=== PATIENT | female | born 1975 | race Caucasian/White ===

== ENCOUNTER → 2017-06-24 08:55 | Outpatient (CLI) | payer BC, SELFPAY ==
--- NOTE | 2017-06-24 08:59 | US_ITS ---
STUDY: THYROID ULTRASOUND REASON FOR EXAM: Female, 42 years old. Multinodular goiter. TECHNIQUE: Ultrasound evaluation of the thyroid was performed with real-time and static geronimo-scale imaging. COMPARISON: 11/28/2016. FINDINGS: RIGHT LOBE: The right lobe of the thyroid gland measures 4.9 x 1.7 x 1.8 cm. There is a homogeneous echotexture. There are no demonstrated solid, cystic or complex lesions. LEFT LOBE: The left lobe of the thyroid gland measures 5.2 x 2.3 x 2.9 cm. There is a homogeneous echotexture. In the mid and lower pole of the left lobe, there is a complex cystic and solid nodule which measures 2.5 x 2.0 x 2.3 cm, which is not significantly changed in size from previous study. ISTHMUS: The isthmus measures 6 mm. There is a 4 mm cystic and solid nodule in the isthmus, not significantly different in overall size from previous exam. . The regional lymph nodes are normal. US/Thyroid IMPRESSION: 2.5 cm complex solid and cystic nodule in the left lobe of the thyroid gland is not sufficiently changed in size from previous study. Would still consider fine-needle aspiration biopsy for further evaluation, if not previously done. 4 mm nodule in the isthmus is stable. Electronically Signed: Calvin Harrington MD at 0:46 EDT , Service support ,
== END ==
PROVIDERS: Family Provider Family Medicine; PCP Family Medicine; Visit Provider Otolaryngology
DX: E04.1 Nontoxic single thyroid nodule (principal)
CPT/HCPCS: 76536

== ENCOUNTER → 2017-08-05 16:00 | Outpatient (CLI) | payer BC, SELFPAY ==
[2017-08-09 10:38] LABS: HPV Reflexed? NOT INDICATED
== END ==
PROVIDERS: Visit Provider Obstetrics & Gynecology
DX: Z12.4 Encounter for screening for malignant neoplasm of cervix (principal)
CPT/HCPCS: 88175; G0145

== ENCOUNTER → 2017-09-14 10:24 | Outpatient (CLI) | payer BC, SELFPAY ==
--- NOTE | 2017-09-14 10:25 | BI_ITS ---
MAMMOGRAPHY - BILATERAL SCREENING 3-D JESUS SYNTHESIS REASON FOR EXAM: Female, 42 years old. Bilateral Screening 3-D tomosynthesis PERTINENT HISTORY: Grandmother with breast cancer.. TECHNIQUE: 2-D mammograms and 3-D Jesus synthesis of the breast (s) were performed. CAD was performed. COMPARISON: 11/25/2013 FINDINGS: The breast composition is composed of scattered fibroglandular density. Scattered benign calcifications are seen. No dense spiculated masses or suspicious microcalcifications are identified. No architectural distortion is identified. There is no skin thickening or retraction. There has been no significant change since the prior study. BI/SCREENING MAMM (CAD), BILAT IMPRESSION: No mammographic signs of malignancy. Routine yearly mammograms recommended. ASSESSMENT CATEGORY: BIRADS Category 1: Negative. A letter regarding these results will be sent to the patient by the facility within 30 days. FOLLOW UP RECOMMENDATION: Yearly follow up mammogram recommended. (A) Approximately 10% of breast cancers are not detected by mammography. A normal mammogram should not delay biopsy of a clinically suspicious abnormality. Electronically Signed: Jayden Venegas MD at 8:10 EDT , Service support ,
== END ==
PROVIDERS: Family Provider Family Medicine; PCP Family Medicine; Visit Provider Obstetrics & Gynecology
DX: Z12.31 Encounter for screening mammogram for malignant neoplasm of breast (principal)
CPT/HCPCS: 77063; 77067

== ENCOUNTER 2017-09-21 14:59 | Outpatient (RCR) | payer BC, SELFPAY ==
--- NOTE | 2017-09-21 17:32 | HP.OTEVAL_ITS ---
Patient's Visit Information CASSANDRA MACKENZIE is a 42 year old F, referred to Occupational Therapy by Sharad Dawson Jr., MD, with a diagnosis of CTS, inflammatory arthritis, hand weakness, lymphedema. Date of Evaluation: 09/21/17 Occupational Therapist: Reyna Prasad, KADENR/Andry, CHT - Subjective Subjective: Pt states she believes she has been sent to OT for bilateral hand pain/weakness. PT states weakness and pain in bilateral hands in the past two years. pt reports CTS for 10+ years ago. Pt states she does sleep in bilateral wrist braces when hands are more symptomatic. 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 Pt states she has worked there for 4.5 years. - Pain right hand 2 Pain Intensity Range: 1, 3 left hand 2 Pain Intensity Range: 1, 3 - Strength [employer]eter: right 45# left 45# Lateral Pinch: right 14# left 12# Tripod Pinch: right 11# left 11# Strength Comments: pain with resistance- - Edema Volumeter: right 650ML left 600 ml - Sensation Thumb: right 3.22 left 2.83 Index: right 2.83 left 2.83 Middle: right 2.83 left 2.83 Ring: right 2.83 left 2.83 Little: right 2.83 left 2.83 - Carpal Tunnel Syndrome Total Score of Symptom & Functional Sections: 32 - Goals Demonstrate adequate knowledge skin care/prec by 2nd week: Yes Demonstrate adequate knowledge therapeutic exercises by d/c: Yes Voice need to replace compression garment every 4-6mo by dc: Yes - Rehabilitation General Assessment: Pt demo need for ed. on CTS, joint protection and lymphedema - Therapist ed. pt on CTS and need for ortho consultation due to 10+ hx of CTS and the conservative methods have failed ( stretches, wrist braces). Therapist ed. pt on joint protection and given handouts on protection, ad. eq for joints. pt demo understanding and states she will adj. her kitchen, home, and office area. pt ed. on use of compression socks for bilateral LE- to cont. with 20-30mmHg and to replace compression hose every 4-6 months. pt also ed. on ex to assist with mtg of LE swelling- (ROM, aquatic, biking) pt given HEP and will call if she has questions. Rehabilitation Potential: Good - Anticipated Interventions Anticipated Interventions: A/AAROM/PROM, Modalities, Joint Protection/Energy Conservation, Ergonomic Education, Education re assistive Equipment, Education re Diagnosis, Education re Life-long lymphedema Management, Education re Skin Care and Precautions, Education re Correct Donning Tech,Care&Wearing Sched Comp Garments - Visit Plan TEXT: Thank you for the opportunity to evaluate your patient. For Medicare and Medicare HMO plans, please review the plan of care and approve it. It will need to be FAXED BACK to us at [phone] for Medicare purposes. Please let me know if there are questions or concerns regarding this plan of care. Physician Signature: Date:
--- NOTE | 2017-09-24 11:35 | HP.PTEVAL ---
Patient's Visit Information CASSANDRA MACKENZIE is a 42 year old F referred to Physical Therapy by Sharad Dawson Jr., MD with a diagnosis of . Date of Evaluation: 09/24/17 Physical Therapist: Marhsal Alvarado - Visit Plan Frequency: 2x /Week Duration: 4 Weeks Plan: Start with HS, quad, hip flexors, hip ER stretching. BLE strengthening and core strengthening with pain free movements to increase pt. carry over. Progress to fucntional strengthening as tolerated. - Subjective Subjective: Pt is here today for her initial evaluation with diagnosis of cervicalgia, dorsalgia, pain in B feet, and history of fibromyalsia. Pt. was diagnosed with RA ~6 years ago, but never had the RA factor. PT. is now seeing new critical care rn who is doing more testing. Pt. reports having pain in hips, knees, feet. Pt. reports now taking a lasix which has helped with her edema. Pt. reports wanting to be activite, but get depressed about her symptoms and turns to sugar. Pt. is hopeful to get back to recreational walking and exercises to increase healthy lifestyle. Pt. has a desire to be more active and she knows that exercises can be helpful in order to increase tolerance to general mobility. - Pain B knee Pain Intensity (Out of 10): 3 Pain Intensity Range: 1, 8 B hips Pain Intensity (Out of 10): 3 Pain Intensity Range: 1, 8 B feet Pain Intensity (Out of 10): 3 Pain Intensity Range: 1, 8 - Objective POSTURE: Pt. is over wt. Pt. has increased hip ER, increased B knee valgus postioning, anterior tilted pelvis. Pt. has rounded shoulders and FH posture. PALPATION: Pt. has minimal tenderness at B patellar tendons, no greater trochanter pain, pt. has some medial longitudinal arch pain as well, bilaterally. NEUROLOGICAL: all intact without issues. ROM: Pt. has tight HS bilaterally. Pt. has tight hip flexor length. Pt. has normal hip adductor legnth, but tight hip ER motion as well. Pt. reports no pain with stretching, but is tight. Pt. has normal knee ROM bilaterally, no crepitus noted this date with motion. Pt. has normal ankle mobility as well. MMT- Core strength- poor. RLE: hip- fleixon 4/5, abd 4-/5, ext 4/5; knee- ext 4+/5, flexion 4/5; ankle 4+/5 through except 5/5 plantar flexion. LLE: hip- flexion 4/5, abd 4/5, ext 4/5; knee- ext 4+/5, flexion 4/5; ankle 4+/5 troughout except 5/5 PF. GAIT: PT. has increased femoral IR in stance phase, genu valgum noted bilaterally, increased lateral hip translation. Pt. has normal ankle positioning, minimal pes planus. STAIRS: Pt. is able to complete, but has functional weakness with descending, use of BHR to complete. - Goals Goal 1:: Pt. to be I with HEP Goal Time Frame: 4-6 Weeks Goal 2:: Pt. to have increased HS length to 80deg bilaterally to allow for better pelvic positioning Goal Time Frame: 4-6 Weeks Goal 3:: Pt. to have increased hip ER and and hip ext mobility by 25% Goal 4:: Pt. to have increased BLE strength by 1/2 grade of all effected musculature to reduce stress applied to BLE joints with all functonal mobility. Goal Time Frame: 4-6 Weeks Goal 5:: Pt. to have increased stability with descending steps with reciprocal pattern no reduced signs of functional weakness. Goal Time Frame: 4-6 Weeks Goal 6:: Pt. to have decreased pain in BLEs to 1/10 with walking allowing for increased tolerance to healthier life style. Goal Time Frame: 4-6 Weeks - Rehabilitation Potential Rehabilitation Potential: Good - Anticipated Interventions Patient/Client Instruction: Educate patient on: Condition, Plan of Care, Risk Factors, Benefits of Fitness Program For the Purpose of:: To improve health and function, To foster healthy habits, To improve decision making, To facilitate caregiver knowledge, To improve self management, To prevent re-injury Therapeutic Exercise to Include: Strength training, Power training, Endurance training, Body mechanics, Postural training, Flexibilty training, Gait and locomotor training, Passive ROM, Active ROM, Dynamic Lumbar Stabilization For the Purpose of:: To decrease pain, To increase ROM, To improve nutrient delivery to tissue, To increase oxygenation perfusion, To improve muscle performance and motor function, To improve health of tissue, To decrease soft tissue restriction, To increase flexibility/ROM Thank you for the opportunity to evaluate your patient. For Medicare and Medicare HMO plans, please review the plan of care and approve it. It will need to be FAXED BACK to us at [phone] for Medicare purposes. Please let me know if there are questions or concerns regarding this plan of care. Physician Signature: Date:
--- NOTE | 2018-03-16 17:22 | HP.PT.NRP ---
HP - Discharge Summary (1) - Patient Information CASSANDRA MACKENZIE was seen in my office for initial evaluation on 09/21/17. The following Plan of Care was established for this patient: Initial Frequency: 2x /Week Initial Duration: 4 Weeks - Anticipated Interventions Patient/Client Instruction: Educate patient on: Condition, Plan of Care, Risk Factors, Benefits of Fitness Program For the Purpose of:: To improve health and function, To foster healthy habits, To improve decision making, To facilitate caregiver knowledge, To improve self management, To prevent re-injury Therapeutic Exercise to Include: Strength training, Power training, Endurance training, Body mechanics, Postural training, Flexibilty training, Gait and locomotor training, Passive ROM, Active ROM, Dynamic Lumbar Stabilization For the Purpose of:: To decrease pain, To increase ROM, To improve nutrient delivery to tissue, To increase oxygenation perfusion, To improve muscle performance and motor function, To improve health of tissue, To decrease soft tissue restriction, To increase flexibility/ROM This patient was last seen in our office 09/21/17. Pertinent comments regarding their Physical therapy will appear below: Pt. was seen for her initial evaluation, but did not return to any future visits. Pt. will be DC from PT at this point in time. At this point I will be discontinuing this patient from physical therapy. I would be happy to see this patient again in the future if found appropriate by the physician. Thank you! Marshal Alvarado DPT
== END 2017-09-21 19:00 | disposition home or self-care (01) ==
LOC: PT 14:59
PROVIDERS: Family Provider Family Medicine; PCP Family Medicine; Visit Provider Internal Medicine Rheumatology
DX: M54.2 Cervicalgia (principal); M54.9 Dorsalgia, unspecified; R20.2 Paresthesia of skin; G56.03 Carpal tunnel syndrome, bilateral upper limbs; M79.671 Pain in right foot; M79.672 Pain in left foot; M89.9 Disorder of bone, unspecified; M94.9 Disorder of cartilage, unspecified; M19.071 Primary osteoarthritis, right ankle and foot; M19.072 Primary osteoarthritis, left ankle and foot; M25.511 Pain in right shoulder; G89.29 Other chronic pain; M25.512 Pain in left shoulder; M75.21 Bicipital tendinitis, right shoulder; M75.22 Bicipital tendinitis, left shoulder; M75.50 Bursitis of unspecified shoulder; M25.531 Pain in right wrist; M25.532 Pain in left wrist; M79.641 Pain in right hand; M79.642 Pain in left hand; R29.898 Other symptoms and signs involving the musculoskeletal system; R60.0 Localized edema; C54.1 Malignant neoplasm of endometrium; R70.0 Elevated erythrocyte sedimentation rate; Z87.39 Personal history of other diseases of the musculoskeletal system and connective tissue; R53.83 Other fatigue; Z79.1 Long term (current) use of non-steroidal anti-inflammatories (NSAID); F41.9 Anxiety disorder, unspecified; R79.82 Elevated C-reactive protein (CRP); M79.7 Fibromyalgia; G43.909 Migraine, unspecified, not intractable, without status migrainosus; K21.9 Gastro-esophageal reflux disease without esophagitis; M19.90 Unspecified osteoarthritis, unspecified site
CPT/HCPCS: 97162; 97166

== ENCOUNTER → 2017-10-21 08:05 | Outpatient (CLI) | payer BC, SELFPAY ==
[2017-10-21 10:35] LABS: Erythrocyte Sedimentation Rate 20 mm/hr (0-20)
[2017-10-21 10:37] LABS: Hematocrit 40.9 % (37-47); Hemoglobin 12.7 g/dl (12.0-15.0); Mean Corp Hgb Conc 31.1 g/gl (32-36); Mean Corpuscular Volume 77.2 fL (81-99); Mean Platelet Vol. 11.1 fl (6.2-12.0); Platelet Count 201 K/mm3 (150-450); RBC Distribution Width CV 16.5 % (11.6-14.6); White Blood Count 6.1 K/mm3 (4.4-11.0)
[2017-10-21 10:39] LABS: Scan Indicated on CBC? Y/N NO
[2017-10-21 10:50] LABS: AST(SGOT) 23 U/L (15-37); Alanine Aminotransfer ALT/SGPT 51 U/L (13-56); CRP 6.26 mg/L (0.0-3.0); Creatinine, Serum 0.76 mg/dL (0.55-1.02); EST Glomerular Filtration Rate 88 mL/min (>60); Est Glom Filt Rate - Afr Amer 106 mL/min (>60); Uric Acid 3.5 mg/dL (2.6-6.0)
[2017-10-21 11:58] LABS: Vitamin B12 577 pg/mL (211-911); Vitamin D,25 Hydroxy 21.6 ng/mL (29.95-100.01)
== END ==
PROVIDERS: Family Provider Family Medicine; PCP Family Medicine; Visit Provider Family Medicine
DX: E55.9 Vitamin D deficiency, unspecified (principal); E53.8 Deficiency of other specified B group vitamins; M10.9 Gout, unspecified; R70.0 Elevated erythrocyte sedimentation rate; R79.82 Elevated C-reactive protein (CRP); M79.7 Fibromyalgia; R60.0 Localized edema; I89.0 Lymphedema, not elsewhere classified; R73.9 Hyperglycemia, unspecified; G56.03 Carpal tunnel syndrome, bilateral upper limbs; M19.071 Primary osteoarthritis, right ankle and foot; M19.072 Primary osteoarthritis, left ankle and foot; M47.814 Spondylosis without myelopathy or radiculopathy, thoracic region; M41.34 Thoracogenic scoliosis, thoracic region; M51.34 Other intervertebral disc degeneration, thoracic region; M77.32 Calcaneal spur, left foot; Z79.1 Long term (current) use of non-steroidal anti-inflammatories (NSAID); Z79.899 Other long term (current) drug therapy; Z87.39 Personal history of other diseases of the musculoskeletal system and connective tissue
CPT/HCPCS: 36415; 82306; 82565; 82607; 84450; 84460; 84550; 85027; 85652; 86140

== ENCOUNTER → 2017-12-28 15:17 | Outpatient (CLI) | payer BC, SELFPAY ==
--- NOTE | 2017-12-28 15:20 | RAD_ITS ---
STUDY: X-RAY - LEFT FOOT CLINICAL: Female, 42 years old. Lateral foot pain. Proximal fourth and fifth metatarsal pain and swelling. TECHNIQUE: 3 view(s) of the foot. COMPARISON: None. FINDINGS: Normal talus, calcaneus, and tarsal bones. Plantar calcaneal bone spur. 5 mm old avulsion fracture adjacent to the superior aspect of the navicular versus normal variant. Normal visualized subtalar, talonavicular, calcaneocuboid, tarsal and tarsometatarsal articulations. Normal metatarsi. Normal metatarsophalangeal joint of the great toe. Normal tibial and fibular sesamoid bones. Normal interphalangeal joint of the great toe. Normal phalanges of the great toe. Normal second through fifth metatarsophalangeal joints. Normal interphalangeal joints and phalanges of the lesser toes. The soft tissue structures are unremarkable. RAD/Foot min 3 Views IMPRESSION: No acute findings as above. Electronically Signed: Santana Craig MD at 7:59 EST , Service support ,
--- NOTE | 2017-12-28 15:20 | RAD_ITS ---
STUDY: X-RAY - LEFT ANKLE REASON FOR EXAM: Female, 42 years old. Trauma TECHNIQUE: 3 view(s) of the ankle. COMPARISON: None. FINDINGS: Normal visualized distal tibia and fibula. There is a small spur arising from the medial malleolus. Normal tibiotalar articulation and ankle mortise. Calcaneal spurs are present. There is a small chip fracture arising from the dorsal aspect of the navicular. The visualized subtalar, talonavicular, calcaneocuboid and tarsal articulations are normal. There is circumferential soft tissue swelling of the left ankle region. RAD/Ankle min 3 Views IMPRESSION: Nondisplaced chip fracture arising from dorsal aspect of the navicular. Small spur arising from the medial malleolus. Calcaneal spurs. Circumferential soft tissue swelling of the left ankle region. Electronically Signed: Daljit Kidd MD at 16:13 EST , Service support ,
== END ==
PROVIDERS: Family Provider Family Medicine; PCP Family Medicine; Referring Provider Family Medicine; Visit Provider Family Medicine
DX: M79.672 Pain in left foot (principal); M25.572 Pain in left ankle and joints of left foot
CPT/HCPCS: 73610; 73630

== ENCOUNTER → 2018-01-26 15:52 | Outpatient (CLI) | payer BC, SELFPAY ==
[2018-01-26 17:49] LABS: Hematocrit 40.3 % (37-47); Hemoglobin 12.7 g/dl (12.0-15.0); Mean Corp Hgb Conc 31.5 g/gl (32-36); Mean Corpuscular Hgb 25.1 pg (27.0-32.0); Mean Corpuscular Volume 79.8 fL (81-99); Mean Platelet Vol. 11.1 fl (6.2-12.0); Platelet Count 223 K/mm3 (150-450); RBC Distribution Width CV 16.5 % (11.6-14.6); RBC Distribution Width SD 47.2 fl (35.1-43.9); Red Blood Count 5.05 M/mm3 (4.2-5.4); White Blood Count 9.3 K/mm3 (4.4-11.0)
[2018-01-26 17:53] LABS: Scan Indicated on CBC? Y/N NO
[2018-01-26 18:02] LABS: AST(SGOT) 23 U/L (15-37); Alanine Aminotransfer ALT/SGPT 45 U/L (13-56); Creatinine, Serum 0.76 mg/dL (0.55-1.02); EST Glomerular Filtration Rate 87 mL/min (>60); Est Glom Filt Rate - Afr Amer 106 mL/min (>60); Uric Acid 3.3 mg/dL (2.6-6.0)
[2018-01-26 18:12] LABS: Vitamin D,25 Hydroxy 41.3 ng/mL (29.95-100.01)
[2018-01-26 18:15] LABS: Erythrocyte Sedimentation Rate 24 mm/hr (0-20)
[2018-01-29 11:55] LABS: Vitamin D 1,25-Dihydroxy 71.7 pg/mL (19.9-79.3)
== END ==
PROVIDERS: Family Provider Family Medicine; PCP Family Medicine; Referring Provider Internal Medicine Rheumatology; Visit Provider Internal Medicine Rheumatology
DX: M10.9 Gout, unspecified (principal); M77.32 Calcaneal spur, left foot; M15.9 Polyosteoarthritis, unspecified; M47.814 Spondylosis without myelopathy or radiculopathy, thoracic region; R79.82 Elevated C-reactive protein (CRP); M79.7 Fibromyalgia; R60.0 Localized edema; I89.0 Lymphedema, not elsewhere classified; E55.9 Vitamin D deficiency, unspecified; G56.03 Carpal tunnel syndrome, bilateral upper limbs; Z79.1 Long term (current) use of non-steroidal anti-inflammatories (NSAID); Z79.899 Other long term (current) drug therapy; Z87.39 Personal history of other diseases of the musculoskeletal system and connective tissue
CPT/HCPCS: 36415; 82306; 82565; 82652; 84450; 84460; 84550; 85027; 85652; 86140

== ENCOUNTER → 2018-02-03 23:24 | Outpatient (CLI) | payer BC, SELFPAY ==
[2018-02-08 15:35] LABS: HPV Reflexed? NOT INDICATED
--- OUTSIDE RECORDS SUMMARY | 2018-03-22 23:05 | XMS RPT_ITS | Summary of Care ---
:1975 Author Organization [facility] Address [address] [place] [address] Phone Care Team Providers Name Role Phone Tala Allen DO Primary Care Provider Reason for Visit Reason Comments Medication Management Encounter Details Date Type Department Care Team Description [facility] G, DO [address] [facility] [address] [facility] [place] [address] [place] [id number] Allergies Active Allergy Reactions Severity Noted Date Comments Codeine Hives 06/12/2009 Other reaction(s): Vomiting Morphine 06/12/2009 Other reaction(s): Mental Status Change Patient passes out from this medication as of this encounter Medications Prescription Sig. Disp. Refills Start Date End Date Status omeprazole 40 MG Cap 07/01/2017 Active capsule BusPIRone HCl 7.5 MG Tab 09/03/2017 Active sumatriptan 100 MG Tab 06/14/2017 Active tablet Probiotic Product Take by mouth. Active (PROBIOTIC-10 PO) Ibuprofen-Famotidine 1 po tid PRN 90 tablet 11 09/08/2017 Active (DUEXIS) 800-26.6 MG TabIndications: Cervicalgia, Dorsalgia, Paresthesia of both hands, Bilateral carpal tunnel syndrome, Bilateral foot pain, Disorder of bone and cartilage, Osteoarthritis of both feet, unspecified osteoarthritis type, Chronic pain of both shoulders, Bilateral biceps tendonitis, Subacromial bursitis, Bilateral wrist pain, Bilateral hand pain, Weakness of both hands, Bilateral lower extremity edema, Lymphedema of both lower extremities, Bilateral temporomandibular joint pain, Malignant neoplasm of endometrium, ESR raised, History of fibromyalgia, History of rheumatoid arthritis, Fatigue, unspecified type, [facility] current use of non-steroidal anti-inflammatories (NSAID), Anxiety, CRP elevated, Fibromyalgia, Migraine without status migrainosus, not intractable, unspecified migraine type, Gastroesophageal reflux disease, esophagitis presence not specified, Inflammatory arthritis potassium chloride 10 1 po q AM PRN 30 capsule 09/08/2017 Active MEQ Cap CRIndications: Cervicalgia, Dorsalgia, Paresthesia of both hands, Bilateral carpal tunnel syndrome, Bilateral foot pain, Disorder of bone and cartilage, Osteoarthritis of both feet, unspecified osteoarthritis type, Chronic pain of both shoulders, Bilateral biceps tendonitis, Subacromial bursitis, Bilateral wrist pain, Bilateral hand pain, Weakness of both hands, Bilateral lower extremity edema, Lymphedema of both lower extremities, Bilateral temporomandibular joint pain, Malignant neoplasm of endometrium, ESR raised, History of fibromyalgia, History of rheumatoid arthritis, Fatigue, unspecified type, 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), Anxiety, CRP elevated, Fibromyalgia, Migraine without status migrainosus, not intractable, unspecified migraine type, Gastroesophageal reflux disease, esophagitis presence not specified, Inflammatory arthritis furOSEmide 20 MG Tab 1 po q AM PRN 30 tablet 09/08/2017 Active tabletIndications: Cervicalgia, Dorsalgia, Paresthesia of both hands, Bilateral carpal tunnel syndrome, Bilateral foot pain, Disorder of bone and cartilage, Osteoarthritis of both feet, unspecified osteoarthritis type, Chronic pain of both shoulders, Bilateral biceps tendonitis, Subacromial bursitis, Bilateral wrist pain, Bilateral hand pain, Weakness of both hands, Bilateral lower extremity edema, Lymphedema of both lower extremities, Bilateral temporomandibular joint pain, Malignant neoplasm of endometrium, ESR raised, History of fibromyalgia, History of rheumatoid arthritis, Fatigue, unspecified type, 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), Anxiety, CRP elevated, Fibromyalgia, Migraine without status migrainosus, not intractable, unspecified migraine type, Gastroesophageal reflux disease, esophagitis presence not specified, Inflammatory arthritis allopurinol 300 MG Tab 1 po q day 30 tablet 09/22/2017 Active tabletIndications: Gouty arthropathy, ESR raised, Elevated erythrocyte sedimentation rate, History of fibromyalgia, History of rheumatoid arthritis, 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), CRP elevated, Fibromyalgia, Elevated C-reactive protein (CRP), Localized edema, [facility] (current) use of non-steroidal anti-inflammatories (nsaid), Lymphedema, not elsewhere classified, Long-term current use of high risk medication other than anticoagulant, Vitamin D deficiency, Hyperglycemia, Hyperuricemia, Gouty arthritis, Bilateral carpal tunnel syndrome, Carpal tunnel syndrome, bilateral upper limbs, Osteoarthritis of both feet, unspecified osteoarthritis type, Bilateral lower extremity edema, Lymphedema of both lower extremities, Inflammatory arthritis, Primary osteoarthritis, right ankle and foot, Osteoarthritis of multiple joints, unspecified osteoarthritis type, Calcaneal spur of foot, right, Thoracogenic scoliosis of thoracic region, Osteoarthritis of thoracic spine, unspecified spinal osteoarthritis complication status, Thoracic degenerative disc disease, Calcaneal spur of foot, left predniSONE 5 MG Tab 8 po q AM for 1 36 tablet 09/22/2017 Active tabletIndications: Gouty day decrease by arthropathy, ESR raised, 1 pill a day Elevated erythrocyte until off - to sedimentation rate, be used on a History of fibromyalgia, PRN basis History of rheumatoid arthritis, 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), CRP elevated, Fibromyalgia, Elevated C-reactive protein (CRP), Localized edema, [facility] (current) use of non-steroidal anti-inflammatories (nsaid), Lymphedema, not elsewhere classified, Long-term current use of high risk medication other than anticoagulant, Vitamin D deficiency, Hyperglycemia, Hyperuricemia, Gouty arthritis, Bilateral carpal tunnel syndrome, Carpal tunnel syndrome, bilateral upper limbs, Osteoarthritis of both feet, unspecified osteoarthritis type, Bilateral lower extremity edema, Lymphedema of both lower extremities, Inflammatory arthritis, Primary osteoarthritis, right ankle and foot, Osteoarthritis of multiple joints, unspecified osteoarthritis type, Calcaneal spur of foot, right, Thoracogenic scoliosis of thoracic region, Osteoarthritis of thoracic spine, unspecified spinal osteoarthritis complication status, Thoracic degenerative disc disease, Calcaneal spur of foot, left Colchicine (MITIGARE) 1 po bid can 60 capsule 09/22/2017 Active 0.6 MG Cap decrease to 1 capsuleIndications: po q day if Gouty arthropathy, ESR diarrhea raised, Elevated erythrocyte sedimentation rate, History of fibromyalgia, History of rheumatoid arthritis, 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), CRP elevated, Fibromyalgia, Elevated C-reactive protein (CRP), Localized edema, 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) use of non-steroidal anti-inflammatories (nsaid), Lymphedema, not elsewhere classified, Long-term current use of high risk medication other than anticoagulant, Vitamin D deficiency, Hyperglycemia, Hyperuricemia, Gouty arthritis, Bilateral carpal tunnel syndrome, Carpal tunnel syndrome, bilateral upper limbs, Osteoarthritis of both feet, unspecified osteoarthritis type, Bilateral lower extremity edema, Lymphedema of both lower extremities, Inflammatory arthritis, Primary osteoarthritis, right ankle and foot, Osteoarthritis of multiple joints, unspecified osteoarthritis type, Calcaneal spur of foot, right, Thoracogenic scoliosis of thoracic region, Osteoarthritis of thoracic spine, unspecified spinal osteoarthritis complication status, Thoracic degenerative disc disease, Calcaneal spur of foot, left Vitamin D-Vitamin K 2 po q day 60 tablet 11 11/02/2017 Active (DOSOQUIN) 5500-200 UNIT-MCG TabIndications: Gouty arthropathy, Calcaneal spur of foot, left, Osteoarthritis of multiple joints, unspecified osteoarthritis type, Spondylosis of thoracic region without myelopathy or radiculopathy, Calcaneal spur of left foot, History of fibromyalgia, History of rheumatoid arthritis, [facility] current use of non-steroidal anti-inflammatories (NSAID), CRP elevated, Fibromyalgia, Elevated C-reactive protein (CRP), Localized edema, 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) use of non-steroidal anti-inflammatories (nsaid), Lymphedema, not elsewhere classified, Long-term current use of high risk medication other than anticoagulant, Other half-way (current) drug therapy, Vitamin D deficiency, Gouty arthritis, Chronic gout of multiple sites, unspecified cause, Bilateral carpal tunnel syndrome, Carpal tunnel syndrome, bilateral upper limbs, Osteoarthritis of both feet, unspecified osteoarthritis type, Weakness of both hands, Bilateral lower extremity edema, Lymphedema of both lower extremities, Primary osteoarthritis, left ankle and foot, Primary osteoarthritis, right ankle and foot, Calcaneal spur of foot, right, Thoracogenic scoliosis of thoracic region, Osteoarthritis of thoracic spine, unspecified spinal osteoarthritis complication status, Thoracic degenerative disc disease as of this encounter Active Problems Problem Noted Date Gout 10/21/2017 Osteoarthritis 10/21/2017 Spondylosis of thoracic region without myelopathy or radiculopathy 10/21/2017 Calcaneal spur of left foot 10/21/2017 Other terminal superintendent (current) drug therapy 10/21/2017 Hyperglycemia 09/22/2017 Calcaneal spur of foot, right 09/22/2017 Scoliosis of thoracic spine 09/22/2017 Osteoarthritis thoracic spine 09/22/2017 Thoracic degenerative disc disease 09/22/2017 Cervical muscle pain 09/22/2017 Gouty arthritis 09/22/2017 Long-term current use of high risk medication other than anticoagulant 09/22/2017 Gouty arthropathy 09/22/2017 Calcaneal spur of foot, left 09/22/2017 Deficiency of other specified B group vitamins 09/10/2017 Vitamin D deficiency 09/10/2017 History of fibromyalgia 09/08/2017 History of rheumatoid arthritis 09/08/2017 Fatigue 09/08/2017 Disorder of bone and cartilage 09/08/2017 Migraines 09/08/2017 [facility] current use of non-steroidal anti-inflammatories (NSAID) 09/08/2017 GERD (gastroesophageal reflux disease) 09/08/2017 Anxiety 09/08/2017 CRP elevated 09/08/2017 Cervicalgia 09/08/2017 Dorsalgia 09/08/2017 Osteoarthritis of both feet 09/08/2017 Chronic pain of both shoulders 09/08/2017 Bilateral biceps tendonitis 09/08/2017 Subacromial bursitis 09/08/2017 Bilateral wrist pain 09/08/2017 Bilateral hand pain 09/08/2017 Weakness of both hands 09/08/2017 Paresthesia of both hands 09/08/2017 Bilateral carpal tunnel syndrome 09/08/2017 Bilateral foot pain 09/08/2017 Bilateral lower extremity edema 09/08/2017 Lymphedema of both lower extremities 09/08/2017 Bilateral temporomandibular joint pain 09/08/2017 Fibromyalgia 09/08/2017 body mass index of 40.0-49.9 09/08/2017 Inflammatory arthritis 09/08/2017 Anxiety disorder, unspecified 09/08/2017 Arthralgia of bilateral temporomandibular joint 09/08/2017 Bicipital tendinitis, left shoulder 09/08/2017 Bicipital tendinitis, right shoulder 09/08/2017 Bursitis of unspecified shoulder 09/08/2017 Carpal tunnel syndrome, bilateral upper limbs 09/08/2017 Disorder of bone, unspecified 09/08/2017 Disorder of cartilage, unspecified 09/08/2017 Dorsalgia, unspecified 09/08/2017 Elevated C-reactive protein (CRP) 09/08/2017 Gastro-esophageal reflux disease without esophagitis 09/08/2017 Localized edema 09/08/2017 [facility] (current) use of non-steroidal anti-inflammatories (nsaid) 09/08/2017 Lymphedema, not elsewhere classified 09/08/2017 Migraine, unspecified, not intractable, without status migrainosus 09/08/2017 Other chronic pain 09/08/2017 Other fatigue 09/08/2017 Pain in left foot 09/08/2017 Pain in left hand 09/08/2017 Pain in left shoulder 09/08/2017 Pain in left wrist 09/08/2017 Pain in right foot 09/08/2017 Pain in right hand 09/08/2017 Pain in right shoulder 09/08/2017 Pain in right wrist 09/08/2017 Paresthesia of skin 09/08/2017 Primary osteoarthritis, left ankle and foot 09/08/2017 Primary osteoarthritis, right ankle and foot 09/08/2017 Unspecified osteoarthritis, unspecified site 09/08/2017 Encounter for screening for malignant neoplasm of cervix 08/06/2017 Malignant neoplasm of endometrium 03/05/2017 Pain in unspecified joint 12/07/2016 Nontoxic single thyroid nodule 12/05/2016 Menopausal and female climacteric states 11/27/2016 Resolved Problems Problem Noted Date Resolved Date Personal history of other diseases of the musculoskeletal 10/21/2017 11/02/2017 system and connective tissue Hyperuricemia 09/22/2017 11/02/2017 ESR raised 09/08/2017 11/02/2017 Elevated erythrocyte sedimentation rate 09/08/2017 11/02/2017 Other symptoms and signs involving the musculoskeletal 09/08/2017 11/02/2017 system Personal history of other diseases of the musculoskeletal 09/08/2017 09/22/2017 system and connective tissue Rheumatoid arthritis, unspecified 12/07/2016 09/08/2017 Social History Tobacco Use Types Packs/Day Years Used Date Former Smoker Smokeless Tobacco: Never Used Alcohol Use Drinks/Week oz/Week Comments Yes Social Sex Assigned at Date Recorded Not on file as of this encounter Functional Status Functional Status Response Date of Assessment Are you deaf or do you have serious difficulty hearing? No 11/02/2017 Are you blind or do you have serious difficulty seeing, No 11/02/2017 even when wearing glasses? Do you have serious difficulty walking or climbing stairs No 11/02/2017 (5 years or older)? Do you have difficulty dressing or bathing (5 yrs or No 11/02/2017 older)? Because of a physical, mental, or emotional condition, do No 11/02/2017 you have difficulty doing errands alone such as visiting a doctor's office or shopping (5 yrs or older)? Cognitive Status Response Date of Assessment Because of a physical, mental, or emotional condition, do No 11/02/2017 you have serious difficulty concentrating, remembering, or making decisions (5 yrs or older)? as of this encounter Plan of Treatment Upcoming Encounters Date Type Specialty Care Team Description 02/02/2018 Office Visit Rheumatology Eunice Landers, Sharad Cummings, DO [address] [place] [address] [phone] Health Maintenance Due Date Last Done Comments HIV SCREENING DISCUSSION 1986 TETANUS 05/23/1991 TDAP (ADULT) 1992 PAP SMEAR DISCUSSION 1994 LIPID SCREENING 2013 MAMMOGRAM SCREENING DISCUSSION 2013 INFLUENZA VACCINE (#1) 2017 POTASSIUM 09/08/2018 09/08/2017 as of this encounter
--- OUTSIDE RECORDS SUMMARY | 2018-03-22 23:05 | XMS RPT_ITS | Summary of Care ---
:1975 Author Organization [facility] Address [address] [place] [address] Phone Care Team Providers Name Role Phone Tala Allen DO Primary Care Provider Reason for Visit Reason Comments Other Encounter Details Date Type Department Care Team Description 01/12/2018 Telephone [facility] Jayshree Barriga Other [address] [place] [phone] Allergies Active Allergy Reactions Severity Noted Date Comments Codeine Hives 06/12/2009 Other reaction(s): Vomiting Morphine 06/12/2009 Other reaction(s): Mental Status Change Patient passes out from this medication as of this encounter Medications Prescription Sig. Disp. 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-inflammatories (NSAID), Anxiety, [...] History of rheumatoid arthritis, Fatigue, unspecified type, terminal clerk current use of non-steroidal anti-inflammatories (NSAID), Anxiety, CRP elevated, Fibromyalgia, Migraine without status migrainosus, not intractable, unspecified migraine type, Gastroesophageal reflux disease, esophagitis presence not specified, Inflammatory arthritis allopurinol 300 MG Tab 1 po q day 30 tablet 09/22/2017 Active tabletIndications: Gouty arthropathy, ESR raised, Elevated erythrocyte sedimentation rate, History of fibromyalgia, History of rheumatoid arthritis, terminal clerk current use of non-steroidal anti-inflammatories (NSAID), CRP elevated, Fibromyalgia, Elevated C-reactive protein (CRP), Localized edema, terminal clerk (current) use of non-steroidal anti-inflammatories (nsaid), Lymphedema, [...] fibromyalgia, PRN basis History of rheumatoid arthritis, terminal clerk current use of non-steroidal anti-inflammatories (NSAID), CRP elevated, Fibromyalgia, Elevated C-reactive protein (CRP), Localized edema, terminal clerk (current) use of non-steroidal anti-inflammatories (nsaid), Lymphedema, [...] History of fibromyalgia, History of rheumatoid arthritis, terminal clerk current use of non-steroidal anti-inflammatories (NSAID), CRP elevated, Fibromyalgia, Elevated C-reactive protein (CRP), Localized edema, [facility] (current) use of non-steroidal anti-inflammatories (nsaid), Lymphedema, [...] History of fibromyalgia, History of rheumatoid arthritis, terminal clerk current use of non-steroidal anti-inflammatories (NSAID), CRP elevated, Fibromyalgia, Elevated C-reactive protein (CRP), Localized edema, terminal clerk (current) use of non-steroidal anti-inflammatories (nsaid), Lymphedema, not elsewhere classified, Long-term current use of high risk medication other than anticoagulant, Other medical terminologist (current) drug therapy, Vitamin D deficiency, Gouty [...] Calcaneal spur of left foot 10/21/2017 Other [facility] (current) drug therapy 10/21/2017 Hyperglycemia 09/22/2017 Calcaneal [...] of bone and cartilage 09/08/2017 Migraines 09/08/2017 terminal clerk current use of non-steroidal anti-inflammatories (NSAID) 09/08/2017 [...] disease without esophagitis 09/08/2017 Localized edema 09/08/2017 [facility] (current) use of non-steroidal anti-inflammatories (nsaid) 09/08/2017 [...] Rheumatology Eunice Landers, Sharad Cummings, DO [address] [place] [id number] [phone] Health Maintenance Due Date Last Done Comments HIV SCREENING DISCUSSION 1986 TETANUS 05/23/1991 TDAP (ADULT) 1992 PAP SMEAR DISCUSSION 1994 LIPID SCREENING 2013 MAMMOGRAM SCREENING DISCUSSION 2013 INFLUENZA VACCINE (#1) 2017 POTASSIUM 09/08/2018 09/08/2017 as of this encounter
--- OUTSIDE RECORDS SUMMARY | 2018-03-22 23:06 | XMS RPT_ITS ---
:1975 Author Organization OH[facility] Care Team Providers Name Role Phone STAINBROOK JR., TAMIA Attending Unavailable SELF, SELF Referring Unavailable STAINBROOK JR., TAMIA Attending Unavailable SELF, SELF Referring Unavailable STAINBROOK JR., TAMIA Attending Unavailable STAINBROOK JR., TAMIA Referring Unavailable STAINBROOK JR., TAMIA Attending Unavailable STAINBROOK JR., TAMIA Referring Unavailable STAINBROOK JR., TAMIA Attending Unavailable STAINBROOK JR., TAMIA Referring Unavailable STAINBROOK JR., TAMIA Attending Unavailable STAINBROOK JR., TAMIA Referring Unavailable STAINBROOK JR., TAMIA Attending Unavailable STAINBROOK JR., TAMIA Referring Unavailable STAINBROOK JR., TAMIA Attending Unavailable STAINBROOK JR., TAMIA Referring Unavailable STAINBROOK JR., TAMIA Attending Unavailable STAINBROOK JR., TAMIA Referring Unavailable STAINBROOK JR., TAMIA Attending Unavailable STAINBROOK JR., TAMIA Referring Unavailable STAINBROOK JR., TAMIA Attending Unavailable STAINBROOK JR., TAMIA Referring Unavailable STAINBROOK JR., TAMIA Attending Unavailable STAINBROOK JR., TAMIA Referring Unavailable STAINBROOK JR., TAMIA Attending Unavailable SELF, SELF Referring Unavailable STAINBROOK JR., TAMIA Attending Unavailable SELF, SELF Referring Unavailable STAINBROOK JR., TAMIA Attending Unavailable SELF, SELF Referring Unavailable Karina Ricardo Attending Unavailable Malys, Tala Primary Care Unavailable Shriner, Karina Referring Unavailable Rosales, Amilcar Attending Unavailable Rosales, Amilcar Referring Unavailable Malys, Tala Primary Care Unavailable Karina Ricardo Attending Unavailable Malys, Tala Attending Unavailable Malys, Tala Referring Unavailable Malys, Tala Primary Care Unavailable Stainbrook Jr., Tamia Cummings Consulting Unavailable Karina Ricardo Attending Unavailable Malys, Tala Primary Care Unavailable Karina Ricardo Referring Unavailable Stainbrook Jr., Tamia Cummings Attending Unavailable Malys, Tala Primary Care Unavailable Malys, Tala Attending Unavailable Malys, Tala Referring Unavailable Malys, Tala Primary Care Unavailable Stainbrook Jr., Tamia Cummings Attending Unavailable Stainbrook Jr., Tamia Cummings Referring Unavailable Malys, Tala Primary Care Unavailable PROBLEMS PROBLEMS DATE TYPE CONDITION / CODE ATTENDING STATUS SOURCE Unknown 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 / Hospital C54.1(ICD-10) Repository Admitting Joint Pain / [id number]() ANTONIO , Active [facility] 8 Diagnosis [facility] Repository Unknown M79.672 - Pain in left Malys, Tala Active [place] [facility] foot / M79.672(ICD-10) [facility] Repository Unknown M25.572 - Pain in left Malys, Tala Active [place] 8 ankle and joints of Community left foot / Hospital M25.572(ICD-10) Repository Unknown E55.9 - Vitamin D Malys, Tala Active [place] [facility] deficiency, Community unspecified / Hospital E55.9(ICD-10) Repository Unknown E53.8 - Deficiency of Malys, Tala Active [place] 8 other specified B Community group vitamins / Hospital E53.8(ICD-10) Repository Unknown M10.9 - Gout, Malys, Tala Active [place] [facility] unspecified / Community M10.9(ICD-10) Hospital Repository Unknown R70.0 - Elevated Malys, Tala Active [place] 8 erythrocyte Community sedimentation rate / Hospital R70.0(ICD-10) Repository Unknown Z87.39 - Personal Malys, Tala Active [place] 8 history of other Community diseases of the Hospital musculoskeletal system Repository and connective tissue / Z87.39(ICD-10) Unknown 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, Tala Active [place] [facility] (current) use of Community non-steroidal Hospital anti-inflammatories Repository (NSAID) / Z79.1(ICD-10) Unknown R79.82 - Elevated Malys, Tala Active [place] [facility] C-reactive protein Community (CRP) / R79.82(ICD-10) Hospital Repository Unknown R60.0 - Localized Malys, Tala Active [place] [facility] edema / R60.0(ICD-10) [facility] Repository Unknown Z79.899 - Other long Malys, Tala Active [place] 8 term (current) drug Community therapy / Hospital Z79.899(ICD-10) Repository Unknown G56.03 - Carpal tunnel Malys, Tala Active [place] [facility] syndrome, bilateral Community upper limbs / Hospital G56.03(ICD-10) Repository Unknown M19.071 - Primary Malys, Tala Active [place] [facility] osteoarthritis, right Community ankle and foot / Hospital M19.071(ICD-10) Repository Unknown M19.072 - Primary Malys, Tala Active [place] 8 osteoarthritis, left Community ankle and foot / Hospital M19.072(ICD-10) Repository Unknown I89.0 - Lymphedema, Malys, Tala Active [place] 8 not elsewhere Community classified / Hospital I89.0(ICD-10) Repository Unknown M19.90 - Unspecified Malys, Tala Active [place] 8 osteoarthritis, Community unspecified site / Hospital M19.90(ICD-10) Repository Unknown M47.814 - Spondylosis Malys, Tala Active [place] 8 without myelopathy or Community radiculopathy, Hospital thoracic region / Repository M47.814(ICD-10) Unknown M77.32 - Calcaneal Malys, Tala Active [place] 8 spur, left foot / Community M77.32(ICD-10) Hospital Repository Unknown M54.2 - Cervicalgia / Stainbrook Jr., Active [place] 8 M54.2(ICD-10) [facility] Repository Admitting Migraine, unspecified, STAINBROOK JR., Active [facility] 8 Diagnosis not intractable, [facility] without status Repository migrainosus / G43.909(ICD-10) Admitting Gastro-esophageal STAINBROOK JR., Active [facility] 8 Diagnosis reflux disease without [facility] [place] esophagitis / Repository K21.9(ICD-10) Admitting Unspecified STAINBROOK JR., Active [facility] 8 Diagnosis osteoarthritis, [facility] [place] unspecified site / Repository M19.90(ICD-10) Admitting Fibromyalgia / STAINBROOK JR., Active [facility] 8 Diagnosis M79.7(ICD-10) [facility] [place] Admitting Arthralgia of STAINBROOK JR., Active [facility] 8 Diagnosis bilateral [facility] [place] temporomandibular Repository joint / M26.623(ICD-10) Admitting Lymphedema, not STAINBROOK JR., Active [facility] 8 Diagnosis elsewhere classified / [facility] [place] I89.0(ICD-10) Repository Admitting Localized edema / STAINBROOK JR., Active [facility] 8 Diagnosis R60.0(ICD-10) [facility] [place] Admitting Pain in right foot / STAINBROOK JR., Active [facility] 8 Diagnosis M79.671(ICD-10) [facility] [place] Admitting Pain in left foot / STAINBROOK JR., Active [facility] 8 Diagnosis M79.672(ICD-10) [facility] [place] Admitting Carpal tunnel STAINBROOK JR., Active [facility] 8 Diagnosis syndrome, bilateral [facility] [place] upper limbs / Repository G56.03(ICD-10) Admitting Paresthesia of skin / STAINBROOK JR., Active [facility] 8 Diagnosis R20.2(ICD-10) [facility] [place] Admitting Other symptoms and STAINBROOK JR., Active [facility] 8 Diagnosis signs involving the [facility] musculoskeletal system Repository / R29.898(ICD-10) Admitting Pain in right hand / STAINBROOK JR., Active [facility] 8 Diagnosis M79.641(ICD-10) [facility] [place] Admitting Pain in left hand / STAINBROOK JR., Active [facility] 8 Diagnosis M79.642(ICD-10) [facility] [place] Admitting Pain in right wrist / STAINBROOK JR., Active [facility] 8 Diagnosis M25.531(ICD-10) [facility] [place] Admitting Pain in left wrist / STAINBROOK JR., Active [facility] 8 Diagnosis M25.532(ICD-10) [facility] [place] Admitting Bursitis of STAINBROOK JR., Active [facility] 8 Diagnosis unspecified shoulder / [facility] [place] M75.50(ICD-10) Repository Admitting Bicipital tendinitis, STAINBROOK JR., Active [facility] 8 Diagnosis right shoulder / [facility] [place] M75.21(ICD-10) Repository Admitting Bicipital tendinitis, STAINBROOK JR., Active [facility] 8 Diagnosis left shoulder / [facility] [place] M75.22(ICD-10) Repository Admitting Pain in right shoulder STAINBROOK JR., Active [facility] 8 Diagnosis / M25.511(ICD-10) [facility] [place] Rep[place] Admitting Other chronic pain / STAINBROOK JR., Active [facility] 8 Diagnosis G89.29(ICD-10) [facility] [place] Admitting Pain in left shoulder STAINBROOK JR., Active [facility] 8 Diagnosis / M25.512(ICD-10) [facility] [place] Admitting Primary STAINBROOK JR., Active [facility] 8 Diagnosis osteoarthritis, right [facility] [place] ankle and foot / Repository M19.071(ICD-10) Admitting Primary STAINBROOK JR., Active [facility] 8 Diagnosis osteoarthritis, left [facility] [place] ankle and foot / Repository M19.072(ICD-10) Admitting Dorsalgia, unspecified STAINBROOK JR., Active [facility] 8 Diagnosis / M54.9(ICD-10) [facility] [place] Admitting Cervicalgia / STAINBROOK JR., Active [facility] 8 Diagnosis M54.2(ICD-10) [facility] [place] Rep[place] Admitting Elevated C-reactive STAINBROOK JR., Active [facility] 8 Diagnosis protein (CRP) / [facility] [place] R79.82(ICD-10) Repository Admitting Elevated erythrocyte STAINBROOK JR., Active [facility] 8 Diagnosis sedimentation rate / [facility] [place] R70.0(ICD-10) Repository Admitting Anxiety disorder, STAINBROOK JR., Active [facility] 8 Diagnosis unspecified / [facility] [place] F41.9(ICD-10) Repository Admitting [facility] (current) STAINBROOK JR., [facility] 8 Diagnosis use of non-steroidal [facility] [place] anti-inflammatories Repository (nsaid) / Z79.1(ICD-10) Admitting Disorder of bone, STAINBROOK JR., [facility] 8 Diagnosis unspecified / [facility] [place] M89.9(ICD-10) Repository Admitting Disorder of cartilage, STAINBROOK JR., [facility] 8 Diagnosis unspecified / [facility] [place] M94.9(ICD-10) Repository Admitting Other fatigue / STAINBROOK JR., [facility] 8 Diagnosis R53.83(ICD-10) [facility] [place] Rep[place] Admitting Personal history of STAINBROOK JR., [facility] 8 Diagnosis other diseases of the [facility] [place] musculoskeletal system Repository and connective tissue / Z87.39(ICD-10) Admitting Malignant neoplasm of STAINBROOK JR., [facility] 8 Diagnosis endometrium / [facility] [place] C54.1(ICD-10) Repository Admitting New Patient / STAINBROOK JR., [facility] 8 Diagnosis [id number]() [facility] [place] Repository Unknown Z12.4 - Encounter for Karina Ricardo Active [place] [facility] screening for [facility] malignant neoplasm of Hospital cervix / Z12.4(ICD-10) Repository PROCEDURES PROCEDURES No Procedure Records FoundRESULTS RESULTS PAP I-G W/RFX HRHPV Collected: 02/03/2018 Status: F Source: [place] 3:45 PM [facility] [place] Order Comment: CYTOLOGY INFORMATION: - CLINICAL INFORMATION: HYSTERECTOMY - DATE LMP/MENOPAUSE: - COLLECTION VIAL: Thin Prep Vial - DIRECTOR OF REVENUE SOURCE: VAGINAL - COLLECTION TECHNIQUE: BRUSH/SPATULA Specimen Comment: [id number] Specimen Comment: Source.............Vagina Specimen Comment: LMP / Prev Treat...Hyst Specimen Comment: No. of containers..01 ThinPrep Vial TYPE CODE TESTS RESULT OUT OF RANGE REFERENCE UNITS LAB L7400.0800 . Normal DIAGN Comment Result Comment: NEGATIVE FOR INTRAEPITHELIAL LESION AND MALIGNANCY. LAB L7400.0900 . Normal ADEQ Comment Result Comment: Satisfactory for evaluation. No endocervical cells are present. This is consistent with a history of hysterectomy. LAB L7400.1400 . Normal PERFORM Comment Result Comment: Binta Rios, Handwriting Expert (ASCP) LAB L7400.2575 . Normal TEST METHOD Comment Result Comment: This liquid based ThinPrep(R) pap test was screened with the use of an image guided system. LAB L7400.2600 . Normal . COMM LAB L7400.2700 . Normal PAPSMR Comment Result Comment: The Pap smear is a screening test designed to aid in the detection of premalignant and malignant conditions of the uterine cervix. It is not a diagnostic procedure and should not be used as the sole means of detecting cervical cancer. Both false-positive and false-negative reports do occur. LAB L7400.2800 . Normal HPV RFLX Comment Result Comment: The HPV DNA reflex criteria were not met with this specimen result therefore, no HPV testing was performed. Performed at: - [facility] [id number] Private Tutor: Bertha Martin MD, Phone: [phone] Performed By: #### L7400.0350 #### [facility] (refer to report for specific site) refer to report for address and phone number CBC-COMPLETE BLOOD CNT Collected: 01/26/2018 Status: F Source: [place] NO DIFF 4:06 PM [facility] [place] [facility] TYPE CODE TESTS RESULT OUT OF RANGE REFERENCE UNITS LAB L100.1000 4.4-11.0 K/mm3 Normal WBC 9.3 LAB L100.1200 4.2-5.4 M/mm3 Normal RBC 5.05 LAB L100.1300 12.0-15.0 g/dl Normal HGB 12.7 LAB L100.1400 37-47 % Normal HCT 40.3 LAB L100.1500 81-99 fL Low MCV 79.8 LAB L100.1600 27.0-32.0 pg Low MCH 25.1 LAB L100.1700 32-36 g/gl Low MCHC 31.5 LAB L100.1810 11.6-14.6 % High RDW CV 16.5 LAB L100.1820 35.1-43.9 fl High RDW SD 47.2 LAB L100.1900 150-450 K/mm3 Normal PLT 223 LAB L100.2000 6.2-12.0 fl Normal MPV 11.1 Performed By: #### L100.0500, L101.9900 #### [facility] [address] [place], [place], [id number] ERYTHROCYTE SED RATE Collected: 01/26/2018 Status: F Source: [place] 4:06 PM [facility] [place] [facility] TYPE CODE TESTS RESULT OUT OF RANGE REFERENCE UNITS LAB L102.0000 0-20 mm/hr High SED RATE 24 Performed By: #### L100.0500, L101.9900 #### [facility] [address] [place], [place], [id number] SERUM CREATININE AND Collected: 01/26/2018 Status: F Source: [place] GFR 4:06 PM [facility] [place] [facility] TYPE CODE TESTS RESULT OUT OF RANGE REFERENCE UNITS LAB L501.1100 0.55-1.02 mg/dL Normal 0.76 CREAT,SERUM Result Comment: The validity of the calculated GFR AND GFRAA in patients over 70 years has not been determined. Clinical correlation is essential. LAB L501.1110 >60 mL/min Normal EST GFR 87 Result Comment: Non- GFR Calc LAB L501.1115 >60 mL/min Normal EST GFR - AA 106 Result Comment: GFR Calc Performed By: #### L501.1105, L501.1400, L501.4100, L501.4405, L501.6710 #### [facility] [address] [place], [address] URIC ACID Collected: 01/26/2018 Status: F Source: [place] 4:06 PM [facility] [place] [facility] TYPE CODE TESTS RESULT OUT OF RANGE REFERENCE UNITS LAB L501.1400 2.6-6.0 mg/dL Normal URIC 3.3 Result Comment: The drugs N-Acetylcysteine and Metamizole may falsely depress this assay. Performed By: #### L501.1105, L501.1400, L501.4100, L501.4405, L501.6710 #### [facility] [address] [place], [address] AST(SGOT) Collected: 01/26/2018 Status: F Source: [place] 4:06 PM [facility] [place] [facility] TYPE CODE TESTS RESULT OUT OF RANGE REFERENCE UNITS LAB L501.4100 15-37 U/L Normal AST 23 Performed By: #### L501.1105, L501.1400, L501.4100, L501.4405, L501.6710 #### [facility] [address] [place], [address] ALANINE AMINOTRANSFERAS Collected: 01/26/2018 Status: F Source: [place] (SGPT) 4:06 PM [facility] [place] [facility] TYPE CODE TESTS RESULT OUT OF RANGE REFERENCE UNITS LAB L501.4405 13-56 U/L Normal ALT 45 Performed By: #### L501.1105, L501.1400, L501.4100, L501.4405, L501.6710 #### [facility] [address] [place], [address] CRP Collected: 01/26/2018 Status: F Source: [place] 4:06 PM [facility] [place] [facility] TYPE CODE TESTS RESULT OUT OF RANGE REFERENCE UNITS LAB L501.6710 0.0-3.0 mg/L High 17.80 C-REACTIVE PROT Result Comment: C-Reactive Protein (CRP) provides useful information for the diagnosis, therapy and monitoring of inflammatory processes and associated diseases. For the evaluation of Relative Risk for Cardiovascular Disease, a High Sensitivity CRP (HSCRP) should be ordered. Performed By: #### L501.1105, L501.1400, L501.4100, L501.4405, L501.6710 #### [facility] [address] [place], [address] VITAMIN D,25 HYDROXY Collected: 01/26/2018 Status: F Source: [place] 4:06 PM [facility] [place] [facility] TYPE CODE TESTS RESULT OUT OF RANGE REFERENCE UNITS LAB L506.1000 29.95-100.01 ng/mL Normal Vitamin D 41.3 25-OH Result Comment: Vitamin D 25(OH) Status Range Deficiency <20 ng/mL (50nmol/L) Insuffciency 20 - 30 ng/mL (50 - 75 nmol/L) Sufficiency 30 - 100 ng/mL (75 - 250 nmol/L) Toxicity >100 ng/mL (>250 nmol/L) Performed By: #### L506.1000 #### [facility] [address] [place], [address] VITAMIN D 1,25-DIHYDROXY Collected: 01/26/2018 Status: F Source: [place] 4:06 PM [facility] [place] [facility] TYPE CODE TESTS RESULT OUT OF RANGE REFERENCE UNITS LAB L3300.0960 19.9-79.3 pg/mL Normal VITD 1,25 71.7 [address] Result Comment: Performed at: - [facility] [id number] Private Tutor: Jesus Snider MD, Phone: [phone] Performed By: #### L3300.0960 #### [facility] (refer to report for specific site) refer to report for address and phone number FOOT MIN 3 VIEWS Observed: 12/28/2017 Status: F Source: [place] 3:21 PM [facility] [place] [facility] Services [address] [place] [address] Foot min 3 Views MR#: [id number] Acct: [id number] Name: CASSANDRA MACKENZIE Rep #: [id number] : 1975 F 42 From: Santana Craig PCP: Tala Allen DO Status: REG CLI Study: Foot min 3 Views Date of Exam: 12/28/17 Exam# [id number] Ordering Dr: Tala Allen DO STUDY: X-RAY - LEFT FOOT CLINICAL: Female, 42 years old. Lateral foot pain. Proximal fourth and fifth metatarsal pain and swelling. TECHNIQUE: 3 view(s) of the foot. COMPARISON: None. FINDINGS: Normal talus, calcaneus, and tarsal bones. Plantar calcaneal bone spur. 5 mm old avulsion fracture adjacent to the superior aspect of the navicular versus normal variant. Normal visualized subtalar, talonavicular, calcaneocuboid, tarsal and tarsometatarsal articulations. Normal metatarsi. Normal metatarsophalangeal joint of the great toe. Normal tibial and fibular sesamoid bones. Normal interphalangeal joint of the great toe. Normal phalanges of the great toe. Normal second through fifth metatarsophalangeal joints. Normal interphalangeal joints and phalanges of the lesser toes. The soft tissue structures are unremarkable. RAD/Foot min 3 Views IMPRESSION: No acute findings as above. Electronically Signed: Santana Craig MD at 7:59 EST , Service support , CC: Tala Allen DO Technology Development Intern: Signed ANKLE MIN 3 VIEWS Observed: 12/28/2017 Status: F Source: [place] 3:21 PM [facility] [place] [facility] Imaging Services [address] [place] [address] Ankle min 3 Views MR#: [id number] Acct: [id number] Name: CASSANDRA MACKENZIE Rep #: [id number] : 1975 F 42 From: Daljit Kidd MD PCP: Tala Allen DO Status: REG CLI Study: Ankle min 3 Views Date of Exam: 12/28/17 Exam# [id number] Ordering Dr: Tala Allen DO STUDY: X-RAY - LEFT ANKLE REASON FOR EXAM: Female, 42 years old. Trauma TECHNIQUE: 3 view(s) of the ankle. COMPARISON: None. FINDINGS: Normal visualized distal tibia and fibula. There is a small spur arising from the medial malleolus. Normal tibiotalar articulation and ankle mortise. Calcaneal spurs are present. There is a small chip fracture arising from the dorsal aspect of the navicular. The visualized subtalar, talonavicular, calcaneocuboid and tarsal articulations are normal. There is circumferential soft tissue swelling of the left ankle region. RAD/Ankle min 3 Views IMPRESSION: Nondisplaced chip fracture arising from dorsal aspect of the navicular. Small spur arising from the medial malleolus. Calcaneal spurs. Circumferential soft tissue swelling of the left ankle region. Electronically Signed: Daljit Kidd MD at 16:13 EST , Service support , CC: Tala Allen DO Technology Development Intern: Signed CBC-COMPLETE BLOOD CNT Collected: 10/21/2017 Status: F Source: [place] NO DIFF 8:18 AM [facility] [place] [facility] TYPE CODE TESTS RESULT OUT OF RANGE REFERENCE UNITS LAB L100.1000 4.4-11.0 K/mm3 Normal WBC 6.1 LAB L100.1200 4.2-5.4 M/mm3 Normal RBC 5.30 LAB L100.1300 12.0-15.0 g/dl Normal HGB 12.7 LAB L100.1400 37-47 % Normal HCT 40.9 LAB L100.1500 81-99 fL Low MCV 77.2 LAB L100.1600 27.0-32.0 pg Low MCH 24.0 LAB L100.1700 32-36 g/gl Low MCHC 31.1 LAB L100.1810 11.6-14.6 % High RDW CV 16.5 LAB L100.1820 35.1-43.9 fl High RDW SD 46.0 LAB L100.1900 150-450 K/mm3 Normal PLT 201 LAB L100.2000 6.2-12.0 fl Normal MPV 11.1 Performed By: #### L100.0500, L101.9900 #### [facility] [address] [place], [address] ERYTHROCYTE SED RATE Collected: 10/21/2017 Status: F Source: [place] 8:18 AM [facility] [place] [facility] TYPE CODE TESTS RESULT OUT OF RANGE REFERENCE UNITS LAB L102.0000 0-20 mm/hr Normal SED RATE 20 Performed By: #### L100.0500, L101.9900 #### [facility] [address] [place], [place], [id number] SERUM CREATININE AND Collected: 10/21/2017 Status: F Source: [place] GFR 8:18 AM [facility] [place] [facility] TYPE CODE TESTS RESULT OUT OF RANGE REFERENCE UNITS LAB L501.1100 0.55-1.02 mg/dL Normal 0.76 CREAT,SERUM Result Comment: The validity of the calculated GFR AND GFRAA in patients over 70 years has not been determined. Clinical correlation is essential. LAB L501.1110 >60 mL/min Normal EST GFR 88 Result Comment: Non- GFR Calc LAB L501.1115 >60 mL/min Normal EST GFR - AA 106 Result Comment: GFR Calc Performed By: #### L501.1105, L501.1400, L501.4100, L501.4405, L501.6710 #### [facility] [address] [place], [address] URIC ACID Collected: 10/21/2017 Status: F Source: [place] 8:18 AM [facility] [place] [facility] TYPE CODE TESTS RESULT OUT OF RANGE REFERENCE UNITS LAB L501.1400 2.6-6.0 mg/dL Normal URIC 3.5 Result Comment: The drugs N-Acetylcysteine and Metamizole may falsely depress this assay. Performed By: #### L501.1105, L501.1400, L501.4100, L501.4405, L501.6710 #### [facility] [address] [place], [address] AST(SGOT) Collected: 10/21/2017 Status: F Source: [place] 8:18 AM [facility] [place] [facility] TYPE CODE TESTS RESULT OUT OF RANGE REFERENCE UNITS LAB L501.4100 15-37 U/L Normal AST 23 Performed By: #### L501.1105, L501.1400, L501.4100, L501.4405, L501.6710 #### [facility] [address] [place], [address] ALANINE AMINOTRANSFERAS Collected: 10/21/2017 Status: F Source: [place] (SGPT) 8:18 AM [facility] [place] [facility] TYPE CODE TESTS RESULT OUT OF RANGE REFERENCE UNITS LAB L501.4405 13-56 U/L Normal ALT 51 Performed By: #### L501.1105, L501.1400, L501.4100, L501.4405, L501.6710 #### [facility] [address] [place], [address] CRP Collected: 10/21/2017 Status: F Source: [place] 8:18 AM [facility] [place] [facility] TYPE CODE TESTS RESULT OUT OF RANGE REFERENCE UNITS LAB L501.6710 0.0-3.0 mg/L High 6.26 C-REACTIVE PROT Result Comment: C-Reactive Protein (CRP) provides useful information for the diagnosis, therapy and monitoring of inflammatory processes and associated diseases. For the evaluation of Relative Risk for Cardiovascular Disease, a High Sensitivity CRP (HSCRP) should be ordered. Performed By: #### L501.1105, L501.1400, L501.4100, L501.4405, L501.6710 #### [facility] [address] [place], [address] VITAMIN B12 Collected: 10/21/2017 Status: F Source: [place] 8:17 AM [facility] [place] [facility] TYPE CODE TESTS RESULT OUT OF RANGE REFERENCE UNITS LAB L503.0105 211-911 pg/mL Normal Vitamin B12 577 Performed By: #### L503.0105, L506.1000 #### [facility] [address] [place], [address] VITAMIN D,25 HYDROXY Collected: 10/21/2017 Status: F Source: [place] 8:17 AM [facility] [place] [facility] TYPE CODE TESTS RESULT OUT OF REFERENCE UNITS RANGE LAB L506.1000 29.95-100.01 ng/mL Low Vitamin D 21.6 25-OH Result Comment: Vitamin D 25(OH) Status Range Deficiency <20 ng/mL (50nmol/L) Insuffciency 20 - 30 ng/mL (50 - 75 nmol/L) Sufficiency 30 - 100 ng/mL (75 - 250 nmol/L) Toxicity >100 ng/mL (>250 nmol/L) Performed By: #### L503.0105, L506.1000 #### [facility] [address] [place], [address] INITAL EVALUATION (1) Observed: 09/24/2017 Status: F Source: [facility] - PT 11:36 AM [facility] [place] [facility] [address] [place] [address] Fax REHABILITATION SERVICES INITIAL EVALUATION MR#: [id number] Acct: [id number] Name: CASSANDRA MACKENZIE Rep #: [id number] : 1975 42 From: Marshal Alvarado DPT Referring Dr.: Tamia Dawson Jr., MD Status: REG RCR Insurance: [employer] SELF PAY INSURANCE Patient's Visit Information CASSANDRA MACKENZIE is a 42 year old F referred to Physical Therapy by Tamia Dawson Jr., MD with a diagnosis of . Date of Evaluation: 09/24/17 Physical Therapist: Marshal Alvarado - Visit Plan Frequency: 2x /Week Duration: 4 Weeks Plan: Start with HS, quad, hip flexors, hip ER stretching. BLE strengthening and core strengthening with pain free movements to increase pt. carry over. Progress to fucntional strengthening as tolerated. - Subjective Subjective: Pt is here today for her initial evaluation with diagnosis of cervicalgia, dorsalgia, pain in B feet, and history of fibromyalsia. Pt. was diagnosed with RA 6 years ago, but never had the RA factor. PT. 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 Pt. reports having pain in hips, knees, feet. Pt. reports now taking a lasix which has helped with her edema. Pt. reports wanting to be activite, but get depressed about her symptoms and turns to sugar. Pt. is hopeful to get back to recreational walking and exercises to increase healthy lifestyle. Pt. has a desire to be more active and she knows that exercises can be helpful in order to increase tolerance to general mobility. - Pain B knee Pain Intensity (Out of 10): 3 Pain Intensity Range: 1, 8 B hips Pain Intensity (Out of 10): 3 Pain Intensity Range: 1, 8 B feet Pain Intensity (Out of 10): 3 Pain Intensity Range: 1, 8 - Objective POSTURE: Pt. is over wt. Pt. has increased hip ER, increased B knee valgus postioning, anterior tilted pelvis. Pt. has rounded shoulders and FH posture. PALPATION: Pt. has minimal tenderness at B patellar tendons, no greater trochanter pain, pt. has some medial longitudinal arch pain as well, bilaterally. NEUROLOGICAL: all intact without issues. ROM: Pt. has tight HS bilaterally. Pt. has tight hip flexor length. Pt. has normal hip adductor legnth, but tight hip ER motion as well. Pt. reports no pain with stretching, but is tight. Pt. has normal knee ROM bilaterally, no crepitus noted this date with motion. Pt. has normal ankle mobility as well. MMT- Core strength- poor. RLE: hip- fleixon 4/5, abd 4-/5, ext 4/5; knee- ext 4+/5, flexion 4/5; ankle 4+/5 through except 5/5 plantar flexion. LLE: hip- flexion 4/5, abd 4/5, ext 4/5; knee- ext 4+/5, flexion 4/5; ankle 4+/5 troughout except 5/5 PF. GAIT: PT. has increased femoral IR in stance phase, genu valgum noted bilaterally, increased lateral hip translation. Pt. has normal ankle positioning, minimal pes planus. STAIRS: Pt. is able to complete, but has functional weakness with descending, use of BHR to complete. - Goals Goal 1:: Pt. to be I with HEP Goal Time Frame: 4-6 Weeks Goal 2:: Pt. to have increased HS length to 80deg bilaterally to allow for better pelvic positioning Goal Time Frame: 4-6 Weeks Goal 3:: Pt. to have increased hip ER and and hip ext mobility by 25% Goal 4:: Pt. to have increased BLE strength by 1/2 grade of all effected musculature to reduce stress applied to BLE joints with all functonal mobility. Goal Time Frame: 4-6 Weeks Goal 5:: Pt. to have increased stability with descending steps with reciprocal pattern no reduced signs of functional weakness. Goal Time Frame: 4-6 Weeks Goal 6:: Pt. to have decreased pain in BLEs to 1/10 with walking allowing for increased tolerance to healthier life style. Goal Time Frame: 4-6 Weeks - Rehabilitation Potential Rehabilitation Potential: Good - Anticipated Interventions Patient/Client Instruction: Educate patient on: Condition, Plan of Care, Risk Factors, Benefits of Fitness Program For the Purpose of:: To improve health and function, To foster healthy habits, To improve decision making, To facilitate caregiver knowledge, To improve self management, To prevent re-injury Therapeutic Exercise to Include: Strength training, Power training, Endurance training, Body mechanics, Postural training, Flexibilty training, Gait and locomotor training, Passive ROM, Active ROM, Dynamic Lumbar Stabilization For the Purpose of:: To decrease pain, To increase ROM, To improve nutrient delivery to tissue, To increase oxygenation perfusion, To improve muscle performance and motor function, To improve health of tissue, To decrease soft tissue restriction, To increase flexibility/ROM Thank you for the opportunity to evaluate your patient. For Medicare and Medicare HMO plans, please review the plan of care and approve it. It will need to be FAXED BACK to us at [phone] for Medicare purposes. Please let me know if there are questions or concerns regarding this plan of care. Physician Signature: Date: <Electronically signed by Marshal DUFFT> 09/24/17 1136 CC: Tamia Dawson Jr., MD; Tala Allen DO CLS Signed For Medicare only, by signing this I certify the plan of care. Physicians Signature Date OT GENERAL EVALUATION Observed: 09/22/2017 Status: F Source: [place] 4:00 [facility] REPOSITORY [facility] [address] [place] [address] Fax REHABILITATION SERVICES INITIAL EVALUATION MR#: [id number] Acct: [id number] Name: CASSANDRA MACKENZIE Rep #: [id number] : 1975 42 From: Reyna SMART/Andry, CHT Referring Dr.: Tamia Dawson Jr., MD Status: REG RCR Insurance: [employer] Date: SELF PAY INSURANCE Patient's Visit Information CASSANDRA MACKENZIE is a 42 year old F, referred to Occupational Therapy by Tamia Dawson Jr., MD, with a diagnosis of CTS, inflammatory arthritis, hand weakness, lymphedema. Date of Evaluation: 09/21/17 Occupational Therapist: Reyna Prasad, BERRY/Andry, CHT - Subjective Subjective: Pt states she believes she has been sent to OT for bilateral hand pain/weakness. PT states weakness and pain in bilateral hands in the past two years. pt reports CTS for 10+ years ago. Pt states she does sleep in bilateral wrist braces when hands are more symptomatic. 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 Pt states she has worked there for 4.5 years. - Pain right hand 2 Pain Intensity Range: 1, 3 left hand 2 Pain Intensity Range: 1, 3 - Strength Baseball Sewer Hand: right 45# left 45# Lateral Pinch: right 14# left 12# Tripod Pinch: right 11# left 11# Strength Comments: pain with resistance- - Edema Volumeter: right 650ML left 600 ml - Sensation Thumb: right 3.22 left 2.83 Index: right 2.83 left 2.83 Middle: right 2.83 left 2.83 Ring: right 2.83 left 2.83 Little: right 2.83 left 2.83 - Carpal Tunnel Syndrome Total Score of Symptom AND Functional Sections: 32 - Goals Demonstrate adequate knowledge skin care/prec by 2nd week: Yes Demonstrate adequate knowledge therapeutic exercises by d/c: Yes Voice need to replace compression garment every 4-6mo by dc: Yes - Rehabilitation General Assessment: Pt demo need for ed. on CTS, joint protection and lymphedema - Therapist ed. pt on CTS and need for ortho consultation due to 10+ hx of CTS and the conservative methods have failed ( stretches, wrist braces). Therapist ed. pt on joint protection and given handouts on protection, ad. eq for joints. pt demo understanding and states she will adj. her kitchen, home, and office area. pt ed. on use of compression socks for bilateral LE- to cont. with 20-30mmHg and to replace compression hose every 4-6 months. pt also ed. on ex to assist with mtg of LE swelling- (ROM, aquatic, biking) pt given HEP and will call if she has questions. Rehabilitation Potential: Good - Anticipated Interventions Anticipated Interventions: A/AAROM/PROM, Modalities, Joint Protection/Energy Conservation, Ergonomic Education, Education re assistive Equipment, Education re Diagnosis, Education re Life-long lymphedema Management, Education re Skin Care and Precautions, Education re Correct Donning Tech,Care AND Wearing Sched Comp Garments - Visit Plan TEXT: Thank you for the opportunity to evaluate your patient. For Medicare and Medicare HMO plans, please review the plan of care and approve it. It will need to be FAXED BACK to us at [phone] for Medicare purposes. Please let me know if there are questions or concerns regarding this plan of care. Physician Signature: Date: <Electronically signed by Reyna SMART/DEB Wilde> 09/22/17 1600 CC: Tamia Dawson Jr., MD; Tala Allen DO ELSIE Signed For Medicare only, by signing this I certify the plan of care. Physicians Signature Date SCREENING MAMM (CAD), Observed: 09/14/2017 Status: F Source: [facility] [place] 10:25 AM [facility] [place] [facility] Imaging Services [address] [place] [address] SCREENING MAMM (CAD), BILAT MR#: [id number] Acct: [id number] Name: CASSANDRA MACKENZIE Rep #: [id number] : 1975 F 42 From: Eliceo Venegas MD PCP: Tala Allen DO Status: REG CLI Study: SCREENING MAMM (CAD), BILAT Date of Exam: 09/14/17 Exam# [id number] Ordering Dr: Karina Ricardo MD MAMMOGRAPHY - BILATERAL SCREENING 3-D JAMAL SYNTHESIS REASON FOR EXAM: Female, 42 years old. Bilateral Screening 3-D tomosynthesis PERTINENT HISTORY: Grandmother with breast cancer.. TECHNIQUE: 2-D mammograms and 3-D Jamal synthesis of the breast (s) were performed. CAD was performed. COMPARISON: 11/25/2013 FINDINGS: The breast composition is composed of scattered fibroglandular density. Scattered benign calcifications are seen. No dense spiculated masses or suspicious microcalcifications are identified. No architectural distortion is identified. There is no skin thickening or retraction. There has been no significant change since the prior study. BI/SCREENING MAMM (CAD), BILAT IMPRESSION: No mammographic signs of malignancy. Routine yearly mammograms recommended. ASSESSMENT CATEGORY: BIRADS Category 1: Negative. A letter regarding these results will be sent to the patient by the facility within 30 days. FOLLOW UP RECOMMENDATION: Yearly follow up mammogram recommended. (A) Approximately 10% of breast cancers are not detected by mammography. A normal mammogram should not delay biopsy of a clinically suspicious abnormality. Electronically Signed: Jayden Venegas MD at 8:10 EDT , Service support , CC: Karina Ricardo MD; Tala Allen DO Technology Development Intern: Signed XR HANDS-RHEUMATOLOGY EVAL Observed: 09/08/2017 Status: F Source: [facility] [employer] [facility] ONLY 10:58 AM [place]POS[place] PROCEDURE: BILATERAL HAND RADIOGRAPHS, 09/08/2017 10:58 AM EDT CLINICAL HISTORY: Chronic joint pain. Rheumatology assessment. TECHNIQUE: 2 view(s) of each hand, 2 image(s). COMPARISON: Bilateral wrist radiographs performed concurrently. RESULT: There is obscuration of a portion of the proximal shaft of the left fourth digit proximal phalanx by metallic ring. Otherwise, there is no acute fracture or dislocation. Osseous mineralization is normal. No erosive osseous changes. Bilateral joint spaces are preserved. Soft tissues are within normal limits. IMPRESSION: No acute osseous abnormality. No erosive osseous changes. No significant right or left hand degenerative changes. XR WRIST LEFT AP AND Observed: 09/08/2017 Status: F Source: [facility] [employer] [facility] LATERAL 10:58 AM [place] PROCEDURE: LEFT WRIST RADIOGRAPHS, 09/08/2017 AT 10:58 AM EDT CLINICAL HISTORY: Chronic joint pain. Rheumatology assessment. TECHNIQUE: 2 view(s), 2 image(s). COMPARISON: None. RESULT: There is no acute fracture or osseous malalignment. Osseous mineralization is normal. No erosive osseous changes. Joint spaces are preserved. Soft tissues are unremarkable. IMPRESSION: No acute osseous abnormality. No erosive osseous changes. No significant degenerative changes. XR WRIST RIGHT AP Observed: 09/08/2017 Status: F Source: [facility] [employer] [facility] AND LATERAL 10:58 AM [place] PROCEDURE: RIGHT WRIST RADIOGRAPHS, 09/08/2017 10:58 AM EDT CLINICAL HISTORY: Chronic joint pain. Rheumatology assessment. TECHNIQUE: 2 view(s), 2 image(s). COMPARISON: Left wrist radiographs performed concurrently. RESULT: There is no acute fracture or osseous malalignment. No erosive osseous changes. Osseous mineralization is normal. Joint spaces are maintained. Soft tissues are within normal limits. IMPRESSION: No acute osseous abnormality. No erosive osseous changes. No significant degenerative changes. XR FOOT LEFT 3 Observed: 09/08/2017 Status: F Source: [facility] [employer] [facility] VIEWS 10:58 AM [place] PROCEDURE: LEFT FOOT RADIOGRAPHS, 09/08/2017 10:58 AM EDT CLINICAL HISTORY: Chronic joint pain. Rheumatology assessment. TECHNIQUE: 3 view(s), 3 image(s). COMPARISON: Right foot radiographs performed concurrently RESULT: There is no acute fracture or osseous malalignment on these nonweightbearing radiographs. Osseous mineralization is normal. No erosive osseous changes. Joint spaces are preserved. Small plantar and retrocalcaneal spurs. Soft tissues are within normal limits. IMPRESSION: No acute osseous abnormality. No erosive osseous changes. No significant left foot degenerative changes. Small plantar and retrocalcaneal spurs. XR FOOT RIGHT 3 Observed: 09/08/2017 Status: F Source: [facility] 10:58 AM [place] REPOS[place] PROCEDURE: RIGHT FOOT RADIOGRAPHS, 09/08/2017 10:58 AM EDT CLINICAL HISTORY: Chronic joint pain. Rheumatology assessment. TECHNIQUE: 3 views, 3 images. COMPARISON: Left foot radiographs performed concurrently. RESULT: There is no acute fracture or osseous malalignment on these nonweightbearing radiographs. Osseous mineralization is normal. No erosive osseous changes. Joint spaces are maintained. Small plantar retrocalcaneal spurs. Soft tissues are within normal limits. IMPRESSION: 1. No acute osseous abnormality. 2. No erosive osseous changes. 3. No significant right foot degenerative changes. 4. Small plantar and retrocalcaneal spurs. XR SPINE CERVICAL 4 Observed: 09/08/2017 Status: F Source: [facility] 10:57 AM [place] PROCEDURE: CERVICAL SPINE RADIOGRAPHS, 09/08/2017 AT 10:57 AM EDT CLINICAL HISTORY: Chronic neck pain. Cervicalgia. Rheumatology assessment. TECHNIQUE: 5 view(s), 5 image(s). COMPARISON: None. RESULT: Counting reference: Craniocervical junction. There is no acute fracture or osseous malalignment. Osseous mineralization is normal. Vertebral body heights and intervertebral disc spaces are preserved. Facets are within normal limits. Odontoid is partially obscured on the odontoid view and grossly intact. Bilateral neural foramina are grossly patent. No prevertebral soft tissue swelling. Included lung apices are clear. Multiple missing mandibular teeth. The maxillary teeth are absent. IMPRESSION: No acute findings. No significant cervical spine degenerative changes. XR SPINE THORACIC 2 Observed: 09/08/2017 Status: F Source: [facility] 10:57 AM [place] PROCEDURE: THORACIC SPINE RADIOGRAPHS, 09/08/2017 10:57 AM EDT CLINICAL HISTORY: Chronic back pain. Rheumatology assessment. TECHNIQUE: 3 view(s), 3 image(s). COMPARISON: None. RESULT: Counting reference: First rib. There are 12 bilateral rib- bearing thoracic vertebral bodies. There is no acute fracture. Approximately 17 degrees dextroscoliotic curvature of the thoracic spine is centered at T6. Lateral alignment is anatomic. Vertebral body heights are maintained. Mild multilevel intervertebral disc space loss with minimal degenerative anterior osteophytosis. Pedicles and visualized portions of the ribs are intact. Upper abdominal surgical clips are noted. IMPRESSION: No acute findings. Mild dextroscoliotic curvature of the thoracic spine with mild multilevel degenerative changes. XR SACROILIAC JOINTS Observed: 09/08/2017 Status: F Source: [facility] [employer] [facility] MIN 3 VIEWS 10:57 AM [place] PROCEDURE: SACROILIAC JOINT RADIOGRAPHS, 09/08/2017 10:57 AM EDT CLINICAL HISTORY: Chronic joint pain. Rheumatology assessment. TECHNIQUE: 3 view(s), 4 image(s). COMPARISON: None. RESULT: There is no acute fracture or osseous malalignment. Sacroiliac joints are intact and symmetric. No erosive osseous changes. Scattered surgical pelvic clips are seen. Prominent symmetric transverse processes of L5. IMPRESSION: No acute osseous abnormality. No erosive osseous changes. XR SHOULDER LEFT MIN Observed: 09/08/2017 Status: F Source: [facility] 2 VIEWS 10:57 AM [place] PROCEDURE: LEFT SHOULDER RADIOGRAPHS, 09/08/2017 10:57 AM EDT CLINICAL HISTORY: Chronic joint pain. Rheumatology assessment. TECHNIQUE: 3 view(s), 3 image(s). COMPARISON: Right shoulder radiographs performed concurrently. RESULT: There is no acute fracture or osseous malalignment. Osseous mineralization is normal. Joint spaces are maintained. Acromiohumeral interval is normal. Soft tissues are within normal limits. IMPRESSION: Unremarkable left shoulder radiographs. XR SHOULDER RIGHT MIN Observed: 09/08/2017 Status: F Source: [facility] 2 VIEWS 10:57 AM [place] PROCEDURE: RIGHT SHOULDER RADIOGRAPHS, 09/08/2017 10:57 AM EDT CLINICAL HISTORY: Chronic joint pain. Rheumatology assessment. TECHNIQUE: 3 view(s), 3 image(s). COMPARISON: Left shoulder radiographs performed concurrently RESULT: There is no acute fracture or osseous malalignment. Osseous mineralization is normal. Joint spaces are maintained. Acromiohumeral interval is normal. Soft tissues are within normal limits. IMPRESSION: Unremarkable right shoulder radiographs. URINE MACROSCOPIC Collected: 09/08/2017 Status: F Source: [facility] [employer] [facility] 10:02 AM [place] TYPE CODE TESTS RESULT OUT OF REFERENCE UNITS RANGE LAB UCOL YELLOW URINE COLOR YELLOW LAB [facility] CLEAR URINE CLARITY CLEAR LAB USPG 1.010-1.025 URINE SPEC GRAVITY 1.020 LAB UPH 5.0-7.0 URINE PH 7.0 LAB AUTP NEGATIVE mg/dl URINE TOTAL PROTEIN NEGATIVE LAB UGL NEGATIVE mg/dl URINE GLUCOSE NEGATIVE LAB UKET NEGATIVE mg/dl URINE KETONE NEGATIVE LAB UBIL NEGATIVE URINE BILIRUBIN NEGATIVE LAB UHGB NEGATIVE URINE HEMOGLOBIN NEGATIVE LAB UNIT NEGATIVE URINE NITRATES NEGATIVE LAB UROB 0.2-1.0 mg/dl URINE UROBILINOGEN 0.2 LAB ULEUK NEGATIVE URINE LEUKOTEST NEGATIVE Performed By: #### IVAN, YINKA #### Testing performed at [address] [address] URINE MICROSCOPIC Collected: 09/08/2017 Status: F Source: [facility] 10:02 AM [place] TYPE CODE TESTS RESULT OUT OF RANGE REFERENCE UNITS LAB UWBC NEGATIVE /HPF URINE WBC'S NEGATIVE LAB URBC NEGATIVE /HPF URINE RBC'S NEGATIVE LAB EPI /HPF EPITHELIAL 1 TO 5 CELLS LAB MUCUS NEGATIVE MUCUS NEGATIVE LAB BACT NEGATIVE Abnormal BACTERIA TRACE LAB KRISTIAN NONE CRYSTAL NONE LAB CASTS NONE /LPF CASTS NONE LAB UCOM URINE COMMENT CULTURE CRITERIA NOT MET, NO CULTURE PERFORMED. Performed By: #### UMYINKA MILTON #### Testing performed at [address] [address] CBC(NO DIFF) Collected: 09/08/2017 Status: F Source: [facility] 9:45 AM [place] TYPE CODE TESTS RESULT OUT OF REFERENCE UNITS RANGE LAB WBC 3.6-11.0 /cmm WBC COUNT 8.5 LAB RBC 4.0-5.4 /cmm RBC COUNT 5.24 LAB HGB 12.0-16.0 G/DL HEMOGLOBIN 12.4 LAB HCT 36.0-48.0 % HEMATOCRIT 37.9 LAB MCV 80.0-100.0 FL Low MCV 72.4 LAB MCH 26.0-35.0 PG Low MCH 23.7 LAB MCHC 27.0-37.0 G/DL MCHC 32.7 LAB RDW 11.5-14.5 % RDW High 18.1 LAB PLTC 130.0-400.0 /cmm PLATELET COUNT 228 LAB MPV 7.4-11.0 FL MPV 8.6 Performed By: #### HEMOG, ESR, CMPF, CPK, CREACT, MG, URIC, B12, TSH2 #### Testing performed at [address] [address] #### LHEPP, LRBCF, LLWB, MICHAELLE, LTTG, LACEZ, LIMEL #### Testing performed at [address] [address] #### LANCA #### Testing performed at [address] [address] Testing performed at [facility] #### LACCGA, [id number], LVB6, LVB1 #### Testing performed at [facility] ESR Collected: 09/08/2017 Status: F Source: [facility] [employer] [facility] 9:45 AM [place] TYPE CODE TESTS RESULT OUT OF RANGE REFERENCE UNITS LAB ESR 0-15 MM/HR High ESR 46 Performed By: #### HEMOG, ESR, CMPF, CPK, CREACT, MG, URIC, B12, TSH2 #### Testing performed at [address] [address] #### LHEPP, LRBCF, LLWB, MICHAELLE, LTTG, LACEZ, LIMEL #### Testing performed at [address] [address] #### LANCA #### Testing performed at [address] [address] Testing performed at [facility] #### LACCGA, [id number], LVB6, LVB1 #### Testing performed at [facility] CMP FASTING Collected: 09/08/2017 Status: F Source: [facility] [employer] [facility] 9:45 AM [place] TYPE CODE TESTS RESULT OUT OF REFERENCE UNITS RANGE LAB GLF 70-100 MG/DL High GLUCOSE 115 FASTING Result Comment: NORMAL <100 mg/dL PREDIABETES 101-126 mg/dL DIABETES 126 mg/dL or higher LAB BUN 7-20 MG/DL BLOOD UREA 10 NITROGEN LAB CRET 0.52-1.04 MG/DL CREATININE SERUM 0.6 LAB NA 136-145 MMOL/L SODIUM 138 LAB K 3.5-5.1 MMOL/L POTASSIUM 3.5 LAB CL 98-107 MMOL/L CHLORIDE 102 LAB CA 8.4-10.2 MG/DL CALCIUM 9.1 LAB TP 6.3-8.2 GM/DL TOTAL PROTEIN 7.7 LAB ALB 3.5-5.0 G/dl ALBUMIN 4.0 LAB TBIL 0.2-1.2 MG/DL BILIRUBIN Low TOTAL <0.2 LAB AST 15-41 IU/L AST 27 LAB ALKP 38-126 IU/L ALK 72 PHOSPHATASE LAB CO2 22-30 MMOL/L CO2 27 LAB AG 1.3-2.2 RATIO A:G RATIO Low 1.1 LAB ALT 14-54 IU/L ALT 27 LAB GFR ml/min/1.73 sq.m EST. GFR,Non >60 LAB GFRB ml/min/1.73 sq.m EST. GFR, >60 Stateless LAB GFRCOM GFR Information Average GFR for 40-49 years old = 99. Result Comment: Chronic Kidney disease, GFR = <60. Kidney failure, GFR = <15. The GFR estimate is not adjusted for extreme body surface area or acute process, nor has it been validated for women or ethnic groups other than and . Performed By: #### HEMOG, ESR, CMPF, CPK, CREACT, MG, URIC, B12, TSH2 #### [place] [address] #### LHEPP, LRBCF, LLWB, MICHAELLE, LTTG, LACEZ, LIMEL #### Testing performed at [address] [address] #### LANCA #### Testing performed at [address] [address] Testing performed at [facility] #### LACCGA, [id number], LVB6, LVB1 #### Testing performed at [facility] CPK Collected: 09/08/2017 Status: F Source: [facility] 9:45 AM [place] TYPE CODE TESTS RESULT OUT OF RANGE REFERENCE UNITS LAB CPK 30-135 IU/L CPK 69 Performed By: #### HEMOG, ESR, CMPF, CPK, CREACT, MG, URIC, B12, TSH2 #### Testing performed at [place] [id number] #### LHEPP, LRBCF, LLWB, MICHAELLE, LTTG, LACEZ, LIMEL #### Testing performed at [address] [address] #### LANCA #### Testing performed at [address] [address] Testing performed at [facility] #### LACCGA, [id number], LVB6, LVB1 #### Testing performed at [facility] C REACTIVE PROTEIN Collected: 09/08/2017 Status: F Source: [facility] 9:45 AM [place] REPOS[place] TYPE CODE TESTS RESULT OUT OF REFERENCE UNITS RANGE LAB CREACT 0-10.0 MG/L C High REACTIVE 20.7 PROTEIN Performed By: #### HEMOG, ESR, CMPF, CPK, CREACT, MG, URIC, B12, TSH2 #### [place] [address] #### LHEPP, LRBCF, LLWB, MICHAELLE, LTTG, LACEZ, LIMEL #### Testing performed at [address] [address] #### LANCA #### Testing performed at [address] [address] Testing performed at [facility] #### LACCGA, [id number], LVB6, LVB1 #### Testing performed at [facility] MAGNESIUM Collected: 09/08/2017 Status: F Source: [facility] 9:45 AM [place] TYPE CODE TESTS RESULT OUT OF REFERENCE UNITS RANGE LAB MG 1.6-2.3 MG/DL MAGNESIUM 2.0 Performed By: #### HEMOG, ESR, CMPF, CPK, CREACT, MG, URIC, B12, TSH2 #### Testing performed at [address] [address] #### LHEPP, LRBCF, LLWB, MICHAELLE, LTTG, LACEZ, LIMEL #### Testing performed at [address] [address] #### LANCA #### Testing performed at [address] [place] [address] [place] [address] Testing performed at [facility] #### LACCGA, [id number], LVB6, LVB1 #### Testing performed at [facility] URIC ACID Collected: 09/08/2017 Status: F Source: [facility] 9:45 AM [place] REPOSITORY TYPE CODE TESTS RESULT OUT OF RANGE REFERENCE UNITS LAB URIC 2.5-6.2 MG/DL High URIC ACID 6.3 Performed By: #### HEMOG, ESR, CMPF, CPK, CREACT, MG, URIC, B12, TSH2 #### Testing performed at [address] [address] #### LHEPP, LRBCF, LLWB, MICHAELLE, LTTG, LACEZ, LIMEL #### Testing performed at [address] [place] [address] #### LANCA #### Testing performed at [address] [place] [address] Testing performed at [facility] #### LACCGA, [id number], LVB6, LVB1 #### Testing performed at [facility] VITAMIN B12 Collected: 09/08/2017 Status: F Source: [facility] 9:45 AM [place] REPOS[place]ORY TYPE CODE TESTS RESULT OUT OF REFERENCE UNITS RANGE LAB B12 180-914 PG/ML VITAMIN B12 262 Performed By: #### HEMOG, ESR, CMPF, CPK, CREACT, MG, URIC, B12, TSH2 #### Testing performed at [address] [place] [address] #### LHEPP, LRBCF, LLWB, MICHAELLE, LTTG, LACEZ, LIMEL #### Testing performed at [address] [place] [address] #### LANCA #### Testing performed at [address] [place] [address] Testing performed at [facility] #### LACCGA, [id number], LVB6, LVB1 #### Testing performed at [facility] TSH Collected: 09/08/2017 Status: F Source: [facility] 9:45 AM [place]POS[place]ORY TYPE CODE TESTS RESULT OUT OF RANGE REFERENCE UNITS LAB TSH2 0.45-5.33 uIU/ML TSH 0.905 Performed By: #### HEMOG, ESR, CMPF, CPK, CREACT, MG, URIC, B12, TSH2 #### Testing performed at [address] [address] #### LHEPP, LRBCF, LLWB, MICHAELLE, LTTG, LACEZ, LIMEL #### Testing performed at [address] [place] [address] #### LANCA #### Testing performed at [address] [address] Testing performed at [facility] #### LACCGA, [id number], LVB6, LVB1 #### Testing performed at [facility] RHEUMATOID FACTOR Collected: 09/08/2017 Status: F Source: [facility] 9:45 AM [place]POS[place]ORY TYPE CODE TESTS RESULT OUT OF REFERENCE UNITS RANGE LAB RAFT <12 Iu/mL RHEUMATOID <8.6 FACTOR Performed By: #### HEMOG, ESR, CMPF, CPK, CREACT, MG, URIC, B12, TSH2 #### Testing performed at [address] [address] #### LHEPP, LRBCF, LLWB, MICHAELLE, LTTG, LACEZ, LIMEL #### Testing performed at [address] [place] [address] #### LANCA #### Testing performed at [address] [place] [address] Testing performed at [facility] #### LACCGA, [id number], LVB6, LVB1 #### Testing performed at [facility] HEP PANEL A,B,C Collected: 09/08/2017 Status: F [facility] [place] REPOS[place]ORY TYPE CODE TESTS RESULT OUT OF REFERENCE UNITS RANGE LAB XHEP1 Negative HEP A AB Negative TOTAL LAB XHEP2 Negative HBSAG Negative SCREEN LAB XHEP3 Negative HEP B Negative CORE AB LAB XHEP4 HBSAB Non Reactive Result Comment: (NOTE) Non Reactive: Inconsistent with immunity, less than 10 mIU/mL Reactive: Consistent with immunity, greater than 9.9 mIU/mL LAB HCAB 0.0-0.9 s/co ratio HEP C VIRUS <0.1 AB Result Comment: (NOTE) Negative: < 0.8 Indeterminate: 0.8 - 0.9 Positive: > 0.9 The CDC recommends that a positive HCV antibody result be followed up with a HCV Nucleic Acid Amplification test (590899). PERFORMED AT [facility] Performed By: #### HEMOG, ESR, CMPF, CPK, CREACT, MG, URIC, B12, TSH2 #### Testing performed at [address] [address] #### LHEPP, LRBCF, LLWB, MICHAELLE, LTTG, LACEZ, LIMEL #### Testing performed at [address] [address] #### LANCA #### Testing performed at [address] [address] Testing performed at [facility] #### LACCGA, [id number], LVB6, LVB1 #### Testing performed at [facility] RBC FOLATE Collected: 09/08/2017 Status: F Source: [facility] 9:45 AM [place] REPOS[place]ORY TYPE CODE TESTS RESULT OUT OF REFERENCE UNITS RANGE LAB XRBCF1 Not Estab. ng/mL FOLATE,HEMOLYSAT 565.8 E LAB XTCE16 34.0-46.6 % HEMATOCRIT 39.1 Result Comment: PERFORMED AT [facility] LAB XRBCF2 >498 ng/mL FOLATE,RBC 1447 Result Comment: PERFORMED AT [facility] Performed By: #### HEMOG, ESR, CMPF, CPK, CREACT, MG, URIC, B12, TSH2 #### Testing performed at [place] [id number] #### LHEPP, LRBCF, LLWB, MICHAELLE, LTTG, LACEZ, LIMEL #### Testing performed at [address] [address] #### LANCA #### Testing performed at [address] [address] Testing performed at [facility] #### LACCGA, [id number], LVB6, LVB1 #### Testing performed at [facility] LYME AB REFLEX TO Collected: 09/08/2017 Status: F Source: [facility] 9:45 AM [place] REPOSITORY TYPE CODE TESTS RESULT OUT OF REFERENCE UNITS RANGE LAB XLYME 0.00-0.90 ISR LYME <0.91 IGG/IGM AB Result Comment: (NOTE) Negative <0.91 Equivocal 0.91 - 1.09 Positive >1.09 LAB XLYME3 0.00-0.79 index LYME DISEASE AB <0.80 QUANT,IGM Result Comment: (NOTE) Negative <0.80 Equivocal 0.80 - 1.19 Positive >1.19 IgM levels may peak at 3-6 weeks post infection, then gradually decline. PERFORMED AT [facility] Performed By: #### HEMOG, ESR, CMPF, CPK, CREACT, MG, URIC, B12, TSH2 #### [place] [address] #### LHEPP, LRBCF, LLWB, MICHAELLE, LTTG, LACEZ, LIMEL #### Testing performed at [address] [address] #### LANCA #### Testing performed at [address] [address] Testing performed at [facility] #### LACCGA, [id number], LVB6, LVB1 #### Testing performed at [facility] EB W/REFLEX IF POS Collected: 09/08/2017 Status: F Source: [facility] 9:45 AM [place] REPOS[place]ORY TYPE CODE TESTS RESULT OUT OF REFERENCE UNITS RANGE LAB XANA Negative Negative EB-DIRECT Result Comment: PERFORMED AT [facility] Performed By: #### HEMOG, ESR, CMPF, CPK, CREACT, MG, URIC, B12, TSH2 #### Testing performed at [address] [address] #### LHEPP, LRBCF, LLWB, MICHAELLE, LTTG, LACEZ, LIMEL #### Testing performed at [address] [address] #### LANCA #### Testing performed at [address] [address] Testing performed at [facility] #### LACCGA, BRE177, LVB6, LVB1 #### Testing performed at [facility] [id number],IGA Collected: Status: F Source: [facility] 09/08/2017 9:45 AM [place] REPOSITORY TYPE CODE TESTS RESULT OUT OF RANGE REFERENCE UNITS LAB XCEL2 0-3 U/mL TTG- IGA <2 Result Comment: (NOTE) Negative 0 - 3 Weak Positive 4 - 10 Positive >10 Tissue Transglutaminase (tTG) has been identified as the endomysial antigen. Studies have demonstr- ated that endomysial IgA antibodies have over 99% specificity for gluten sensitive enteropathy. PERFORMED AT [facility] Performed By: #### HEMOG, ESR, CMPF, CPK, CREACT, MG, URIC, B12, TSH2 #### Testing performed at [address] [address] #### LHEPP, LRBCF, LLWB, MICHAELLE, LTTG, LACEZ, LIMEL #### Testing performed at [address] [address] #### LANCA #### Testing performed at [address] [address] Testing performed at [facility] #### LACCGA, [id number], LVB6, LVB1 #### Testing performed at [facility] ANCA PANEL Collected: 09/08/2017 Status: F Source: [employer] [facility] 9:45 AM [place] REPOSITORY TYPE CODE TESTS RESULT OUT OF RANGE REFERENCE UNITS LAB XANC1 0.0-9.0 U/mL MPO ABS <9.0 Result Comment: PERFORMED AT [facility] LAB XANC2 0.0-3.5 U/mL 3 (OR-3) ABS <3.5 Result Comment: PERFORMED AT [facility] LAB XANC3 Neg:<1:20 titer CYTOPLASMIC (C-ANCA) <1:20 LAB XANC4 Neg:<1:20 titer PERINUCLEAR (P-ANCA) <1:20 Result Comment: (NOTE) The presence of positive fluorescence exhibiting P-ANCA or C-ANCA patterns alone is not specific for the diagnosis of Kathleen's Granulomatosis (WG) or microscopic polyangiitis. Decisions about treatment should not be based solely on ANCA IFA results. The [employer] ANCA [employer] Consensus recommends follow up testing of positive sera with both OR-3 and MPO-ANCA enzyme immunoassays. As many as 5% serum samples are positive only by EIA. Ref. AM J Clin Pathol 1999;111:507-513. LAB XANC5 Neg:<1:20 titer ATYPICAL PANCA <1:20 Result Comment: (NOTE) The atypical pANCA pattern has been observed in a significant percentage of patients with ulcerative colitis, primary sclerosing cholangitis and autoimmune hepatitis. PERFORMED AT [facility] Performed By: #### HEMOG, ESR, CMPF, CPK, CREACT, MG, URIC, B12, TSH2 #### Testing performed at [address] [address] #### LHEPP, LRBCF, LLWB, MICHAELLE, LTTG, LACEZ, LIMEL #### Testing performed at [facility] [address] [place], [place] [address] [place] [address] [place] [address] #### LANCA #### Testing performed at [facility] [address] [place] [address] Place [facility] [place] [address] Testing performed at [facility] #### LACCGA, [id number], LVB6, LVB1 #### Testing performed at [facility] ANGIO-CONVERTING ENZ Collected: 09/08/2017 Status: F Source: [facility] 9:45 AM [place] REPOSITORY TYPE CODE TESTS RESULT OUT OF RANGE REFERENCE UNITS LAB XACE 14-82 U/L JAZLYN 34 Result Comment: PERFORMED AT [facility] Performed By: #### HEMOG, ESR, CMPF, CPK, CREACT, MG, URIC, B12, TSH2 #### Testing performed at [facility] [address] [place] [address] #### LHEPP, LRBCF, LLWB, MICHAELLE, LTTG, LACEZ, LIMEL #### Testing performed at [facility] [address] [address] [place] [address] #### LANCA #### Testing performed at [facility] [address] [place] [address] [place] [address] Testing performed at [facility] #### LACCGA, [id number], LVB6, LVB1 #### Testing performed at [facility] JEANNA AND PE, SERUM Collected: 09/08/2017 Status: F Source: [facility] 9:45 AM [place] REPOS[place]ORY TYPE CODE TESTS RESULT OUT OF REFERENCE UNITS RANGE LAB XIGG1 700-1600 mg/dL IGG 1206 LAB XIGG2 87-352 mg/dL IGA 348 LAB XIGG3 26-217 mg/dL IGM 123 LAB XPE1 6.0-8.5 g/dL PROTEIN, TOTAL 7.1 LAB XPEI1 2.9-4.4 g/dL ALBUMIN 3.5 LAB XPEI2 0.0-0.4 g/dL [id number] 0.2 IN LAB XPEI3 0.4-1.0 g/dL ISMYK-5-PBUIJX 0.8 IN LAB XPEI4 0.7-1.3 g/dL BETA GLOBULIN 1.3 LAB XPEI5 0.4-1.8 g/dL GAMMA GLOBULIN 1.3 LAB XPEI6 Not Observed g/dL M-SPIKE Not Observed LAB XPEI7 2.2-3.9 g/dL GLOBULIN, 3.6 TOTAL LAB XPEI8 0.7-1.7 A/G RATIO 1.0 LAB XPEI9 IMMUNOFIX: Comment Result Comment: No monoclonality detected. LAB XPUI13 Comment PLEASE NOTE: Result Comment: (NOTE) Protein electrophoresis scan will follow via computer, mail, or form worker delivery. PERFORMED AT [facility] Performed By: #### HEMOG, ESR, CMPF, CPK, CREACT, MG, URIC, B12, TSH2 #### Testing performed at [address] [address] #### LHEPP, LRBCF, LLWB, MICHAELLE, LTTG, LACEZ, LIMEL #### Testing performed at [address] [address] #### LANCA #### Testing performed at [address] [address] Testing performed at [facility] #### LACCGA, [id number], LVB6, LVB1 #### Testing performed at [facility] CCP AB IGG IGA Collected: 09/08/2017 Status: F Source: [facility] [employer] [facility] 9:45 AM [place] REPOSITORY TYPE CODE TESTS RESULT OUT OF RANGE REFERENCE UNITS LAB XACC 0-19 units ACC AB 8 IGG IGA Result Comment: (NOTE) Negative <20 Weak positive 20 - 39 Moderate positive 40 - 59 Strong positive >59 PERFORMED AT [facility] Performed By: #### HEMOG, ESR, CMPF, CPK, CREACT, MG, URIC, B12, TSH2 #### Testing performed at [address] [address] #### LHEPP, LRBCF, LLWB, MICHAELLE, LTTG, LACEZ, LIMEL #### Testing performed at [address] [address] #### LANCA #### Testing performed at [address] [address] Testing performed at [facility] #### LACCGA, [id number], LVB6, LVB1 #### Testing performed at [facility] VIT D, 1,25 DIHYDROX Collected: 09/08/2017 Status: F Source: [facility] 9:45 AM [place] REPOS[place]ORY TYPE CODE TESTS RESULT OUT OF RANGE REFERENCE UNITS LAB LZE990 19.9-79.3 pg/mL VIT. D 68.2 1,25 Result Comment: PERFORMED AT [facility] Performed By: #### HEMOG, ESR, CMPF, CPK, CREACT, MG, URIC, B12, TSH2 #### Testing performed at [address] [address] #### LHEPP, LRBCF, LLWB, MICHAELLE, LTTG, LACEZ, LIMEL #### Testing performed at [address] [place] [address] #### LANCA #### Testing performed at [address] [place] [address] Testing performed at [facility] #### LACCGA, [id number], LVB6, LVB1 #### Testing performed at [facility] VITAMIN B6 Collected: 09/08/2017 Status: F Source: [facility] 9:45 AM [place] REPOS[place]ORY TYPE CODE TESTS RESULT OUT OF REFERENCE UNITS RANGE LAB XVB6 2.0-32.8 ug/L High VITAMIN B6 LVL 46.1 Result Comment: PERFORMED AT [facility] Performed By: #### HEMOG, ESR, CMPF, CPK, CREACT, MG, URIC, B12, TSH2 #### Testing performed at [address] [address] #### LHEPP, LRBCF, LLWB, MICHAELLE, LTTG, LACEZ, LIMEL #### Testing performed at [address] [address] #### LANCA #### Testing performed at [address] [address] Testing performed at [facility] #### LACCGA, [id number], LVB6, LVB1 #### Testing performed at [facility] VIT.B1 THIAMINE-BLD Collected: 09/08/2017 Status: F Source: [facility] [place] REPOS[place]ORY TYPE CODE TESTS RESULT OUT OF RANGE REFERENCE UNITS LAB XVB1 66.5-200.0 nmol/L VIT.B1 160.2 THIAMINE-BLD Result Comment: PERFORMED AT [facility] Performed By: #### HEMOG, ESR, CMPF, CPK, CREACT, MG, URIC, B12, TSH2 #### Testing performed at [address] [address] #### LHEPP, LRBCF, LLWB, MICHAELLE, LTTG, LACEZ, LIMEL #### Testing performed at [address] [place] [address] #### LANCA #### Testing performed at [address] [address] Testing performed at [facility] #### LACCGA, [id number], LVB6, LVB1 #### Testing performed at [facility] HLA B27 Collected: 09/08/2017 Status: F Source: [facility] 9:45 AM [place] REPOS[place] TYPE CODE TESTS RESULT OUT OF REFERENCE UNITS RANGE LAB MHH160 HLA-B27 Negative Result Comment: (NOTE) HLA-B*27 Negative B27 allele interpretation for all loci based on IMGT/HLA database version 3.27 This test was developed and its performance characteristics determined by [facility]. It has not been cleared or approved by the Food and Drug Administration. HLA Lab CLIA ID Number [id number] This test was performed using PCR (Polymerase Chain Reaction)/SSOP (Sequence Specific Oligonucleotide Probes) technique. SBT (Sequence Based Typing) and/or SSP (Sequence Specific Primers) may be used as supplemental methods when necessary. Please contact HLA Customer Service at if you have any questions. Director of HLA Laboratory Dr Taras Billy, PhD PERFORMED AT [facility] DNA Performed By: #### HEMOG, ESR, CMPF, CPK, CREACT, MG, URIC, B12, TSH2 #### Testing performed at [address] [address] #### LHEPP, LRBCF, LLWB, MICHAELLE, LTTG, LACEZ, LIMEL #### Testing performed at [address] [address] #### LANCA #### Testing performed at [address] [address] Testing performed at [facility] #### LACCGA, IQY710, LVB6, LVB1 #### Testing performed at [facility] 25 0H VITAMIN D Collected: 09/08/2017 Status: F Source: [employer] [facility] 9:45 AM [place] REPOSITORY TYPE CODE TESTS RESULT OUT OF REFERENCE UNITS RANGE LAB VITD >30 NG/ML Low 25 0H VITAMIN D 26.5 LEVEL Result Comment: DEFICIENT <20 NG/ML INSUFFICIENT 20-<30 NG/ML SUFFICIENT 30-100 NG/ML POTENTIAL TOXICITY >100 NG/ML Performed By: #### VITD #### Testing performed at [facility] [address] [place] [address] PAP I-G W/RFX HRHPV Collected: 08/05/2017 Status: F Source: [facility] 4:00 PM [facility] [place] Order Comment: CYTOLOGY INFORMATION: - CLINICAL INFORMATION: HYSTERECTOMY - DATE LMP/MENOPAUSE: HYSTERECTOMY - COLLECTION VIAL: Thin Prep Vial - DIRECTOR OF REVENUE SOURCE: VAGINAL - COLLECTION TECHNIQUE: SPATULA ONLY Specimen Comment: [id number] Specimen Comment: No. of containers..01 ThinPrep Vial TYPE CODE TESTS RESULT OUT OF RANGE REFERENCE UNITS LAB L7400.0800 . Normal DIAGN Comment Result Comment: NEGATIVE FOR INTRAEPITHELIAL LESION AND MALIGNANCY. LAB L7400.0900 . Normal ADEQ Comment Result Comment: Satisfactory for evaluation. No endocervical component is identified. LAB L7400.1400 . Normal PERFORM Comment Result Comment: Slick Guzman, Handwriting Expert (ASCP) LAB L7400.2575 . Normal TEST METHOD Comment Result Comment: This liquid based ThinPrep(R) pap test was screened with the use of an image guided system. LAB L7400.2600 . Normal . COMM LAB L7400.2700 . Normal PAPSMR Comment Result Comment: The Pap smear is a screening test designed to aid in the detection of premalignant and malignant conditions of the uterine cervix. It is not a diagnostic procedure and should not be used as the sole means of detecting cervical cancer. Both false-positive and false-negative reports do occur. LAB L7400.2800 . Normal HPV RFLX Comment Result Comment: The HPV DNA reflex criteria were not met with this specimen result therefore, no HPV testing was performed. Performed at: [address] [id number] Private Tutor: Bertha Martin MD, Phone: [phone] Performed By: #### L7400.0350 #### [facility] (refer to report for specific site) refer to report for address and phone number THYROID Observed: 06/24/2017 Status: F Source: [facility] 8:59 AM [facility] [place] [facility] Imaging Services [address] [place] [address] Thyroid MR#: [id number] Acct: [id number] Name: CASSANDRA MACKENZIE Rep #: [id number] : 1975 F 42 From: Calvin Harrington MD PCP: Tala Allen DO Status: REG CLI Study: Thyroid Date of Exam: 06/24/17 Exam# [id number] Ordering Dr: Amilcar Rosales MD STUDY: THYROID ULTRASOUND REASON FOR EXAM: Female, 42 years old. Multinodular goiter. TECHNIQUE: Ultrasound evaluation of the thyroid was performed with real-time and static geronimo-scale imaging. COMPARISON: 11/28/2016. FINDINGS: RIGHT LOBE: The right lobe of the thyroid gland measures 4.9 x 1.7 x 1.8 cm. There is a homogeneous echotexture. There are no demonstrated solid, cystic or complex lesions. LEFT LOBE: The left lobe of the thyroid gland measures 5.2 x 2.3 x 2.9 cm. There is a homogeneous echotexture. In the mid and lower pole of the left lobe, there is a complex cystic and solid nodule which measures 2.5 x 2.0 x 2.3 cm, which is not significantly changed in size from previous study. ISTHMUS: The isthmus measures 6 mm. There is a 4 mm cystic and solid nodule in the isthmus, not significantly different in overall size from previous exam. . The regional lymph nodes are normal. US/Thyroid IMPRESSION: 2.5 cm complex solid and cystic nodule in the left lobe of the thyroid gland is not sufficiently changed in size from previous study. Would still consider fine-needle aspiration biopsy for further evaluation, if not previously done. 4 mm nodule in the isthmus is stable. Electronically Signed: Calvin Harrington MD at 0:46 EDT , Service support , CC: Amilcar Rosales MD; Tala Allen DO Technology Development Intern: Signed ALLERGIES ALLERGIES DATE TYPE / CODE NAME / CODE REACTION SEVERITY SOURCE 07/28/2016 Drug morphine/F00 Other Unknown [facility] Allergy/4160 [id number]([place] 1409602(SNOMED RM) Repository CT) 07/28/2016 Drug codeine/F006 Hives Unknown [facility] Allergy/4160 [id number]([place] 0874202(SNOMED M) Repository CT) ENCOUNTERS ENCOUNTERS ADMIT/DISCHARGE ACCOUNT NUMBER ADMITTING ENCOUNTER LOCATION SOURCE CLASS 02/03/2018 [id number] [facility] ding:LABSPEC Repository 02/02/2018 [id number] [facility] [place] [address] System ([place]) Repository 01/26/2018 [id number] [facility] ding:MTLAB Repository 12/28/2017 [id number] [facility] ding:MTRAD Repository 11/02/2017 [id number] [facility] [place] [address] [place] Rep[place] 10/21/2017 [id number] [facility] ding:LAB.FUT Repository URE 09/22/2017 [id number] [facility] [place] [address] [place] Repository 09/21/2017 [id number] [facility] ding:PT Repository 09/14/2017 [id number] [facility] ding:OPBI Repository 09/08/2017 [id number] [facility] [place] [address] System [place] Repository 09/08/2017 [id number] [facility] [place] [address] ([place] Repository 09/08/2017 [id number] [facility] ([place] Repository 09/08/2017 [id number] [facility] [place] Rep[place] 09/08/2017 [id number] [facility] [place] Rep[place] 09/08/2017 [id number] [facility] [place] Rep[place] 09/08/2017 [id number] [facility] [place] Rep[place] 09/08/2017 [id number] [facility] [place] Rep[place] 09/08/2017 [id number] [facility] ([place] Repository 09/08/2017 [id number] [facility] [place] Rep[place] 09/08/2017 [id number] [facility] ([place] Rep[place] 09/08/2017 [id number] [facility] ([place] Repository 08/05/2017 [id number] Ambulatory [facility] ding:LABSPEC Repository 06/24/2017 [id number] Ambulatory [facility] ding:OPUS Repository PAYERS PAYERS ENCOUNTER GUARANTOR PAYER SUBSCRIBER SOURCE 02/03/2018 CASSANDRA Huynh [id number] Insurance:ANTHEMPolic SIGLERDOB: [facility] y Number: [id number] [id number] Repository [address]Vzq: [phone]) Date:0356-57-30[phone] [facility] [address], [place] [address]: 02/03/2018 Secondary NOT GIVENUNK Amina Insurance:SELF PAY [facility] Number: Effective Repository Date:2018-02-03 01/26/2018 CASSANDRA Ghotraoster [id number] Insurance:ANTHEMPolic SIGLERDOB: [facility] y Number: [id number] [id number] Repository [address]Fik: [phone]) Date:4162-02-49[phone] () [place], [place] [address]WT: 01/26/2018 Secondary NOT GIVENUNK Amina Insurance:SELF PAY [facility] Number: Effective Repository Date:2018-01-26 12/28/2017 CASSANDRA Schafer Amina [id number] Insurance:ANTHEMPolic SIGLERDOB: [facility] y Number: [id number], [place] [id number] Repository [address]Xqn: [phone]) Date:1459-92-92[phone] () [place] [address]BY: 12/28/2017 Secondary NOT GIVENUNK [place] Insurance:SELF PAY [facility] Number: Effective Repository Date:2017-12-28 10/21/2017 CASSANDRA Schafer Primary CASSANDRA Schafer Amina [id number] Insurance:ANTHEMPolic SIGLERDOB: Community URIBE y [place]: [id number], [place] [id number] Repository [address]Unh: ([phone]) Date:4568-11-12NG [phone] () [id number], [place] [address]PF: 10/21/2017 Secondary NOT GIVENUNK [place] Insurance:SELF PAY [facility] Number: Effective Repository Date:2017-09-10 09/21/2017 CASSANDRA Schafer Primary CASSANDRA Schafer [place] [id number] Insurance:ANTHEMPolic SIGLERDOB: Community URIBE y Number: [id number], [place] [id number] Repository [address]Edq: ([phone]) Date:2278-56-50XF [phone] () [id number], [place] [address]FF: 09/21/2017 Secondary NOT GIVENUNK Amina Insurance:SELF PAY [facility] Number: Effective Repository Date:2017-09-11 09/14/2017 CASSANDRA Schafer Primary CASSANDRA Schafer Amina [id number] Insurance:ANTHEMPolic SIGLERDOB: Community URIBE y Number: [id number], [place] [id number] Repository [address]Fns: ([phone]) Date:0824-78-86UK [phone] () [id number], [place] [address]OA: 09/14/2017 Secondary NOT GIVENUNK [place] Insurance:SELF PAY [facility] Number: Effective Repository Date:2017-09-01 08/05/2017 CASSANDRA Schafer Primary CASSANDRA Schafer [place] [id number] Insurance:ANTHEMPolic SIGLERDOB: Community URIBE y Number: [id number], [place] [id number] Repository [address]Msu: ([phone]) Date:6119-73-57XI [phone] () [id number], [place] [address]II: 08/05/2017 Secondary NOT GIVENUNK [place] Insurance:SELF PAY [facility] Number: Effective Repository Date:2017-08-05 06/24/2017 CASSANDRA Schafer Primary CASSANDRA Schafer Amina [id number] Insurance:ANTHEMPolic SIGLERDOB: Community URIBE y Number: [id number], [place] [id number] Repository [address]Ywo: ([phone]) Date:0742-24-62CV [phone] () [id number], [place] [address]FY: 06/24/2017 Secondary NOT GIVENUNK [place] Insurance:SELF PAY [facility] Number: Effective Repository Date:2017-01-01
== END ==
PROVIDERS: Family Provider Family Medicine; PCP Family Medicine; Referring Provider Obstetrics & Gynecology; Visit Provider Obstetrics & Gynecology
DX: C54.1 Malignant neoplasm of endometrium (principal)
CPT/HCPCS: 88175; G0145

== ENCOUNTER → 2018-04-05 14:17 | Outpatient (CLI) | payer BC, SELFPAY ==
[2018-04-05 16:00] LABS: Hematocrit 40.6 % (37-47); Hemoglobin 12.6 g/dl (12.0-15.0); Mean Corpuscular Hgb 25.4 pg (27.0-32.0); Mean Corpuscular Volume 81.7 fL (81-99); Platelet Count 211 K/mm3 (150-450); RBC Distribution Width CV 16.8 % (11.6-14.6); RBC Distribution Width SD 49.7 fl (35.1-43.9); Red Blood Count 4.97 M/mm3 (4.2-5.4); White Blood Count 8.7 K/mm3 (4.4-11.0)
[2018-04-05 16:03] LABS: Scan Indicated on CBC? Y/N NO
[2018-04-05 16:05] LABS: AST(SGOT) 19 U/L (15-37); Alanine Aminotransfer ALT/SGPT 36 U/L (13-56); Creatinine, Serum 0.68 mg/dL (0.55-1.02); EST Glomerular Filtration Rate 100 mL/min (>60); Est Glom Filt Rate - Afr Amer 121 mL/min (>60); Uric Acid 2.6 mg/dL (2.6-6.0)
[2018-04-05 16:19] LABS: Erythrocyte Sedimentation Rate 31 mm/hr (0-20)
== END ==
LOC: MTLAB 14:20
PROVIDERS: Family Provider Family Medicine; PCP Family Medicine; Referring Provider Internal Medicine Rheumatology; Visit Provider Internal Medicine Rheumatology
DX: C54.1 Malignant neoplasm of endometrium (principal); M06.09 Rheumatoid arthritis without rheumatoid factor, multiple sites; R79.82 Elevated C-reactive protein (CRP); R60.0 Localized edema; I89.0 Lymphedema, not elsewhere classified; E55.9 Vitamin D deficiency, unspecified; M10.9 Gout, unspecified; Z79.1 Long term (current) use of non-steroidal anti-inflammatories (NSAID); Z79.52 Long term (current) use of systemic steroids; Z79.899 Other long term (current) drug therapy; Z87.39 Personal history of other diseases of the musculoskeletal system and connective tissue
CPT/HCPCS: 36415; 82565; 84450; 84460; 84550; 85027; 85652; 86140

== ENCOUNTER → 2018-08-02 15:24 | Outpatient (CLI) | payer BC, SELFPAY ==
[2018-08-06 11:46] LABS: Vitamin D 1,25-Dihydroxy 93.1 pg/mL (19.9-79.3)
== END ==
PROVIDERS: Family Provider Family Medicine; PCP Family Medicine; Referring Provider Internal Medicine Rheumatology; Visit Provider Internal Medicine Rheumatology
DX: M06.09 Rheumatoid arthritis without rheumatoid factor, multiple sites (principal); E55.9 Vitamin D deficiency, unspecified; Z79.52 Long term (current) use of systemic steroids
CPT/HCPCS: 36415; 82306; 82652

== ENCOUNTER → 2018-08-11 13:25 | Outpatient (CLI) | payer BC, SELFPAY ==
[2018-08-16 17:35] LABS: HPV Reflexed? NOT INDICATED
== END ==
PROVIDERS: Visit Provider Obstetrics & Gynecology
DX: Z12.4 Encounter for screening for malignant neoplasm of cervix (principal)
CPT/HCPCS: 88175; G0145

== ENCOUNTER → 2018-08-16 07:59 | Outpatient (CLI) | payer BC, SELFPAY ==
--- NOTE | 2018-08-16 08:03 | US_ITS ---
STUDY: THYROID ULTRASOUND REASON FOR EXAM: Female, 43 years old. Nontoxic goiter TECHNIQUE: Ultrasound evaluation of the thyroid was performed with real-time and static geronimo-scale imaging. COMPARISON: None. FINDINGS: RIGHT LOBE: The right thyroid measures 44 x 18 x 20 mm, normal echotexture and vascularity.. LEFT LOBE: The left thyroid measures 40 x 20 x 29 mm, homogeneous background echotexture, normal vascularity. Left thyroid centrally anechoic circumscribed oval cyst measuring 22 x 22 x 24 mm, containing a small lana of calcification at its margin. No solid nodules. ISTHMUS: The isthmus measures 8 mm, tiny cyst to the right of midline, 2.4 mm. US/Thyroid IMPRESSION: Left thyroid cyst, consistent with benign chocolate cyst. Tiny cyst of the right side of the isthmus, likely a small colloid cyst. No suspicious nodules. No evidence of thyromegaly. No significant goitrous changes. Electronically Signed: Saurabh Garcia MD at 16:14 EDT Tel , Service support ,
== END ==
PROVIDERS: Family Provider Family Medicine; PCP Family Medicine; Referring Provider Otolaryngology; Visit Provider Otolaryngology
DX: E04.1 Nontoxic single thyroid nodule (principal)
CPT/HCPCS: 76536

== ENCOUNTER 2018-11-16 21:16 | Emergency (ER) | payer BC, SELFPAY ==
[2018-11-16 21:16] VITALS: BP 167/108; PULSE 90; RESP 15; TEMP 36.8; O2SAT 100; BMI 50.2
--- NOTE | 2018-11-16 21:19 | RAD_ITS ---
STUDY: X-RAY - LEFT HAND REASON FOR EXAM: Female, 43 years old. Fall TECHNIQUE: 3 view(s) of the hand were obtained. COMPARISON: None. FINDINGS: There is cortical irregularity of the dorsal distal radius seen best on the lateral view. There is a subtle lucency at the proximal fifth metacarpal with adjacent cortical thickening. Osseous structures are otherwise unremarkable. Mild degenerative changes are present at the first carpal metacarpal joint. There are no radiodense foreign bodies. RAD/Hand Min 3 Views IMPRESSION: Cortical irregularity of the dorsal distal radius seen best on the lateral view, consistent in appearance with nondisplaced/minimally displaced cortical fracture. Subtle lucency at the proximal fifth metacarpal bone with mild cortical thickening, which may represent age-indeterminate nondisplaced fracture. CT is suggested for further assessment. Mild degenerative changes at the first carpometacarpal joint. Electronically Signed: Tang Guerrero, at 21:44 EDT Tel , Service support ,
--- NOTE | 2018-11-16 21:25 | RAD_ITS ---
STUDY: X-RAY - LEFT WRIST REASON FOR EXAM: Female, 43 years old. Fall TECHNIQUE: 3 view(s) of the wrist were obtained. COMPARISON: None. FINDINGS: There is cortical irregularity of the dorsal distal radius seen best on the lateral view. There is a subtle lucency at the proximal fifth metacarpal with adjacent cortical thickening. Osseous structures are otherwise unremarkable. Mild degenerative changes are present at the first carpal metacarpal joint. There are no radiodense foreign bodies. RAD/Wrist min 3 Views IMPRESSION: Cortical irregularity of the dorsal distal radius seen best on the lateral view, consistent in appearance with nondisplaced/minimally displaced cortical fracture. Subtle lucency at the proximal fifth metacarpal bone with mild cortical thickening, which may represent age-indeterminate nondisplaced fracture. CT is suggested for further assessment. Electronically Signed: Tang Guerrero, at 21:42 EDT Tel , Service support ,
--- NOTE | 2018-11-16 22:53 | CT_ITS ---
Exam: CT of the left hand and wrist. HISTORY: Fall. Abnormal radiographs. COMPARISON: Radiographs of the same day. FINDINGS: These findings confirm a very subtle nondisplaced fracture through the base of the radial styloid along the dorsal aspect. It is best seen on images 30-33 of series 602. The fracture is intra-articular. No impaction or angulation. No dislocation. Mild generalized degenerative changes. No other acute abnormalities. Grossly normal soft tissues. CT/Extremity Upper without Contra IMPRESSION: Confirmation of very subtle nondisplaced fracture through the dorsal base of the radial styloid. Electronically Signed: Lonnie Kebede MD at 23:25 EDT , Service support ,
--- NOTE | 2018-11-16 22:57 | ED.VIS.GEN ---
History of Present Illness Chief Complaint: Upper Extremity Injury Narrative: This patient is a 43-year-old female who presents with left wrist injury. She slipped on a wet floor and fell onto an outstretched left hand. This occurred shortly before presentation. She complains of pain over the distal radial wrist no numbness tingling weakness or loss of function. She says she hit her right knee a little bit but it is not really painful and she is been able to walk without difficulty. No head injury loss of consciousness headache vomiting. No chest pain shortness of breath. She states she may have twisted her lower back a little bit but again only has mild discomfort there and is not concerned about it. Past Medical History - Allergies and Home Meds Allergies/Adverse Reactions: Allergies codeine Allergy (Verified 11/16/18 21:16) Hives morphine Adverse Reaction (Verified 11/16/18 21:16) Other Primary Care Physician: Tala Allen DO [Primary Care Provider] - Past Medical History: - - Fibromyalgia, rheumatoid arthritis Smoking Status: Never smoker Review of Systems All systems negative except as indicated General: Denies: Fever Cardiovascular: Denies: Chest pain Respiratory: Denies: Dyspnea Gastrointestinal: Denies: Abdominal pain Musculoskeletal: Reports: - - Left wrist pain Physical Exam Vital Signs/Narrative: Vital Signs Temp Pulse Resp BP Pulse Ox 11/16/18 21:16 98.2 F 90 15 167/108 H 100 Inital Vital Signs reviewed: Yes General: Well nourished, Well developed, Obese Head: Normocephalic Eyes: EOMI ENT: Moist mucous membranes Neck: Supple Cardiovascular: Regular rate, Regular rhythm Respiratory: No distress, CTA bilaterally Extremities: - - Soft tissue swelling and focal bony tenderness of the distal radius no obvious deformity easily palpable radial pulse brisk capillary refill normal sensation to light touch she has no tenderness of the hand itself Skin: Normal color Neurological: Alert Psychological: Normal affect Diagnostic/Tx/Re-eval - Medical Decision Making Left hand and wrist x-rays were obtained off of nursing protocol. This does show a nondisplaced or minimally displaced distal radius fracture as well as a questionable fifth metacarpal fracture so CT was recommended. Patient only wanted ibuprofen here for pain. CT confirms a subtle nondisplaced radial styloid fracture. No other fracture. Velcro wrist splint was applied. Patient was referred to orthopedics. She will use ibuprofen as needed for pain but does understand return for new or worsening symptoms. ED Disposition - Plan for ED Patient: Disposition: Home or Assisted Living Diagnosis: Radius fracture Instructions: FRACTURE, Wrist [General] Referrals: Tala Allen DO [Primary Care Provider] - Beka Day DO [STAFF PHYSICIAN] -
[2018-11-16] MEDS: Ibuprofen 200 MG Tablet 400 MG PO (23:00)
[2018-11-17 00:39] VITALS: BP 145/88; PULSE 75; RESP 16
== END 2018-11-17 00:46 | disposition home or self-care (01) ==
PROVIDERS: Emergency Provider Emergency Medicine; Family Provider Family Medicine; PCP Family Medicine
DX: S52.515A Nondisplaced fracture of left radial styloid process, initial encounter for closed fracture (principal); W01.0XXA Fall on same level from slipping, tripping and stumbling without subsequent striking against object, initial encounter; Y93.9 Activity, unspecified; Y92.9 Unspecified place or not applicable; Y99.9 Unspecified external cause status; M06.9 Rheumatoid arthritis, unspecified; M79.7 Fibromyalgia; Z79.52 Long term (current) use of systemic steroids; Z79.899 Other long term (current) drug therapy
CPT/HCPCS: 73110; 73130; 73200; 99283

== ENCOUNTER → 2018-11-29 08:11 | Outpatient (CLI) | payer BC, SELFPAY ==
[2018-11-19 08:12] VITALS: BMI 50.2
[2018-11-29 10:05] LABS: Erythrocyte Sedimentation Rate 28 mm/hr (0-20)
[2018-11-29 10:06] LABS: Hematocrit 39.3 % (37-47); Hemoglobin 12.1 g/dL (12.0-15.0); Mean Corp Hgb Conc 30.8 g/dL (32-36); Mean Corpuscular Hgb 25.5 pg (27.0-32.0); Mean Corpuscular Volume 82.7 fL (81-99); Mean Platelet Vol. 10.4 fl (6.2-12.0); Platelet Count 187 K/mm3 (150-450); RBC Distribution Width SD 48.2 fl (35.1-43.9); Red Blood Count 4.75 M/mm3 (4.2-5.4); White Blood Count 7.2 K/mm3 (4.4-11.0)
[2018-11-29 10:17] LABS: AST(SGOT) 17 U/L (15-37); Alanine Aminotransfer ALT/SGPT 26 U/L (13-56); Creatinine, Serum 0.69 mg/dL (0.55-1.02); EST Glomerular Filtration Rate 97 mL/min (>60); Est Glom Filt Rate - Afr Amer 117 mL/min (>60); Uric Acid 3.4 mg/dL (2.6-6.0)
== END ==
PROVIDERS: Family Provider Family Medicine; PCP Family Medicine; Referring Provider Internal Medicine Rheumatology; Visit Provider Internal Medicine Rheumatology
DX: M06.09 Rheumatoid arthritis without rheumatoid factor, multiple sites (principal); I89.0 Lymphedema, not elsewhere classified; E55.9 Vitamin D deficiency, unspecified; M1A.09X0 Idiopathic chronic gout, multiple sites, without tophus (tophi); G56.03 Carpal tunnel syndrome, bilateral upper limbs; G57.50 Tarsal tunnel syndrome, unspecified lower limb; M77.32 Calcaneal spur, left foot; M15.9 Polyosteoarthritis, unspecified; Z85.42 Personal history of malignant neoplasm of other parts of uterus; Z87.39 Personal history of other diseases of the musculoskeletal system and connective tissue; Z79.1 Long term (current) use of non-steroidal anti-inflammatories (NSAID); Z79.52 Long term (current) use of systemic steroids; Z79.899 Other long term (current) drug therapy
CPT/HCPCS: 36415; 82565; 84450; 84460; 84550; 85027; 85652; 86140

== ENCOUNTER → 2018-12-17 11:00 | Outpatient (CLI) | payer BC, SELFPAY ==
[2018-12-17 08:01] VITALS: BMI 50.2
--- NOTE | 2018-12-17 11:01 | RAD_ITS ---
STUDY: X-RAY - LEFT WRIST REASON FOR EXAM: Follow-up wrist fracture. TECHNIQUE: 3 view(s) of the wrist were obtained. COMPARISON: None. FINDINGS: There is a healing nondisplaced fracture of the dorsal aspect of the distal radius. Normal radiocarpal articulation. Normal distal radioulnar articulation. Normal carpal bones. Normal carpal articulations. Normal carpometacarpal articulation of the thumb. Normal second through fifth carpometacarpal articulations. Normal visualized metacarpal bones. The soft tissue structures are unremarkable. RAD/Wrist min 3 Views IMPRESSION: Healing nondisplaced fracture of the dorsal distal radius. Electronically Signed: Bayron Woodward MD at 14:20 EDT Tel , Service support ,
== END ==
PROVIDERS: Family Provider Family Medicine; PCP Family Medicine; Referring Provider Orthopaedic Surgery; Visit Provider Orthopaedic Surgery
DX: S62.102A Fracture of unspecified carpal bone, left wrist, initial encounter for closed fracture (principal); X58.XXXA Exposure to other specified factors, initial encounter; Y93.9 Activity, unspecified; Y92.9 Unspecified place or not applicable; Y99.9 Unspecified external cause status
CPT/HCPCS: 73110

== ENCOUNTER → 2018-12-24 08:15 | Outpatient (CLI) | payer BC, SELFPAY ==
[2018-12-17 08:01] VITALS: BMI 50.2
== END ==
PROVIDERS: Family Provider Family Medicine; PCP Family Medicine; Referring Provider Family Medicine; Visit Provider Family Medicine
DX: Z00.00 Encounter for general adult medical examination without abnormal findings (principal)

== ENCOUNTER → 2019-01-05 08:12 | Outpatient (CLI) | payer BC, SELFPAY ==
[2018-12-17 08:01] VITALS: BMI 50.2
[2019-01-05 11:04] LABS: Free T3 2.8 pg/mL (2.18-3.98); T4 Free Direct 1.13 ng/dL (0.76-1.46); Thyroid Stim Hormone (TSH) 1.22 uIU/mL (0.358-3.74)
[2019-01-06 14:08] LABS: Thyroid Peroxidase AB 9 IU/mL (0-34)
[2019-01-06 18:47] LABS: Thyroglobulin Antibody < 1.0 IU/mL (0.0-0.9)
== END ==
LOC: LAB.FUTURE 08:13 → MTLAB 08:18
PROVIDERS: Family Provider Family Medicine; PCP Family Medicine; Referring Provider Family Medicine; Visit Provider Family Medicine
DX: E03.9 Hypothyroidism, unspecified (principal)
CPT/HCPCS: 36415; 84439; 84443; 84481; 86376; 86800

== ENCOUNTER → 2019-01-07 08:29 | Outpatient (CLI) | payer BC, SELFPAY ==
[2019-01-07 07:59] VITALS: BMI 50.2
--- NOTE | 2019-01-07 08:31 | RAD_ITS ---
STUDY: X-RAY - LEFT WRIST REASON FOR EXAM: Female, 43 years old. Follow-up fracture. TECHNIQUE: 3 view(s) of the wrist were obtained. COMPARISON: 12/17/2018. FINDINGS: Mild narrowing of the visualized distal radius and ulna. Normal radiocarpal articulation. Normal distal radioulnar articulation. Normal carpal bones. There is mild degenerative arthrosis of the scaphoid trapezium trapezoid joint. There is degenerative arthrosis of the carpometacarpal articulation of the thumb. Normal second through fifth carpometacarpal articulations. Normal visualized metacarpal bones. The soft tissue structures are unremarkable. There is no demonstrated acute fracture. RAD/Wrist min 3 Views IMPRESSION: Degenerative disease as described above, stable study in the interval. Electronically Signed: Dasha Beck MD at 1:01 EST , Service support ,
== END ==
PROVIDERS: Family Provider Family Medicine; PCP Family Medicine; Referring Provider Orthopaedic Surgery; Visit Provider Orthopaedic Surgery
DX: S52.502A Unspecified fracture of the lower end of left radius, initial encounter for closed fracture (principal); X58.XXXA Exposure to other specified factors, initial encounter; Y93.9 Activity, unspecified; Y92.9 Unspecified place or not applicable; Y99.9 Unspecified external cause status
CPT/HCPCS: 73110

== ENCOUNTER → 2019-03-03 08:25 | Outpatient (CLI) | payer BC, SELFPAY ==
[2019-01-07 07:59] VITALS: BMI 50.2
[2019-03-03 10:01] LABS: Absolute Lymphocyte Count 1.97 X10^3/uL (0.83-4.51); Absolute Neutrophil Count 4.8 X10^3/uL (2.0-7.7); Basophil# 0.04 X10^3/uL; Basophil% 0.5 % (0-1); Eosinophil# 0.35 X10^3/uL; Eosinophils% 4.5 % (0-5); Hematocrit 42.6 % (37-47); Hemoglobin 13.4 g/dL (12.0-15.0); Lymphocyte # 1.97 X10^3/ul (4.0); Lymphocyte % 25.4 % (19-41); Mean Corp Hgb Conc 31.5 g/dL (32-36); Mean Corpuscular Hgb 26.6 pg (27.0-32.0); Mean Corpuscular Volume 84.5 fL (81-99); Mean Platelet Vol. 11.4 fl (6.2-12.0); Monocyte# 0.58 X10^3/uL; Monocyte% 7.5 % (0-10); NRBC Flagged by Analyzer 0 % (0-5); Neutrophil # 4.77 X10^3/uL (2.7-7.7); Neutrophil % 61.6 % (47-70); Platelet Count 237 K/mm3 (150-450); Red Blood Count 5.04 M/mm3 (4.2-5.4); White Blood Count 7.8 K/mm3 (4.4-11.0)
[2019-03-03 10:14] LABS: Prothrombin Time (Protime)PT. 13.3 SECONDS (11.7-14.9)
[2019-03-03 10:23] LABS: Erythrocyte Sedimentation Rate 38 mm/hr (0-20)
[2019-03-03 10:24] LABS: BUN 13 mg/dL (7-18); Creatinine, Serum 0.78 mg/dL (0.55-1.02); EST Glomerular Filtration Rate 85 mL/min (>60); Glucose 122 mg/dL (74-106)
[2019-03-03 10:25] LABS: ALB/GLOB Ratio 0.9 RATIO (0.9-2.4); AST(SGOT) 24 U/L (15-37); Alanine Aminotransfer ALT/SGPT 35 U/L (13-56); Alanine Aminotransfer ALT/SGPT 36 U/L (13-56); Albumin, Serum 3.6 g/dL (3.2-5.0); Alkaline Phosphatase 75 U/L (45-117); Anion Gap 6 (5-15); BUN/Creat Ratio 16.7 RATIO (10-20); Calcium,Total 9.1 mg/dL (8.5-10.1); Chloride 107 mmol/L (98-107); Cholesterol 184 mg/dL (200); EST Glomerular Filtration Rate 82 mL/min (>60); Est Glom Filt Rate - Afr Amer 102 mL/min (>60); Est Glom Filt Rate - Afr Amer 99 mL/min (>60); Globulin 4.2 g/dL (2.2-4.2); High Density Lipoprotein 57 mg/dL; Iron 48 ug/dL (50-170); Potassium 3.7 mmol/L (3.5-5.1); Protein, Total 7.8 g/dL (6.4-8.2); Sodium Level 139 mmol/L (136-145); Triglycerides 141 mg/dL; Very Low Density Lipoprotein 28 mg/dL (5-40); Vitamin D,25 Hydroxy 65.3 ng/mL (29.95-100.01)
[2019-03-08 10:33] LABS: Vitamin D 1,25-Dihydroxy 78.1 pg/mL (19.9-79.3)
== END ==
PROVIDERS: Internal Medicine Rheumatology; Family Provider Family Medicine; PCP Family Medicine; Referring Provider Family Medicine; Visit Provider Family Medicine
DX: D64.9 Anemia, unspecified (principal); E61.1 Iron deficiency; R58 Hemorrhage, not elsewhere classified; E55.9 Vitamin D deficiency, unspecified; Z51.81 Encounter for therapeutic drug level monitoring; Z79.899 Other long term (current) drug therapy
CPT/HCPCS: 36415; 80053; 80061; 82306; 82565; 82652; 83540; 84450; 84460; 85025; 85610; 85652; 86140

== ENCOUNTER → 2019-03-28 17:45 | Outpatient (CLI) | payer BC, SELFPAY ==
[2019-01-07 07:59] VITALS: BMI 50.2
== END ==
PROVIDERS: PCP Family Medicine; Visit Provider Podiatrist
DX: L03.032 Cellulitis of left toe (principal)
CPT/HCPCS: 87070; 87075; 87077; 87186; 87205

== ENCOUNTER → 2019-08-10 10:05 | Outpatient (CLI) | payer BC, SELFPAY ==
[2019-07-06 09:28] VITALS: BMI 50.2
[2019-08-10 12:53] LABS: Absolute Lymphocyte Count 2.26 X10^3/uL (0.83-4.51); Absolute Neutrophil Count 3.6 X10^3/uL (2.0-7.7); Basophil# 0.04 X10^3/uL; Basophil% 0.6 % (0-1); Eosinophil# 0.25 X10^3/uL; Eosinophils% 3.8 % (0-5); Hematocrit 42.5 % (37-47); Hemoglobin 13.1 g/dL (12.0-15.0); Lymphocyte # 2.26 X10^3/ul (4.0); Mean Corp Hgb Conc 30.8 g/dL (32-36); Mean Corpuscular Hgb 27.2 pg (27.0-32.0); Mean Corpuscular Volume 88.2 fL (81-99); Mean Platelet Vol. 11.9 fl (6.2-12.0); Monocyte# 0.49 X10^3/uL; Monocyte% 7.4 % (0-10); NRBC Flagged by Analyzer 0 % (0-5); Neutrophil # 3.56 X10^3/uL (2.7-7.7); Neutrophil % 53.6 % (47-70); Platelet Count 203 K/mm3 (150-450); RBC Distribution Width CV 14.6 % (11.6-14.6); RBC Distribution Width SD 47.3 fl (35.1-43.9); Red Blood Count 4.82 M/mm3 (4.2-5.4); White Blood Count 6.6 K/mm3 (4.4-11.0)
[2019-08-10 13:04] LABS: Erythrocyte Sedimentation Rate 50 mm/hr (0-20)
[2019-08-10 13:05] LABS: Vitamin D,25 Hydroxy 87.4 ng/mL
[2019-08-10 13:18] LABS: AST(SGOT) 14 U/L (15-37); Alanine Aminotransfer ALT/SGPT 24 U/L (13-56); Creatinine, Serum 0.68 mg/dL (0.55-1.02); EST Glomerular Filtration Rate 99 mL/min (>60); Est Glom Filt Rate - Afr Amer 120 mL/min (>60); Uric Acid 3.2 mg/dL (2.6-6.0)
[2019-08-13 03:07] LABS: QNTFERON TB Mitogen Value > 10.00 IU/mL (.); QNTFERON TB Nil Value 0.03 IU/mL (.); QNTFERON TB1+ Ag Value 1.06 IU/mL (.); QNTFERON TB2+ Ag Value 1.69 IU/mL (.)
[2019-08-15 05:12] LABS: QNTIFERON TB Positive Criteria Positive (Negative)
== END ==
PROVIDERS: PCP Family Medicine; Referring Provider Internal Medicine Rheumatology; Visit Provider Internal Medicine Rheumatology
DX: M06.09 Rheumatoid arthritis without rheumatoid factor, multiple sites (principal); R76.11 Nonspecific reaction to tuberculin skin test without active tuberculosis; E55.9 Vitamin D deficiency, unspecified; M79.7 Fibromyalgia; G56.03 Carpal tunnel syndrome, bilateral upper limbs; G57.50 Tarsal tunnel syndrome, unspecified lower limb; M19.071 Primary osteoarthritis, right ankle and foot; M19.072 Primary osteoarthritis, left ankle and foot; M77.31 Calcaneal spur, right foot; M41.34 Thoracogenic scoliosis, thoracic region; M47.814 Spondylosis without myelopathy or radiculopathy, thoracic region; M51.34 Other intervertebral disc degeneration, thoracic region; M77.32 Calcaneal spur, left foot; M10.9 Gout, unspecified; Z87.39 Personal history of other diseases of the musculoskeletal system and connective tissue; Z79.1 Long term (current) use of non-steroidal anti-inflammatories (NSAID); Z79.899 Other long term (current) drug therapy
CPT/HCPCS: 36415; 82306; 82565; 82652; 84450; 84460; 84550; 85025; 85652; 86140; 86480

== ENCOUNTER → 2019-09-21 10:46 | Outpatient (CLI) | payer BC, SELFPAY ==
[2019-07-06 09:28] VITALS: BMI 50.2
--- NOTE | 2019-09-21 10:49 | RAD_ITS ---
STUDY: X-RAY CHEST REASON FOR EXAM: Female, 44 years old. SOB/DYSPNEA TECHNIQUE: PA and lateral views of the chest. COMPARISON: Comparison is made with prior study 11/25/2013. FINDINGS: The lungs are clear and expanded. There is no demonstrated pleural abnormality. Normal size heart. Normal mediastinum and lewis. Normal visualized pulmonary arteries. Normal visualized aortic arch and descending thoracic aorta. There are diffuse degenerative changes of the visualized thoracic spine. Mild dextroscoliosis. Normal visualized ribs, clavicles, and shoulders. There is no demonstrated abnormality of the visualized soft tissue structures of the upper abdomen. RAD/Chest PA and Lateral IMPRESSION: No acute abnormality is seen. Electronically Signed: Mohsen Ching, at 15:42 EDT , Service support ,
[2019-09-21 12:37] LABS: Absolute Lymphocyte Count 3.16 X10^3/uL (0.83-4.51); Absolute Neutrophil Count 5.9 X10^3/uL (2.0-7.7); Basophil# 0.04 X10^3/uL; Basophil% 0.4 % (0-1); Eosinophil# 0.28 X10^3/uL; Eosinophils% 2.7 % (0-5); Hematocrit 41.4 % (37-47); Hemoglobin 13.1 g/dL (12.0-15.0); Lymphocyte # 3.16 X10^3/ul (4.0); Lymphocyte % 30.5 % (19-41); Mean Corp Hgb Conc 31.6 g/dL (32-36); Mean Corpuscular Hgb 27.3 pg (27.0-32.0); Mean Corpuscular Volume 86.4 fL (81-99); Mean Platelet Vol. 11.4 fl (6.2-12.0); Monocyte# 0.94 X10^3/uL; Monocyte% 9.1 % (0-10); NRBC Flagged by Analyzer 0 % (0-5); Platelet Count 226 K/mm3 (150-450); RBC Distribution Width SD 46.7 fl (35.1-43.9); Red Blood Count 4.79 M/mm3 (4.2-5.4); White Blood Count 10.4 K/mm3 (4.4-11.0)
[2019-09-21 12:57] LABS: ALB/GLOB Ratio 0.8 RATIO (0.9-2.4); AST(SGOT) 18 U/L (15-37); Alanine Aminotransfer ALT/SGPT 25 U/L (13-56); Albumin, Serum 3.6 g/dL (3.2-5.0); Alkaline Phosphatase 82 U/L (45-117); Anion Gap 2 (5-15); BUN 10 mg/dL (7-18); BUN/Creat Ratio 15.2 RATIO (10-20); Calcium,Total 9.2 mg/dL (8.5-10.1); Chloride 104 mmol/L (98-107); Creatinine, Serum 0.66 mg/dL (0.55-1.02); EST Glomerular Filtration Rate 103 mL/min (>60); Est Glom Filt Rate - Afr Amer 124 mL/min (>60); Globulin 4.4 g/dL (2.2-4.2); Glucose 88 mg/dL (74-106); Potassium 3.7 mmol/L (3.5-5.1); Sodium Level 137 mmol/L (136-145)
[2019-09-21 13:08] LABS: BNP,B-Type NATRIURETIC PEPTIDE 16.3 pg/mL (0-100)
== END ==
PROVIDERS: PCP Family Medicine; Referring Provider Family Medicine; Visit Provider Family Medicine
DX: R06.00 Dyspnea, unspecified (principal); I50.9 Heart failure, unspecified; D64.9 Anemia, unspecified; Z51.81 Encounter for therapeutic drug level monitoring
CPT/HCPCS: 36415; 71046; 80053; 83880; 85025

== ENCOUNTER → 2022-01-13 | Outpatient (CLI) | payer BC, SELFPAY | END | disposition home or self-care (01) | LOC: WOBLAB 09:20 | PROVIDERS: PCP Family Medicine; Visit Provider Student in an Organized Health Care Education/Training Program | DX: N76.0 Acute vaginitis (principal) | CPT/HCPCS: 87491; 87591 ==

== ENCOUNTER → 2022-03-31 | Outpatient (CLI) | payer BC, SELFPAY ==
--- NOTE | 2022-03-31 11:58 | BI_ITS ---
MAMMOGRAPHY - BILATERAL SCREENING REASON FOR EXAM: Female, 46 years old. Routine annual screening examination. PERTINENT HISTORY: Grandmother with breast cancer. TECHNIQUE: Digital bilateral breast jesus (3D mammographic acquisition) in the CC and MLO projections. 2-D mediolateral oblique (MLO) and craniocaudad (CC) views of both breasts were obtained. CAD: Full Field Digital Mammography with Computer Added Detection was performed. COMPARISON: Comparison is made with prior study dated 09/14/2017 and 11/25/2013. FINDINGS: Breast Composition: The breasts are almost entirely fatty. There are no dominant masses or suspicious calcifications. No other significant abnormalities are identified. There has been no significant change since the prior study. BI/SCRN MAMM (CAD)W/JESUS BILAT IMPRESSION: Stable bilateral screening mammogram. Yearly follow-up mammogram recommended. (A) ASSESSMENT CATEGORY: BIRADS Category 1: Negative. A letter regarding these results will be sent to the patient by the facility within 30 days. Approximately 10% of breast cancers are not detected by mammography. A normal mammogram should not delay biopsy of a clinically suspicious abnormality. [id number] Electronically Signed: Mohsen Ching MD at 14:36 EST ,
== END | disposition home or self-care (01) ==
LOC: OPBI 11:56
PROVIDERS: PCP Family Medicine; Referring Provider Student in an Organized Health Care Education/Training Program; Visit Provider Student in an Organized Health Care Education/Training Program
DX: Z12.31 Encounter for screening mammogram for malignant neoplasm of breast (principal)
CPT/HCPCS: 77063; 77067

== ENCOUNTER → 2022-06-03 | Outpatient (CLI) | payer BC, SELFPAY | END | disposition home or self-care (01) | PROVIDERS: PCP Family Medicine; Visit Provider Family Medicine | DX: N76.0 Acute vaginitis (principal); Z20.2 Contact with and (suspected) exposure to infections with a predominantly sexual mode of transmission ==

== ENCOUNTER → 2022-06-07 | Outpatient (CLI) | payer BC, SELFPAY ==
[2022-06-09 09:40] LABS: HIV - WCH Non-Reactive (Nonreactive); Hepatitis B Surface Antibody Non-Reactive; Hepatitis B Surface Antigen Non-Reactive (Nonreactive); Hepatitis C Antibody Non-Reactive (Nonreactive); Syphilis Antibodies Non-reactive
== END | disposition home or self-care (01) ==
LOC: LAB 07:43
PROVIDERS: PCP Family Medicine; Referring Provider Family Medicine; Visit Provider Family Medicine
DX: Z20.9 Contact with and (suspected) exposure to unspecified communicable disease (principal)
CPT/HCPCS: 36415; 86703; 86706; 86780; 86803; 87340

== ENCOUNTER → 2023-03-31 | Outpatient (CLI) | payer BC, SELFPAY ==
[2023-03-31 17:40] LABS: Absolute Lymphocyte Count 3.52 X10^3/uL (0.83-4.51); Absolute Neutrophil Count 5.4 X10^3/uL (2.0-7.7); Basophil# 0.05 X10^3/uL; Basophil% 0.5 % (0-1); Eosinophil# 0.51 X10^3/uL; Eosinophils% 4.9 % (0-5); Hematocrit 43.3 % (37-47); Hemoglobin 13.6 g/dL (12.0-15.0); Lymphocyte # 3.52 X10^3/ul (0.83-4.51); Mean Corp Hgb Conc 31.4 g/dL (32-36); Mean Corpuscular Hgb 26.1 pg (27.0-32.0); Mean Corpuscular Volume 83.1 fL (81-99); Mean Platelet Vol. 11.2 fl (6.2-12.0); Monocyte# 0.83 X10^3/uL; NRBC Flagged by Analyzer 0 % (0-5); Neutrophil # 5.41 X10^3/uL (2.7-7.7); Neutrophil % 52.2 % (47-70); Platelet Count 245 K/mm3 (150-450); RBC Distribution Width SD 45.4 fl (35.1-43.9); Red Blood Count 5.21 M/mm3 (4.2-5.4); White Blood Count 10.4 K/mm3 (4.4-11.0)
[2023-03-31 17:54] LABS: Erythrocyte Sedimentation Rate 39 mm/hr (0-30)
[2023-03-31 17:57] LABS: Vitamin B12 347 pg/mL (211-911)
[2023-03-31 17:58] LABS: Hemoglobin A1c 6.3 % (3.8-5.6)
[2023-03-31 18:15] LABS: ALB/GLOB Ratio 0.8 RATIO (0.9-2.4); AST(SGOT) 19 U/L (15-37); Alanine Aminotransfer ALT/SGPT 24 U/L (13-56); Albumin, Serum 3.3 g/dL (3.2-5.0); Alkaline Phosphatase 85 U/L (45-117); Anion Gap 5 (5-15); BUN 12 mg/dL (7-18); BUN/Creat Ratio 20.8 RATIO (10-20); Chloride 103 mmol/L (98-107); Creatinine, Serum 0.58 mg/dL (0.55-1.02); EST Glomerular Filtration Rate 118 mL/min (>60); Est Glom Filt Rate - Afr Amer 142 mL/min (>60); Ferritin 127 ng/mL (8-252); Free T3 2.8 pg/mL (2.18-3.98); Globulin 4.1 g/dL (2.2-4.2); Glucose 109 mg/dL (74-106); Iron 59 ug/dL (50-170); Potassium 3.7 mmol/L (3.5-5.1); Protein, Total 7.4 g/dL (6.4-8.2); Sodium Level 133 mmol/L (136-145); Thyroid Stim Hormone (TSH) 0.83 uIU/mL (0.358-3.74)
--- OUTSIDE RECORDS SUMMARY | 2023-03-31 19:55 | XMS RPT_ITS | CCD ---
Author Name Unknown Address [address] [place] [address] Organization [facility] Care Team Providers Care Underwriting Consultant Name Role Phone MALYS, TALA A Unavailable Unavailable MALYS, TALA A. Unavailable Unavailable ROSALES, ROSENDO Unavailable Unavailable ROSALES, ROSENDO Unavailable Unavailable MALYS, TALA A. Unavailable Unavailable SOTO, JUAN P Unavailable Unavailable SOTO, JUAN P Unavailable Unavailable MALYS, TALA A. Unavailable Unavailable SOTO, JUAN P Unavailable Unavailable MALYS, TALA A. Unavailable Unavailable SOTO, JUAN P Unavailable Unavailable MALYS, TALA A. Unavailable Unavailable Malys, Tala A Unavailable Malys, Tala A Primary Care Provider TAMIA DAWSON JR. Attending Unavailabl e TAMIA DAWSON JR. Referring Unavailabl e MALYS, TALA A Primary Care Unavailable Malys, Tala A Primary Care Provider Malys, Tala Primary Care Provider Malys DO, Tala A Primary Care Provider [phone] MALYS, TALA A Primary Care Unavailable NATA VALENTINO Attending Unavailable ROSALESROSENDO Lieberman Admitting Unavailable ROSALESROSENDO Admitting Unavailable ROSALESROSENDO Attending Unavailable MALYS, TALA A Primary Care Unavailable MALYS, TALA A Primary Care Unavailable ROSALESROSENDO Lieberman Attending Unavailable ROSALESROSENDO Lieberman Attending Unavailable MALYS, TALA A Primary Care Unavailable ROSALESROSENDO WHEATLEY Attending Unavailable MALYS, TALA A Primary Care Unavailable ROSALES, ROSENDO MOLINA Attending Unavailable MALYS, TALA A Primary Care Unavailable Allergies Allergy Classification Reported Allergen(s) Allergy Type Date of Onset Reaction(s) Facility (20 sources) codeine; Translations: [CODEINE] Drug Allergy 0 Hives, GI Intolerance [facility] (20 sources) morphine; Translations: [MORPHINE] Drug Allergy 0 Other (See Comments), Anxiety [facility] (4 sources) Penicillin; Translations: [PENICILLIN] Drug Allergy 0 Unknown [facility] Medications Current Medications Medication Drug Class(es) Dates Sig (Normalized) Sig (Original) allopurinol 300 mg oral tablet (20 sources) Xanthine Oxidase Inhibitor Start: 10-21-2019 End: 11-14-2019 take 1 tablet by mouth once daily allopurinol 300 MG tablet Indications: Gouty arthropathy 1 po q day 90 tablet 3 11/14/2019 Active Completed/Discontinued Medications Medication Drug Class(es) Dates Sig (Normalized) Sig (Original) busPIRone hydrochloride 7.5 mg oral tablet (9 sources) Start: 09-03-2017 End: 08-06-2018 BusPIRone HCl 7.5 MG Tab eletriptan 20 mg oral tablet (8 sources) Serotonin-1b and Serotonin-1d Receptor Agonist Start: 01-29-2018 End: 08-06-2018 eletriptan 20 MG Tab famotidine 26.6 mg / ibuprofen 800 mg oral tablet (13 sources) Nonsteroidal Anti-inflammatory Drug, Histamine-2 Receptor Antagonist Start: 09-08-2017 End: 12-06-2018 take 1 tablet by mouth three times daily as needed Ibuprofen-Famotidine (DUEXIS) 800-26.6 MG Tab Indications: Cervicalgia , Dorsalgia , Paresthesia of both hands , Bilateral carpal tunnel syndrome , Bilateral foot pain , Disorder of bone and cartilage , Osteoarthritis of both feet, unspecified osteoarthritis type , Chronic pain of both shoulders , Bilateral biceps tendonitis , Subacromial bursitis , Bilateral wrist pain , Bilateral hand pain , Weakness of both hands , Bilateral lower extremity edema , Lymphedema of both lower extremities , Bilateral temporomandibular joint pain , Malignant neoplasm of endometrium , ESR raised , History of fibromyalgia , History of rheumatoid arthritis , Fatigue, unspecified type , lobsterman current use of non-steroidal anti-inflammatories (NSAID) , Anxiety , CRP elevated , Fibromyalgia , Migraine without status migrainosus, not intractable, unspecified migraine type , Gastroesophageal reflux disease, esophagitis presence not specified , Inflammatory arthritis 1 po tid PRN 90 tablet 11 09/08/2017 12/06/2018 Discontinued fexofenadine hydrochloride 180 mg oral tablet (15 sources) Histamine-1 Receptor Antagonist End: 11-14-2019 take 1 tablet by mouth once daily fexofenadine (BISI ALLERGY) 180 MG Tab tablet Take 180 mg by mouth daily. 0 11/14/2019 Discontinued folic acid 0.8 mg oral capsule (12 sources) End: 07-11-2019 Folic Acid 0.8 MG Cap Take by mouth. 0 07/11/2019 Discontinued leflunomide 20 mg oral tablet (4 sources) Antirheumatic Agent Start: 02-02-2018 End: 05-05-2018 leflunomide 20 MG Tab tablet Indications: Rheumatoid arthritis of multiple sites with negative rheumatoid factor , Malignant neoplasm of endometrium , History of fibromyalgia , History of rheumatoid arthritis , lobsterman current use of non-steroidal anti-inflammatories (NSAID) , CRP elevated , Elevated C-reactive protein (CRP) , Localized edema , lobsterman (current) use of non-steroidal anti-inflammatories (nsaid) , Lymphedema, not elsewhere classified , Long-term current use of high risk medication other than anticoagulant , Other director long term care (current) drug therapy , lobsterman current use of systemic steroids , Vitamin D deficiency , Gouty arthritis , Chronic gout of multiple sites, unspecified cause , Bilateral carpal tunnel syndrome , Fibromyalgia , Carpal tunnel syndrome, bilateral upper limbs , Osteoarthritis of both feet, unspecified osteoarthritis type , Bilateral lower extremity edema , Lymphedema of both lower extremities , Inflammatory arthritis , Primary osteoarthritis, left ankle and foot , Primary osteoarthritis, right ankle and foot , Calcaneal spur of foot, right , Thoracogenic scoliosis of thoracic region , Osteoarthritis of thoracic spine, unspecified spinal osteoarthritis complication status , Thoracic degenerative disc disease , Gouty arthropathy , Calcaneal spur of foot, left , Osteoarthritis of multiple joints, unspecified osteoarthritis type , (more content not included)... Problems Active Problems Problem Classification Problem Date Documented Date Episodic/Chronic Anxiety disorders (20 sources) Anxiety; Translations: [Anxiety disorder] Onset: 8 09-08-2017 Chronic Cancer of uterus (20 sources) Malignant neoplasm of endometrium of corpus uteri ; Translations: [Malignant neoplasm of endometrium] Onset: 8 09-22-2017 Chronic Disorders of teeth and jaw (20 sources) Arthralgia of bilateral temporomandibular joint; Translations: [Bilateral temporomandibular joint pain] Onset: 8 09-08-2017 Esophageal disorders (20 sources) Gastroesophageal reflux disease; Translations: [Gastro-esophageal reflux disease without esophagitis] Onset: 8 09-08-2017 Chronic Gout and other crystal arthropathies (20 sources) Gout, unspecified; Translations: [Gouty arthropathy] Onset: 8 09-22-2017 Chronic Headache, including migraine (20 sources) Migraine; Translations: [Migraine, unspecified, not intractable, without status migrainosus] Onset: 8 09-22-2017 Chronic Menopausal disorders (20 sources) Menopausal syndrome; Translations: [Menopausal and female climacteric states] Onset: 7 09-08-2017 Chronic Menstrual disorders (20 sources) Menorrhagia; Translations: [Menorrhagia] Onset: 8 02-02-2018 Chronic Nutritional deficiencies (20 sources) Vitamin D deficiency; Translations: [Vitamin D deficiency] Onset: 8 11-02-2017 Chronic Osteoarthritis (20 sources) Degenerative joint disease of ankle AND/OR foot; Translations: [Osteoarthritis] Onset: 8 11-02-2017 Chronic Osteoarthritis (20 sources) Osteoarthritis of joint of right ankle and/or foot; Translations: [Osteoarthritis of joint of left ankle and/or foot] Onset: 8 11-02-2017 Other acquired deformities (20 sources) Scoliosis of thoracic spine; Translations: [Scoliosis of thoracic spine] Onset: 8 09-22-2017 Chronic Other acquired deformities (6 sources) Thoracogenic scoliosis; Translations: [Thoracogenic scoliosis of thoracic region] Chronic Other bone disease and musculoskeletal deformities (11 sources) Osteochondropathy; Translations: [Disorder of bone and cartilage] Onset: 8 09-08-2017 Chronic Other bone disease and musculoskeletal deformities (12 sources) Disorder of skeletal system; Translations: [Disorder of bone and cartilage] Onset: 8 09-08-2017 Chronic Other connective tissue disease (18 sources) Pain in both feet; Translations: [Bilateral foot pain] Onset: 8 09-08-2017 Other connective tissue disease (15 sources) Pain in left foot; Translations: [Pain in left foot] Onset: 8 09-22-2017 Other connective tissue disease (15 sources) Pain of left hand; Translations: [Pain in left hand] Onset: 8 09-22-2017 Other connective tissue disease (17 sources) Pain of bilateral hands; Translations: [Bilateral hand pain] Onset: 8 09-08-2017 Other connective tissue disease (15 sources) Pain in right foot; Translations: [Pain in right foot] Onset: 8 09-22-2017 Other connective tissue disease (15 sources) Pain in right hand; Translations: [Pain in right hand] Onset: 8 09-22-2017 Other connective tissue disease (17 sources) Bilateral hand weakness; Translations: [Weakness of both hands] Onset: 8 09-08-2017 Other connective tissue disease (20 sources) Calcaneal spur of right foot; Translations: [Calcaneal spur of foot, right] Onset: 8 09-22-2017 Other connective tissue disease (20 sources) Calcaneal spur of left foot; Translations: [Calcaneal spur of left foot] Onset: 8 Resolved: 0 11-02-2017 Other diseases of veins and lymphatics (20 sources) Lymphedema; Translations: [Lymphedema, not elsewhere classified] Onset: 8 11-02-2017 Chronic Other diseases of veins and lymphatics (6 sources) Lymphedema, not elsewhere classified; Translations: [Lymphedema of both lower extremities] Onset: 8 09-08-2017 Chronic Other diseases of veins and lymphatics (19 sources) Lymphedema of bilateral lower limbs; Translations: [Lymphedema of both lower extremities] Onset: 8 09-08-2017 Other ear and sense organ disorders (8 sources) Conductive hearing loss, unilateral, left ear, with unrestricted hearing on the contralateral side; Translations: [Conductive hearing loss, unilateral] Onset: 3 05-21-2022 Chronic Other nervous system disorders (20 sources) Carpal tunnel syndrome; Translations: [Carpal tunnel syndrome, bilateral upper limbs] Onset: 8 09-22-2017 Chronic Other nervous system disorders (20 sources) Tarsal tunnel syndrome; Translations: [TTS (tarsal tunnel syndrome), unspecified laterality] Onset: 9 05-05-2018 Chronic Other nervous system disorders (20 sources) Carpal tunnel syndrome, bilateral upper limbs; Translations: [Bilateral carpal tunnel syndrome] Onset: 8 11-02-2017 Other non-traumatic joint disorders (14 sources) Thoracic arthritis; Translations: [Osteoarthritis thoracic spine] Onset: 8 09-22-2017 Chronic Other non-traumatic joint disorders (15 sources) Pain of left wrist; Translations: [Pain in left wrist] Onset: 8 09-22-2017 Other non-traumatic joint disorders (17 sources) Bilateral wrist pain; Translations: [Bilateral wrist pain] Onset: 8 09-08-2017 Other non-traumatic joint disorders (15 sources) Pain of right wrist; Translations: [Pain in right wrist] Onset: 8 09-22-2017 Other nutritional; endocrine; and metabolic disorders (20 sources) Morbid obesity; Translations: [Obesity, morbid, BMI 40.0-49.9] Onset: 8 09-08-2017 Chronic Other nutritional; endocrine; and metabolic disorders (2 sources) Morbid (severe) obesity due to excess calories; Translations: [Morbid (severe) obesity due to excess calories] Onset: 3 Chronic Other nutritional; endocrine; and metabolic disorders (2 sources) Body mass index (BMI) 45.0-49.9, adult; Translations: [Body mass index (BMI) 45.0-49.9, adult] Onset: 3 Chronic Other nutritional; endocrine; and metabolic disorders (1 source) Body mass index 40+ - severely obese; Translations: [Morbid (severe) obesity due to excess calories] Onset: 3 06-04-2022 Chronic Other screening for suspected conditions (not mental disorders or infectious disease) (20 sources) Elevated C-reactive protein; Translations: [CRP elevated] Onset: 8 Resolved: 9 09-08-2017 Other upper respiratory disease (1 source) Allergic rhinitis; Translations: [Allergic rhinitis, unspecified] 05-21-2022 Chronic Other upper respiratory disease (2 sources) Allergic rhinitis, unspecified; Translations: [Allergic rhinitis, unspecified] Onset: 3 Chronic Other upper respiratory disease (1 source) Hypertrophy of nasal turbinates; Translations: [Hypertrophy of nasal turbinates] 05-21-2022 Episodic Other upper respiratory disease (2 sources) Hypertrophy of nasal turbinates; Translations: [Hypertrophy of nasal turbinates] Onset: 3 Episodic Otitis media and related conditions (8 sources) Bilateral chronic serous otitis; Translations: [Chronic serous otitis media, bilateral] Onset: 3 05-21-2022 Chronic Otitis media and related conditions (8 sources) Bilateral disorder of Eustachian tubes; Translations: [Unspecified Eustachian tube disorder, bilateral] Onset: 3 05-21-2022 Episodic Rheumatoid arthritis and related disease (20 sources) Rheumatoid arthritis; Translations: [Rheumatoid arthritis of multiple joints] Onset: 7 Resolved: 8 09-08-2017 Chronic Spondylosis; intervertebral disc disorders; other back problems (20 sources) Thoracic spondylosis without myelopathy; Translations: [Degeneration of thoracic intervertebral disc] Onset: 8 11-02-2017 Chronic Thyroid disorders (20 sources) Nontoxic single thyroid nodule; Translations: [Non-toxic uninodular goiter] Onset: 7 09-08-2017 Chronic Unclassified (20 sources) Chronic pain; Translations: [Other chronic pain] Onset: 8 09-22-2017 Chronic Unclassified (1 source) Unknown / UNK(Unknown) Onset: 7 Unclassified (12 sources) Drug indicated; Translations: [Other director long term care (current) drug therapy] Onset: 8 11-02-2017 Unclassified (6 sources) Screening status; Translations: [Encounter for screening for malignant neoplasm of cervix] Onset: 8 09-08-2017 Unclassified (20 sources) Patient encounter status; Translations: [care home current use of non-steroidal anti-inflammatories (NSAID)] Onset: 8 Resolved: 9 11-02-2017 Unclassified (20 sources) Drug therapy finding; Translations: [Long-term current use of high risk medication other than anticoagulant] Onset: 8 09-22-2017 Unclassified (14 sources) Long-term current use of drug therapy; Translations: [Other director long term care (current) drug therapy] Onset: 8 11-02-2017 Past or Other Problems Problem Classification Problem Date Documented Date Episodic/Chronic Blindness and vision defects (1 source) Diplopia; Translations: [Diplopia] Onset: 02-06-2017 Episodic Cancer of uterus (20 sources) History of malignant neoplasm of endometrium; Translations: [History of endometrial cancer] Onset: 05-05-2018 05-05-2018 Episodic Diabetes mellitus without complication (20 sources) Hyperglycemia; Translations: [Hyperglycemia] Onset: 09-22-2017 09-22-2017 Episodic Immunizations and screening for infectious disease (20 sources) Mantoux: positive; 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, treated] Onset: 05-05-2018 05-05-2018 Episodic Malaise and fatigue (20 sources) Fatigue; Translations: [Other fatigue] Onset: 09-08-2017 09-22-2017 Episodic Nutritional deficiencies (20 sources) Vitamin B deficiency; Translations: [Deficiency of other specified B group vitamins] Onset: 09-10-2017 11-02-2017 Episodic Other bone disease and musculoskeletal deformities (20 sources) Cartilage disorder; Translations: [Disorder of cartilage, unspecified] Onset: 09-08-2017 09-22-2017 Episodic Other bone disease and musculoskeletal deformities (20 sources) Disorder of bone; Translations: [Disorder of bone, unspecified] Onset: 09-08-2017 09-22-2017 Episodic Other connective tissue disease (20 sources) H/O: musculoskeletal disease; Translations: [History of fibromyalgia] Onset: 09-08-2017 Resolved: 11-02-2017 09-08-2017 Episodic Other connective tissue disease (12 sources) Other symptoms and signs involving the musculoskeletal system; Translations: [Other symptoms and signs involving the musculoskeletal system] Onset: 09-08-2017 Resolved: 11-02-2017 11-02-2017 Episodic Other connective tissue disease (20 sources) Biceps tendinitis; Translations: [Bicipital tendinitis, left shoulder] Onset: 09-08-2017 09-22-2017 Episodic Other connective tissue disease (6 sources) Pain in left foot; Translations: [Pain in left foot] Onset: 09-08-2017 09-22-2017 Episodic Other connective tissue disease (6 sources) Pain in left hand; Translations: [Pain in left hand] Onset: 09-08-2017 09-22-2017 Episodic Other connective tissue disease (20 sources) Bursitis of shoulder; Translations: [Bursitis of unspecified shoulder] Onset: 09-08-2017 09-22-2017 Episodic Other connective tissue disease (12 sources) Pain in right foot; Translations: [Pain in right foot] Onset: 09-08-2017 09-22-2017 Episodic Other connective tissue disease (12 sources) Pain in right hand; Translations: [Pain in right hand] Onset: 09-08-2017 09-22-2017 Episodic Other connective tissue disease (20 sources) Subacromial bursitis; Translations: [Subacromial bursitis] Onset: 09-08-2017 09-08-2017 Episodic Other connective tissue disease (20 sources) Fibromyalgia; Translations: [Fibromyalgia] Onset: 09-08-2017 09-08-2017 Episodic Other connective tissue disease (12 sources) Calcaneal spur, left foot; Translations: [Calcaneal spur of foot, left] Onset: 09-22-2017 09-22-2017 Episodic Other connective tissue disease (6 sources) Calcaneal spur, right foot; Translations: [Calcaneal spur of foot, right] Onset: 09-22-2017 09-22-2017 Episodic Other connective tissue disease (20 sources) H/O: rheumatoid arthritis; Translations: [History of rheumatoid arthritis] Onset: 09-08-2017 09-08-2017 Episodic Other hematologic conditions (20 sources) ESR raised; Translations: [Elevated erythrocyte sedimentation rate] Onset: 09-08-2017 Resolved: 11-02-2017 11-02-2017 Episodic Other nervous system disorders (20 sources) Paresthesia; Translations: [Paresthesia of skin] Onset: 09-08-2017 09-22-2017 Episodic Other nervous system disorders (20 sources) Paresthesia of hand ; Translations: [Paresthesia of both hands] Onset: 09-08-2017 09-08-2017 Episodic Other non-traumatic joint disorders (20 sources) Shoulder pain; Translations: [Pain in right shoulder] Onset: 09-08-2017 09-22-2017 Episodic Other non-traumatic joint disorders (12 sources) Pain in right wrist; Translations: [Pain in right wrist] Onset: 09-08-2017 09-22-2017 Episodic Other non-traumatic joint disorders (6 sources) Pain in left wrist; Translations: [Pain in left wrist] Onset: 09-08-2017 09-22-2017 Episodic Other non-traumatic joint disorders (20 sources) Joint pain; Translations: [Pain in unspecified joint] Onset: 12-07-2016 09-08-2017 Episodic Other nutritional; endocrine; and metabolic disorders (20 sources) Hyperuricemia; Translations: [Hyperuricemia] Onset: 09-22-2017 Resolved: 11-02-2017 11-02-2017 Episodic Residual codes; unclassified (20 sources) Edema of lower extremity; Translations: [Bilateral lower extremity edema] Onset: 09-08-2017 09-08-2017 Episodic Spondylosis; intervertebral disc disorders; other back problems (20 sources) Neck pain; Translations: [Thoracic back pain] Onset: 09-08-2017 11-02-2017 Episodic Unclassified (12 sources) Elevated C-reactive protein (CRP); Translations: [Elevated C-reactive protein (CRP)] Onset: 09-08-2017 Resolved: 05-05-2018 11-02-2017 Episodic Unclassified (20 sources) Localized edema; Translations: [Edema of lower extremity] Onset: 09-08-2017 11-02-2017 Episodic Unclassified (1 source) UTERINE CANCER Onset: 08-28-2016 Unclassified (20 sources) Long-term current use of systemic steroid; Translations: [care home current use of systemic steroids] Onset: 02-02-2018 Resolved: 07-11-2019 02-02-2018 Unclassified (15 sources) Musculoskeletal finding; Translations: [Other symptoms and signs involving the musculoskeletal system] Onset: 09-08-2017 Resolved: 11-02-2017 11-02-2017 Results Test Name Value Interpretation Reference Range Facil ity Vital Signs Date Time Vital Sign Value Performing Clinician Facility 06-24-2022 07:57-0400 Body height 177.8 cm Rosendo Rosales MD Work Phone: [place] [id number] 07:57-0400 Body mass index (BMI) [Ratio] 50.08 kg/m2 Rosendo Rosales MD Work Phone: [facility] 06-24-2022 07:57-0400 Body temperature 98.6 [degF] Rosendo Rosales MD Work Phone: [facility] 06-24-2022 07:57-0400 Body weight 158.31 kg Rosendo Rosales MD Work Phone: [facility] 05-21-2022 09:00-0400 Body height 177.8 cm Rosendo Rosales MD Work Phone: [facility] 05-21-2022 09:00-0400 Body mass index (BMI) [Ratio] 49.93 kg/m2 Rosendo Rosales MD Work Phone: [facility] 05-21-2022 09:00-0400 Body temperature 98.6 [degF] Rosendo Rosales MD Work Phone: [facility] 05-21-2022 09:00-0400 Body weight 157.85 kg Rosendo Rosales MD Work Phone: [facility] 11-14-2019 11:39-0400 BMI (Body Mass Index) 50.36 kg/m2 [facility] 11-14-2019 11:39-0400 Body Temperature 98.29 [degF] [facility] 11-14-2019 11:39-0400 Body weight 159.21 kg [facility] 11-14-2019 11:39-0400 BP Diastolic 88 mm[Hg] [facility] 11-14-2019 11:39-0400 BP Systolic 166 mm[Hg] [facility] 11-14-2019 11:39-0400 Height 177.8 cm [facility] 11-14-2019 11:39-0400 Pulse (Heart Rate) 105 /min [facility] 11-14-2019 11:39-0400 Pulse Oximetry 97 % [facility] 07-11-2019 15:51-0400 BMI (Body Mass Index) 51.51 kg/m2 [facility] 07-11-2019 15:51-0400 Body Temperature 97.11 [degF] [facility] 07-11-2019 15:51-0400 Body weight 162.84 kg [facility] 07-11-2019 15:51-0400 BP Diastolic 98 mm[Hg] [facility] 07-11-2019 15:51-0400 BP Systolic 158 mm[Hg] [facility] 07-11-2019 15:51-0400 Height 177.8 cm [facility] 07-11-2019 15:51-0400 Pulse (Heart Rate) 82 /min [facility] 07-11-2019 15:51-0400 Pulse Oximetry 98 % [facility] 12-06-2018 09:51-0400 BMI (Body Mass Index) 50.45 kg/m2 [facility] 12-06-2018 09:51-0400 Body Temperature 98.2 [degF] [facility] 12-06-2018 09:51-0400 Body weight 159.49 kg [facility] 12-06-2018 09:51-0400 BP Diastolic 78 mm[Hg] [facility] 12-06-2018 09:51-0400 BP Systolic 128 mm[Hg] [facility] 12-06-2018 09:51-0400 Pulse (Heart Rate) 79 /min [facility] 12-06-2018 09:51-0400 Pulse Oximetry 98 % [facility] 08-06-2018 10:54-0400 BMI (Body Mass Index) 49.44 kg/m2 [facility] 08-06-2018 10:54-0400 Body Temperature 97.59 [degF] [facility] 08-06-2018 10:54-0400 Body weight 156.31 kg [facility] 08-06-2018 10:54-0400 BP Diastolic 84 mm[Hg] [facility] 08-06-2018 10:54-0400 BP Systolic 164 [facility]Hg[facility] 10:54-0400 Pulse (Heart Rate) 89 /min [facility] 08-06-2018 10:54-0400 Pulse Oximetry 97 % [facility] 05-05-2018 10:36-0400 BMI (Body Mass Index) 46.2 kg/m2 [facility] 05-05-2018 10:36-0400 Body Temperature 97.9 [degF] [facility] 05-05-2018 10:36-0400 Body [facility] 146.06 [facility] 05-05-2018 10:36-0400 BP Diastolic 80 mm[Hg] [facility] 05-05-2018 10:36-0400 BP Systolic 128 mm[Hg] [facility] 05-05-2018 10:36-0400 Pulse (Heart Rate) 94 /min [facility] 05-05-2018 10:36-0400 Pulse Oximetry 97 % [facility] Encounters Encounter Date Encounter Type Care Provider Facility Start: 08-09-2022 ambulatory ROSENDO ROSALES [facility] Ambulatory Start: 06-24-2022 End: 06-24-2022 ambulatory ROSENDO ROSALES [facility] Amb[facility] Start: 06-24-2022 End: 06-24-2022 Postop follow up visit related to original px Rosendo Rosales MD Work Phone: [facility] [place] Procedures Date Procedure Procedure Detail Performing Clinician Start: 11-29-2018 LABS (OUTSIDE) Tamia Dawson Work Phone: Start: 04-05-2018 LABS (OUTSIDE) Tamia Dawson Work Phone: Start: 01-26-2018 End: 01-26-2018 LABS (OUTSIDE) Historical Provider Plan of Treatment Date Care Activity Detail Author Start: 02-15-2023 Tetanus vaccination Tetanus: Every 10yrs [facility] Start: 01-13-2023 History and physical examination, annual for health maintenance Wellness Visit [facility] Start: 12-30-2022 End: 12-30-2022 Patient encounter procedure 12/30/2022 8:00 AM EST Office Visit [facility] [address] [place] [id number] Rosendo Rosales MD [address] [address] [facility] Start: 10-24-2022 Influenza vaccination Sequential Influenza Vaccine (Season Ended) [facility] Start: 06-24-2022 End: 06-24-2022 Follow-up encounter 06/24/2022 8:00 AM EDT Follow-Up [facility] [address] [place] [id number] Rosendo Rosales MD [address] [address] [facility] Start: 06-06-2022 End: 06-06-2022 Admission to same day surgery center 06/06/2022 12:50 PM EDT - 06/06/2022 1:20 PM EDT Surgery [facility] [address] [place] [address] Rosendo Rosales MD [address] [address] BILATERAL tympanostomy with B/L ear tube placement [facility] Immunizations Immunization Date Immunization Notes Care Provider Fa [facility] 12-14-2013 influenza virus vaccine, unspecified formulation Historical Provider [facility] Work Phone: Payers Date Payer Category Payer Unknown [employer]/PREF/HMO/PPO [id number] 2021-Present [phone] [address] [place] [address] [id number] 2021 Unknown [id number] 2016 Unknown [id number] 2016 Unknown ANTHEM ANTHEM HM O PPO POS xxxxxxxxxxxx 2016-Present [id number] 2016 Unknown ANTHEM ANTHEM HM O PPO POS [id number] 2016-Present [id number] 1973 Unknown [id number] 1973 Unknown [id number] 1973 Unknown [id number] 1973 Unknown [id number] 1973 Unknown [id number] 1973 Unknown [id number] 1973 Unknown [id number] Social History Date Type Detail Facility Start: 11-02-2017 End: 06-04-2022 Tobacco smoking status NHIS Former smoker [facility] Start: 1975 Sex Assigned At Not on file [facility] Work Phone: Start: 09-08-2017 Alcohol Comment Social [facility] Start: 08-06-2018 End: 06-09-2022 Alcohol intake Yes [facility] Start: 07-11-2019 End: 06-04-2022 Tobacco use and exposure Never used [facility] Start: 12-06-2018 End: 07-11-2019 Alcohol intake Current drinker of alcohol (finding) [facility] Start: 05-11-2022 End: 06-24-2022 Exposure to SARS-CoV-2 (event) Not sure [facility] Start: 05-21-2022 Tobacco smoking stat [facility] Never smoked tobacco [facility] Start: 05-21-2022 End: 06-24-2022 Alcohol intake Ex-drinker (finding) [facility] End: 02-24-2000 History of tobacco use Current smoker [facility] End: 02-24-2000 History of tobacco use Cigarette Smoker [facility] Start: 06-04-2022 End: 06-09-2022 Cigarettes smoked current (pack per day) - Reported 1 [facility] Start: 06-04-2022 Alcohol Comment once a month [facility] Procedure Code Equipment Code Equipment Origin al Text Equipment Identifier Dates [employer] T-Tube [id number], [id number] Start: 06-06-2022 History of Present illness Narrative 06-24-2022 Rosendo Rosales MD - 06/24/2022 8:13 AM EDTAdrienne Barroso MA - 06/24/2022 7:56 AM EDT Note Date & Type Note Facility 06-24-2022 History of Presen t illness Narrative [facility] [address] [facility] [place] [address] [facility] [address] Dept: [phone] MD David Sandhu 47 y.o. female Patient presents with a chief complaint of Post-op (2 week ear tubes) Temp 98.6 F (37 C) Ht 5' 10 Wt (!) 158.3 kg (349 lb) BMI 50.08 kg/m History of Presenting Illness: The patient/caregiver reports a history of complaint with the following features: She reports that she had a little drainage from the ears after tube placement but that this has resolved. She denies pian or hearing loss. Her hearing has improved and she is no longer feeling that her internal body sounds are too loud. He also reports that the use of the nasal sprays for her allergies has been very successful. Review of systems covering 10 systems is reviewed and pertinent positives and negatives are noted as above. Past Medical History: Diagnosis Date Anemia Anxiety Arthritis Rheumatoid Cancer (HCC) uterine Depression GERD (gastroesophageal reflux disease) Gout History of blood transfusion 1990 Migraines Sinusitis Vitamin D deficiency Current Outpatient Medications: azelastine (ASTELIN) 137 mcg (0.1 %) nasal spray, 1 (one) spray by Each Nare route 2 (two) times a day ., Disp: 30 mL, Rfl: 12 CRANBERRY ORAL, Take by mouth PM ., Disp: , Rfl: esomeprazole (NEXIUM) 40 MG capsule, Take 1 (one) capsule (40 mg total) by mouth daily Every other night ., Disp: , Rfl: famotidine (PEPCID) 40 MG tablet, Take 1 (one) tablet (40 mg total) by mouth nightly Every other night ., Disp: , Rfl: fluticasone propionate (FLONASE) 50 mcg/actuation nasal spray, Instill 2 (two) sprays into each nostril daily . (Patient taking differently: Instill 2 (two) sprays into each nostril daily AM .), Disp: 16 mL, Rfl: 3 Lactobacillus acidophilus (PROBIOTIC ORAL), Take by mouth AM ., Disp: , Rfl: LORazepam (ATIVAN) 0.5 MG tablet, Take 1 (one) tablet (0.5 mg total) by mouth as needed ., Disp: , Rfl: SUMAtriptan (IMITREX) 100 MG tablet, Take 1 (one) tablet (100 mg total) by mouth as needed ., Disp: , Rfl: UNABLE TO FIND, OTC A-Dreanal BID ., Disp: , Rfl: Allergies Allergen Reactions Codeine Hives and GI Intolerance Other reaction(s): Vomiting Morphine Other (See Comments) and Anxiety Other reaction(s): Mental Status Change Patient passes out from this medication Penicillin Unknown Past Surgical History: Procedure Laterality Date APPENDECTOMY SECTION, CLASSIC X2 CHOLECYSTECTOMY HYSTERECTOMY 2018 MYRINGOTOMY W/ TUBE(S) (BMT) Bilateral 06/06/2022 Procedure: BILATERAL tympanostomy with B/L ear tube placement; Surgeon: Rosendo Rosales MD; Location: Main OR; Service: Otolaryngology TONSILLECTOMY Social History Socioeconomic History Marital status: Tobacco Use Smoking status: Former Packs/day: 1.00 Years: 10.00 Pack years: 10.00 Types: Cigarettes Quit date: 2000 Years since quittin.3 Smokeless tobacco: Never Vaping Use Vaping status: Never Used Substance and Sexual Activity Alcohol use: Not Currently Comment: once a month Drug use: Never Family History Problem Relation Age of Onset Crohn's disease Mother Glaucoma Mother Atrial fibrillation Mother Colon cancer Father Dementia Father Stroke Father mini No Known Problems Brother PHYSICAL EXAM: The patient was examined today 06/24/2022 with findings as follows: CONSTITUTIONAL: General Appearance: well-appearing, nontoxic, alert, no acute distress Communication: normal voicing, hearing intact to spoken voice HEAD/FACE: Head: atraumatic, normocephalic, no lesions Facial Inspection: no lesions, healthy skin Facial Strength: motor strength normal, symmetric strength, symmetric movement EYES: Pupils: PERRLA, extra-ocular movements intact, no nystagmus, sclera white, no redness of eyes, no watering of eyes EARS: Bilateral External Ears: no pits, no tags Right External Ear: normally formed, no lesions, no mastoid tenderness Left External Ear: normally formed, no lesions, no mastoid tenderness Right External Auditory Canal: normal, healthy skin, no obstructing cerumen, no discharge Left External Auditory Canal: normal, healthy skin, no obstructing cerumen, no discharge Right Tympanic Membrane: normal landmarks, translucent, T-tube in place and patent Left Tympanic Membrane: normal landmarks, translucent, T-tube in place and patent Hearing: intact to spoken voice, Reilly midline, Rinne AC>BC bilaterally NECK: Neck: no masses, trachea midline, normal range of motion, no cysts or pits, no tenderness to palpation LYMPH NODES: Cervical: no palpable lymph node enlargement SKIN: General Appearance: no lesions, warm and dry, normal turgor, no bruising PSYCHIATRIC: Mood and affect: normal mood, normal affect Assessment and Plan: The patient presents for follow-up after myringotomy tube placement with good relief of his/her ear complaints. The avoidance of water exposure to the ear and mechanical trauma such as the use of cotton tipped swabs or the insertion of objects into the ear is advised, as well as the need for ongoing follow-up while the tubes remain in place to ensure proper function and healing after extrusion. The patient and/or caregiver is to notify the office if no improvement or worsening of symptoms is noted prior to the scheduled follow-up for sooner evaluation. The patient and/or caregiver is able to state an understanding of these recommendations and is agreeable to the treatment plan. 1. Disorder of both eustachian tubes 2. Bilateral chronic serous otitis media 3. Conductive hearing loss of left ear with unrestricted hearing of right ear Return in about 6 months (around 12/25/2022). The patient and/or caregiver is to notify the office if no improvement or worsening of symptoms is noted prior to the scheduled follow-up for sooner evaluation. The patient and/or caregiver is able to state an understanding of these recommendations and is agreeable to the treatment plan. --Rosendo Rosales MD on 06/24/2022 at 8:18 AM An electronic signature was used to authenticate this note. Review of Systems Constitutional: Negative. HENT: Positive for ear pain. Eyes: Positive for visual disturbance. Respiratory: Negative. Cardiovascular: Negative. Gastrointestinal: Negative. Endocrine: Negative. Genitourinary: Negative. Musculoskeletal: Negative. Skin: Negative. Allergic/Immunologic: Positive for environmental allergies. Neurological: Negative. Hematological: Negative. Psychiatric/Behavioral: Negative. documented in this encounter [facility] Instructions 05-21-2022 Patient Instructions Note Date & Type Note Facility 05-21-2022 Instructions Rosendo Rosales MD - 05/21/2022 9:31 AM EDT MYRINGOTOMY TUBES Myringotomy tubes (ear tubes) are small plastic tubes that are placed in the eardrum to allow air to pass onto the middle ear space and to let fluid and infection out. Fluid in the middle ear space can cause decreased hearing, discomfort, balance problems, and sometimes scarring or permanent injury to the eardrum or hearing mechanism. REASONS FOR SURGERY- How is the decision made? Placement of myringotomy tubes is a decision to be made between the surgeon and the patient or family. Generally, they are recommended when one or more of the following symptoms or findings are noted: ? Frequent ear infections occurring greater than 3 times in a six month period, more than 4 times in one year, or more than 3 infections a year for 2 years or more ? Persons with high risk for hearing loss with less frequent ear infections ? Significant hearing loss in the setting of middle ear fluid ? Developmental delay or speech delay with concern for hearing loss ? Cleft palate or other syndromes associated with ear disease ? Other problems as discussed with your doctor SURGICAL TREATMENT- What are the Risks, Alternatives, Potential Complications, and Benefits? ? Risks- The risks of myringotomy tubes are low and include injury to the ear canal, eardrum, or middle ear. One percent (one patient in one hundred) may be left with a hole in the eardrum after the tube falls out, or the tube may not fall out on its own, and a second operation may be needed. Bleeding is uncommon and is usually limited. There is a small risk from anesthesia. ? Alternatives- Most myringotomy tube placement is elective, which means that you may choose to have no treatment or to treat the problem with medication or by other means. Sometimes a decision to not have treatment can have serious consequences that you should discuss with your doctor. ? Complications- Very rarely a tube may fall into the middle ear space requiring removal. Additionally, as healing occurs around the tube skin may grow into the middle ear resulting in a condition called cholesteatoma. This would require additional and more extensive ear surgery to remove and can result in permanent injury to the eardrum or hearing. ? Benefits- Most myringotomy tube surgery is without complications and the success in relieving most conditions is excellent with significant reduction in the frequency of ear infection, reduced pain, and improved hearing. RECOVERY- What should I expect? Most patients have a very rapid recovery and can resume normal activities the same day as surgery after a short observation period. Once you have gone home, common events in the recovery period and expectations of what is normal are listed below. Call your doctor if you have any questions or concerns that are not answered here. ? Pain- Pain is usually mild if present. This can be treated with Tylenol? or ibuprofen dosed to the patient s weight as noted in the package insert. If pain is severe, or not relieved by the pain medication listed above, call your doctor. ? Drainage- This may occur for a few days after surgery and should be clear to pink in color. If bright red blood, pus, or foul smelling drainage is noted, call your doctor. ? Nausea and vomiting- These are usually due to the effects of anesthesia and should subside in the first day or two. If they continue beyond this, call your doctor. ? Fever- A low grade temperature of less than 102 F for a few days after surgery is normal. Notify your doctor for fever above this, or one that persists for greater than 3 days. ? Eating and drinking- A regular diet is usually well tolerated. ? Activity- Regular activities are permitted. Avoid getting water into the ears when bathing or swimming. The use of earplugs is recommended. Swimming in pools is permitted, but should be avoided in quinteros, lakes, or soapy water. CONTINUING CARE- What additional care do I need after surgery? Ear drops- You may be given ear drops after myringotomy tubes. To place ear drops, lie down with the head turned to the side and the ear upward. Gently grab the ear and pull outward and backward to open the ear canal. Apply the drops as directed below. Apply oxymetazoline 3 drops each ear, 3 times a day, for 3 days. Ear plugs- The use of earplugs when around water is recommended. You may purchase sized plugs at your doctor s office, or many commercial plugs are available at your favorite pharmacy. The most important factor is a comfortable fit that keeps water from entering the ear canal. Follow-up- Your doctor will see you for follow-up evaluation in approximately two weeks after surgery unless another time has been arranged. Call the office if an appointment has not been previously scheduled. A hearing test to confirm that hearing has returned to normal levels will also be performed approximately one month after surgery, or when the ears are healthy. Your doctor will see you every three to four months to check that the ear tubes are in place and functional. The tubes should fall out by themselves in 9-12 months. If you encounter problems and need to be seen sooner, please call to schedule an appointment. NOTICE: THIS DOCUMENT IS INTENDED SOLELY FOR PATIENT EDUCATIONAL PURPOSES AND IS PROVIDED A COURTESY TO PATIENTS OF DR. ROSENDO ROSALES MD. IT IS NOT INTENDED A SUBSTITUTE FOR PROFESSIONAL MEDICAL CARE OR ADVICE. THE PATIENT SHOULD SEEK ADVICE FROM THE PHYSICIAN IF THERE ARE ANY QUESTIONS ABOUT THE CONTENTS OR DIRECTIONS PROVIDED IN THIS DOCUMENT documented in this encounter [facility] History of Present illness Narrative 05-21-2022 Rosendo Rosales MD - 05/21/2022 9:04 AM EDTAdrienne BarrosoKEESHA - 05/21/2022 9:00 AM EDT Note Date & Type Note Facility 05-21-2022 History of Presen t illness Narrative Formatting of this note is different fro m the original. [facility] [address] [facility] [place] [address] [facility] [address] Dept: [phone] MD David Sandhu 46 y.o. female Patient presents with a chief complaint of Cerumen Impaction (Ear cleaning) Temp 98.6 F (37 C) Ht 5' 10 Wt (!) 157.9 kg (348 lb) BMI 49.93 kg/m History of Presenting Illness: The patient/caregiver reports a history of complaint with the following features: Onset: started 3 months ago Timing: constant Duration: several months Quality: ear fullness, reduced hearing, pressure Location: both ears, but worse on left Severity: pain mild Risk factors: prior ear infections, tubes in the past Alleviating factors: nothing gives relief Aggravating factors: nothing makes it worse Associated factors: hearing loss She also reports persistent post nasal drip that has failed to have any relief from medication. Review of systems covering 10 systems is reviewed and pertinent positives and negatives are noted as above. Past Medical History: Diagnosis Date Arthritis Rheumatoid Gout Sinusitis Vitamin D deficiency Current Outpatient Medications: esomeprazole (NEXIUM) 40 MG capsule, Take 1 (one) capsule (40 mg total) by mouth ., Disp: , Rfl: famotidine (PEPCID) 40 MG tablet, Take 1 (one) tablet (40 mg total) by mouth nightly ., Disp: , Rfl: LORazepam (ATIVAN) 0.5 MG tablet, Take 1 (one) tablet (0.5 mg total) by mouth ., Disp: , Rfl: SUMAtriptan (IMITREX) 100 MG tablet, 1 (one) tablet (100 mg total) ., Disp: , Rfl: azelastine (ASTELIN) 137 mcg (0.1 %) nasal spray, 1 (one) spray by Each Nare route 2 (two) times a day ., Disp: 30 mL, Rfl: 12 fluticasone propionate (FLONASE) 50 mcg/actuation nasal spray, Instill 2 (two) sprays into each nostril daily ., Disp: 16 mL, Rfl: 3 Allergies Allergen Reactions Codeine Hives and GI Intolerance Other reaction(s): Vomiting Morphine Other (See Comments) and Anxiety Other reaction(s): Mental Status Change Patient passes out from this medication Penicillin Unknown Past Surgical History: Procedure Laterality Date APPENDECTOMY SECTION, CLASSIC X2 CHOLECYSTECTOMY HYSTERECTOMY TONSILLECTOMY Social History Socioeconomic History Marital status: Tobacco Use Smoking status: Never Smokeless tobacco: Never Substance and Sexual Activity Alcohol use: Not Currently History reviewed. No pertinent family history. PHYSICAL EXAM: The patient was examined today 05/21/2022 with findings as follows: CONSTITUTIONAL: General Appearance: well-appearing, nontoxic, alert, no acute distress Communication: understanding at normal conversational tones, normal voicing, speech intelligible HEAD/FACE: Head: atraumatic, normocephalic, no lesions Facial Inspection: no lesions, healthy skin Facial Strength: motor strength normal, symmetric strength, symmetric movement Sinuses: no sinus tenderness Salivary Glands: no enlargements of parotid glands, no tenderness of parotid glands, no masses of parotid glands, clear salivary flow on palpation from Stensen's ducts, no duct stones of Stensen's duct, no enlargement of submandibular glands, no tenderness of submandibular glands, no masses of submandibular glands, clear salivary flow from Archuleta's ducts, no stones of Archuleta's ducts Temporomandibular Joint: no crepitus with motion, no tenderness on palpation, no trismus, motion symmetric EYES: Pupils: PERRLA, extra-ocular movements intact, no nystagmus, sclera white, no redness of eyes, no watering of eyes EARS: Bilateral External Ears: no pits, no tags Right External Ear: normally formed, no lesions, no mastoid tenderness Left External Ear: normally formed, no lesions, no mastoid tenderness Right External Auditory Canal: normal, healthy skin, no obstructing cerumen, no discharge Left External Auditory Canal: normal, healthy skin, no obstructing cerumen, no discharge Right Tympanic Membrane: normal landmarks, serous effusion, immobile to pneumatic otoscopy, no perforation Left Tympanic Membrane: normal landmarks, retracted with serous effusion, immobile to pneumatic otoscopy, no perforation Hearing: intact to spoken voice, Reilly lateralizes left, Right Ear: Rinne AC>BC, Left Left Ear: Rinne AC<BC NOSE: Nasal Skin: no lesions, no lacerations, no scars Nasal Dorsum: symmetric with no visible or palpable deformities Nasal Tip: normal symmetric nasal tip, normal nasal valves Nasal Mucosa: boggy with clear discharge Septum: not markedly deformed, midline, no exposed vessels, no bleeding, no septal granuloma Turbinates: 4+ hypertrophy Nasopharynx: normal ORAL CAVITY/MOUTH: Lips, teeth, gums: normal lips, normal gums, dentition intact, no dental pain on palpation Oral Mucosa: normal, moist, no lesions Palate: normal hard palate, normal soft palate, symmetric palatal elevation Floor of Mouth: normal floor of mouth Tongue: normal tongue, no lesions, no edema, no masses, normal mucosa, mobile Tonsils: normal tonsils, symmetric, no lesions Posterior pharynx: normal HYPOPHARYNX/LARYNX: Hypopharynx: normal hypopharynx, normal tongue base, normal pyriform sinus, normal vallecula Larynx: unable to visualize, see endoscopy note, normal epiglottis, normal false vocal cords, normal true vocal cords, normal glottic mobility, no arytenoid edema, no post-cricoid edema, no subglottic stenosis NECK: Neck: no masses, trachea midline, normal range of motion, no cysts or pits, no tenderness to palpation Thyroid: normal thyroid, no enlargement, no tenderness, no nodules LYMPH NODES: Cervical: no palpable lymph node enlargement RESPIRATORY: Inspection/Auscultation: good air movement, chest expands symmetrically, normal breath sounds, no wheezing, no stridor CARDIOVASCULAR SYSTEM: Auscultation: regular rate and rhythm, carotid pulse normal, no carotid thrills, no carotid bruits Observation/Palpation of Peripheral Vascular System: no varicosities, no cyanosis, no edema SKIN: General Appearance: no lesions, warm and dry, normal turgor, no bruising NEUROLOGICAL SYSTEM: Orientation: oriented to time, oriented to place, oriented to person Cranial Nerves: Cranial Nerves II-XII intact, normal facial movement PSYCHIATRIC: Mood and affect: normal mood, normal affect FIBEROPTIC NASOPHARYNOGLARYNGOSCOPY NOTE ([id number]) PROCEDURE PERFORMED BY: Rosendo Rosales MD PROCEDURE DATE: 05/21/2022 With the patient and/or caregiver's consent, the patient is positioned in the exam chair. The nasal cavity is then prepared with local anesthetic/decongestant of 4% Lidocaine and 0.05% oxymetazoline. Using a flexible endoscope the nasal cavity beginning on the left side is entered. There is normal moist nasal septal mucosa. The nasal septum is midline. The inferior turbinate is enlarged. The middle turbinate is normal. The ethmoid and frontal nasal recesses are intact and patent. The sphenoid sinus ostea is intact and patent. The maxillary sinus ostia is intact and patent The endoscope is then withdrawn and the right side is entered. The inferior turbinate is enlarged. The middle turbinate is normal. The ethmoid and frontal nasal recesses are intact and patent. The sphenoid sinus ostea is intact and patent. The maxillary sinus ostia is intact and patent Examination of nasopharynx shows normal adenoid and intact and patent eustachian tube orifices. Velopharyngeal closure is intact. Examination of the pharynx reveals the lateral and posterior pharyngeal wall mucosa is normal moist. Tonsils are normal. The tongue base is normal. Examination of the hypopharynx, vallecula, and pyriform sinus reveals normal. The epiglottis is normal. Examination of the vocal folds reveals normal mucosal and mobility bilaterally. The arytenoid and post-cricoid mucosa is normal. The visualized portions of the subglottis is normal. This completed the procedure with the patient having tolerated the procedure well. Assessment and Plan: She presents with persistent middle ear fluid that has failed to clear after 90 days. She has a prior similar history that responded well to ear tube placement, and replacement with T-tubes is offered. She does have narrow ear canals, and placement under sedation is suggested. Surgical treatment with T-tube placement is recommended upon review of the patient's history, clinical presentation, exam, and available testing and laboratory data. The risks, alternatives, potential complications, and benefits of surgery are discussed at length. The surgical procedure, pre-operative preparation, and post-operative course are discussed. Any questions are answered to the patient's and/or caregiver's satisfaction and they are agreeable to proceed. An informational sheet covering this information is also provided. Witnessed informed surgical consent is signed in the office. The patient and/or caregiver is able to state an understanding of these recommendations and is agreeable to the treatment plan. She also has allergic nasal congestion , but no mass of the nasopharynx to suggest obstruction of the ET tube orifices as a cause of her persistent ear fluid. I have offered a trial of nasal steroid and antihistamine as these have not bee tried in the past. 1. Bilateral chronic serous otitis media Case Request Operating Room: BILATERAL tympanostomy with B/L ear tube placement Height and weight Vital signs Basic Metabolic Panel 2. Disorder of both eustachian tubes Case Request Operating Room: BILATERAL tympanostomy with B/L ear tube placement 3. Allergic rhinitis, unspecified seasonality, unspecified trigger azelastine (ASTELIN) 137 mcg (0.1 %) nasal spray fluticasone propionate (FLONASE) 50 mcg/actuation nasal spray 4. Nasal turbinate hypertrophy 5. Conductive hearing loss of left ear with unrestricted hearing of right ear Case Request Operating Room: BILATERAL tympanostomy with B/L ear tube placement Return in about 3 months (around 08/21/2022). The patient and/or caregiver is to notify the office if no improvement or worsening of symptoms is noted prior to the scheduled follow-up for sooner evaluation. The patient and/or caregiver is able to state an understanding of these recommendations and is agreeable to the treatment plan. --Rosendo Rosales MD on 05/21/2022 at 9:30 AM An electronic signature was used to authenticate this note. Review of Systems Constitutional: Negative. HENT: Positive for ear pain, hearing loss, postnasal drip, sinus pressure, sore throat, tinnitus and trouble swallowing. Eyes: Negative. Respiratory: Positive for cough. Cardiovascular: Negative. Gastrointestinal: Negative. Endocrine: Negative. Genitourinary: Negative. Musculoskeletal: Positive for neck pain and neck stiffness. Skin: Negative. Allergic/Immunologic: Positive for environmental allergies. Neurological: Positive for dizziness and headaches. Hematological: Negative. Psychiatric/Behavioral: Negative. documented in this encounter [facility] Evaluation note Note Date & Type Note Facility documented in this encounter [facility] Evaluation note Note Date & Type Note Facility documented in this encounter [facility] Summary Purpose Family History No Family History Records FoundNo Family History Records FoundNo Family History Records FoundNo Family History Records FoundNo Family History Records FoundNo Family History Records FoundNo Family History Records Found Advance Directives No Advanced Directives Records FoundLatest Code Status on File Code Status Date Activated Date Inactivated Comments Full Code 06/06/2022 12:03 PM 06/06/2022 3:37 PM Assessments Diagnosis Cervicalgia Dorsalgia Pain in thoracic spine Paresthesia of both hands Bilateral carpal tunnel syndrome Carpal tunnel syndrome Bilateral foot pain Pain in limb Disorder of bone and cartilage Disorder of bone and cartilage, unspecified Osteoarthritis of both feet, unspecified osteoarthritis type Chronic pain of both shoulders Pain in joint, shoulder region Bilateral biceps tendonitis Subacromial bursitis Other specified disorders of rotator cuff syndrome of shoulder and allied disorders Bilateral wrist pain Bilateral hand pain Pain in limb Weakness of both hands Bilateral lower extremity edema Edema Lymphedema of both lower extremities Bilateral temporomandibular joint pain Arthralgia of temporomandibular joint Malignant neoplasm of endometrium Malignant neoplasm of corpus uteri, except isthmus ESR raised Elevated sedimentation rate History of fibromyalgia Personal history of other musculoskeletal disorders History of rheumatoid arthritis Personal history of arthritis Fatigue, unspecified type care home current use of non-steroidal anti-inflammatories (NSAID) Encounter for long-term (current) use of non-steroidal anti-inflammatories Anxiety Anxiety state, unspecified CRP elevated Elevated C-reactive protein (CRP) Fibromyalgia Mylagia and myositis, unspecified Migraine without status migrainosus, not intractable, unspecified migraine type Gastroesophageal reflux disease, esophagitis presence not specified Inflammatory arthritis Unspecified inflammatory polyarthropathy Gouty arthropathy Gouty arthropathy, unspecified Elevated erythrocyte sedimentation rate Elevated sedimentation rate Elevated C-reactive protein (CRP) Localized edema Edema lobsterman (current) use of non-steroidal anti-inflammatories (nsaid) Lymphedema, not elsewhere classified Other lymphedema Long-term current use of high risk medication other than anticoagulant Vitamin D deficiency Unspecified vitamin D deficiency Hyperglycemia Other abnormal glucose Hyperuricemia Other abnormal blood chemistry Gouty arthritis Gouty arthropathy, unspecified Carpal tunnel syndrome, bilateral upper limbs Osteoarthritis of multiple joints, unspecified osteoarthritis type Calcaneal spur of foot, right Thoracogenic scoliosis of thoracic region Thoracogenic scoliosis Osteoarthritis of thoracic spine, unspecified spinal osteoarthritis complication status Thoracic degenerative disc disease Degeneration of thoracic or thoracolumbar intervertebral disc Calcaneal spur of foot, left Diagnosis Rheumatoid arthritis of multiple sites with negative rheumatoid factor Positive PPD, treated Nonspecific reaction to tuberculin skin test without active tuberculosis History of fibromyalgia Personal history of other musculoskeletal disorders History of rheumatoid arthritis Personal history of arthritis care home (current) use of non-steroidal anti-inflammatories (nsaid) Long-term current use of high risk medication other than anticoagulant Other director long term care (current) drug therapy History of endometrial cancer Personal history of malignant neoplasm of other parts of uterus Vitamin D deficiency Unspecified vitamin D deficiency Gouty arthritis Gouty arthropathy, unspecified Chronic gout of multiple sites, unspecified cause Bilateral carpal tunnel syndrome Carpal tunnel syndrome Fibromyalgia Mylagia and myositis, unspecified Carpal tunnel syndrome, bilateral upper limbs TTS (tarsal tunnel syndrome), unspecified laterality Osteoarthritis of both feet, unspecified osteoarthritis type Inflammatory arthritis Unspecified inflammatory polyarthropathy Primary osteoarthritis, left ankle and foot Primary osteoarthritis, right ankle and foot Other osteoarthritis involving multiple joints Calcaneal spur of foot, right Thoracogenic scoliosis of thoracic region Thoracogenic scoliosis Osteoarthritis of thoracic spine, unspecified spinal osteoarthritis complication status Thoracic degenerative disc disease Degeneration of thoracic or thoracolumbar intervertebral disc Osteoarthritis of multiple joints, unspecified osteoarthritis type Calcaneal spur of foot, left Gouty arthropathy Gouty arthropathy, unspecified Calcaneal spur of left foot Calcaneal spur Diagnosis Rheumatoid arthritis of multiple sites with negative rheumatoid factor- Primary Cervicalgia Dorsalgia Pain in thoracic spine Paresthesia of both hands Bilateral carpal tunnel syndrome Carpal tunnel syndrome Bilateral foot pain Pain in limb Disorder of bone and cartilage Disorder of bone and cartilage, unspecified Osteoarthritis of both feet, unspecified osteoarthritis type Chronic pain of both shoulders Pain in joint, shoulder region Bilateral biceps tendonitis Subacromial bursitis Other specified disorders of rotator cuff syndrome of shoulder and allied disorders Bilateral wrist pain Bilateral hand pain Pain in limb Weakness of both hands Bilateral lower extremity edema Edema Lymphedema of both lower extremities Bilateral temporomandibular joint pain Arthralgia of temporomandibular joint Malignant neoplasm of endometrium Malignant neoplasm of corpus uteri, except isthmus ESR raised Elevated sedimentation rate History of fibromyalgia Personal history of other musculoskeletal disorders History of rheumatoid arthritis Personal history of arthritis Fatigue, unspecified type care home current use of non-steroidal anti-inflammatories (NSAID) Encounter for long-term (current) use of non-steroidal anti-inflammatories Anxiety Anxiety state, unspecified CRP elevated Elevated C-reactive protein (CRP) Fibromyalgia Mylagia and myositis, unspecified Migraine without status migrainosus, not intractable, unspecified migraine type Gastroesophageal reflux disease, esophagitis presence not specified Inflammatory arthritis Unspecified inflammatory polyarthropathy Positive PPD, treated Nonspecific reaction to tuberculin skin test without active tuberculosis Other director long term care (current) drug therapy Lymphedema, not elsewhere classified Other lymphedema Long-term current use of high risk medication other than anticoagulant lobsterman (current) use of non-steroidal anti-inflammatories (nsaid) Localized edema Edema Vitamin D deficiency Unspecified vitamin D deficiency Gouty arthritis Gouty arthropathy, unspecified Chronic gout of multiple sites, unspecified cause TTS (tarsal tunnel syndrome), unspecified laterality Other osteoarthritis involving multiple joints Thoracic degenerative disc disease Degeneration of thoracic or thoracolumbar intervertebral disc Thoracogenic scoliosis of thoracic region Thoracogenic scoliosis Primary osteoarthritis, right ankle and foot Primary osteoarthritis, left ankle and foot Osteoarthritis of thoracic spine, unspecified spinal osteoarthritis complication status Osteoarthritis of multiple joints, unspecified osteoarthritis type Gouty arthropathy Gouty arthropathy, unspecified Calcaneal spur of left foot Calcaneal spur Calcaneal spur of foot, right Calcaneal spur of foot, left Diagnosis Rheumatoid arthritis of multiple sites with negative rheumatoid factor- Primary Positive PPD, treated Nonspecific reaction to tuberculin skin test without active tuberculosis Other director long term care (current) drug therapy Long-term current use of high risk medication other than anticoagulant care home current use of systemic steroids Encounter for long-term (current) use of steroids lobsterman (current) use of non-steroidal anti-inflammatories (nsaid) History of rheumatoid arthritis Personal history of arthritis History of fibromyalgia Personal history of other musculoskeletal disorders History of endometrial cancer Personal history of malignant neoplasm of other parts of uterus CRP elevated Elevated C-reactive protein (CRP) Vitamin D deficiency Unspecified vitamin D deficiency Gouty arthritis Gouty arthropathy, unspecified Chronic gout of multiple sites, unspecified cause TTS (tarsal tunnel syndrome), unspecified laterality Fibromyalgia Mylagia and myositis, unspecified Carpal tunnel syndrome, bilateral upper limbs Bilateral carpal tunnel syndrome Carpal tunnel syndrome Other osteoarthritis involving multiple joints Thoracic degenerative disc disease Degeneration of thoracic or thoracolumbar intervertebral disc Thoracogenic scoliosis of thoracic region Thoracogenic scoliosis Primary osteoarthritis, right ankle and foot Primary osteoarthritis, left ankle and foot Osteoarthritis of thoracic spine, unspecified spinal osteoarthritis complication status Osteoarthritis of both feet, unspecified osteoarthritis type Osteoarthritis of multiple joints, unspecified osteoarthritis type Inflammatory arthritis Unspecified inflammatory polyarthropathy Gouty arthropathy Gouty arthropathy, unspecified Calcaneal spur of left foot Calcaneal spur Calcaneal spur of foot, right Calcaneal spur of foot, left Diagnosis Rheumatoid arthritis of multiple sites with negative rheumatoid factor- Primary Thoracogenic scoliosis of thoracic region Thoracogenic scoliosis Thoracic degenerative disc disease Degeneration of thoracic or thoracolumbar intervertebral disc Osteoarthritis of multiple joints, unspecified osteoarthritis type CRP elevated Elevated C-reactive protein (CRP) History of endometrial cancer Personal history of malignant neoplasm of other parts of uterus History of fibromyalgia Personal history of other musculoskeletal disorders History of rheumatoid arthritis Personal history of arthritis care home (current) use of non-steroidal anti-inflammatories (nsaid) care home current use of systemic steroids Encounter for long-term (current) use of steroids Long-term current use of high risk medication other than anticoagulant Lymphedema, not elsewhere classified Other lymphedema Other [facility] (current) drug therapy Vitamin D deficiency Unspecified vitamin D deficiency Chronic gout of multiple sites, unspecified cause Gouty arthritis Gouty arthropathy, unspecified Hyperglycemia Other abnormal glucose Bilateral carpal tunnel syndrome Carpal tunnel syndrome Bilateral foot pain Pain in limb Carpal tunnel syndrome, bilateral upper limbs Fibromyalgia Mylagia and myositis, unspecified TTS (tarsal tunnel syndrome), unspecified laterality Bilateral lower extremity edema Edema Calcaneal spur of foot, left Calcaneal spur of foot, right Calcaneal spur of left foot Calcaneal spur Gouty arthropathy Gouty arthropathy, unspecified Inflammatory arthritis Unspecified inflammatory polyarthropathy Lymphedema of both lower extremities Osteoarthritis of both feet, unspecified osteoarthritis type Osteoarthritis of thoracic spine, unspecified spinal osteoarthritis complication status Localized edema Edema Positive PPD, treated Nonspecific reaction to tuberculin skin test without active tuberculosis Diagnosis Rheumatoid arthritis of multiple sites with negative rheumatoid factor- Primary History of endometrial cancer Personal history of malignant neoplasm of other parts of uterus History of fibromyalgia Personal history of other musculoskeletal disorders History of rheumatoid arthritis Personal history of arthritis care home (current) use of non-steroidal anti-inflammatories (nsaid) lobsterman current use of systemic steroids Encounter for long-term (current) use of steroids Long-term current use of high risk medication other than anticoagulant Lymphedema, not elsewhere classified Other lymphedema Other [facility] (current) drug therapy Vitamin D deficiency Unspecified vitamin D deficiency Chronic gout of multiple sites, unspecified cause Gouty arthritis Gouty arthropathy, unspecified Bilateral carpal tunnel syndrome Carpal tunnel syndrome Carpal tunnel syndrome, bilateral upper limbs Fibromyalgia Mylagia and myositis, unspecified TTS (tarsal tunnel syndrome), unspecified laterality Calcaneal spur of foot, left Calcaneal spur of foot, right Calcaneal spur of left foot Calcaneal spur Gouty arthropathy Gouty arthropathy, unspecified Inflammatory arthritis Unspecified inflammatory polyarthropathy Lymphedema of both lower extremities Osteoarthritis of multiple joints, unspecified osteoarthritis type Osteoarthritis of both feet, unspecified osteoarthritis type Osteoarthritis of thoracic spine, unspecified spinal osteoarthritis complication status Thoracogenic scoliosis of thoracic region Thoracogenic scoliosis Thoracic degenerative disc disease Degeneration of thoracic or thoracolumbar intervertebral disc Other osteoarthritis involving multiple joints History of Present Illness * Eunice Landers, Tamia Cummings, DO - 07/11/2019 3:45 PM EDT History of Present Illness Patient started Rinvoq 12/2019. Stopped Rinvoq 03/30/2019. rinvoq was helping and not bothering. Presence of Pain: complains of pain/discomfort Pain Location: generalized Select Pain Scale: DVPRS (Defense and Veterans Pain Rating Scale) (Adult- Cognitively Intact) DVPRS: Rest: 4- mild pain DVPRS: Activity: 4- mild pain Select Pain Scale: DVPRS (Defense and Veterans Pain Rating Scale) (Adult- Cognitively Intact) Pain Frequency: constant Pain Quality: aching Due to complex issues I spent at least 44 minutes in face to face time with patient, more than 50% of that time was spent on counseling and coordination of care. Migraines were doing well but not good the past 2 weeks as her diet has not been good. Paresthesias in toes like normal. Joint pain is yes since it started raining she has a lot not terrible but all over. Neck pain is yes. Gerd has not been doing well. Patient states that she has pain all over. Patient states that she did not start the Rinvoq due to having two past infections. Patient states she is not taking prednisone nor folic acid. Patient did not get lab as instructed. Patient is going to restart rinvoq. Ihave been told that patient is on a high risk medication as it either treats cancer or requires blood work every 2-3 months. Patient has been off of prednisone since 03/30/2019. Patient's lack of compliance makes treatment very difficult. Patient seen as add on patient today. Review of Systems Constitutional: Positive for unexpected weight change. Wt gain. HENT: Negative. Eyes: Negative. Respiratory: Negative. Cardiovascular: Negative. Gastrointestinal: Gerd Endocrine: Negative. Genitourinary: Negative. Musculoskeletal: Positive for arthralgias, neck pain and neck stiffness. Skin: Negative. Allergic/Immunologic: Negative. Neurological: Positive for numbness and headaches. Migraines Hematological: Negative. Psychiatric/Behavioral: Negative. Physical Exam Vitals signs and nursing note reviewed. Constitutional: Appearance: Normal appearance. She is well-developed. She is obese. HENT: Head: Normocephalic and atraumatic. Right Ear: External ear normal. Left Ear: External ear normal. Nose: Nose normal. Mouth/Throat: Comments: Mask Eyes: Extraocular Movements: Extraocular movements intact and EOM normal. Conjunctiva/sclera: Conjunctivae normal. Pupils: Pupils are equal, round, and reactive to light. Neck: Musculoskeletal: Neck supple. Cardiovascular: Rate and Rhythm: Normal rate and regular rhythm. Pulses: Radial pulses are 2+ on the right side and 2+ on the left side. Heart sounds: Normal heart sounds. Pulmonary: Effort: Pulmonary effort is normal. Breath sounds: Normal breath sounds. Abdominal: General: Bowel sounds are normal. Palpations: Abdomen is soft. Comments: Obese S/P TAHBSO Musculoskeletal: Right shoulder: She exhibits decreased range of motion. Left shoulder: She exhibits decreased range of motion. Right elbow: Normal. Left elbow: Normal. Right wrist: She exhibits decreased range of motion. Left wrist: She exhibits decreased range of motion. Right knee: She exhibits decreased range of motion. Left knee: She exhibits decreased range of motion. Right ankle: She exhibits decreased range of motion. Left ankle: She exhibits decreased range of motion. Right upper arm: Normal. Left upper arm: Normal. Right forearm: Normal. Left forearm: Normal. Arms: Right hand: She exhibits decreased range of motion. Left hand: She exhibits decreased range of motion. Hands: Right upper leg: Normal. Left upper leg: Normal. Right lower leg: Edema present. Left lower leg: Edema present. Legs: Feet: Skin: General: Skin is warm and dry. Comments: Tattoo volar wrist B/L Neurological: Mental Status: She is alert and oriented to person, place, and time. Cranial Nerves: Cranial nerves are intact. Sensory: Sensory deficit present. Motor: Motor function is intact. Coordination: Coordination is intact. Gait: Gait is intact. Deep Tendon Reflexes: Strength normal. Comments: B/L CTS and TTS Psychiatric: Mood and Affect: Mood normal. Behavior: Behavior normal. Thought Content: Thought content normal. Judgment: Judgment normal. There were no vitals taken for this visit. Neurologic Exam Mental Status Oriented to person, place, and time. Cranial Nerves CN III, IV, Pupils are equal, round, and reactive to light. Extraocular motions are normal. Motor Exam Strength Strength 5/5 throughout. Gait, Coordination, and Reflexes Gait Gait: normal Assessment and Plan Encounter Diagnoses Name Primary? Rheumatoid arthritis of multiple sites with negative rheumatoid factor Yes Positive PPD, treated History of fibromyalgia History of rheumatoid arthritis care home (current) use of non-steroidal anti-inflammatories (nsaid) Long-term current use of high risk medication other than anticoagulant Other [facility] (current) drug therapy History of endometrial cancer Vitamin D deficiency Gouty arthritis Chronic gout of multiple sites, unspecified cause Bilateral carpal tunnel syndrome Fibromyalgia Carpal tunnel syndrome, bilateral upper limbs TTS (tarsal tunnel syndrome), unspecified laterality Osteoarthritis of both feet, unspecified osteoarthritis type Inflammatory arthritis Primary osteoarthritis, left ankle and foot Primary osteoarthritis, right ankle and foot Other osteoarthritis involving multiple joints Calcaneal spur of foot, right Thoracogenic scoliosis of thoracic region Osteoarthritis of thoracic spine, unspecified spinal osteoarthritis complication status Thoracic degenerative disc disease Osteoarthritis of multiple joints, unspecified osteoarthritis type Calcaneal spur of foot, left Gouty arthropathy Calcaneal spur of left foot 1. Time was spent with the patient today in education in re: to all their medical conditions. A complete H&P&ROS was obtained and is either in this note or in the EHR. Please do not hesitate to contact me with any questions or concerns re: this patient. Past History Past medical, surgical, family, and social histories have been reviewed and updated with the patient today and are located elsewhere in the medical record. 2. Thank you for allowing me to participate in the care of your patient. With your permission I would like to F/U with your patient. 3. Stop [place] 4. Patient given educational material on fibromyalgia syndrome in the form of a pamphlet from the arthritis foundation. Patient told that generalized stretching and aerobic exercise would be the cornerstone of treatment. Patient would benefit from psych eval and treatment of any underlying depression and/or anxiety disorder. Patient would benefit from eval and F/U treatment by PMR and/or Chronic Pain Management 6. Monitor CBC/LFT/Renal func every 6-12 months as long as patient is on daily NSAID 7. 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 9. ESR was normal 28 10. CRP was elevated at 18.3 11. Stop aleve 12. Monitor Vit D level every 6 -12 months if remains low rec: eval by endo 13. Negative CCP (times 2) and RF (times 2), Celiac, HLA-B27, ANCA, EB, Hep A&B&C serology 14. Stop Arava - no help 15. JAZLYN level was normal at 34 16. Glucose was elevated at 115 17. Uric acid was normal at 3.4 18. Previous EMG showed B/L CTS 19. If CTS problems continue rec: surgical eval. 20. No personal or family history of Psoriasis 21. Patient given educational material on gout in the form of a pamphlet from the arthritis foundation. Patient should remain on Allopurinol life long. Would monitor CBC, LFT, Renal func, uric acid level every 6 - 12 months as long as patient on Allopurinol. Patient can take prednisone 5 mg 8 po q AM times one day decrease by one pill q day until off on a PRN basis any acute attack of gout. 22 Methotrexate made her bones hurt 23. Insurance will not pay for Rituxan unless she tires TNF first. 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 Stop Duexis too expensive 26. Rx given for PT - patient declines as she has been and is doing HEP 27. Rx given for Lymphedema Clinic - patient has been and was told she did not have Lymphedema in [place]. 28. Patient is taking OTC IBP PRN which helps and declines stronger pain medication 29. Patient should have an eye exam prior to starting Plaquenil and every 6-12 months as long as taking Plaquenil 30. Max dose of Gabapentin is 2400 mg a day and can be increased as indicated or tolerated. 31. Patient is going to see Podiatry - Dr. Velasco. 32. Rx given for Gabapentin 100 mg 2 pills a day 33. TB test today 34. Lab on or about 07/12/2019 and every 3 months thereafter 35. Monitor CBC/LFT/Renal func every 3 months on sulfasalazine 36. Rituxan stopped due to flushing. 37. Hold Rinvoq 2 weeks before and 2 weeks after any surgery or live vaccine (shingles). Hold Rinvoq anytime have an infection and can restart once off of ATB and/or antiviral and free of infection. Hold Rinvoq if have open wound and can restart once wound has healed. Would monitor CBC/LFT/Renal every 2 to 3 months on Rinvoq. Patient should get the Shingrix vaccine if not already done. 38. Patient is taking Lorazepan 0.5 mg PRN bedtime for anxiety. 39. CXR once a year 40 Patient is taking Pepcid and Lexapro 41. F/U with me in 4 months 42. Repeat CXR on or about 07/10/2020 43. Patient is going to F/U with PCP about HTN. documented in this encounter* Tamia Dawson Jr., DO - 11/14/2019 11:30 AM EDT History of Present Illness Patient started Rinvoq 12/2019. Stopped Rinvoq 03/30/2019. rinvoq was helping and not bothering. Restarted Rinvoq 08/2019. rinvoq is helping and not bothering the patient. Presence of Pain: denies pain/discomfort Due to complex issues I spent at least 29 minutes in face to face time with patient, morethan 50% of that time was spent on counseling and coordination of care. Wt gain has stopped. GERD is not better and she has switched medications. Joint pain is no more than normal and in a lot betterreally and feet and knees can hurts. AM stiffness is less than an hour. Neck pain is no more than normal as she has been working on computer and she is helping it with stretching. Migraines are less.Paresthesias are no not really. Patient is here for a 4 Month F/U. Patient states that she does nothave any pain. Patient states her medication is still effective. Patient states that she does not have any change nor concerns. Review of Systems Constitutional: Negative. HENT: Negative. Eyes: Negative. Respiratory: Negative. Cardiovascular: Negative. Gastrointestinal: Gerd Endocrine: Negative. Genitourinary: Negative. Musculoskeletal: Positive for arthralgias, neck pain and neck stiffness. Skin: Negative. Allergic/Immunologic: Negative. Neurological: Positive for headaches. Migraines Hematological: Negative. Psychiatric/Behavioral: Negative. Physical Exam Vitals signs and nursing note reviewed. Constitutional: Appearance: Normal appearance. She is well-developed. She is obese. HENT: Head: Normocephalic and atraumatic. Right Ear: External ear normal. Left Ear: External ear normal. Nose: Nose normal. Mouth/Throat: Comments: Mask Eyes: Extraocular Movements: Extraocular movements intact and EOM normal. Conjunctiva/sclera: Conjunctivae normal. Pupils: Pupils are equal, round, and reactive to light. Neck: Musculoskeletal: Neck supple. Cardiovascular: Rate and Rhythm: Normal rate and regular rhythm. Pulses: Radial pulses are 2+ on the right side and 2+ on the left side. Heart sounds: Normal heart sounds. Pulmonary: Effort: Pulmonary effort is normal. Breath sounds: Normal breath sounds. Abdominal: General: Bowel sounds are normal. Palpations: Abdomen is soft. Comments: Obese S/P TAHBSO Musculoskeletal: Right shoulder: She exhibits decreased range of motion. Left shoulder: She exhibits decreased range of motion. Right elbow: Normal. Left elbow: Normal. Right wrist: She exhibits decreased range of motion. Left wrist: She exhibits decreased range of motion. Right knee: She exhibits decreased range of motion. Left knee: She exhibits decreased range of motion. Right ankle: She exhibits decreased range of motion. Left ankle: She exhibits decreased range of motion. Right upper arm: Normal. Left upper arm: Normal. Right forearm: Normal. Left forearm: Normal. Arms: Right hand: She exhibits decreased range of motion. Left hand: She exhibits decreased range of motion. Hands: Right upper leg: Normal. Left upper leg: Normal. Right lower leg: Edema present. Left lower leg: Edema present. Legs: Feet: Skin: General: Skin is warm and dry. Comments: Tattoo volar wrist B/L Neurological: Mental Status: She is alert and oriented to person, place, and time. Cranial Nerves: Cranial nerves are intact. Sensory: Sensory deficit present. Motor: Motor function is intact. Coordination: Coordination is intact. Gait: Gait is intact. Deep Tendon Reflexes: Strength normal. Comments: B/L CTS and TTS Psychiatric: Mood and Affect: Mood normal. Behavior: Behavior normal. Thought Content: Thought content normal. Judgment: Judgment normal. Blood pressure 166/88, pulse 105, temperature 98.3 F (36.8 C), height 1.778 m (5' 10 ), weight (!) 159.2 kg (351 lb), SpO2 97 %. Neurologic Exam Mental Status Oriented to person, place, and time. Cranial Nerves CN III, IV, Pupils are equal, round, and reactive to light. Extraocular motions are normal. Motor Exam Strength Strength 5/5 throughout. Gait, Coordination, and Reflexes Gait Gait: normal Assessment and Plan Encounter Diagnoses Name Primary? Cervicalgia Dorsalgia Paresthesia of both hands Bilateral carpal tunnel syndrome Bilateral foot pain Disorder of bone and cartilage Osteoarthritis of both feet, unspecified osteoarthritis type Chronic pain of both shoulders Bilateral biceps tendonitis Subacromial bursitis Bilateral wrist pain Bilateral hand pain Weakness of both hands Bilateral lower extremity edema Lymphedema of both lower extremities Bilateral temporomandibular joint pain Malignant neoplasm of endometrium ESR raised History of fibromyalgia History of rheumatoid arthritis Fatigue, unspecified type care home current use of non-steroidal anti-inflammatories (NSAID) Anxiety CRP elevated Fibromyalgia Migraine without status migrainosus, not intractable, unspecified migraine type Gastroesophageal reflux disease, esophagitis presence not specified Inflammatory arthritis Rheumatoid arthritis of multiple sites with negative rheumatoid factor Yes Positive PPD, treated Other mcfp (current) drug therapy Lymphedema, not elsewhere classified Long-term current use of high risk medication other than anticoagulant lobsterman (current) use of non-steroidal anti-inflammatories (nsaid) Localized edema Vitamin D deficiency Gouty arthritis Chronic gout of multiple sites, unspecified cause TTS (tarsal tunnel syndrome), unspecified laterality Other osteoarthritis involving multiple joints Thoracic degenerative disc disease Thoracogenic scoliosis of thoracic region Primary osteoarthritis, right ankle and foot Primary osteoarthritis, left ankle and foot Osteoarthritis of thoracic spine, unspecified spinal osteoarthritis complication status Osteoarthritis of multiple joints, unspecified osteoarthritis type Gouty arthropathy Calcaneal spur of left foot Calcaneal spur of foot, right Calcaneal spur of foot, left 1. Time was spent with the patient today in education in re: to all their medical conditions. A complete H&P&ROS was obtained and is either in this note or in the EHR. Please do not hesitate to contact me with any questions or concerns re: this patient. Past History Past medical, surgical, family, and social histories have been reviewed and updated with the patient today and are located elsewhere in the medical record. 2. Thank you for allowing me to participate in the care of your patient. With your permission I would like to F/U with your patient. 3. Stop [place] 4. Patient given educational material on fibromyalgia syndrome in the form of a pamphlet from the arthritis foundation. Patient told that generalized stretching and aerobic exercise would be the cornerstone of treatment. Patient would benefit from psych eval and treatment of any underlying depression and/or anxiety disorder. Patient would benefit from eval and F/U treatment by PMR and/or Chronic Pain Management 6. Monitor CBC/LFT/Renal func every 6-12 months as long as patient is on daily NSAID 7. 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 9. ESR was normal 28 and is now elevated at 50 10. CRP was elevated at 18.3 and still is at 21.70 11. Stop aleve 12. Monitor Vit D level every 6 -12 months if remains low rec: eval by endo 13. Negative CCP (times 2) and RF (times 2), Celiac, HLA-B27, ANCA, EB, Hep A&B&C serology 14. Stop Arava - no help 15. JAZLYN level was normal at 34 16. Glucose was elevated at 115 17. Uric acid was normal at 3.4 and still is at 3.2 18. Previous EMG showed B/L CTS 19. If CTS problems continue rec: surgical eval. 20. No personal or family history of Psoriasis 21. Patient given educational material on gout in the form of a pamphlet from the arthritis foundation. Patient should remain on Allopurinol life long. Would monitor CBC, LFT, Renal func, uric acid level every 6 - 12 months as long as patient on Allopurinol. Patient can take prednisone 5 mg 8 po q AM times one day decrease by one pill q day until off on a PRN basis any acute attack of gout. 22 Methotrexate made her bones hurt 23. Insurance will not pay for Rituxan unless she tires TNF first. 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 Stop Duexis too expensive 26. Rx given for PT - patient declines as she has been and is doing HEP 27. Rx given for Lymphedema Clinic - patient has been and was told she did not have Lymphedema in [place]. 28. Patient is taking OTC IBP PRN which helps and declines stronger pain medication 29. Patient should have an eye exam prior to starting Plaquenil and every 6-12 months as long as taking Plaquenil 30. Max dose of Gabapentin is 2400 mg a day and can be increased as indicated or tolerated. 31. Patient is going to see Podiatry - Dr. Velasco. 32. Repeat vit D level on or about 05/13/2020 with copy to PCP 33. TB test is negative 34. Lab on or about 11/14/2019 and every 3 months thereafter 35. Monitor CBC/LFT/Renal func every 3 months on sulfasalazine 36. Rituxan stopped due to flushing. 37. Hold Rinvoq 2 weeks before and 2 weeks after any surgery or live vaccine (shingles). Hold Rinvoq anytime have an infection and can restart once off of ATB and/or antiviral and free of infection. Hold Rinvoq if have open wound and can restart once wound has healed. Would monitor CBC/LFT/Renal every 2 to 3 months on Rinvoq. Patient should get the Shingrix vaccine if not already done. 38. Patient is taking Lorazepan 0.5 mg PRN bedtime for anxiety. 39. CXR once a year 40 Patient is taking Pepcid and Lexapro 41. Rx given for Dosoquin 1 pill a day 42. Repeat CXR on or about 07/10/2020 43. Patient is going to F/U with PCP about HTN. 44. Rx given for Plaquenil 200 mg 1 pill twice a day 45. Rx given for Lasix 20 mg 1 pill a day PRN 46. Rx given for potassium 1 pill a day if takes Lasix. 47. F/U with me in 4 months documented in this encounter* Tamia Dawson Jr., - 12/06/2018 10:00 AM EDT History of Present Illness Presence of Pain: complains of pain/discomfort Select Pain Scale: DVPRS (Defense and Veterans Pain Rating Scale) (Adult- Cognitively Intact) DVPRS: Rest: 7- severe pain DVPRS: Activity: 7- severe pain Select Pain Scale: DVPRS (Defense and Veterans Pain Rating Scale) (Adult- Cognitively Intact) . Due to complex issues I spent at least 22 minutes in face to face time with patient, more than 50% of that time was spent on counseling and coordination of care. Patient is being evaluated for an unstablechronic illness that increase morbidity and mortality. L ear is OK. GERD helped with medicine. Joint pain is yep today mostly in the knees. Back pain is no not really., Muscle pain is no she does notthink so. Neck pain is always. Migraines is yes took a pill today. Paresthesias feet. Patient is here today for their 4 month F/u. Patient states that she has been okay since her last visit. I have be en told that patient is on a high risk medication as it either treats cancer or requires blood workevery 2-3 months. Patient is taking 5 mg of prednisone a day. I have been told that Prednisone is ahigh risk medication. OTC IBP PRN helps. Gabapentin 100 mg 2 pills is helping and not bothering herand she declines increasing Gabapentin. Cast L wrsit fracture since last seen. Review of Systems Constitutional: Negative. HENT: Negative. Eyes: Negative. Respiratory: Negative. Cardiovascular: Negative. Gastrointestinal: Gerd Endocrine: Negative. Genitourinary: Negative. Musculoskeletal: Positive for arthralgias, neck pain and neck stiffness. Skin: Negative. Allergic/Immunologic: Negative. Neurological: Positive for numbness and headaches. Migraines Hematological: Negative. Psychiatric/Behavioral: Negative. Physical Exam Constitutional: She is oriented to person, place, and time. She appears well- developed and well-nourished. HENT: Head: Normocephalic and atraumatic. Right Ear: External ear normal. Left Ear: External ear normal. Nose: Nose normal. Mouth/Throat: Oropharynx is clear and moist. B/L TMJ tender and crep Eyes: Pupils are equal, round, and reactive to light. Conjunctivae and EOM are normal. Neck: Neck supple. Cardiovascular: Normal rate, regular rhythm and normal heart sounds. Pulses: Radial pulses are 2+ on the right side, and 2+ on the left side. Dorsalis pedis pulses are 0 on the right side, and 0 on the left side. Posterior tibial pulses are 0 on the right side, and 0 on the left side. Pulmonary/Chest: Effort normal and breath sounds normal. Abdominal: Soft. Bowel sounds are normal. Obese S/P TAHBSO Musculoskeletal: Right shoulder: She exhibits decreased range of motion. Left shoulder: She exhibits decreased range of motion. Right elbow: Normal. Left elbow: Normal. Right wrist: She exhibits decreased range of motion. Right knee: She exhibits decreased range of motion. Left knee: She exhibits decreased range of motion. Right upper arm: Normal. Left upper arm: Normal. Right forearm: Normal. Left forearm: Normal. Arms: Right hand: She exhibits decreased range of motion. Hands: Right upper leg: Normal. Left upper leg: Normal. Legs: Feet: Neurological: She is alert and oriented to person, place, and time. She has normal strength. A sensory deficit is present. She displays a negative Romberg sign. B/L CTS and TTS Skin: Skin is warm and dry. Tattoo volar wrist B/L Psychiatric: She has a normal mood and affect. Her behavior is normal. Judgment and thought contentnormal. Nursing note and vitals reviewed. Blood pressure 128/78, pulse 79, temperature 98.2 F (36.8 C), temperature source Temporal, weight (!) 159.5 kg (351 lb 9.6 oz), SpO2 98 %. Neurologic Exam Mental Status Oriented to person, place, and time. Cranial Nerves CN III, IV, Pupils are equal, round, and reactive to light. Extraocular motions are normal. Motor Exam Strength Strength 5/5 throughout. Assessment and Plan Encounter Diagnoses Name Primary? Rheumatoid arthritis of multiple sites with negative rheumatoid factor Yes Positive PPD, treated Other mcfp (current) drug therapy Long-term current use of high risk medication other than anticoagulant lobsterman current use of systemic steroids care home (current) use of non-steroidal anti-inflammatories (nsaid) History of rheumatoid arthritis History of fibromyalgia History of endometrial cancer CRP elevated Vitamin D deficiency Gouty arthritis Chronic gout of multiple sites, unspecified cause TTS (tarsal tunnel syndrome), unspecified laterality Fibromyalgia Carpal tunnel syndrome, bilateral upper limbs Bilateral carpal tunnel syndrome Other osteoarthritis involving multiple joints Thoracic degenerative disc disease Thoracogenic scoliosis of thoracic region Primary osteoarthritis, right ankle and foot Primary osteoarthritis, left ankle and foot Osteoarthritis of thoracic spine, unspecified spinal osteoarthritis complication status Osteoarthritis of both feet, unspecified osteoarthritis type Osteoarthritis of multiple joints, unspecified osteoarthritis type Inflammatory arthritis Gouty arthropathy Calcaneal spur of left foot Calcaneal spur of foot, right Calcaneal spur of foot, left 1. Time was spent with the patient today in education in re: to all their medical conditions. A complete H&P&ROS was obtained and is either in this note or in the EHR. Please do not hesitate to contact me with any questions or concerns re: this patient. Past History Past medical, surgical, family, and social histories have been reviewed and updated with the patient today and are located elsewhere in the medical record. 2. Thank you for allowing me to participate in the care of your patient. With your permission I would like to F/U with your patient. 3. Stop [place] 4. Patient given educational material on fibromyalgia syndrome in the form of a pamphlet from the arthritis foundation. Patient told that generalized stretching and aerobic exercise would be the cornerstone of treatment. Patient would benefit from psych eval and treatment of any underlying depression and/or anxiety disorder. Patient would benefit from eval and F/U treatment by PMR and/or Chronic Pain Management 6. Monitor CBC/LFT/Renal func every 6-12 months as long as patient is on daily NSAID 7. 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 9. ESR was elevated at 31 and is now normal 28 10. CRP was elevated at 19.9 and still is at 18.3 11. Stop aleve 12. Monitor Vit D level every 6 -12 months if remains low rec: eval by endo 13. Negative CCP (times 2) and RF (times 2), Celiac, HLA-B27, ANCA, EB, Hep A&B&C serology 14. Stop Arava - no help 15. JAZLYN level was normal at 34 16. Glucose was elevated at 115 17. Uric acid was normal at 2.6 and still is at 3.4 18. Previous EMG showed B/L CTS 19. If CTS problems continue rec: surgical eval. 20. No personal or family history of Psoriasis 21. Patient given educational material on gout in the form of a pamphlet from the arthritis foundation. Patient should remain on Allopurinol life long. Would monitor CBC, LFT, Renal func, uric acid level every 6 - 12 months as long as patient on Allopurinol. Patient can take prednisone 5 mg 8 po q AM times one day decrease by one pill q day until off on a PRN basis any acute attack of gout. 22 Methotrexate made her bones hurt 23. Insurance will not pay for Rituxan unless she tires TNF first. 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 Stop Duexis too expensive 26. Rx given for PT - patient declines as she has been and is doing HEP 27. Rx given for Lymphedema Clinic - patient has been and was told she did not heave Lymphedema in [place]. 28. Patient is taking OTC IBP PRN which helps and declines stronger pain medication 29. Patient should have an eye exam prior to starting Plaquenil and every 6-12 months as long as taking Plaquenil 30. Max dose of Gabapentin is 2400 mg a day and can be increased as indicated or tolerated. 31. Patient is going to see Podiatry - Dr. Velasco. 32. Samples and Rx given for Rinvoq 1 pill a day 33. TB test today 34. Lab on or about 03/01/2019 and every 3 months thereafter 35. Monitor CBC/LFT/Renal func every 3 months on sulfasalazine 36. Rituxan stopped due to flushing. 37. Hold Rinvoq 2 weeks before and 2 weeks after any surgery or live vaccine (shingles). Hold Rinvoq anytime have an infection and can restart once off of ATB and/or antiviral and free of infection. Hold Rinvoq if have open wound and can restart once wound has healed. Would monitor CBC/LFT/Renal every 2 to 3 months on Rinvoq. Patient should get the Shingrix vaccine if not already done. 38. Patient is taking Lorazepan 0.5 mg PRN bedtime for anxiety. 39. CXR once a year 40 cholesterol check with next blood work. 41. F/U with me in 4 months documented in this encounter* Tamia Dawson Jr., - 05/05/2018 10:45 AM EDT History of Present Illness Presence of Pain: complains of pain/discomfort (05/05/18 1037), Pain Location: finger (comment which one);ankle, left;foot, right;foot, left(Everywhere) (05/05/18 1037), Select Pain Scale: DVPRS (Defense and Veterans Pain Rating Scale) (Adult-Cognitively Intact) (05/05/18 1037), DVPRS: Rest: 7- severe pain (05/05/18 1037), DVPRS: Activity: 7- severe pain (05/05/18 1037), Select Pain Scale: DVPRS (Defense and Veterans Pain Rating Scale) (Adult-Cognitively Intact) (05/05/18 1037), Pain Frequency:constant (05/05/18 1037), Pain Quality: aching (05/05/18 1037) 3 month F/U, Patient states she hasnot been that good, havng a lot more pain, really tired. L ear tube has fallen out and patient is going to see ENT as her ear is popping. GERD is doing good. Joint pain is yes. Back pain if she sleeps on the wrong side so it is better. Muscle pain is better. Neck pain is yes. Migraines is yes. Burning is feet at night when she lays down and pressure helps and this is new. 3 month F/U, Patient states she hasnot been that good, havng a lot more pain, really tired. Insurance denied Rituxan. Patient d oes not know why it was denied and patient has not checked to see what they will pay for. Patient felt normal on Prednisone 5 mg 2 po q AM. Anxiety has increased and patient is going to F/U with PCP.Patient also has no fever but is getting chills. Review of Systems Constitutional: Positive for fatigue. HENT: Tube in L ear has fallen out Ear is popping Eyes: Negative. Respiratory: Negative. Cardiovascular: Negative. Gastrointestinal: Gerd Endocrine: Negative. Genitourinary: Negative. Musculoskeletal: Positive for arthralgias, back pain, myalgias, neck pain and neck stiffness. Skin: Negative. Allergic/Immunologic: Negative. Neurological: Positive for numbness and headaches. Migraines Hematological: Negative. Psychiatric/Behavioral: The patient is nervous/anxious. Physical Exam Constitutional: She is oriented to person, place, and time. She appears well- developed and well-nourished. HENT: Head: Normocephalic and atraumatic. Right Ear: External ear normal. Left Ear: External ear normal. Nose: Nose normal. Mouth/Throat: Oropharynx is clear and moist. B/L TMJ tender and crep Eyes: Pupils are equal, round, and reactive to light. Conjunctivae and EOM are normal. Neck: Neck supple. Cardiovascular: Normal rate, regular rhythm and normal heart sounds. Pulses: Radial pulses are 2+ on the right side, and 2+ on the left side. Dorsalis pedis pulses are 0 on the right side, and 0 on the left side. Posterior tibial pulses are 0 on the right side, and 0 on the left side. Pulmonary/Chest: Effort normal and breath sounds normal. Abdominal: Soft. Bowel sounds are normal. Obese S/P TAHBSO Musculoskeletal: Right shoulder: She exhibits decreased range of motion. Left shoulder: She exhibits decreased range of motion. Right elbow: Normal. Left elbow: Normal. Right wrist: She exhibits decreased range of motion. Left wrist: She exhibits decreased range of motion. Right knee: She exhibits decreased range of motion. Left knee: She exhibits decreased range of motion. Right ankle: She exhibits decreased range of motion. Tenderness. Left ankle: She exhibits decreased range of motion. Tenderness. Right upper arm: Normal. Left upper arm: Normal. Right forearm: Normal. Left forearm: Normal. Right hand: She exhibits decreased range of motion. Left hand: She exhibits decreased range of motion. Hands: Right upper leg: Normal. Left upper leg: Normal. Right lower leg: She exhibits edema. Left lower leg: She exhibits edema. Legs: Right foot: There is decreased range of motion, tenderness and swelling. Left foot: There is decreased range of motion, tenderness and swelling. Feet: Neurological: She is alert and oriented to person, place, and time. She has normal strength. A sensory deficit is present. She displays a negative Romberg sign. B/L CTS and TTS Skin: Skin is warm and dry. Tattoo volar wrist B/L Psychiatric: She has a normal mood and affect. Her behavior is normal. Judgment and thought contentnormal. Nursing note and vitals reviewed. Blood pressure 128/80, pulse 94, temperature 97.9 F (36.6 C), temperature source Temporal, weight (!) 146.1 kg (322 lb), SpO2 97 %. Neurologic Exam Mental Status Oriented to person, place, and time. Cranial Nerves CN III, IV, Pupils are equal, round, and reactive to light. Extraocular motions are normal. Motor Exam Strength Strength 5/5 throughout. Assessment and Plan Encounter Diagnoses Name Primary? Rheumatoid arthritis of multiple sites with negative rheumatoid factor Yes Thoracogenic scoliosis of thoracic region Thoracic degenerative disc disease Osteoarthritis of multiple joints, unspecified osteoarthritis type CRP elevated History of endometrial cancer History of fibromyalgia History of rheumatoid arthritis care home (current) use of non-steroidal anti-inflammatories (nsaid) lobsterman current use of systemic steroids Long-term current use of high risk medication other than anticoagulant Lymphedema, not elsewhere classified Other director long term care (current) drug therapy Vitamin D deficiency Chronic gout of multiple sites, unspecified cause Gouty arthritis Hyperglycemia Bilateral carpal tunnel syndrome Bilateral foot pain Carpal tunnel syndrome, bilateral upper limbs Fibromyalgia TTS (tarsal tunnel syndrome), unspecified laterality Bilateral lower extremity edema Calcaneal spur of foot, left Calcaneal spur of foot, right Calcaneal spur of left foot Gouty arthropathy Inflammatory arthritis Lymphedema of both lower extremities Osteoarthritis of both feet, unspecified osteoarthritis type Osteoarthritis of thoracic spine, unspecified spinal osteoarthritis complication status Primary osteoarthritis, left ankle and foot Primary osteoarthritis, right ankle and foot 1. Time was spent with the patient today in education in re: to all their medical conditions. A complete H&P&ROS was obtained and is either in this note or in the EHR. Please do not hesitate to contact me with any questions or concerns re: this patient. Past History Past medical, surgical, family, and social histories have been reviewed and updated with the patient today and are located elsewhere in the medical record. 2. Thank you for allowing me to participate in the care of your patient. With your permission I would like to F/U with your patient. 3. Stop [place] 4. Patient given educational material on fibromyalgia syndrome in the form of a pamphlet from the arthritis foundation. Patient told that generalized stretching and aerobic exercise would be the cornerstone of treatment. Patient would benefit from psych eval and treatment of any underlying depression and/or anxiety disorder. Patient would benefit from eval and F/U treatment by PMR and/or Chronic Pain Management 6. Monitor CBC/LFT/Renal func every 6-12 months as long as patient is on daily NSAID 7. 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 9. ESR was normal at 24 and is now elevated at 31. 10. CRP was elevated at 17.8 and still is at 19.9 11. Stop aleve 12. Monitor Vit D level every 6 -12 months if remains low rec: eval by endo 13. Negative CCP (times 2) and RF (times 2), Celiac, HLA-B27, ANCA, EB, Hep A&B&C serology 14. Stop Arava - no help 15. JAZLYN level was normal at 34 16. Glucose was elevated at 115 17. Uric acid was normal at 3.3 and still is at 2.6 18. Previous EMG showed B/L CTS 19. If CTS problems continue rec: surgical eval. 20. No personal or family history of Psoriasis 21. Patient given educational material on gout in the form of a pamphlet from the arthritis foundation. Patient should remain on Allopurinol life long. Would monitor CBC, LFT, Renal func, uric acid level every 6 - 12 months as long as patient on Allopurinol. Patient can take prednisone 5 mg 8 po q AM times one day decrease by one pill q day until off on a PRN basis any acute attack of gout. 22 Methotrexate made her bones hurt 23. Insurance will not pay for Rituxan unless she tires TNF first. 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 Time spent today in education on TTS 26. Rx given for PT - patient declines as she has been and is doing HEP 27. Rx given for Lymphedema Clinic - patient has been and was told she did not heave Lymphedema in [place]. 28. If foot problems continue rec: podiatry eval - patient is going to set up he own appointment with Podiatry 29. Rx given for Gabapentin 100 mg 1 pill before 30. Max dose of Gabapentin is 2400 mg a day and can be increased as indicated or tolerated. 31. Rx given for Sulfasalazine 500 mg EC 1 pill twice a day for 1 week then 1 pill 3 times a day for 1 week then 2 pills twice a day thereafter 32. Rx given for Prednisone 5 mg 2 po q AM 33. F/U with me in 3 months 34. Lab on or about 07/19/18 and every 3 months thereafter - patient has standing order 35. Monitor CBC/LFT/Renal func every 3 months on sulfasalazine 36. Try again on Rituxan 37. Rx given for Rituxan documented in this encounter* Tamia Dawson Jr., - 08/06/2018 10:45 AM EDT History of Present Illness Presence of Pain: complains of pain/discomfort (08/06/18 1053), Select Pain Scale: DVPRS (Defense and Veterans Pain Rating Scale) (Adult-Cognitively Intact) (08/06/18 1053), DVPRS: Rest: 5- moderate pain (08/06/18 1053), DVPRS: Activity: 5- moderate pain (08/06/18 1053), Select Pain Scale: DVPRS (Defense and Veterans Pain Rating Scale) (Adult-Cognitively Intact) (08/06/18 1053) Due to complex issues I spent at least 34 minutes in face to face time with patient, more than 50% of that time was spent on counseling and coordination of care. Patient is being evaluated for an unstable chronic illness that increase morbidity and mortality. Energy level is better since she is on the prednisone all the time but her mobility up the stairs is still not good. Joint pain is not much but her and there in her fingers and feet. Neck pain is uncertain - joint or muscle. Back pain is no more than normal and is worse in AM after sleeping. Migraines - no migraines for 3-4 weeks. Paresthesias in feet. Patient is here for their 3 month F/u. Patient states that she has been good since her last visit. Patient states that the pain has been here for three months. Patient has had a serious adverse event to medication which could have increased morbidity or mortality. Patient had flushing with Rituxan and that was stopped. Prednisone 5 mg 2 pills a day. I have been told that Prednisone is a high risk medication. I have been told that patient is on a high risk medication as it either treats cancer or requires blood work every 2-3 months. Gabapentin is helping and not bothering her. Patient is interested in higher does of Gabapentin. Patient did not see Podiatry. Lab on Thursday and I have no results and will try to track those down. Review of Systems Constitutional: Negative. HENT: Tube in L ear has fallen out Ear is popping Eyes: Negative. Respiratory: Negative. Cardiovascular: Negative. Gastrointestinal: Gerd Endocrine: Negative. Genitourinary: Negative. Musculoskeletal: Positive for arthralgias, back pain, myalgias, neck pain and neck stiffness. Skin: Negative. Allergic/Immunologic: Negative. Neurological: Positive for numbness and headaches. Migraines Hematological: Negative. Psychiatric/Behavioral: The patient is nervous/anxious. Physical Exam Constitutional: She is oriented to person, place, and time. She appears well- developed and well-nourished. HENT: Head: Normocephalic and atraumatic. Right Ear: External ear normal. Left Ear: External ear normal. Nose: Nose normal. Mouth/Throat: Oropharynx is clear and moist. B/L TMJ tender and crep Eyes: Pupils are equal, round, and reactive to light. Conjunctivae and EOM are normal. Neck: Neck supple. Cardiovascular: Normal rate, regular rhythm and normal heart sounds. Pulses: Radial pulses are 2+ on the right side, and 2+ on the left side. Dorsalis pedis pulses are 0 on the right side, and 0 on the left side. Posterior tibial pulses are 0 on the right side, and 0 on the left side. Pulmonary/Chest: Effort normal and breath sounds normal. Abdominal: Soft. Bowel sounds are normal. Obese S/P TAHBSO Musculoskeletal: Right shoulder: She exhibits decreased range of motion. Left shoulder: She exhibits decreased range of motion. Right elbow: Normal. Left elbow: Normal. Right wrist: She exhibits decreased range of motion. Left wrist: She exhibits decreased range of motion. Right knee: She exhibits decreased range of motion. Left knee: She exhibits decreased range of motion. Right ankle: She exhibits decreased range of motion. Left ankle: She exhibits decreased range of motion. Right upper arm: Normal. Left upper arm: Normal. Right forearm: Normal. Left forearm: Normal. Right hand: She exhibits decreased range of motion. Left hand: She exhibits decreased range of motion. Hands: Right upper leg: Normal. Left upper leg: Normal. Right lower leg: She exhibits edema. Left lower leg: She exhibits edema. Legs: Feet: Neurological: She is alert and oriented to person, place, and time. She has normal strength. A sensory deficit is present. She displays a negative Romberg sign. B/L CTS and TTS Skin: Skin is warm and dry. Tattoo volar wrist B/L Psychiatric: She has a normal mood and affect. Her behavior is normal. Judgment and thought contentnormal. Nursing note and vitals reviewed. Blood pressure 164/84, pulse 89, temperature 97.6 F (36.4 C), temperature source Temporal, weight (!) 156.3 kg (344 lb 9.6 oz), SpO2 97 %. Neurologic Exam Mental Status Oriented to person, place, and time. Cranial Nerves CN III, IV, Pupils are equal, round, and reactive to light. Extraocular motions are normal. Motor Exam Strength Strength 5/5 throughout. Assessment and Plan Encounter Diagnoses Name Primary? 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 (nsaid) lobsterman current use of systemic steroids Long-term current use of high risk medication other than anticoagulant Lymphedema, not elsewhere classified Other mcfp (current) drug therapy Vitamin D deficiency Chronic gout of multiple sites, unspecified cause Gouty arthritis Bilateral carpal tunnel syndrome Carpal tunnel syndrome, bilateral upper limbs Fibromyalgia TTS (tarsal tunnel syndrome), unspecified laterality Calcaneal spur of foot, left Calcaneal spur of foot, right Calcaneal spur of left foot Gouty arthropathy Inflammatory arthritis Lymphedema of both lower extremities Osteoarthritis of multiple joints, unspecified osteoarthritis type Osteoarthritis of both feet, unspecified osteoarthritis type Osteoarthritis of thoracic spine, unspecified spinal osteoarthritis complication status Primary osteoarthritis, left ankle and foot Primary osteoarthritis, right ankle and foot Thoracogenic scoliosis of thoracic region Thoracic degenerative disc disease Other osteoarthritis involving multiple joints 1. Time was spent with the patient today in education in re: to all their medical conditions. A complete H&P&ROS was obtained and is either in this note or in the EHR. Please do not hesitate to contact me with any questions or concerns re: this patient. Past History Past medical, surgical, family, and social histories have been reviewed and updated with the patient today and are located elsewhere in the medical record. 2. Thank you for allowing me to participate in the care of your patient. With your permission I would like to F/U with your patient. 3. Stop [place] 4. Patient given educational material on fibromyalgia syndrome in the form of a pamphlet from the arthritis foundation. Patient told that generalized stretching and aerobic exercise would be the cornerstone of treatment. Patient would benefit from psych eval and treatment of any underlying depression and/or anxiety disorder. Patient would benefit from eval and F/U treatment by PMR and/or Chronic Pain Management 6. Monitor CBC/LFT/Renal func every 6-12 months as long as patient is on daily NSAID 7. 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 9. ESR was normal elevated at 31. 10. CRP was elevated at 19.9 11. Stop aleve 12. Monitor Vit D level every 6 -12 months if remains low rec: eval by endo 13. Negative CCP (times 2) and RF (times 2), Celiac, HLA-B27, ANCA, EB, Hep A&B&C serology 14. Stop Arava - no help 15. JAZLYN level was normal at 34 16. Glucose was elevated at 115 17. Uric acid was normal at 2.6 18. Previous EMG showed B/L CTS 19. If CTS problems continue rec: surgical eval. 20. No personal or family history of Psoriasis 21. Patient given educational material on gout in the form of a pamphlet from the arthritis foundation. Patient should remain on Allopurinol life long. Would monitor CBC, LFT, Renal func, uric acid level every 6 - 12 months as long as patient on Allopurinol. Patient can take prednisone 5 mg 8 po q AM times one day decrease by one pill q day until off on a PRN basis any acute attack of gout. 22 Methotrexate made her bones hurt 23. Insurance will not pay for Rituxan unless she tires TNF first. 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 Rx given for Prednisone 5 mg 2 pills a day for 2 months then 1 pill a day and sty there until F/U 26. Rx given for PT - patient declines as she has been and is doing HEP 27. Rx given for Lymphedema Clinic - patient has been and was told she did not heave Lymphedema in [place]. 28. Rx given Plaquenil 200 mg 1 pill twice a day 29. Patient should have an eye exam prior to starting Plaquenil and every 6-12 months as long as taking Plaquenil 30. Max dose of Gabapentin is 2400 mg a day and can be increased as indicated or tolerated. 31. Patient is going to set up her own eye appointment 32. Repeat 01/19/19 33. F/u with me in 4 months 34. Lab on or about 10/19/18 and every 3 months thereafter 35. Monitor CBC/LFT/Renal func every 3 months on sulfasalazine 36. Rituxan stopped due to flushing. 37. Rx given to increase Gabapentin to 100 mg 2 pills a day 38. Patient is taking Lorazepan 0.5 mg PRN bedtime for anxiety. documented in this encounter Reason for Referral Status Reason Specialty Diagnoses / Procedures Re ferred By Contact Referred To Contact New Request Chemotherapy Diagnoses Rheumatoid arthritis of multiple sites with negative rheumatoid factor Thoracogenic scoliosis of thoracic region Thoracic degenerative disc disease Osteoarthritis of multiple joints, unspecified osteoarthritis type CRP elevated History of endometrial cancer History of fibromyalgia History of rheumatoid arthritis lobsterman (current) use of non-steroidal anti-inflammatories (nsaid) lobsterman current use of systemic steroids Long-term current use of high risk medication other than anticoagulant Lymphedema, not elsewhere classified Other director long term care (current) drug therapy Vitamin D deficiency Chronic gout of multiple sites, unspecified cause Gouty arthritis Hyperglycemia Bilateral carpal tunnel syndrome Bilateral foot pain Carpal tunnel syndrome, bilateral upper limbs Fibromyalgia TTS (tarsal tunnel syndrome), unspecified laterality Bilateral lower extremity edema Calcaneal spur of foot, left Calcaneal spur of foot, right Calcaneal spur of left foot Gouty arthropathy Inflammatory arthritis Lymphedema of both lower extremities Osteoarthritis of both feet, unspecified osteoarthritis type Osteoarthritis of thoracic spine, unspecified spinal osteoarthritis complication status Primary osteoarthritis, left ankle and foot Primary osteoarthritis, right ankle and foot Localized edema Positive PPD, treated Eunice Landers, Tamia Cummings, DO [address] [place] [address] [facility] [address] [place] [address] Additional Source Comments INFORMATION SOURCE (unrecogn ized section and content) DATE CREATED AUTHOR AUTHOR'S ORGANIZ ATION 08/18/2017 [facility] ([place]) DATE CREATED AUTHOR AUTHOR'S ORGANIZ ATION 08/19/2017 [facility] DATE CREATED AUTHOR AUTHOR'S ORGANIZ ATION 06/02/2018 [facility] DATE CREATED AUTHOR AUTHOR'S ORGANIZ ATION 08/06/2018 [facility] DATE CREATED AUTHOR AUTHOR'S ORGANIZ ATION 06/08/2022 [facility] DATE CREATED AUTHOR AUTHOR'S ORGANIZ ATION 08/09/2022 [facility] Reason for Visit (unrecogniz ed section and content) Reason Comments Medication Management Reason Comments Insurance Rituxan approval Reason Comments Medication Refill Reason Comments Joint Pain Patient states that she has pain all over. Patient states that she did not start the Rinvoq due to having two past infections. Patient states she is not taking prednisone nor folic acid. Reason Comments Joint Pain Patient is here for a 4 Month F/U. Patient states that she does not have any pain. Patient states her medication is still effective. Patient states that she does not have any change nor concerns. Reason Comments Joint Pain Patient is here toda y for their 4 month F/u. Patient states that she has been okay since her last visit. Reason Comments Joint Pain 3 month F/U, Patient states she hasnot been that good, havng a lot more pain, really tired. Reason Comments Joint Pain Patient is here for their 3 month F/u. Patient states that she has been good since her last visit. Patient states that the pain has been here for three months Reason Comments Insurance Rinvoq Reason Comments Cerumen Impaction Ear cleaning Reason Comments Post-op 2 week ear tubes Care Teams (unrecognized sec tion and content) FOR RECORDS PERTAINING TO PATIENTS WHO ARE OR HAVE BEEN ENROLLED IN A CHEMICAL DEPENDENCY/SUBSTANCEABUSE PROGRAM, SOME INFORMATION MAY BE OMITTED. This clinical summary was aggregated from multiple sources. Caution should be exercised in using it in the provision of clinical care. This summary normalizes information from multiple sources, and as a consequence, information in this document may materially change the coding, format and clinical context of patient data. In addition, data may be omitted in some cases. CLINICAL DECISIONS SHOULD BE BASED ON THE PRIMARY CLINICAL RECORDS. [facility] [employer] [facility]. provides no warranty or guarantee of the accuracy or completeness of information in this document.
== END | disposition home or self-care (01) ==
LOC: MTLAB 16:31
PROVIDERS: PCP Family Medicine; Referring Provider Family Medicine; Visit Provider Family Medicine
DX: E04.1 Nontoxic single thyroid nodule (principal); D64.9 Anemia, unspecified; R53.83 Other fatigue; R73.01 Impaired fasting glucose
CPT/HCPCS: 36415; 80053; 82607; 82728; 83036; 83540; 84443; 84481; 85025; 85652; 86140

== ENCOUNTER → 2023-06-16 | Outpatient (CLI) | payer BC, SELFPAY ==
[2023-06-16 07:30] LABS: Erythrocyte Sedimentation Rate 30 mm/hr (0-30)
[2023-06-16 07:41] LABS: Osmolality, Serum 298 mOsm/KG (275-295); Osmolality, Urine 611 mOsm/KG
[2023-06-16 07:47] LABS: ALB/GLOB Ratio 0.8 RATIO (0.9-2.4); AST(SGOT) 17 U/L (15-37); Alanine Aminotransfer ALT/SGPT 26 U/L (13-56); Albumin, Serum 3.4 g/dL (3.2-5.0); Alkaline Phosphatase 89 U/L (45-117); Anion Gap 6 (5-15); BUN 10 mg/dL (7-18); BUN/Creat Ratio 16.2 RATIO (10-20); Calcium,Total 8.7 mg/dL (8.5-10.1); Chloride 103 mmol/L (98-107); Creatinine, Serum 0.62 mg/dL (0.55-1.02); EST Glomerular Filtration Rate 109 mL/min (>60); Est Glom Filt Rate - Afr Amer 132 mL/min (>60); Globulin 4.3 g/dL (2.2-4.2); Glucose 154 mg/dL (74-106); Potassium 3.7 mmol/L (3.5-5.1); Protein, Total 7.7 g/dL (6.4-8.2); Sodium Level 138 mmol/L (136-145)
[2023-06-16 07:50] LABS: Urine Sodium 102 mmol/L (Not Establ.)
[2023-06-16 08:04] LABS: BNP,B-Type NATRIURETIC PEPTIDE 13.2 pg/mL (0-100)
[2023-06-16 08:24] LABS: Absolute Lymphocyte Count 2.79 X10^3/uL (0.83-4.51); Absolute Neutrophil Count 5.3 X10^3/uL (2.0-7.7); Basophil# 0.08 X10^3/uL; Basophil% 0.9 % (0-1); Eosinophil# 0.44 X10^3/uL; Eosinophils% 4.7 % (0-5); Hemoglobin 14.2 g/dL (12.0-15.0); Lymphocyte # 2.79 X10^3/ul (0.83-4.51); Lymphocyte % 29.8 % (19-41); Mean Corp Hgb Conc 31.6 g/dL (32-36); Mean Corpuscular Hgb 26.5 pg (27.0-32.0); Mean Corpuscular Volume 84.1 fL (81-99); Mean Platelet Vol. 10.9 fl (6.2-12.0); Monocyte# 0.72 X10^3/uL; Monocyte% 7.7 % (0-10); NRBC Flagged by Analyzer 0 % (0-5); Neutrophil % 56.6 % (47-70); Platelet Count 269 K/mm3 (150-450); RBC Distribution Width CV 15.1 % (11.6-14.6); RBC Distribution Width SD 45.5 fl (35.1-43.9); Red Blood Count 5.35 M/mm3 (4.2-5.4); White Blood Count 9.4 K/mm3 (4.4-11.0)
== END | disposition home or self-care (01) ==
LOC: LAB 06:22
PROVIDERS: PCP Family Medicine; Referring Provider Family Medicine; Visit Provider Family Medicine
DX: R60.9 Edema, unspecified (principal); I50.23 Acute on chronic systolic (congestive) heart failure; M06.4 Inflammatory polyarthropathy; E87.1 Hypo-osmolality and hyponatremia
CPT/HCPCS: 36415; 80053; 83880; 83930; 83935; 84300; 85025; 85652; 86140

== ENCOUNTER 2023-08-10 20:06 | Emergency (ER) | payer SELFPAY ==
[2023-08-10 20:07] VITALS: BP 242/131; PULSE 99; RESP 16; TEMP 36.8; O2SAT 98; BMI 53.4
[2023-08-10 20:10] VITALS: BP 228/113
--- NOTE | 2023-08-10 20:13 | ED.RN ---
UNABLE TO PLACE C-COLLAR DUE TO BODY HABITUS
--- NOTE | 2023-08-10 20:44 | EDS_ITS ---
HPI HPI - Fall History of Present Illness Chief Complaint: Fall Informant: patient Occured/Mechanism Occurred: Today Mechanism/Context: Yes slip Usually ambulates: Without assistance Pain/Injury Location: Right shoulder, neck, and thoracic spine Pain Location: neck, back and upper extremity Quality of Pain: Aching Worsened by: Movement Relieved by: Nothing Associated Symptoms Associated Symptoms: Positive for Parasthesias; Negative for Weakness, Loss of function, Inability to ambulate, Loss of consciousness or Amnesia Narrative Narrative: Patient presents with pain in her neck, back, and right shoulder that began today after a fall. Patient states she slipped in the shower and fell backwards. Patient hit her back on the floor and her neck on a counter. Patient denies any loss of consciousness. Patient states her pain is aching. Patient states it is worse with any movement. Patient states nothing seems to help with it. Patient admits to some paresthesias down her right arm. Patient denies any weakness. [facility] Medical History (Updated 08/10/23 @ 22:[address] Amilcar Hargrove, DO) Osteoarthritis Hypoglycemia Uterine cancer Palpitations Anxiety, generalized Depressive disorder Anemia Morbid obesity Thyroid nodule Gout Fibromyalgia Rheumatoid arthritis Home Medications ?Medication ?Instructions ?Recorded ?Last Taken ?Type sumatriptan succinate 100 mg tablet 100 mg PO .X1 PRN MIGRAINE 07/28/16 Unknown History allopurinol 300 mg tablet 300 mg PO QHS 11/16/18 Unknown History cholecalciferol (vit D3) 137.5 mcg 2 ea PO DAILY 11/16/18 Unknown History (5,500 unit)-vit K2 200 mcg tablet furosemide 20 mg tablet 20 mg PO DAILY PRN Swelling 11/16/18 Unknown History gabapentin 100 mg capsule 100 mg PO QHS 11/16/18 Unknown History hydroxychloroquine 200 mg tablet 200 mg PO BID 11/16/18 Unknown History ibuprofen 800 mg-famotidine 26.6 1 ea PO TID PRN Anxiety 11/16/18 Unknown History mg tablet lorazepam 0.5 mg tablet 0.5 mg PO DAILY PRN PRN Anxiety 11/16/18 Unknown History sulfasalazine 500 mg tablet 500 mg PO BID 11/16/18 Unknown History Bacillus coagulans 10 billion cell cell PO 07/06/19 Unknown History capsule,delayed release (Probiotic (B. coagulans)) escitalopram oxalate 10 mg tablet 10 mg PO DAILY 07/06/19 Unknown History (Lexapro) esomeprazole magnesium 40 mg 40 mg PO DAILY 07/06/19 Unknown History capsule,delayed release (Nexium) famotidine 40 mg tablet 40 mg PO DAILY 07/06/19 Unknown History fexofenadine 180 mg tablet 180 mg PO DAILY 07/06/19 Unknown History (Mariajose Allergy) potassium chloride 10 mEq 10 meq PO .prn 07/06/19 Unknown History tablet,extended release azithromycin 250 mg tablet See Rx Instructions PO .COMPLEX #6 02/18/22 Unknown Rx tabs cyclobenzaprine 10 mg tablet 10 mg PO QHS PRN PRN Muscle Spasm 08/10/23 Unknown Rx #10 TABLETS naproxen 500 mg tablet 500 mg PO BID PRN #20 tabs 08/10/23 Unknown Rx Allergy/AdvReac Type Severity Reaction Status Date / Time penicillin V Allergy Mild Unknown Verified 08/10/23 20:10 codeine Allergy Hives Verified 08/10/23 20:10 morphine AdvReac Other Verified 08/10/23 20:10 Family History Mother Thyroid disorder Daughter Asthma Grandmother Breast cancer Father CVA (cerebral vascular accident) Colon cancer Surgical History (Updated 08/10/23 @ 21:[address] Amilcar Hargrove DO) Hx of section S/P hysterectomy S/P appendectomy S/P laparoscopic cholecystectomy S/P chest tube placement S/P tonsillectomy Social History Smoking Status: Former smoker alcohol intake: current alcohol intake frequency: holidays/special occasions only ROS ROS ED Constitutional Constitutional ED: Denies chills or fever(s) Eyes Eyes: Denies blurry vision or change in vision ENT ENT ED: Denies rhinorrhea or sore throat Cardiovascular Cardiovascular: Denies chest pain or palpitations Respiratory/Chest Respiratory/Chest: Denies cough or dyspnea Gastrointestinal Gastrointestinal: Denies nausea or vomiting Genitourinary Genitourinary ED: Denies dysuria or hematuria Musculoskeletal Musculoskeletal: Reports back pain and neck pain Integumentary Denies abscess or rash Neurologic Neurologic: Reports headache(s); Denies weakness Allergic/Immunologic Allergic/Immunologic ED: Denies mouth swelling or urticaria EXAM Physical Exam Const Vital Signs: 08/10/23 20:07 08/10/23 20:10 08/10/23 20:26 Temperature 98.2 F Temperature Source Temporal Pulse Rate 99 Respiratory Rate 16 Respiratory Effort Normal Blood Pressure 242/131 H 228/113 H Blood Pressure Mean 168 151 Pulse Ox 98 Oxygen Delivery Method Room Air Room Air 08/10/23 21:10 Temperature Temperature Source Pulse Rate 110 H Respiratory Rate 18 Respiratory Effort Blood Pressure 220/100 H Blood Pressure Mean 140 Pulse Ox 95 Oxygen Delivery Method Room Air Positive well nourished, well developed and obese General Appearance ED: well developed Nutritional Appearance: obese Neck supple Neck Narrative: There is tenderness over the cervical spine and right cervical paraspinal muscles. There is no bony crepitance or step-off noted. Range of motion was limited in all motions of the cervical spine secondary to pain. General: tenderness Resp normal respiratory effort and clear to auscultation bilaterally Cardio regular rate and regular rhythm GI non-tender and non-distended Palpation: soft Back/Spine Back/Spine Narrative: There is tenderness over the upper thoracic spine and lower cervical spine. There is tenderness over the right thoracic and cervical paraspinal muscles. There is no bony crepitance or step-off noted. Cervical Spine: cervical spine tenderness Thoracic Spine / Upper Back: ROM limited and thoracic spinal tenderness Extremity Extremity Narrative: There is tenderness over the right shoulder. There is no obvious deformity noted. There is no edema or ecchymosis. There is no bony crepitance or step- off noted. Strength is 5/5 bilateral in the upper extremities. There are no sensory deficits noted. Neuro oriented x3, CN's II-XII intact bilaterally, moves all extremities, no focal motor deficits and no sensory deficits noted Sensorium / Orientation: alert Motor Exam: strength 5/5 throughout Psych mental status grossly normal MDM MDM MDM Narrative Medical decision making narrative: Differential diagnosis includes occult cervical spine fracture, thoracic spine fracture, right shoulder fracture, right shoulder separation, muscle strain, and contusion. X-rays of the thoracic spine will be obtained to assess for thoracic spine fracture. X-rays of the right shoulder will be obtained to assess for right shoulder fracture, and acromioclavicular separation. CT scan of the cervical spine will be obtained to assess for cervical spine fracture and spondylolisthesis. Radiography Diagnostic Testing: Clinical Impression(s) from Imaging Studies Cervical Spine CT 08/10/23 20:56 IMPRESSION: 1. No evidence of acute cervical spinal fracture or spondylolisthesis. No acutely acquired canal stenosis. 2. Extensive multilevel marginal osteophyte formation and posterior longitudinal ligament ossification contributing to chronic canal stenosis most notable at C6-7 with AP dimension of the canal estimated at 6 mm. Given the narrow canal, if there are clinical findings of cord injury, consider evaluation with MRI to exclude cord contusion accentuated by the canal stenosis. Electronically Signed: Saurabh Marquez MD at 22:21 EDT , Thoracic Spine X-Ray 08/10/23 21:30 IMPRESSION: 1. No evidence of thoracic spinal fracture or spondylolisthesis. 2. Diffuse multilevel cervical spondylosis marginal osteophyte formation and S-shaped scoliotic curvature without underlying acute bony changes. Electronically Signed: Saurabh Marquez MD at 22:24 EDT , Shoulder X-Ray 08/10/23 21:38 IMPRESSION: 1. No fracture malalignment or focal bony or joint space abnormality involving the shoulder.. 2. Marginal osteophyte formation at the AC joint is present. Mild narrowing of the subacromial space which can contribute to rotator cuff impingement. Electronically Signed: Saurabh Marquez MD at 22:23 EDT , Treatment and Re-Evaluation Narrative: Patient was given injections of Toradol and Norflex here. Discharge Plan Triage Chief Complaint: Fall ED Provider: Amilcar Hargrove Dx/Rx/DC Orders Clinical Impression: Acute cervical myofascial strain, Acute thoracic myofascial strain, Muscle strain of right shoulder region, Fall Instructions: ED Neck Sprain or Strain, ED Muscle Strain, Extremity Prescriptions: New cyclobenzaprine 10 mg tablet 10 mg PO QHS PRN PRN (Reason: Muscle Spasm) Qty: 10 0RF naproxen 500 mg tablet 500 mg PO BID PRN Qty: 20 0RF No Action esomeprazole magnesium [Nexium] 40 mg capsule,delayed release(DR/EC) 40 mg PO DAILY famotidine 40 mg tablet 40 mg PO DAILY escitalopram oxalate [Lexapro] 10 mg tablet 10 mg PO DAILY potassium chloride 10 mEq tablet extended release 10 meq PO .prn fexofenadine [Mariajose Allergy] 180 mg tablet 180 mg PO DAILY Probiotic (B. coagulans) 10 billion cell capsule,delayed release(DR/EC) PO azithromycin 250 mg tablet See Rx Instructions PO .COMPLEX Qty: 6 0RF Rx Instructions: take 500 mg today (day 1), then 250 mg for 4 days (days 2-5) PO sumatriptan succinate 100 MG tablet 100 mg PO .X1 PRN sulfasalazine 500 MG tablet 500 mg PO BID lorazepam 0.5 MG tablet 0.5 mg PO DAILY PRN PRN (Reason: Anxiety) allopurinol 300 MG tablet 300 mg PO QHS furosemide 20 MG tablet 20 mg PO DAILY PRN (Reason: Swelling) gabapentin 100 MG capsule 100 mg PO QHS hydroxychloroquine 200 MG tablet 200 mg PO BID ibuprofen-famotidine 1 EACH tablet 1 ea PO TID PRN (Reason: Anxiety) vitamin D3-vitamin K2 1 EACH tablet 2 ea PO DAILY Primary Care Provider: Tala Allen Referrals: Tang Lozano DO [Med Staff - Active Staff] - 5-7 Days Tala Allen DO [Primary Care Provider] - 5-7 Days Print Language: [place] Disposition Disposition: Home, Self Care
--- NOTE | 2023-08-10 20:56 | CT_ITS ---
INDICATION: injury EXAMINATION: CT CERVICAL SPINE - CT Spine Cervical W/O Contrast Injection TECHNIQUE: Helically acquired images were obtained of the cervical spine. 2D reformatted images were reviewed. A radiation dose optimization technique was used for this scan. Noncontrast images obtained. IV Contrast dosage and agent: None. Radiation Dose (provided by facility) CTDIvol (NA ) mGy, DLP ( NA) mGy-cm COMPARISON: : No relevant prior comparison study available FINDINGS: VERTEBRAE: No fracture or traumatic subluxation. No discrete lytic or blastic abnormality. Normal alignment. Normal craniocervical junction and cervicothoracic junction. Normal appearance of the odontoid process. DISCS and SPINAL CANAL: Extensive osteophyte formation and partial ossification posterior longitudinal ligament with chronic narrowing of the spinal canal most notable at C6-7 with AP dimension on canal estimated approximately 6 mm.. No acute changes however noted. No acute disc herniations. Chronic narrowing of neural foramina at multiple levels due to facet hypertrophic changes. NECK SOFT TISSUES: No prevertebral soft tissue swelling. There is no cervical adenopathy. LUNG APICES: Clear. CT/Spine Cervical without Contras IMPRESSION: 1. No evidence of acute cervical spinal fracture or spondylolisthesis. No acutely acquired canal stenosis. 2. Extensive multilevel marginal osteophyte formation and posterior longitudinal ligament ossification contributing to chronic canal stenosis most notable at C6-7 with AP dimension of the canal estimated at 6 mm. Given the narrow canal, if there are clinical findings of cord injury, consider evaluation with MRI to exclude cord contusion accentuated by the canal stenosis. Electronically Signed: Saurabh Marquez MD at 22:21 EDT ,
[2023-08-10 21:10] VITALS: BP 220/100; PULSE 110; RESP 18; O2SAT 95
--- NOTE | 2023-08-10 21:30 | RAD_ITS ---
INDICATION: Injury/Pain EXAMINATION/TECHNIQUE: X-RAY - XR Spine Thoracic 3 Views COMPARISON: : No relevant prior comparison study available FINDINGS: VERTEBRAE: Vertebral body height is maintained. No osteophyte formation throughout the thoracic spine and mild S-shaped scoliotic curvature is noted. No evidence of fractures subluxation or destructive bony process. No spondylolisthesis. Preservation of the normal thoracic kyphosis. No significant facet arthropathy. DISCS: Disc spaces are maintained. INCLUDED CHEST/ABDOMEN: No acute abnormalities. RAD/Thoracic Spine 3 Views IMPRESSION: 1. No evidence of thoracic spinal fracture or spondylolisthesis. 2. Diffuse multilevel cervical spondylosis marginal osteophyte formation and S-shaped scoliotic curvature without underlying acute bony changes. Electronically Signed: Saurabh Marquez MD at 22:24 EDT ,
--- NOTE | 2023-08-10 21:38 | RAD_ITS ---
INDICATION: Injury/Pain EXAMINATION/TECHNIQUE: X-RAY - RIGHT XR Shoulder Min 2 Views COMPARISON: No previous relevant examinations for comparison. FINDINGS: SOFT TISSUES: No soft tissue swelling or gas. No radiopaque foreign body. BONES/JOINTS: 1. No acute fracture or subluxation.. Normal alignment. Preservation of the joint space.. No sclerotic or destructive changes observed. 2. There is normal glenohumeral motion. There is normal alignment of the acromioclavicular joint. Marginal and the subacromial osteophyte formation is present. 3. The clavicle, acromion, scapula and RIGHT rib cage have normal appearance. RAD/Shoulder min 2 Views IMPRESSION: 1. No fracture malalignment or focal bony or joint space abnormality involving the shoulder.. 2. Marginal osteophyte formation at the AC joint is present. Mild narrowing of the subacromial space which can contribute to rotator cuff impingement. Electronically Signed: Saurabh Marquez MD at 22:23 EDT ,
[2023-08-10] MEDS: Ketorolac 60 MG/2 ML Vial IM (21:41)
[2023-08-10] MEDS: Orphenadrine 60 MG/2 ML Ampul IM (21:41)
[2023-08-10 22:50] VITALS: BP 167/65; PULSE 91; RESP 18; TEMP 36.4; O2SAT 96
== END 2023-08-10 22:52 | disposition home or self-care (01) ==
PROVIDERS: Emergency Provider Emergency Medicine; PCP Family Medicine; Visit Provider Emergency Medicine
DX: S16.1XXA Strain of muscle, fascia and tendon at neck level, initial encounter (principal); M06.9 Rheumatoid arthritis, unspecified; S29.012A Strain of muscle and tendon of back wall of thorax, initial encounter; S46.911A Strain of unspecified muscle, fascia and tendon at shoulder and upper arm level, right arm, initial encounter; W01.198A Fall on same level from slipping, tripping and stumbling with subsequent striking against other object, initial encounter; Y93.E1 Activity, personal bathing and showering; Z79.899 Other long term (current) drug therapy; Z87.891 Personal history of nicotine dependence
CPT/HCPCS: 72072; 72125; 73030; 96372; 99282

== ENCOUNTER → 2023-09-26 | Outpatient (CLI) | payer OTHER, SELFPAY ==
[2023-09-26 09:30] LABS: Absolute Neutrophil Count 4.2 X10^3/uL (2.0-7.7); Basophil# 0.06 X10^3/uL; Basophil% 0.8 % (0-1); Eosinophil# 0.38 X10^3/uL; Eosinophils% 5.3 % (0-5); Hematocrit 43.5 % (37-47); Hemoglobin 14.1 g/dL (12.0-15.0); Lymphocyte % 26.5 % (19-41); Mean Corp Hgb Conc 32.4 g/dL (32-36); Mean Corpuscular Volume 83.3 fL (81-99); Mean Platelet Vol. 10.8 fl (6.2-12.0); Monocyte# 0.64 X10^3/uL; Monocyte% 8.9 % (0-10); NRBC Flagged by Analyzer 0 % (0-5); Neutrophil # 4.16 X10^3/uL (2.7-7.7); Neutrophil % 57.9 % (47-70); Platelet Count 230 K/mm3 (150-450); RBC Distribution Width CV 14.7 % (11.6-14.6); RBC Distribution Width SD 44.4 fl (35.1-43.9); Red Blood Count 5.22 M/mm3 (4.2-5.4); White Blood Count 7.2 K/mm3 (4.4-11.0)
[2023-09-26 10:23] LABS: Hemoglobin A1c 8.1 % (3.8-5.6)
[2023-09-26 10:26] LABS: ALB/GLOB Ratio 0.8 RATIO (0.9-2.4); AST(SGOT) 20 U/L (15-37); Alanine Aminotransfer ALT/SGPT 38 U/L (13-56); Albumin, Serum 3.2 g/dL (3.2-5.0); Alkaline Phosphatase 80 U/L (45-117); Anion Gap 6 (5-15); BUN 12 mg/dL (7-18); BUN/Creat Ratio 19.1 RATIO (10-20); Calcium,Total 8.7 mg/dL (8.5-10.1); Chloride 105 mmol/L (98-107); Cholesterol 190 mg/dL (200); Creatinine, Serum 0.63 mg/dL (0.55-1.02); EST Glomerular Filtration Rate 107 mL/min (>60); Est Glom Filt Rate - Afr Amer 129 mL/min (>60); Globulin 3.8 g/dL (2.2-4.2); Glucose 191 mg/dL (74-106); High Density Lipoprotein 51 mg/dL; Potassium 3.7 mmol/L (3.5-5.1); Sodium Level 138 mmol/L (136-145); T4 Free Direct 1.05 ng/dL (0.76-1.46); Triglycerides 161 mg/dL; Uric Acid 4.2 mg/dL (2.6-6.0); Very Low Density Lipoprotein 32 mg/dL (5-40)
[2023-09-28 08:10] LABS: Vitamin B12 1048 pg/mL (211-911); Vitamin D,25 Hydroxy 44.2 ng/mL
== END | disposition home or self-care (01) ==
LOC: LAB 08:30
PROVIDERS: PCP Family Medicine; Referring Provider Family Medicine; Visit Provider Family Medicine
DX: M06.9 Rheumatoid arthritis, unspecified (principal); M10.9 Gout, unspecified; E04.1 Nontoxic single thyroid nodule; E03.9 Hypothyroidism, unspecified
CPT/HCPCS: 36415; 80053; 80061; 82306; 82607; 83036; 84439; 84443; 84481; 84550; 85025

== ENCOUNTER → 2024-09-16 | Outpatient (CLI) | payer OTHER, SELFPAY ==
--- OUTSIDE RECORDS SUMMARY | 2024-09-16 06:47 | XMS RPT_ITS | CCD ---
Author Organization [facility] Care Team Providers Care Sausage Cutter Name Role Phone MALYS, TALA A Unavailable [...] A. Unavailable Unavailable Malys, Tala A Unavailable Christine Allena Eloy Primary Care Provider TAMIA DAWSON JR. Attending UnavailTAMIA Ribeiro JR. Referring UnavailCHRISTINE GómezA Eloy Primary Care Unavailable Malrubi Tala A Primary Care Provider Tala Allen Primary Care Provider [phone] Dr. Tala Aleln Primary Care Provider Dr. Tala Allen Referring Provider [phone] GLENROY Bernal Attending Provider [phone] Tala Allen DO Primary Care Provider [phone] TALA ALLEN Primary Care Unavailable NATA VALENTINO Attending Unavailable ROSENDO ROSALES Admitting Unavailable ROSALESROSENDO WHEATLEY Admitting Unavailable ROSENDO ROSALES Attending Unavailable TALA ALLEN Primary Care Unavailable Dr. Tala Allen Primary Care Provider [phone] Dr. Tala Allen Referring Provider GLENROY Bernal Attending Provider KODAK, TALA A Primary Care Unavailable ROSENDO ROSALES Attending Unavailable ROSALES, ROSENDO MOLINA Attending Unavailable MALYS, TALA A Primary Care Unavailable ROSALESROSENDO Attending Unavailable MALYS, TALA A Primary Care Unavailable ROSENDO ROSALES Attending Unavailable MALYS, TALA A Primary Care Unavailable Malys, Tala Referring Unavailable Malys, Tala Attending Unavailable Malys, Tala Primary Care Unavailable Malys, Tala Attending Unavailable Malys, Tala Primary Care Unavailable Allergies Allergy Classification Reported Allergen(s) Allergy Type Date of Onset Reaction(s) Facility (20 sources) codeine; Translations: [CODEINE] Drug Allergy 0 Hives, GI Intolerance [facility] Repository (20 sources) morphine; Translations: [MORPHINE] Drug Allergy 0 Other (See Comments), Anxiety [facility] Repository (6 sources) DULoxetine Drug Allergy 0 Unknown [facility] (6 sources) Penicillin V Drug Allergy 0 Unknown [facility] (4 sources) Penicillin; Translations: [PENICILLIN] Drug Allergy 0 Unknown [facility] (1 source) Penicillin Drug Allergy 4 [facility] Repository Medications Current Medications Medication Drug Class(es) Dates Sig (Normalized) Sig (Original) allopurinol 300 mg oral tablet (20 sources) Xanthine Oxidase Inhibitor Start: 09-30-2018 End: 11-14-2019 take 300 mg by mouth at bedtime Allopurinol Active 300 MG PO AT BEDTIME November 16, 2018 12:00am Start: 09-22-2017 End: 09-28-2018 take 1 tablet by mouth once daily allopurinol 300 MG Tab tablet Indications: Gouty arthropathy , ESR raised , Elevated erythrocyte sedimentation rate , History of fibromyalgia , History of rheumatoid arthritis , intermediate project manager current use of non-steroidal anti-inflammatories (NSAID) , CRP elevated , Fibromyalgia , Elevated C-reactive protein (CRP) , Localized edema , 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-inflammatories (nsaid) , Lymphedema, not elsewhere classified , Long-term current use of high risk medication other than anticoagulant , Vitamin D deficiency , Hyperglycemia , Hyperuricemia , Gouty arthritis , Bilateral carpal tunnel syndrome , Carpal tunnel syndrome, bilateral upper limbs , Osteoarthritis of both feet, unspecified osteoarthritis type , Bilateral lower extremity edema , Lymphedema of both lower extremities , Inflammatory arthritis , Primary osteoarthritis, right ankle and foot , Osteoarthritis of multiple joints, unspecified osteoarthritis type , Calcaneal spur of foot, right , Thoracogenic scoliosis of thoracic region , Osteoarthritis of thoracic spine, unspecified spinal osteoarthritis complication status , Thoracic degenerative disc disease , Calcaneal spur of foot, left 1 po q day 30 tablet 11 09/22/2017 09/28/2018 Discontinued (Reorder) azelastine hydrochloride 0.137 mg/actuat metered dose nasal spray (2 sources) Histamine-1 Receptor Antagonist Start: 05-21-2022 End: 05-21-2023 azelastine (ASTELIN) 137 mcg (0.1 %) nasal spray Indications: Allergic rhinitis, unspecified seasonality, unspecified trigger 1 (one) spray by Each Nare route 2 (two) times a day . 30 mL 12 05/21/2022 05/21/2023 Active azithromycin 250 mg oral tablet (5 sources) Macrolide Antimicrobial Start: 02-18-2022 Azithromycin Active 0 PO .COMPLEX 6 February 18, 2022 1:00am take 500 mg today (day 1), then 250 mg for 4 days (days 2-5) PO Bacillus Coagulans (Probiotic (B. Coagulans)) 10 billion cell capsule,delayed release(DR/EC) (6 sources) Start: 07-06-2019 Bacillus Coagu lans (Probiotic (B. Coagulans)) 10 billion cell capsule,delayed release(DR/EC) Active CELL PO July 06, 2019 12:00am Start: 07-06-2019 Bacillus Coagu lans (Probiotic (B. Coagulans)) 10 billion cell capsule,delayed release(DR/EC) Active CELL PO July 05, 2019 11:00pm cholecalciferol 5500 unt / vitamin k2 0.2 mg oral tablet (6 sources) Vitamin D Start: 11-16-2018 Vitamin D3-Vitamin K2 Active 2 EACH PO DAILY November 16, 2018 12:00am colchicine 0.6 mg oral capsule (1 source) Start: 09-22-2017 take 60 capsules by mouth once Colchicine (MITIGARE) 0.6 MG Cap capsule Indications: Gouty arthropathy , ESR raised , Elevated erythrocyte sedimentation rate , History of fibromyalgia , History of rheumatoid arthritis , intermediate project manager current use of non-steroidal anti-inflammatories (NSAID) , CRP elevated , Fibromyalgia , Elevated C-reactive protein (CRP) , Localized edema , [facility] (current) use of non-steroidal anti-inflammatories (nsaid) , Lymphedema, not elsewhere classified , Long-term current use of high risk medication other than anticoagulant , Vitamin D deficiency , Hyperglycemia , Hyperuricemia , Gouty arthritis , Bilateral carpal tunnel syndrome , Carpal tunnel syndrome, bilateral upper limbs , Osteoarthritis of both feet, unspecified osteoarthritis type , Bilateral lower extremity edema , Lymphedema of both lower extremities , Inflammatory arthritis , Primary osteoarthritis, right ankle and foot , Osteoarthritis of multiple joints, unspecified osteoarthritis type , Calcaneal spur of foot, right , Thoracogenic scoliosis of thoracic region , Osteoarthritis of thoracic spine, unspecified spinal osteoarthritis complication status , Thoracic degenerative disc disease , Calcaneal spur of foot, left 1 po bid can decrease to 1 po q day if diarrhea 60 capsule 5 09/22/2017 Active Cranberry preparation (1 source) Non-Standardized Food Allergenic Extract, Non-Standardized Plant Allergenic Extract CRANBERRY ORAL Take by mouth PM . 0 Active Dosoquin 5500-200 Unit-[employer] Po Tabs (3 sources) Start: 11-02-2017 escitalopram 10 mg oral tablet (6 sources) Serotonin Reuptake Inhibitor Start: 07-06-2019 take 1 tablet by mouth once daily Escitalopram Oxalate (Lexapro) 10 mg tablet Active 10 MG PO DAILY July 06, 2019 12:00am esomeprazole 40 mg delayed release oral capsule (10 sources) Proton Pump Inhibitor Start: 07-06-2019 take 1 capsule by mouth once daily Esomeprazole Magnesium (Nexium) 40 mg capsule,delayed release(DR/EC) Active 40 MG PO DAILY July 06, 2019 12:00am esomeprazole 40 MG Pack 40 mg daily. 0 Active famotidine 40 mg oral tablet (8 sources) Histamine-2 Receptor Antagonist Start: 07-06-2019 take 40 mg by mouth once daily Famotidine Active 40 MG PO DAILY July 06, 2019 12:00am famotidine 26.6 mg / ibuprofen 800 mg oral tablet (19 sources) Nonsteroidal Anti-inflammatory Drug, Histamine-2 Receptor Antagonist Start: 11-16-2018 Ibuprofen-Famotid ine Active 1 EACH PO THREE TIMES A DAY November 16, 2018 12:00am Start: 09-08-2017 End: 12-06-2018 take 1 tablet [...] rheumatoid arthritis , Fatigue, unspecified type , intermediate project manager current use of non-steroidal anti-inflammatories (NSAID) , Anxiety , CRP elevated , Fibromyalgia , Migraine without status migrainosus, not intractable, unspecified migraine type , Gastroesophageal reflux disease, esophagitis presence not specified , Inflammatory arthritis 1 po tid PRN 90 tablet 11 09/08/2017 12/06/2018 Discontinued fexofenadine hydrochloride 180 mg oral tablet (20 sources) Histamine-1 Receptor Antagonist Start: 07-06-2019 End: 11-14-2019 take 1 tablet by mouth once daily Fexofenadine (Mariajose Allergy) 180 mg tablet Active 180 MG PO DAILY July 06, 2019 12:00am fluticasone propionate 0.05 mg/actuat metered dose nasal spray (2 sources) Corticosteroid Start: 05-21-2022 End: 05-21-2023 take 2 spray(s) nasal route once daily fluticasone propionate (FLONASE) 50 mcg/actuation nasal spray Indications: Allergic rhinitis, unspecified seasonality, unspecified trigger Instill 2 (two) sprays into each nostril daily . 16 mL 3 05/21/2022 05/21/2023 Active furosemide 20 mg oral tablet (20 sources) Loop Diuretic Start: 09-30-2018 End: 11-14-2019 take 20 mg by mouth once daily Furosemide Active 20 MG PO DAILY November 16, 2018 12:00am Start: 09-08-2017 End: 09-28-2018 take 1 tablet by mouth once in the morning as needed furOSEmide 20 MG Tab tablet Indications: Cervicalgia , Dorsalgia , Paresthesia of [...] rheumatoid arthritis , Fatigue, unspecified type , [facility] current use of non-steroidal anti-inflammatories (NSAID) , Anxiety , CRP elevated , Fibromyalgia , Migraine without status migrainosus, not intractable, unspecified migraine type , Gastroesophageal reflux disease, esophagitis presence not specified , Inflammatory arthritis 1 po q AM PRN 30 tablet 11 09/08/2017 09/28/2018 Discontinued (Reorder) gabapentin 100 mg oral capsule (20 sources) Anti-epileptic Agent Start: 11-16-2018 take 100 mg by mouth at bedtime Gabapentin Active 100 MG PO AT BEDTIME November 16, 2018 12:00am Start: 08-06-2018 End: 01-11-2020 take 2 capsules by mouth once gabapentin 100 MG capsule Indications: Rheumatoid arthritis of multiple sites with negative rheumatoid factor , Positive PPD, treated , History of fibromyalgia , History of rheumatoid arthritis , 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-inflammatories (nsaid) , Long-term current use of high risk medication other than anticoagulant , Other long term care administrator (current) drug therapy , History of endometrial cancer , Vitamin D deficiency , Gouty arthritis , Chronic gout of multiple sites, unspecified cause , Bilateral carpal tunnel syndrome , Fibromyalgia , Carpal tunnel syndrome, bilateral upper limbs , TTS (tarsal tunnel syndrome), unspecified laterality , Osteoarthritis of both feet, unspecified osteoarthritis type , Inflammatory arthritis , Primary osteoarthritis, left ankle and foot , Primary osteoarthritis, right ankle and foot , Other osteoarthritis involving multiple joints , Calcaneal spur of foot, right , Thoracogenic scoliosis of thoracic region , Osteoarthritis of thoracic spine, unspecified spinal osteoarthritis complication status , Thoracic degenerative disc disease , Osteoarthritis of multiple joints, unspecified osteoarthritis type , Calcaneal spur of foot, left , Gouty arthropathy , Calcaneal spur of left foot 2 po q hs 180 capsule 1 07/11/2019 01/11/2020 Active Start: 05-05-2018 End: 11-05-2018 gabapentin 100 MG Cap capsul e Indications: Rheumatoid arthritis of multiple sites with negative rheumatoid factor , Thoracogenic scoliosis of thoracic region , Thoracic degenerative disc disease , Osteoarthritis of multiple joints, unspecified osteoarthritis type , CRP elevated , History of endometrial cancer , History of fibromyalgia , History of rheumatoid arthritis , 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-inflammatories (nsaid) , intermediate project manager current use of systemic steroids , Long-term current use of high risk medication other than anticoagulant , Lymphedema, not elsewhere classified , Other long term care administrator (current) drug therapy , Vitamin D deficiency , Chronic gout of multiple sites, unspecified cause , Gouty arthritis , Hyperglycemia , Bilateral carpal tunnel syndrome , Bilateral foot pain , Carpal tunnel syndrome, bilateral upper limbs , Fibromyalgia , TTS (tarsal tunnel syndrome), unspecified laterality , Bilateral lower extremity edema , Calcaneal spur of foot, left , Calcaneal spur of foot, right , Calcaneal spur of left foot , Gouty arthropathy , Inflammatory arthritis , Lymphedema of both lower extremities , Osteoarthritis of both feet, unspecified osteoarthritis type , Osteoarthritis of thoracic spine, unspecified spinal osteoarthritis complication status , Primary osteoarthritis, left ankle and foot , Primary osteoarthritis, right ankle and (more content not included)... hydroxychloroquine sulfate 200 mg oral tablet (20 sources) Antimalarial, Antirheumatic Agent Start: 11-16-2018 End: 11-14-2019 take 200 mg by mouth twice daily Hydroxychloroquine Active 200 MG PO TWICE A DAY November 16, 2018 12:00am Start: 08-06-2018 take 1 tablet by anish th once daily hydroxychloroquine 200 MG Tab tablet Indications: Rheumatoid arthritis of multiple sites with negative rheumatoid factor , History of endometrial cancer , History of fibromyalgia , History of rheumatoid arthritis , 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-inflammatories (nsaid) , [facility] current use of systemic steroids , Long-term current use of high risk medication other than anticoagulant , Lymphedema, not elsewhere classified , Other long term care administrator (current) drug therapy , Vitamin D deficiency , Chronic gout of multiple sites, unspecified cause , Gouty arthritis , Bilateral carpal tunnel syndrome , Carpal tunnel syndrome, bilateral upper limbs , Fibromyalgia , TTS (tarsal tunnel syndrome), unspecified laterality , Calcaneal spur of foot, left , Calcaneal spur of foot, right , Calcaneal spur of left foot , Gouty arthropathy , Inflammatory arthritis , Lymphedema of both lower extremities , Osteoarthritis of multiple joints, unspecified osteoarthritis type , Osteoarthritis of both feet, unspecified osteoarthritis type , Osteoarthritis of thoracic spine, unspecified spinal osteoarthritis complication status , Primary osteoarthritis, left ankle and foot , Primary osteoarthritis, right ankle and foot , Thoracogenic scoliosis of thoracic region , Thoracic degenerative disc disease , Other osteoarthritis involving multiple joints 1 po bid 60 tablet Lactobacillus acidophilus (1 source) Lactobacillus acidophilus (PROBIOTIC ORAL) Take by mouth AM . 0 Active LORazepam 0.5 mg oral tablet (8 sources) Benzodiazepine Start: 11-16-2018 take 0.5 mg by mouth once daily as needed Lorazepam Active 0.5 MG PO DAILY NEEDED November 16, 2018 12:00am potassium chloride 10 meq extended release oral tablet (20 sources) Start: 07-06-2019 Potassium Chloride Active 10 MEQ PO .prn July 06, 2019 12:00am Start: 09-30-2018 End: 11-14-2019 take 1 capsule by mouth once in the morning as needed potassium chloride 10 MEQ Cap CR Indications: Bilateral lower extremity edema 1 po q AM PRN 30 capsule 11 11/14/2019 Active Start: 09-08-2017 End: 09-28-2018 take 1 capsule by mouth once in the morning as needed potassium chloride 10 MEQ Cap CR Indications: Cervicalgia , Dorsalgia , Paresthesia of [...] rheumatoid arthritis , Fatigue, unspecified type , intermediate project manager current use of non-steroidal anti-inflammatories (NSAID) , Anxiety , CRP elevated , Fibromyalgia , Migraine without status migrainosus, not intractable, unspecified migraine type , Gastroesophageal reflux disease, esophagitis presence not specified , Inflammatory arthritis 1 po q AM PRN 30 capsule 11 09/08/2017 09/28/2018 Discontinued (Reorder) Probiotic Product (PROBIOTIC -10 PO) (20 sources) Probiotic Produc t (PROBIOTIC-10 PO) Take by mouth. 0 Active Probiotic Produc t (PROBIOTIC-10 PO) Take by mouth. Active sulfaSALAzine 500 mg oral tablet (20 sources) Aminosalicylate Start: 05-16-2019 sulfaSALAzine 500 MG tablet Indications: Rheumatoid arthritis of multiple sites with negative rheumatoid factor , Thoracogenic scoliosis of thoracic region , Thoracic degenerative disc disease , Osteoarthritis of multiple joints, unspecified osteoarthritis type , CRP elevated , History of endometrial cancer , History of fibromyalgia , History of rheumatoid arthritis , [facility] (current) use of non-steroidal anti-inflammatories (nsaid) , intermediate project manager current use of systemic steroids , Long-term current use of high risk medication other than anticoagulant , Lymphedema, not elsewhere classified , Other long term care administrator (current) drug therapy , Vitamin D deficiency , Chronic gout of multiple sites, unspecified cause , Gouty arthritis , Hyperglycemia , Bilateral carpal tunnel syndrome , Bilateral foot pain , Carpal tunnel syndrome, bilateral upper limbs , Fibromyalgia , TTS (tarsal tunnel syndrome), unspecified laterality , Bilateral lower extremity edema , Calcaneal spur of foot, left , Calcaneal spur of foot, right , Calcaneal spur of left foot , Gouty arthropathy , Inflammatory arthritis , Lymphedema of both lower extremities , Osteoarthritis of both feet, unspecified osteoarthritis type , Osteoarthritis of thoracic spine, unspecified spinal osteoarthritis complication status , Primary osteoarthritis, left ankle and foot , Primary osteoarthritis, right ankle and fo (more content not included)... Start: 11-16-2018 take 500 mg by mouth twice daily Sulfasalazine Active 500 MG PO TWICE A DAY November 16, 2018 12:00am Start: 05-05-[address] Indications: Rheumatoid arthritis of multiple sites with negative rheumatoid factor , Thoracogenic scoliosis of thoracic region , Thoracic degenerative disc disease , Osteoarthritis of multiple joints, unspecified osteoarthritis type , CRP elevated , History of endometrial cancer , History of fibromyalgia , History of rheumatoid arthritis , 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-inflammatories (nsaid) , [facility] current use of systemic steroids , Long-term current use of high risk medication other than anticoagulant , Lymphedema, not elsewhere classified , Other long term care administrator (current) drug therapy , Vitamin D deficiency , Chronic gout of multiple sites, unspecified cause , Gouty arthritis , Hyperglycemia , Bilateral carpal tunnel syndrome , Bilateral foot pain , Carpal tunnel syndrome, bilateral upper limbs , Fibromyalgia , TTS (tarsal tunnel syndrome), unspecified laterality , Bilateral lower extremity edema , Calcaneal spur of foot, left , Calcaneal spur of foot, right , Calcaneal spur of left foot , Gouty arthropathy , Inflammatory arthritis , Lymphedema of both lower extremities , Osteoarthritis of both feet, unspecified osteoarthritis type , Osteoarthritis of thoracic spine, unspecified spinal osteoarthritis complication status , Primary osteoarthritis, left ankle and foot , Primary osteoarthritis, right ankle and fo (more content not included)... SUMAtriptan 100 mg oral tablet (20 sources) Serotonin-1b and Serotonin-1d Receptor Agonist Start: 07-28-2016 Sumatriptan Succinate Active 100 MG PO .X1 PRN July 28, 2016 12:00am UNABLE TO FIND (1 source) UNABLE TO FIND O TC A-Dreanal BID . 0 Active Upadacitinib ER (RINVOQ) 15 MG Tab SR 24 HR (11 sources) Start: 12-06-2018 take 1 tablet by mouth once daily Upadacitinib ER (RINVOQ) 15 MG Tab SR 24 HR Indications: Rheumatoid arthritis of multiple sites with negative rheumatoid factor , Positive PPD, treated , Other residential (current) drug therapy , Long-term current use of high risk medication other than anticoagulant , [facility] current use of systemic steroids , 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-inflammatories (nsaid) , History of rheumatoid arthritis , History of fibromyalgia , History of endometrial cancer , CRP elevated , Vitamin D deficiency , Gouty arthritis , Chronic gout of multiple sites, unspecified cause , TTS (tarsal tunnel syndrome), unspecified laterality , Fibromyalgia , Carpal tunnel syndrome, bilateral upper limbs , Bilateral carpal tunnel syndrome , Other osteoarthritis involving multiple joints , Thoracic degenerative disc disease , Thoracogenic scoliosis of thoracic region , Primary osteoarthritis, right ankle and foot , Primary osteoarthritis, left ankle and foot , Osteoarthritis of thoracic spine, unspecified spinal osteoarthritis complication status , Osteoarthritis of both feet, unspecified osteoarthritis type , Osteoarthritis of multiple joints, unspecified osteoarthritis type , Inflammatory arthritis , Gouty arthropathy , Calcaneal spur of left foot , Calcaneal spur of foot, right , Calcaneal spur of foot, left Take 1 tablet by mouth daily. 30 tablet 11 Start: 12-06-2018 End: 12-06-2018 take 1 tablet by mouth once daily Upadacitinib ER (RINVOQ) 15 MG Tab SR 24 HR Indications: Rheumatoid arthritis of multiple sites with negative rheumatoid factor , Positive PPD, treated , Other long term care administrator (current) drug therapy , Long-term current use of high risk medication other than anticoagulant , [facility] current use of systemic steroids , 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-inflammatories (nsaid) , History of rheumatoid arthritis , History of fibromyalgia , History of endometrial cancer , CRP elevated , Vitamin D deficiency , Gouty arthritis , Chronic gout of multiple sites, unspecified cause , TTS (tarsal tunnel syndrome), unspecified laterality , Fibromyalgia , Carpal tunnel syndrome, bilateral upper limbs , Bilateral carpal tunnel syndrome , Other osteoarthritis involving multiple joints , Thoracic degenerative disc disease , Thoracogenic scoliosis of thoracic region , Primary osteoarthritis, right ankle and foot , Primary osteoarthritis, left ankle and foot , Osteoarthritis of thoracic spine, unspecified spinal osteoarthritis complication status , Osteoarthritis of both feet, unspecified osteoarthritis type , Osteoarthritis of multiple joints, unspecified osteoarthritis type , Inflammatory arthritis , Gouty arthropathy , Calcaneal spur of left foot , Calcaneal spur of foot, right , Calcaneal spur of foot, left Take 1 tablet by mouth daily. 30 tablet 11 Vitamin D-Vitamin K (Dosoquin) 5500-200 UNIT-MCG tablet (1 source) Start: 11-14-2019 take 1 tablet by mouth once daily Vitamin D-Vitamin K (Dosoquin) 5500-200 UNIT-MCG tablet Indications: Vitamin D deficiency 1 po q day 90 tablet 3 11/14/2019 Active Completed/Discontinued Medications Medication Drug Class(es) Dates Sig (Normalized) Sig (Original) busPIRone hydrochloride 7.5 mg oral tablet (9 sources) Start: 09-03-2017 End: 08-06-2018 BusPIRone HCl 7.5 MG Tab eletriptan 20 mg oral tablet (8 sources) Serotonin-1b and Serotonin-1d Receptor Agonist Start: 01-29-2018 End: 08-06-2018 eletriptan 20 MG Tab folic acid 0.8 mg oral capsule (18 sources) Start: 11-16-2018 End: 07-11-2019 take 0.8 mg by mouth once daily Folic Acid Discontinued 0.8 MG PO DAILY November 16, 2018 12:00am July 06, 2019 8:57am leflunomide 20 mg oral tablet (4 sources) Antirheumatic Agent Start: 02-02-2018 End: 05-05-2018 leflunomide 20 MG Tab tablet Indications: Rheumatoid arthritis of multiple sites with negative rheumatoid factor , Malignant neoplasm of endometrium , History of fibromyalgia , History of rheumatoid arthritis , intermediate project manager current use of non-steroidal anti-inflammatories (NSAID) , CRP elevated , Elevated C-reactive protein (CRP) , Localized edema , 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-inflammatories (nsaid) , Lymphedema, not elsewhere classified , Long-term current use of high risk medication other than anticoagulant , Other residential (current) drug therapy , intermediate project manager current use of systemic steroids , Vitamin [...] osteoarthritis type , (more content not included)... Start: 02-02-2018 omeprazole 20 mg delayed release oral capsule (20 sources) Proton Pump Inhibitor Start: 11-16-2018 End: 07-06-2019 take 40 mg by mouth once daily Omeprazole Discontinued 40 MG PO DAILY November 16, 2018 12:00am July 06, 2019 8:58am Start: 07-01-2017 End: 07-11-2019 omeprazole [address] bebe wick predniSONE 5 mg oral tablet (20 sources) Start: 11-16-2018 End: 07-06-2019 take 5 mg by mouth once daily Prednisone Discontinued 5 MG PO DAILY November 16, 2018 12:00am July 06, 2019 8:58am Start: 08-06-2018 End: 07-11-2019 take 2 tablets by mouth once, then take 1 tablet by mouth once in the morning predniSONE 5 MG Tab tablet Indications: Rheumatoid arthritis of multiple sites with negative rheumatoid factor , History of endometrial cancer , History of fibromyalgia , History of rheumatoid arthritis , 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-inflammatories (nsaid) , [facility] current use of systemic steroids , Long-term current use of high risk medication other than anticoagulant , Lymphedema, not elsewhere classified , Other long term care administrator (current) drug therapy , Vitamin D deficiency , Chronic gout of multiple sites, unspecified cause , Gouty arthritis , Bilateral carpal tunnel syndrome , Carpal tunnel syndrome, bilateral upper limbs , Fibromyalgia , TTS (tarsal tunnel syndrome), unspecified laterality , Calcaneal spur of foot, left , Calcaneal spur of foot, right , Calcaneal spur of left foot , Gouty arthropathy , Inflammatory arthritis , Lymphedema of both lower extremities , Osteoarthritis of multiple joints, unspecified osteoarthritis type , Osteoarthritis of both feet, unspecified osteoarthritis type , Osteoarthritis of thoracic spine, unspecified spinal osteoarthritis complication status , Primary osteoarthritis, left ankle and foot , Primary osteoarthritis, right ankle and foot , Thoracogenic scoliosis of thoracic region , Thoracic degenerative disc disease , Other osteoarthritis involving multiple joints 2 po q AM for 2 months then 1 po q AM 60 ta (more content not included)... 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-inflammatories (nsaid) , [facility] current use of systemic steroids , Long-term current use of high risk medication other than anticoagulant , Lymphedema, not elsewhere classified , Other long term care administrator (current) drug therapy , Vitamin D deficiency , Chronic gout of multiple sites, unspecified cause , Gouty arthritis , Hyperglycemia , Bilateral carpal tunnel syndrome , Bilateral foot pain , Carpal tunnel syndrome, bilateral upper limbs , Fibromyalgia , TTS (tarsal tunnel syndrome), unspecified laterality , Bilateral lower extremity edema , Calcaneal spur of foot, left , Calcaneal spur of foot, right , Calcaneal spur of left foot , Gouty arthropathy , Inflammatory arthritis , Lymphedema of both lower extremities , Osteoarthritis of both feet, unspecified osteoarthritis type , Osteoarthritis of thoracic spine, unspecified spinal osteoarthritis complication status , Primary osteoarthritis, left ankle and foot , Primary osteoarthritis, right ankle and hilda (more content not included)... 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-inflammatories (nsaid) , Lymphedema, not elsewhere classified , Long-term current use of high risk medication other than anticoagulant , Vitamin D deficiency , Hyperglycemia , Hyperuricemia , Gouty arthritis , Bilateral carpal tunnel syndrome , Carpal tunnel syndrome, bilateral upper limbs , Osteoarthritis of both feet, unspecified osteoarthritis type , Bilateral lower extremity edema , Lymphedema of both lower extremities , Inflammatory arthritis , Primary osteoarthritis, right ankle and foot , Osteoarthritis of multiple joints, unspecified osteoarthritis type , Calcaneal spur of foot, right , Thoracogenic scoliosis of thoracic region , Osteoarthritis of thoracic spine, unspecified spinal osteoarthritis complication status , Thoracic degenerative disc disease , Calcaneal spur of foot, left 8 po q AM for 1 day decrease by 1 pill a day until off - to be used on a PRN basis 36 tablet 5 09/22/2017 Active RITUXimab (RITUXAN) in sodium chloride 0.9%, with overfill 650 mL infusion (18 sources) Start: 05-05-2018 End: 08-06-2018 RITUXimab (RITUXAN) in sodiu m chloride 0.9%, with overfill 650 mL infusion Indications: Rheumatoid arthritis of multiple sites with negative rheumatoid factor , Thoracogenic scoliosis of thoracic region , Thoracic degenerative disc disease , Osteoarthritis of multiple joints, unspecified osteoarthritis type , CRP elevated , History of endometrial cancer , History of fibromyalgia , History of rheumatoid arthritis , [facility] (current) use of non-steroidal anti-inflammatories (nsaid) , intermediate project manager current use of systemic steroids , Long-term current use of high risk medication other than anticoagulant , Lymphedema, not elsewhere classified , Other long term care administrator (current) drug therapy , Vitamin D deficiency , Chronic gout of multiple sites, unspecified cause , Gouty arthritis , Hyperglycemia , Bilateral carpal tunnel syndrome , Bilateral foot pain , Carpal tunnel syndrome, bilateral upper limbs , Fibromyalgia , TTS (tarsal tunnel syndrome), unspecified laterality , Bilateral lower extremity edema , Calcaneal spur of foot, left , Calcaneal spur of foot, right , Calcaneal spur of left foot , Gouty arthropathy , Inflammatory arthritis , Lymphedema of both lower extremities , Osteoarthritis of both feet, unspecified osteoarthritis type , Osteoarthritis of thoracic spine, unspecified spinal osteoarthritis complication status , Primary osteoarthritis, left ankle and foot , Start: 05-05-2018 RITUXimab (RIT UXAN) in sodium chloride 0.9%, with overfill 650 mL infusion Indications: Rheumatoid arthritis of multiple sites with negative rheumatoid factor , Thoracogenic scoliosis of thoracic region , Thoracic degenerative disc disease , Osteoarthritis of multiple joints, unspecified osteoarthritis type , CRP elevated , History of endometrial cancer , History of fibromyalgia , History of rheumatoid arthritis , 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-inflammatories (nsaid) , [facility] current use of systemic steroids , Long-term current use of high risk medication other than anticoagulant , Lymphedema, not elsewhere classified , Other residential (current) drug therapy , Vitamin D deficiency , Chronic gout of multiple sites, unspecified cause , Gouty arthritis , Hyperglycemia , Bilateral carpal tunnel syndrome , Bilateral foot pain , Carpal tunnel syndrome, bilateral upper limbs , Fibromyalgia , TTS (tarsal tunnel syndrome), unspecified laterality , Bilateral lower extremity edema , Calcaneal spur of foot, left , Calcaneal spur of foot, right , Calcaneal spur of left foot , Gouty arthropathy , Inflammatory arthritis , Lymphedema of both lower extremities , Osteoarthritis of both feet, unspecified osteoarthritis type , Osteoarthritis of thoracic spine, unspecified spinal osteoarthritis complication status , Primary osteoarthritis, left ankle and foot , Start: 02-02-2018 End: 05-05-2018 RITUXimab (RITUXAN) in sodiu m chloride 0.9%, with overfill 650 mL infusion Indications: Rheumatoid arthritis of multiple sites with negative rheumatoid factor , Malignant neoplasm of endometrium , History of fibromyalgia , History of rheumatoid arthritis , intermediate project manager current use of non-steroidal anti-inflammatories (NSAID) , CRP elevated , Elevated C-reactive protein (CRP) , Localized edema , 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 Start: 02-02-2018 RITUXimab (RIT UXAN) in sodium chloride 0.9%, with overfill 650 mL infusion Indications: Rheumatoid arthritis of multiple sites with negative rheumatoid factor , Malignant neoplasm of endometrium , History of fibromyalgia , History of rheumatoid arthritis , [facility] current use of non-steroidal anti-inflammatories (NSAID) , CRP elevated , Elevated C-reactive protein (CRP) , Localized edema , [facility] (current) use of non-steroidal anti-inflammatories (nsaid) , Lymphedema, not elsewhere classified , Long-term current use of high risk medication other than anticoagulant , Other long term care administrator (current) drug therapy , intermediate project manager current use of systemic steroids , Vitamin [...] of foot, left , Osteoarthritis of multiple join (more content not included)... Start: 02-02-2018 Vitamin D-Vitamin K (DOSOQUIN) 5500-200 UNIT-MCG Tab (18 sources) Start: 11-24-2018 End: 11-14-2019 take 2 tablets by mouth once daily Vitamin D-Vitamin K (DOSOQUIN) 5500-200 UNIT-MCG Tab Indications: Gouty arthropathy , Calcaneal spur of foot, left , Osteoarthritis of multiple joints, unspecified osteoarthritis type , Spondylosis of thoracic region without myelopathy or radiculopathy , Calcaneal spur of left foot , History of fibromyalgia , History of rheumatoid arthritis , intermediate project manager current use of non-steroidal anti-inflammatories (NSAID) , CRP elevated , Fibromyalgia , Elevated C-reactive protein (CRP) , Localized edema , [facility] (current) use of non-steroidal anti-inflammatories (nsaid) , Lymphedema, not elsewhere classified , Long-term current use of high risk medication other than anticoagulant , Other long term care administrator (current) drug therapy , Vitamin D deficiency , Gouty arthritis , Chronic gout of multiple sites, unspecified cause , Bilateral carpal tunnel syndrome , Carpal tunnel syndrome, bilateral upper limbs , Osteoarthritis of both feet, unspecified osteoarthritis type , Weakness of both hands , Bilateral lower extremity edema , Lymphedema of both lower extremities , Primary osteoarthritis, left ankle and foot , Primary osteoarthritis, right ankle and foot , Calcaneal spur of foot, right , Thoracogenic scoliosis of thoracic region , Osteoarthritis of thoracic spine, unspecified spinal osteoarthritis complication status , Thoracic degenerative disc disease 2 po q day 6 (more content not included)... Start: 11-24-2018 take [address] [facility] once daily Vitamin D-Vitamin K (DOSOQUIN) 5500-200 UNIT-MCG Tab Indications: Gouty arthropathy , Calcaneal spur of foot, left , Osteoarthritis of multiple joints, unspecified osteoarthritis type , Spondylosis of thoracic region without myelopathy or radiculopathy , Calcaneal spur of left foot , History of fibromyalgia , History of rheumatoid arthritis , [facility] current use of non-steroidal anti-inflammatories (NSAID) , CRP elevated , Fibromyalgia , Elevated C-reactive protein (CRP) , Localized edema , [facility] (current) use of non-steroidal anti-inflammatories (nsaid) , Lymphedema, not elsewhere classified , Long-term current use of high risk medication other than anticoagulant , Other long term care administrator (current) drug therapy , Vitamin D deficiency , Gouty arthritis , Chronic gout of multiple sites, unspecified cause , Bilateral carpal tunnel syndrome , Carpal tunnel syndrome, bilateral upper limbs , Osteoarthritis of both feet, unspecified osteoarthritis type , Weakness of both hands , Bilateral lower extremity edema , Lymphedema of both lower extremities , Primary osteoarthritis, left ankle and foot , Primary osteoarthritis, right ankle and foot , Calcaneal spur of foot, right , Thoracogenic scoliosis of thoracic region , Osteoarthritis of thoracic spine, unspecified spinal osteoarthritis complication status , Thoracic degenerative disc disease 2 po q day 6 (more content not included)... Start: 11-02-2017 take 2 tablets by mo ut once daily Vitamin D-Vitamin K (DOSOQUIN) 5500-200 UNIT-MCG Tab Indications: Gouty arthropathy , Calcaneal spur of foot, left , Osteoarthritis of multiple joints, unspecified osteoarthritis type , Spondylosis of thoracic region without myelopathy or radiculopathy , Calcaneal spur of left foot , History of fibromyalgia , History of rheumatoid arthritis , intermediate project manager current use of non-steroidal anti-inflammatories (NSAID) , CRP elevated , Fibromyalgia , Elevated C-reactive protein (CRP) , Localized edema , [facility] (current) use of non-steroidal anti-inflammatories (nsaid) , Lymphedema, not elsewhere classified , Long-term current use of high risk medication other than anticoagulant , Other long term care administrator (current) drug therapy , Vitamin D deficiency , Gouty arthritis , Chronic gout of multiple sites, unspecified cause , Bilateral carpal tunnel syndrome , Carpal tunnel syndrome, bilateral upper limbs , Osteoarthritis of both feet, unspecified osteoarthritis type , Weakness of both hands , Bilateral lower extremity edema , Lymphedema of both lower extremities , Primary osteoarthritis, left ankle and foot , Primary osteoarthritis, right ankle and foot , Calcaneal spur of foot, right , Thoracogenic scoliosis of thoracic region , Osteoarthritis of thoracic spine, unspecified spinal osteoarthritis complication status , Thoracic degenerative disc disease 2 po q day 6 (more content not included)... Problems Active Problems Problem Classification Problem Date Documented Date Episodic/Chronic Anxiety disorders (20 sources) Anxiety; Translations: [Anxiety disorder] Onset: 8 09-08-2017 Chronic Cancer of uterus (20 sources) Malignant neoplasm of endometrium of corpus uteri ; Translations: [Malignant neoplasm of endometrium] Onset: 8 09-22-2017 Chronic Diabetes mellitus without complication (1 source) Type 2 diabetes mellitus without complications; Translations: [Type 2 diabetes mellitus without complications] Onset: 5 Chronic Disorders of lipid metabolism (1 source) Hyperlipidemia, unspecified; Translations: [Hyperlipidemia, unspecified] Onset: 5 Chronic Disorders of teeth and jaw (20 sources) Arthralgia of bilateral temporomandibular joint; Translations: [Bilateral temporomandibular joint pain] Onset: 8 09-08-2017 Esophageal disorders (20 sources) Gastroesophageal reflux disease; Translations: [Gastro-esophageal reflux disease without esophagitis] Onset: 8 09-08-2017 Chronic Fracture of upper limb (6 sources) Fracture of radius; Translations: [Unspecified fracture of unspecified forearm, initial encounter for closed fracture] 11-18-2018 Episodic Gout and other crystal arthropathies (20 sources) Gout, unspecified; Translations: [Gouty arthropathy] Onset: 8 09-22-2017 Chronic Headache, including migraine (20 sources) Migraine; Translations: [Migraine, unspecified, not intractable, without status migrainosus] Onset: 8 09-22-2017 Chronic Menopausal disorders (20 sources) Menopausal syndrome; Translations: [Menopausal and female climacteric states] Onset: 7 09-08-2017 Chronic Menstrual disorders (20 sources) Menorrhagia; Translations: [Excessive and frequent menstruation with regular cycle] Onset: 8 02-02-2018 Chronic Nutritional deficiencies (20 sources) Vitamin D deficiency; Translations: [Vitamin D deficiency, unspecified] Onset: 8 11-02-2017 Chronic Nutritional deficiencies (20 sources) Vitamin B deficiency; Translations: [Deficiency of other specified B group vitamins] Onset: 8 11-02-2017 Episodic Osteoarthritis (20 sources) Degenerative joint disease of [...] [Thoracogenic scoliosis of thoracic region] Chronic Other aftercare (1 source) Encounter for therapeutic drug level monitoring; Translations: [Encounter for therapeutic drug level monitoring] Onset: 5 Episodic Other bone disease and musculoskeletal deformities (11 [...] [Hypertrophy of nasal turbinates] Onset: 3 Episodic Other upper respiratory infections (8 sources) Acute sinusitis; Translations: [Acute sinusitis, unspecified] 02-18-2022 Episodic Otitis media and related conditions (8 sources) Bilateral chronic serous otitis; Translations: [Chronic serous otitis media, bilateral] Onset: 3 05-21-2022 Chronic Otitis media and related conditions (8 sources) Bilateral disorder of Eustachian tubes; Translations: [Unspecified Eustachian tube disorder, bilateral] Onset: 3 05-21-2022 Episodic Residual codes; unclassified (6 sources) Family history of cancer of colon; Translations: [Family history of malignant neoplasm of digestive organs] 07-06-2019 Episodic Residual codes; unclassified (6 sources) FH: Crohn's disease; Translations: [Family history of other diseases of the digestive system] 07-06-2019 Episodic Rheumatoid arthritis and related disease (20 [...] Unclassified (12 sources) Drug indicated; Translations: [Other long term care administrator (current) drug therapy] Onset: 8 11-02-2017 Unclassified (6 sources) Screening status; Translations: [Encounter for screening for malignant neoplasm of cervix] Onset: 8 09-08-2017 Unclassified (20 sources) Patient encounter status; Translations: [[facility] current use of non-steroidal anti-inflammatories (NSAID)] Onset: 8 Resolved: 9 11-02-2017 Unclassified (20 sources) Drug therapy finding; Translations: [Long-term current use of high risk medication other than anticoagulant] Onset: 8 09-22-2017 Unclassified (14 sources) Long-term current use of drug therapy; Translations: [Other long term care administrator (current) drug therapy] Onset: 8 11-02-2017 Past [...] Translations: [Other fatigue] Onset: 09-08-2017 09-22-2017 Episodic Other bone disease [...] Long-term current use of systemic steroid; Translations: [intermediate project manager current use of systemic steroids] Onset: 02-02-2018 Resolved: 07-11-2019 02-02-2018 Unclassified (15 sources) Musculoskeletal finding; Translations: [Other symptoms and signs involving the musculoskeletal system] Onset: 09-08-2017 Resolved: 11-02-2017 11-02-2017 Results Test Name Value Interpretation Reference Range Facility Office Visit Reporton 2023 Office Visit Report [facility] [address] [address] OFFICE VISIT Date of Service: 07/03/23 MR#: [id number] Acct: [id number] Patient: CASSANDRA AUGUSTE Rep #: [id number] : 1975 Provider: GLENROY Fonseca Age/Sex: 48/F Location: [facility] Status: Signed Intake Vital Signs 02/18/22 09:07 Height 1.78 m Intake Visit Reasons: PE NON DOT DRUG SCREEN/ PRENTKE ROMICH Allergies penicillin V Allergy (Mild, Verified 08/10/23 20:10) Unknown codeine Allergy (Verified 08/10/23 20:10) Hives morphine Adverse Reaction (Verified 08/10/23 20:10) Other Office Procedures [facility] Billing Sheet Testing Breath Alcohol Test in ED (contact center associate fee charged): No Breath Alcohol in [facility]: No Breath Alcohol Test Pre-Employment: No Chest X-Ray (interpreted by radiologist): No DOT Drug Screen: No DOT Physical Exam: No DOT Pre-Employment Breath Alcohol: No DOT Pre-Employment Drug Screen: No DOT Reasonable Suspicion: No Drug Screen Collection Only: No Drug Test Performed by another entity: No 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 Employer Ordered Physical: No Flu Test: No Functional Capacity Evaluation: No Glucose (Finger): No Hair Collection Drug Screen: No Hair Collection Only: No Hair Testing Extended (Opiates): No HCG: No Hearing (Audiogram) Test: No Non-DOT Breath Alcohol Test in ED: No Non-DOT Random Drug Screen: No Non-DOT Reasonable Suspicion: No On Site Service Call (min of 1 hr plus cost of drug screen): No Other DOT Drug Screen: No Other Non-DOT Drug Screen: No Post-Accident DOT Drug Screen (in ED contact center associate fee charged): No Post-Accident DOT Drug Screen in [facility]: No Post-Accident Non-DOT Breath Alcohol Test: No Post-Accident NON-DOT Drug Screen (contact center associate fee charged in ED): No Post-Accident NON-DOT Drug Screen in ED (contact center associate fee charged): No Post-Accident NON-DOT Drug Screen in [facility]: No Pre-Employment Drug Screen [facility]: No Pre-Employment Drug Screen: Yes Pre-Employment PE: No Random Consortium DOT (yearly plus drug testing fee): No Random Consortium Non-DOT (yearly plus drug testing fee): No Respirator Clearance (form only): No Respirator Fit Testing: No RSV/Flu Domenica: No Saliva Drug Screen: No Second Drug Screen: No Strep Domenica: No TB Test: No Tdap (over age 7): No Titmus Screening: No Vision Test: No Stress Test (conducted interpreted by a pl sql programmer): No Occquant-Quantiferon: No 10/12/23 0617 Date Joaquin TIM Cosigner Signature: Date (if applicable) CC: Normal [facility] Vitamin B12on 09-28-2023 Cobalamin (Vitamin B12) [Mass/Vol] 1048 pg/mL High 211-911 [facility] Comment on above: Performed By: #### L [id number], L503.0105, L100.0100, L506.1000, L501.1400, L500.4100, L501.9985, L501.34191, L506.0400, L500.4050 #### [facility] [address] [place], [address] Vitamin D,25 Hydroxyon 09-27 Vitamin D 25-OH 44.2 ng/mL Normal [facility] Comment on above: Result Comment: [place] min D 25(OH) Status Range Deficiency <20 ng/mL (50nmol/L) Insufficiency 20 - 30 ng/mL (50 - 75 nmol/L) Sufficiency 30 - 100 ng/mL (75 - 250 nmol/L) Toxicity >100 ng/mL (>250 nmol/L) Performed By: #### L [id number], L503.0105, L100.0100, L506.1000, L501.1400, L500.4100, L501.9985, L501.43021, L506.0400, L500.4050 #### [facility] [address] [place], [address] CBC W/Diff, Automatedon 08-0 3-2023 Absolute Lymph 1.90 X10 3/uL Normal 0.83-4.51 [facility] Comment on above: Performed By: #### L [id number], L503.0105, L100.0100, L506.1000, L501.1400, L500.4100, L501.9985, L501.78100, L506.0400, L500.4050 #### [facility] [address] [place], [address] Absolute Neut 4.2 X10 3/uL Normal 2.0-7.7 [facility] Comment on above: Performed By: #### L [id number], L503.0105, L100.0100, L506.1000, L501.1400, L500.4100, L501.9985, L501.50157, L506.0400, L500.4050 #### [facility] [address] [place], [address] Basophils/100 WBC (Bld) 0.8 % Normal 0-1 [facility] Comment on above: Performed By: #### L [id number], L503.0105, L100.0100, L506.1000, L501.1400, L500.4100, L501.9985, L501.95752, L506.0400, L500.4050 #### [facility] [address] [place], [address] Eosinophils/100 WBC (Bld) 5.3 % High 0-5 [facility] Comment on above: Performed By: #### L [id number], L503.0105, L100.0100, L506.1000, L501.1400, L500.4100, L501.9985, L501.02854, L506.0400, L500.4050 #### [facility] [address] [place], [place], [id number] (182) Erythrocyte distribution width (RBC) [Ratio] 14.7 % High 11.6-14.6 [facility] Comment on above: Performed By: #### L [id number], L503.0105, L100.0100, L506.1000, L501.1400, L500.4100, L501.9985, L501.69513, L506.0400, L500.4050 #### [facility] Laboratory [address] [place], [address] (271) Hematocrit (Bld) [Volume fraction] 43.5 % Normal 37-47 [facility] Comment on above: Performed By: #### L 501.9520, L503.0105, L100.0100, L506.1000, L501.1400, L500.4100, L501.9985, L501.20970, L506.0400, L500.4050 #### [facility] Laboratory [address] [place], [place], [id number] (329) Hemoglobin (Bld) [Mass/Vol] 14.1 g/dL Normal 12.0-15.0 [facility] Comment on above: Performed By: #### L 501.9520, L503.0105, L100.0100, L506.1000, L501.1400, L500.4100, L501.9985, L501.02755, L506.0400, L500.4050 #### [facility] Laboratory [address] [place], [place], [phone] (446) IG% 0.600 Normal 0.0-0.9 [facility] Comment on above: Result Comment: IG% - Immature Granulocytes (promyelocytes, myelocytes and metamyelocytes) > 1% indicates that a LEFT SHIFT is Present. Performed By: #### L 501.9520, L503.0105, L100.0100, L506.1000, L501.1400, L500.4100, L501.9985, L501.10749, L506.0400, L500.4050 #### [facility] Laboratory [address] [place], [address] Lymphocytes/100 WBC (Bld) 26.5 % Normal 19-41 [facility] Comment on above: Performed By: #### L 501.9520, L503.0105, L100.0100, L506.1000, L501.1400, L500.4100, L501.9985, L501.91161, L506.0400, L500.4050 #### [facility] Laboratory [address] [place], [place], [id number] (654) MCH (RBC) [Entitic mass] 27.0 pg Normal 27.0-32.0 [facility] Comment on above: Performed By: #### L 501.9520, L503.0105, L100.0100, L506.1000, L501.1400, L500.4100, L501.9985, L501.34419, L506.0400, L500.4050 #### [facility] Laboratory [address] [place], [place], [id number] (446) MCHC (RBC) [Mass/Vol] 32.4 g/dL Normal 32-36 [facility] Comment on above: Performed By: #### L 501.9520, L503.0105, L100.0100, L506.1000, L501.1400, L500.4100, L501.9985, L501.78469, L506.0400, L500.4050 #### [facility] Laboratory [address] [place], [place], [phone] (599) MCV (RBC) [Entitic vol] 83.3 fL Normal 81-99 [facility] Comment on above: Performed By: #### L 501.9520, L503.0105, L100.0100, L506.1000, L501.1400, L500.4100, L501.9985, L501.00893, L506.0400, L500.4050 #### [facility] Laboratory [address] [place], [address] Monocytes/100 WBC (Bld) 8.9 % Normal 0-10 [facility] Comment on above: Performed By: #### L 501.9520, L503.0105, L100.0100, L506.1000, L501.1400, L500.4100, L501.9985, L501.80072, L506.0400, L500.4050 #### [facility] Laboratory [address] [place], [address] Neutrophils/100 WBC (Bld) 57.9 % Normal 47-70 [facility] Comment on above: Performed By: #### L 501.9520, L503.0105, L100.0100, L506.1000, L501.1400, L500.4100, L501.9985, L501.65856, L506.0400, L500.4050 #### [facility] Laboratory [address] [place], [place], [phone] ([phone] Nucleated RBC (Bld) [#/Vol] 0 10*3/uL Normal 0-5 [facility] Comment on above: Performed By: #### L 501.9520, L503.0105, L100.0100, L506.1000, L501.1400, L500.4100, L501.9985, L501.18115, L506.0400, L500.4050 #### [facility] Laboratory [address] [place], [address] Platelet mean volume (Bld) [Entitic vol] 10.8 fL Normal 6.2-12.0 [facility] Comment on above: Performed By: #### L 501.9520, L503.0105, L100.0100, L506.1000, L501.1400, L500.4100, L501.9985, L501.73300, L506.0400, L500.4050 #### [facility] Laboratory [address] [place], [address] Platelets (Bld) [#/Vol] 230 10*3/uL Normal 150-450 [facility] Comment on above: Performed By: #### L 501.9520, L503.0105, L100.0100, L506.1000, L501.1400, L500.4100, L501.9985, L501.88524, L506.0400, L500.4050 #### [facility] Laboratory [address] [place], [address] RBC (Bld) [#/Vol] 5.22 10*6/uL Normal 4.2-5.4 [facility] Comment on above: Performed By: #### L 501.9520, L503.0105, L100.0100, L506.1000, L501.1400, L500.4100, L501.9985, L501.93643, L506.0400, L500.4050 #### [facility] Laboratory [address] [place], [address] RDW SD 44.4 fl High 35.1-43.9 [facility] Comment on above: Performed By: #### L 501.9520, L503.0105, L100.0100, L506.1000, L501.1400, L500.4100, L501.9985, L501.76783, L506.0400, L500.4050 #### [facility] Laboratory [address] [place], [address] WBC (Bld) [#/Vol] 7.2 10*3/uL Normal 4.4-11.0 [facility] Comment on above: Performed By: #### L 501.9520, L503.0105, L100.0100, L506.1000, L501.1400, L500.4100, L501.9985, L501.57725, L506.0400, L500.4050 #### [facility] Laboratory [address] [place], [place], [id number] Comprehensive Metabolic [facility] 09-26-2023 Albumin [Mass/Vol] 3.2 g/dL Normal 3.2-5.0 [facility] Comment on above: Performed By: #### L 501.9520, L503.0105, L100.0100, L506.1000, L501.1400, L500.4100, L501.9985, L501.80927, L506.0400, L500.4050 #### [facility] Laboratory [address] [place], [address] Albumin/Globulin [Mass ratio] 0.8 {ratio} Low 0.9-2.4 [facility] Comment on above: Performed By: #### L 501.9520, L503.0105, L100.0100, L506.1000, L501.1400, L500.4100, L501.9985, L501.26323, L506.0400, L500.4050 #### [facility] Laboratory [address] [place], [place], [id number] ALK P 80 U/L Normal 45-117 [facility] Comment on above: Performed By: #### L 501.9520, L503.0105, L100.0100, L506.1000, L501.1400, L500.4100, L501.9985, L501.45251, L506.0400, L500.4050 #### [facility] Laboratory [address] [place], [address] ALT [Catalytic activity/Vol] 38 U/L Normal 13-56 [facility] Comment on above: Performed By: #### L 501.9520, L503.0105, L100.0100, L506.1000, L501.1400, L500.4100, L501.9985, L501.84211, L506.0400, L500.4050 #### [facility] Laboratory [address] [place], [address] (262) AST [Catalytic activity/Vol] 20 U/L Normal 15-37 [facility] Comment on above: Performed By: #### L 501.9520, L503.0105, L100.0100, L506.1000, L501.1400, L500.4100, L501.9985, L501.90926, L506.0400, L500.4050 #### [facility] Laboratory [address] [place], [address] Bilirubin [Mass/Vol] 0.50 mg/dL Normal 0.20-1.00 [facility] Comment on above: Result Comment: For patients on eltrombopag therapy, use of Dimension [place] TBIL is not recommended. Performed By: #### L 501.9520, L503.0105, L100.0100, L506.1000, L501.1400, L500.4100, L501.9985, L501.69766, L506.0400, L500.4050 #### [facility] Laboratory [address] [place], [place], [id number] BUN/CRE 19.1 RATIO Normal 10-20 [facility] Comment on above: Performed By: #### L 501.9520, L503.0105, L100.0100, L506.1000, L501.1400, L500.4100, L501.9985, L501.48828, L506.0400, L500.4050 #### [facility] Laboratory [address] [place], [address] CA,Total 8.7 mg/dL Normal 8.5-10.1 [facility] Comment on above: Performed By: #### L 501.9520, L503.0105, L100.0100, L506.1000, L501.1400, L500.4100, L501.9985, L501.99828, L506.0400, L500.4050 #### [facility] Laboratory [address] [place], [address] Chloride [Moles/Vol] 105 mmol/L Normal 98-107 [facility] Comment on above: Performed By: #### L 501.9520, L503.0105, L100.0100, L506.1000, L501.1400, L500.4100, L501.9985, L501.18092, L506.0400, L500.4050 #### [facility] Laboratory [address] [place], [place], [phone] (052) CO2 [Moles/Vol] 27.0 mmol/L Normal 21.0-32.0 [facility] Comment on above: Performed By: #### L 501.9520, L503.0105, L100.0100, L506.1000, L501.1400, L500.4100, L501.9985, L501.22538, L506.0400, L500.4050 #### [facility] Laboratory [address] [place], [address] Creatinine [Mass/Vol] 0.63 mg/dL Normal 0.55-1.02 [facility] Comment on above: Result Comment: The validity of the calculated GFR GFRAA in patients over 70 years has not been determined. Clinical correlation is essential. Performed By: #### L 501.9520, L503.0105, L100.0100, L506.1000, L501.1400, L500.4100, L501.9985, L501.98549, L506.0400, L500.4050 #### [facility] Laboratory [address] [place], [place], [id number] EST GFR - AA 129 mL/min Normal >60 [facility] Comment on above: Result Comment: Afri can [place] GFR Calc Performed By: #### L 501.9520, L503.0105, L100.0100, L506.1000, L501.1400, L500.4100, L501.9985, L501.74312, L506.0400, L500.4050 #### [facility] Laboratory [address] [place], [place], [id number] GAP 6 Normal 5-15 [facility] Comment on above: Performed By: #### L 501.9520, L503.0105, L100.0100, L506.1000, L501.1400, L500.4100, L501.9985, L501.86386, L506.0400, L500.4050 #### [facility] Laboratory [address] [place], [address] GFR/1.73 sq M.predicted among non-blacks MDRD (S/P/Bld) [Vol rate/Area] 107 mL/min/{1.73_m2} Normal >60 [facility] Comment on above: Result Comment: Non- GFR Calc Performed By: #### L 501.9520, L503.0105, L100.0100, L506.1000, L501.1400, L500.4100, L501.9985, L501.74116, L506.0400, L500.4050 #### [facility] Laboratory [address] [place], [place], [id number] Globulin (S) [Mass/Vol] 3.8 g/dL Normal 2.2-4.2 [facility] Comment on above: Performed By: #### L 501.9520, L503.0105, L100.0100, L506.1000, L501.1400, L500.4100, L501.9985, L501.63332, L506.0400, L500.4050 #### [facility] Laboratory [address] [place], [address] Glucose [Mass/Vol] 191 mg/dL High 74-106 [facility] Comment on above: Result Comment: Fast ing Glucose result greater than or equal to 126 mg/dL suggests DIABETES MELLITUS per A.D.A. criteria. Performed By: #### L 501.9520, L503.0105, L100.0100, L506.1000, L501.1400, L500.4100, L501.9985, L501.96003, L506.0400, L500.4050 #### [facility] Laboratory [address] [place], [place], [phone] (543) Potassium [Moles/Vol] 3.7 mmol/L Normal 3.5-5.1 [facility] Comment on above: Performed By: #### L 501.9520, L503.0105, L100.0100, L506.1000, L501.1400, L500.4100, L501.9985, L501.75385, L506.0400, L500.4050 #### [facility] Laboratory [address] [place], [address] Sodium [Moles/Vol] 138 mmol/L Normal 136-145 [facility] Comment on above: Performed By: #### L 501.9520, L503.0105, L100.0100, L506.1000, L501.1400, L500.4100, L501.9985, L501.47693, L506.0400, L500.4050 #### [facility] Laboratory [address] [place], [address] T PROT 7.0 g/dL Normal 6.4-8.2 [facility] Comment on above: Performed By: #### L 501.9520, L503.0105, L100.0100, L506.1000, L501.1400, L500.4100, L501.9985, L501.11775, L506.0400, L500.4050 #### [facility] Laboratory [address] [place], [address] Urea nitrogen [Mass/Vol] 12 mg/dL Normal 7-18 [facility] Comment on above: Performed By: #### L 501.9520, L503.0105, L100.0100, L506.1000, L501.1400, L500.4100, L501.9985, L501.25259, L506.0400, L500.4050 #### [facility] Laboratory [address] [place], [address] Free T3on 09-26-2023 Free T3 [Mass/Vol] 3.0 pg/mL Normal 2.18-3.98 [facility] Comment on above: Performed By: #### L 501.9520, L503.0105, L100.0100, L506.1000, L501.1400, L500.4100, L501.9985, L501.73801, L506.0400, L500.4050 #### [facility] Laboratory [address] [place], [place], [id number] Hemoglobin A1con 09-26-2023 HbA1c (Bld) [Mass fraction] 8.1 % High 3.8-5.6 [facility] Comment on above: Result Comment: Norm al < 5.7 % Prediabetic 5.7 - 6.4 % Diabetic >or= 6.5 % Please note range changes. Performed By: #### L 501.9520, L503.0105, L100.0100, L506.1000, L501.1400, L500.4100, L501.9985, L501.96139, L506.0400, L500.4050 #### [facility] Laboratory [address] [place], [place], [id number] Lipid Profileon 09-26-2023 Cholesterol [Mass/Vol] 190 mg/dL Normal 200 [facility] Comment on above: Result Comment: <200 mg/dL Desirable 200-240 mg/dL Borderline >240 mg/dL High Risk Performed By: #### L 501.9520, L503.0105, L100.0100, L506.1000, L501.1400, L500.4100, L501.9985, L501.83012, L506.0400, L500.4050 #### [facility] Laboratory [address] [place], [address] Cholesterol in HDL [Mass/Vol] 51 mg/dL Normal [facility] Comment on above: Result Comment: The drugs N-Acetylcysteine and Metamizole may falsely depress this assay. Reference Range HDL <40 mg/dL Low HDL Cholesterol HDL >or= 60 mg/dL High HDL Cholesterol Performed By: #### L 501.9520, L503.0105, L100.0100, L506.1000, L501.1400, L500.4100, L501.9985, L501.61620, L506.0400, L500.4050 #### [facility] Laboratory [address] [place], [address] Cholesterol in LDL [Mass/Vol] 107 mg/dL Normal 0-130 [facility] Comment on above: Performed By: #### L 501.9520, L503.0105, L100.0100, L506.1000, L501.1400, L500.4100, L501.9985, L501.60709, L506.0400, L500.4050 #### [facility] Laboratory [address] [place], [address] Cholesterol in VLDL [Mass/Vol] 32 mg/dL Normal 5-40 [facility] Comment on above: Performed By: #### L 501.9520, L503.0105, L100.0100, L506.1000, L501.1400, L500.4100, L501.9985, L501.57525, L506.0400, L500.4050 #### [facility] Laboratory [address] [place], [address] Triglyceride [Mass/Vol] 161 mg/dL Normal [facility] Comment on above: Result Comment: The drugs N-Acetylcysteine and Metamizole may falsely depress this assay. Serum Triglycerides Reference Interval Normal <150 mg/dL Borderline high 150 - 199 mg/dL High 200 - 499 mg/dL Very High > or = 500 mg/dL Performed By: #### L 501.9520, L503.0105, L100.0100, L506.1000, L501.1400, L500.4100, L501.9985, L501.40598, L506.0400, L500.4050 #### [facility] Laboratory [address] [place], [address] T4 Free Directon 09-26-2023 T4 FREE DIRECT 1.05 ng/dL Normal 0.76-1.46 [facility] Comment on above: Performed By: #### L 501.9520, L503.0105, L100.0100, L506.1000, L501.1400, L500.4100, L501.9985, L501.19301, L506.0400, L500.4050 #### [facility] Laboratory [address] [place], [address] Thyroid Stim Hormone (TSH)on 09-26-2023 TSH 0.70 uIU/mL Normal 0.358-3.74 [facility] Comment on above: Performed By: #### L 501.9520, L503.0105, L100.0100, L506.1000, L501.1400, L500.4100, L501.9985, L501.11110, L506.0400, L500.4050 #### [facility] Laboratory [address] [place], [address] Uric Acidon 09-26-2023 URIC 4.2 mg/dL Normal 2.6-6.0 [facility] Comment on above: Result Comment: The drugs N-Acetylcysteine and Metamizole may falsely depress this assay. Performed By: #### L 501.9520, L503.0105, L100.0100, L506.1000, L501.1400, L500.4100, L501.9985, L501.73476, L506.0400, L500.4050 #### [facility] Laboratory [address] [place], [address] Absolute lymphocyte countOrd ered By: Tala Allen on 06-16-2023 Lymphocytes Auto (Unsp spec) [#/Vol] 2.79 10*3/uL 0.83-4.51 [facility] Automated lymphocyte count a s percentage of total leukocytesOrdered By: Tala Allen on 06-16-2023 Lymphocytes/100 WBC Auto (Unsp spec) 29.8 % 19-41 [facility] Basophil percentageOrdered B y: Tala Allen on 06-16-2023 Basophils/100 WBC (Bld) 0.9 % 0-1 [facility] Bilirubin [Mass/Vol] 0.60 mg/dL 0.20-1.00 [facility] Comment on above: For patients on eltr ombopag therapy, use of Dimension [place] TBIL is not recommended. Chloride [Moles/Vol] 103 mmol/L 98-107 [facility] Eosinophils/100 WBC (Bld) 4.7 % 0-5 [facility] Glucose [Mass/Vol] 154 mg/dL 74-106 [facility] Comment on above: Fasting Glucose resu lt greater than or equal to 126 mg/dL suggests DIABETES MELLITUS per A.D.A. criteria. Hemoglobin (Bld) [Mass/Vol] 14.2 g/dL 12.0-15.0 [facility] Monocytes/100 WBC (Bld) 7.7 % 0-10 [facility] Neutrophils (Bld) [#/Vol] 5.3 10*3/uL 2.0-7.7 [facility] Neutrophils/100 WBC (Bld) 56.6 % 47-70 [facility] Potassium [Moles/Vol] 3.7 mmol/L 3.5-5.1 [facility] Protein [Mass/Vol] 7.7 g/dL 6.4-8.2 [facility] Sodium [Moles/Vol] 138 mmol/L 136-145 [facility] WBC (Bld) [#/Vol] 9.4 10*3/uL 4.4-11.0 [facility] Determination of erythrocyte mean corpuscular volume (MCV)Ordered By: Tala Allen on 06-16-2023 MCV (RBC) [Entitic vol] 84.1 fL 81-99 [facility] Erythrocyte distribution wid th ratioOrdered By: Tala Allen on 06-16-2023 Erythrocyte distribution width (RBC) [Ratio] 15.1 % 11.6-14.6 [facility] Erythrocyte distribution wid th standard deviationOrdered By: Tala Allen on 06-16-2023 Erythrocyte distribution width (RBC) [Entitic vol] 45.5 fL 35.1-43.9 [facility] Erythrocyte sedimentation ra teOrdered By: Tala Allen on 06-16-2023 ESR (Bld) [Velocity] 30 mm/h 0-30 [facility] Hematocrit Auto (Bld) [Volum e fraction]Ordered By: Tala Allen on 06-16-2023 Hematocrit (Bld) [Volume fraction] 45.0 % 37-47 [facility] Immature granulocytes/100 WB C Auto (Bld)Ordered By: Tala Allen on 06-16-2023 Immature granulocytes/100 WBC (Bld) 0.300 % 0.0-0.9 [facility] Comment on above: IG% - Immature Granu locytes (promyelocytes, myelocytes and metamyelocytes) > 1% indicates that a LEFT SHIFT is Present. Laboratory - Chemistry and C hemistry - challengeOrdered By: Tala Allen on 06-16-2023 Albumin/Globulin [Mass ratio] 0.8 {ratio} 0.9-2.4 [facility] ALP [Catalytic activity/Vol] 89 U/L 45-117 [facility] ALT [Catalytic activity/Vol] 26 U/L 13-56 [facility] CO2 [Moles/Vol] 29.0 mmol/L 21.0-32.0 [facility] Globulin (S) [Mass/Vol] 4.3 g/dL 2.2-4.2 [facility] Natriuretic peptide B (Bld) [Mass/Vol] 13.2 pg/mL 0-100 [facility] Sodium (U) [Moles/Vol] 102 mmol/L Not Establ. [facility] Urea nitrogen/Creatinine [Mass ratio] 16.2 mg/mg 10-20 [facility] Laboratory - Hematology and Cell countsOrdered By: Tala Allen on 06-16-2023 MCH (RBC) [Entitic mass] 26.5 pg 27.0-32.0 [facility] MCHC (RBC) [Mass/Vol] 31.6 g/dL 32-36 [facility] Nucleated RBC/100 WBC (Bld) [Ratio] 0 % 0-5 [facility] Platelet mean volume (Bld) [Entitic vol] 10.9 fL 6.2-12.0 [facility] Platelets (Bld) [#/Vol] 269 10*3/uL 150-450 [facility] No Panel InformationOrdered By: Tala Allen on 06-16-2023 C-Reactive Protein Extended Range 19.50 mg/L 0.0-3.0 [facility] Comment on above: C-Reactive Protein ( CRP) provides useful information for thediagnosis, therapy and monitoring of inflammatory processesand associated diseases. For the evaluation of Relative Riskfor Cardiovascular Disease, a High Sensitivity CRP (HSCRP)should be ordered. Estimated GFR (MDRD) Amer 132 mL/min >60 [facility] Comment on above: GFR Calc Estimated GFR (MDRD) Non-Af Amer 109 mL/min >60 [facility] Comment on above: Non- GFR Calc RBC Auto (Bld) [#/Vol]Ordere d By: Tala Allen on 06-16-2023 RBC (Bld) [#/Vol] 5.35 10*6/uL 4.2-5.4 [facility] Serum or plasma calcium jackie urement (mass/volume)Ordered By: Tala Allen on 06-16-2023 Calcium [Mass/Vol] 8.7 mg/dL 8.5-10.1 [facility] Serum or plasma creatinine m easurement (mass/volume)Ordered By: Tala Allen on 06-16-2023 Creatinine [Mass/Vol] 0.62 mg/dL 0.55-1.02 [facility] Comment on above: The validity of the calculated GFR & GFRAA in patients over 70 years has not been determined. Clinical correlation is essential. Serum or plasma urea nitroge n measurement (mass/volume)Ordered By: Tala Allen on 06-16-2023 Urea nitrogen [Mass/Vol] 10 mg/dL 7-18 [facility] Thin prep Papanicolaou smear with manual screeningOrdered By: Tala Allen on 06-16-2023 Thin prep Papanicolaou smear with manual screening 3.4 g/dL 3.2-5.0 [facility] Thin prep Papanicolaou smear with manual screening 17 U/L 15-37 [facility] Thin prep Papanicolaou smear with manual screening 6 5-15 [facility] Thin prep Papanicolaou smear with manual screening 298 mOsm/KG 275-295 [facility] Urine osmolality measurement Ordered By: Tala Allen on 06-16-2023 Osmolality (U) [Osmolality] 611 mOsm/KG >50 [facility] Comment on above: Normal Urine Referen ce Ranges Random: 50 - 1200 mOsm/kg H20 depending on fluid intake Random: >850 mOsm/kg after 12 hour fluid restriction 24 hour: ~300 - 900 mOsm/kg H2O Absolute lymphocyte countOrd ered By: Tala Allen on 03-31-2023 Lymphocytes Auto (Unsp spec) [#/Vol] 3.52 10*3/uL 0.83-4.51 [facility] Automated lymphocyte count a s percentage of total leukocytesOrdered By: Tala Allen on 03-31-2023 Lymphocytes/100 WBC Auto (Unsp spec) 34.0 % 19-41 [facility] Basophil percentageOrdered B y: Tala Allen on 03-31-2023 Basophils/100 WBC (Bld) 0.5 % 0-1 [facility] Bilirubin [Mass/Vol] 0.60 mg/dL 0.20-1.00 [facility] Comment on above: For patients on eltr ombopag therapy, use of Dimension [place] TBIL is not recommended. Chloride [Moles/Vol] 103 mmol/L 98-107 [facility] Eosinophils/100 WBC (Bld) 4.9 % 0-5 [facility] Glucose [Mass/Vol] 109 mg/dL 74-106 [facility] Comment on above: Fasting Glucose resu lt from 100 to 125 mg/dL suggests IMPAIRED HOMEOSTASIS per A.D.A. criteria. Hemoglobin (Bld) [Mass/Vol] 13.6 g/dL 12.0-15.0 [facility] Monocytes/100 WBC (Bld) 8.0 % 0-10 [facility] Neutrophils (Bld) [#/Vol] 5.4 10*3/uL 2.0-7.7 [facility] Neutrophils/100 WBC (Bld) 52.2 % 47-70 [facility] Potassium [Moles/Vol] 3.7 mmol/L 3.5-5.1 [facility] Protein [Mass/Vol] 7.4 g/dL 6.4-8.2 [facility] Sodium [Moles/Vol] 133 mmol/L 136-145 [facility] WBC (Bld) [#/Vol] 10.4 10*3/uL 4.4-11.0 [facility] Determination of erythrocyte mean corpuscular volume (MCV)Ordered By: Tala Allen on 03-31-2023 MCV (RBC) [Entitic vol] 83.1 fL 81-99 [facility] Erythrocyte distribution wid th ratioOrdered By: Tala Allen on 03-31-2023 Erythrocyte distribution width (RBC) [Ratio] 15.0 % 11.6-14.6 [facility] Erythrocyte distribution wid th standard deviationOrdered By: Tala Allen on 03-31-2023 Erythrocyte distribution width (RBC) [Entitic vol] 45.4 fL 35.1-43.9 [facility] Erythrocyte sedimentation ra teOrdered By: Tala Allen on 03-31-2023 ESR (Bld) [Velocity] 39 mm/h 0-30 [facility] Hematocrit Auto (Bld) [Volum e fraction]Ordered By: Tala Allen on 03-31-2023 Hematocrit (Bld) [Volume fraction] 43.3 % 37-47 [facility] Immature granulocytes/100 WB C Auto (Bld)Ordered By: Tala Allen on 03-31-2023 Immature granulocytes/100 WBC (Bld) 0.400 % 0.0-0.9 [facility] Comment on above: IG% - Immature Granu locytes (promyelocytes, myelocytes and metamyelocytes) > 1% indicates that a LEFT SHIFT is Present. Iron measurement (mass/mass) Ordered By: Tala Allen on 03-31-2023 Iron (Unsp spec) [Mass/Mass] 59 ug/dL 50-170 [facility] Laboratory - Chemistry and C hemistry - challengeOrdered By: Tala Allen on 03-31-2023 Albumin/Globulin [Mass ratio] 0.8 {ratio} 0.9-2.4 [facility] ALP [Catalytic activity/Vol] 85 U/L 45-117 [facility] ALT [Catalytic activity/Vol] 24 U/L 13-56 [facility] CO2 [Moles/Vol] 25.0 mmol/L 21.0-32.0 [facility] Cobalamin (Vitamin B12) [Mass/Vol] 347 pg/mL 211-911 [facility] Ferritin [Mass/Vol] 127 ng/mL 8-252 [facility] Globulin (S) [Mass/Vol] 4.1 g/dL 2.2-4.2 [facility] Urea nitrogen/Creatinine [Mass ratio] 20.8 mg/mg 10-20 [facility] Laboratory - Hematology and Cell countsOrdered By: Tala Allen on 03-31-2023 MCH (RBC) [Entitic mass] 26.1 pg 27.0-32.0 [facility] MCHC (RBC) [Mass/Vol] 31.4 g/dL 32-36 [facility] Nucleated RBC/100 WBC (Bld) [Ratio] 0 % 0-5 [facility] Platelet mean volume (Bld) [Entitic vol] 11.2 fL 6.2-12.0 [facility] Platelets (Bld) [#/Vol] 245 10*3/uL 150-450 [facility] No Panel InformationOrdered By: Tala Allen on 03-31-2023 C-Reactive Protein Extended Range 16.50 mg/L 0.0-3.0 [facility] Comment on above: C-Reactive Protein ( CRP) provides useful information for thediagnosis, therapy and monitoring of inflammatory processesand associated diseases. For the evaluation of Relative Riskfor Cardiovascular Disease, a High Sensitivity CRP (HSCRP)should be ordered. Estimated GFR (MDRD) Amer 142 mL/min >60 [facility] Comment on above: GFR Calc Estimated GFR (MDRD) Non-Af Amer 118 mL/min >60 [facility] Comment on above: Non- GFR Calc Free Triiodothyronine (T3) pg/dL 2.8 pg/mL 2.18-3.98 [facility] RBC Auto (Bld) [#/Vol]Ordere d By: Tala Allen on 03-31-2023 RBC (Bld) [#/Vol] 5.21 10*6/uL 4.2-5.4 [facility] Serum or plasma calcium jackie urement (mass/volume)Ordered By: Tala Allen on 03-31-2023 Calcium [Mass/Vol] 9.0 mg/dL 8.5-10.1 [facility] Serum or plasma creatinine m easurement (mass/volume)Ordered By: Tala Allen on 03-31-2023 Creatinine [Mass/Vol] 0.58 mg/dL 0.55-1.02 [facility] Comment on above: The validity of the calculated GFR & GFRAA in patients over 70 years has not been determined. Clinical correlation is essential. Serum or plasma thyroid stim ulating hormone (TSH) measurement (units/volume)Ordered By: Tala Allen on 03-31-2023 TSH Qn 0.83 uIU/mL 0.358-3.74 [facility] Serum or plasma urea nitroge n measurement (mass/volume)Ordered By: Tala Allen on 03-31-2023 Urea nitrogen [Mass/Vol] 12 mg/dL 7-18 [facility] Thin prep Papanicolaou smear with manual screeningOrdered By: Tala Allen on 03-31-2023 Thin prep Papanicolaou smear with manual screening 3.3 g/dL 3.2-5.0 [facility] Thin prep Papanicolaou smear with manual screening 19 U/L 15-37 [facility] Thin prep Papanicolaou smear with manual screening 5 5-15 [facility] Whole blood hemoglobin A1c/t otal hemoglobin ratio (mass fraction)Ordered By: Tala Allen on 03-31-2023 HbA1c (Bld) [Mass fraction] 6.3 % 3.8-5.6 [facility] Comment on above: Normal < 5.7 % Predi abetic 5.7 - 6.4 % Diabetic >or= 6.5 % Please note range changes. HIV 1 and HIV-2 antibody ass ay with HIV-1 p24 antigen detectionOrdered By: Dr. Allen on 06-07-2022 HIV 1+2 Ab+HIV1 p24 Ag IA Ql Non-Reactive Nonreactive [facility] No Panel InformationOrdered By: Dr. Allen on 06-07-2022 Hepatitis B Surface Antigen Non-Reactive Nonreactive [facility] Hepatitis C Antibody Non-Reactive Nonreactive [facility] Comment on above: Non Reactive: < 0.8 Equivocal: >/= 0.8 to < 1.0 Reactive: >/= 1.0The CDC recommends that a reactive/equivocal HCV antibody result be followed up by the HCV Nucleic Acid Amplificationtest (540957) Serum Treponema species anti body detectionOrdered By: Dr. Allen on 06-07-2022 Treponema sp Ab Ql (S) Non-Reactive [facility] Serum hepatitis B virus surf johnathan antibody IgG detectionOrdered By: Dr. Allen on 06-07-2022 HBV surface IgG Ql (S) Non-Reactive [facility] Comment on above: Non Reactive: Incons istent with immunity less than <10 mIU/mL Reactive: Consistent with immunity greater than or equal to 10 mIU/mL Basophil percentageOrdered B y: HEALTH ASSESSMENT on 03-13-2022 Bilirubin [Mass/Vol] 0.50 mg/dL 0.20-1.00 [facility] Comment on above: For patients on eltr ombopag therapy, use of Dimension [place] TBIL is not recommended. Chloride [Moles/Vol] 105 mmol/L 98-107 [facility] Cholesterol [Mass/Vol] 185 mg/dL <200 [facility] Comment on above: <200 mg/dL Desirable 200-240 mg/dL Borderline >240 mg/dL High Risk Glucose [Mass/Vol] 102 mg/dL 74-106 [facility] Comment on above: Fasting Glucose resu lt from 100 to 125 mg/dL suggests IMPAIRED HOMEOSTASIS per A.D.A. criteria. Potassium [Moles/Vol] 3.8 mmol/L 3.5-5.1 [facility] Protein [Mass/Vol] 8.3 g/dL 6.4-8.2 [facility] Sodium [Moles/Vol] 140 mmol/L 136-145 [facility] Triglyceride [Mass/Vol] 112 mg/dL <199 [facility] Comment on above: The drugs N-Acetylcy steine and Metamizole may falsely depress this assay.Serum Triglycerides Reference Interval Normal <150 mg/dL Borderline high 150 - 199 mg/dL High 200 - 499 mg/dL Very High > or = 500 mg/dL Laboratory - Chemistry and C hemistry - challengeOrdered By: HEALTH ASSESSMENT on 03-13-2022 ALP [Catalytic activity/Vol] 67 U/L 45-117 [facility] ALT [Catalytic activity/Vol] 35 U/L 13-56 [facility] CO2 [Moles/Vol] 26.0 mmol/L 21.0-32.0 [facility] Globulin (S) [Mass/Vol] 4.6 g/dL 2.2-4.2 [facility] Urea nitrogen/Creatinine [Mass ratio] 22.3 mg/mg 10-20 [facility] No Panel InformationOrdered By: HEALTH ASSESSMENT on 03-13-2022 Estimated GFR (MDRD) Amer 120 mL/min >60 [facility] Comment on above: GFR Calc Estimated GFR (MDRD) Non-Af Amer 99 mL/min >60 [facility] Comment on above: Non- GFR Calc Serum or plasma albumin jackie urement (mass/volume)Ordered By: HEALTH ASSESSMENT on 03-13-2022 Albumin [Mass/Vol] 3.7 g/dL 3.2-5.0 [facility] Serum or plasma albumin/glob ulin mass ratioOrdered By: HEALTH ASSESSMENT on 03-13-2022 Albumin/Globulin [Mass ratio] 0.8 {ratio} 0.9-2.4 [facility] Serum or plasma calcium jackie urement (mass/volume)Ordered By: HEALTH ASSESSMENT on 03-13-2022 Calcium [Mass/Vol] 9.1 mg/dL 8.5-10.1 [facility] Serum or plasma cholesterol in HDL measurement (mass/volume)Ordered By: HEALTH ASSESSMENT on 01-19-2023 Cholesterol in HDL [Mass/Vol] 58 mg/dL >40 [facility] Comment on above: The drugs N-Acetylcy steine and Metamizole may falsely depress this assay. Reference Range HDL <40 mg/dL Low HDL Cholesterol HDL >or= 60 mg/dL High HDL Cholesterol Serum or plasma cholesterol in VLDL measurement (mass/volume)Ordered By: HEALTH ASSESSMENT on 03-13-2022 Cholesterol in VLDL [Mass/Vol] 22 mg/dL 5-40 [facility] Serum or plasma creatinine m easurement (mass/volume)Ordered By: HEALTH ASSESSMENT on 03-13-2022 Creatinine [Mass/Vol] 0.67 mg/dL 0.55-1.02 [facility] Comment on above: The validity of the calculated GFR & GFRAA in patients over 70 years has not been determined. Clinical correlation is essential. Serum or plasma low density lipoprotein (LDL) cholesterol measurement (mass/volume)Ordered By: HEALTH ASSESSMENT on 03-13-2022 Cholesterol in LDL [Mass/Vol] 105 mg/dL 0-130 [facility] Serum or plasma urea nitroge n measurement (mass/volume)Ordered By: HEALTH ASSESSMENT on 03-13-2022 Urea nitrogen [Mass/Vol] 15 mg/dL 7-18 [facility] Thin prep Papanicolaou smear with manual screeningOrdered By: HEALTH ASSESSMENT on 03-13-2022 Thin prep Papanicolaou smear with manual screening 21 U/L 15-37 [facility] Thin prep Papanicolaou smear with manual screening 9 5-15 [facility] No Panel InformationOrdered By: Dr. Roldan on 01-13-2022 Miscellaneous Test See comment [facility] Comment on above: TEST RESULT LIMITS N uSwab Vaginitis Plus (VG+) Bacterial Vaginosis, AVNI Atopobium vaginae Low - 0 Score BVAB 2 Moderate - 1 Score Megasphaera 1 Low - 0 Score Total Score, add three scores Calculate total score by adding the 3 individual bacterial vaginosis (BV) marker scores together. Total score is interpreted as follows: Total score 0-1: Indicates the absence of BV. Total score 2: Indeterminate for BV. Additional clinical data should be evaluated to establish a diagnosis. Total score 3-6: Indicates the presence of BV.This test was developed and its performance characteristicsdetermined by [facility]. It has not been cleared or approvedby the Food and Drug Administration.Teresa albicans, VANI, Negative NegativeCandida glabrata, VANI, Negative NegativeTrich vag by VANI Positive Abnormal NegativeChlamydia trachomatis, VANI Negative NegativeNeisseria gonorrhoeae, VANI Negative Negative TESTING PERFORMED AT [facility]. ORIGINAL REPORT ON FILE IN LAB CONTAINS ADDITIONAL TEST SITE INFORMATION. ____ HLA B27on 09-15-2017 HLA-B27 Negative Normal [facility] Comment on above: Result Comment: (NOT E) HLA-B*27 Negative B27 allele interpretation for all loci based on IMGT/HLA database version 3.27 This test was developed and its performance characteristics determined by [facility]. It has not been cleared or approved by the Food and Drug Administration. HLA Lab CLIA ID Number [id number] This test was performed using PCR (Polymerase Chain Reaction)/SSOP (Sequence Specific Oligonucleotide Probes) technique. SBT (Sequence Based Typing) and/or SSP (Sequence Specific Primers) may be used as supplemental methods when necessary. Please contact HLA Customer Service at if you have any questions. Director of HLA Laboratory Dr Taras Billy, PhD PERFORMED AT [facility] DNA Performed By: #### H EMOG, ESR, CMPF, CPK, CREACT, MG, URIC, B12, TSH2 #### Testing performed at [facility] [address] [place] [address] #### LHEPP, LRBCF, LLWB, MICHAELLE, LTTG, LACEZ, LIMEL #### Testing performed at [facility] [address] [place] [address] #### LANCA #### Testing performed at [facility] [address] [place], [place] [address] [place] [address] Testing performed at [facility] #### LACCGA, [id number], LVB6, LVB1 #### Testing performed at [facility] VIT.B1 THIAMINE-BLDon 2017 VIT.B1 THIAMINE-BLD 160.2 nmol/L Normal 66.5-200.0 [facility] Comment on above: Result Comment: PERF ORMED AT [facility] Performed By: #### H EMOG, ESR, CMPF, CPK, CREACT, MG, URIC, B12, TSH2 #### [place] [address] #### LHEPP, LRBCF, LLWB, MICHAELLE, LTTG, LACEZ, LIMEL #### Testing performed at [address] [address] #### LANCA #### Testing performed at [address] [address] Testing performed at [facility] #### LACCGA, [id number], LVB6, LVB1 #### Testing performed at [facility] VITAMIN B6on 09-12-2017 VITAMIN B6 LVL 46.1 ug/L High 2.0-32.8 [facility] Comment on above: Result Comment: PERF ORMED AT [facility] Performed By: #### H EMOG, ESR, CMPF, CPK, CREACT, MG, URIC, B12, TSH2 #### Testing performed at [address] [address] #### LHEPP, LRBCF, LLWB, MICHAELLE, LTTG, LACEZ, LIMEL #### Testing performed at [address] [address] #### LANCA #### Testing performed at [address] [address] Testing performed at [facility] #### LACCGA, [id number], LVB6, LVB1 #### Testing performed at [facility] ANCA PANELon 09-11-2017 3 (KS-3) ABS <3.5 Normal 0.0-3.5 [facility] Comment on above: Result Comment: PERF ORMED AT [facility] Performed By: #### H EMOG, ESR, CMPF, CPK, CREACT, MG, URIC, B12, TSH2 #### [place] [address] #### LHEPP, LRBCF, LLWB, MICHAELLE, LTTG, LACEZ, LIMEL #### Testing performed at [address] [address] #### LANCA #### Testing performed at [address] [address] Testing performed at [facility] #### LACCGA, [id number], LVB6, LVB1 #### Testing performed at [facility] MPO ABS <9.0 Normal 0.0-9.0 [facility] Comment on above: Result Comment: PERF ORMED AT [facility] Performed By: #### H EMOG, ESR, CMPF, CPK, CREACT, MG, URIC, B12, TSH2 #### [place] [address] #### LHEPP, LRBCF, LLWB, MICHAELLE, LTTG, LACEZ, LIMEL #### Testing performed at [address] [address] #### LANCA #### Testing performed at [address] [address] Testing performed at [facility] #### LACCGA, [id number], LVB6, LVB1 #### Testing performed at [facility] CCP AB IGG IGAon 09-10-2017 ACC AB IGG IGA 8 units Normal 0-19 [facility] Comment on above: Result Comment: (NOT E) Negative <20 Weak positive 20 - 39 Moderate positive 40 - 59 Strong positive >59 PERFORMED AT [facility] Performed By: #### H EMOG, ESR, CMPF, CPK, CREACT, MG, URIC, B12, TSH2 #### [place] [address] #### LHEPP, LRBCF, LLWB, MICHAELLE, LTTG, LACEZ, LIMEL #### Testing performed at [address] [address] #### LANCA #### Testing performed at [address] [address] Testing performed at [facility] #### LACCGA, [id number], LVB6, LVB1 #### Testing performed at [facility] VIT D, 1,25 DIHYDROXon 09-10 VIT. D 1,25 68.2 pg/mL Normal 19.9-79.3 [facility] Comment on above: Result Comment: PERF ORMED AT [facility] Performed By: #### H EMOG, ESR, CMPF, CPK, CREACT, MG, URIC, B12, TSH2 #### [place] [address] #### LHEPP, LRBCF, LLWB, MICHAELLE, LTTG, LACEZ, LIMEL #### Testing performed at [address] [address] #### LANCA #### Testing performed at [address] [address] Testing performed at [facility] #### LACCGA, [id number], LVB6, LVB1 #### Testing performed at [facility] EB W/REFLEX IF POSon 2017 EB-DIRECT Negative Normal Negative [facility] Comment on above: Result Comment: PERF ORMED AT [facility] Performed By: #### H EMOG, ESR, CMPF, CPK, CREACT, MG, URIC, B12, TSH2 #### Testing performed at [address] [address] #### LHEPP, LRBCF, LLWB, MICHAELLE, LTTG, LACEZ, LIMEL #### Testing performed [address] [place] [address] [place] [address] #### LANCA #### Testing performed [address] [place] [address] [place] [address] Testing performed at [facility] #### LACCGA, [id number], LVB6, LVB1 #### Testing performed at [facility] ANCA PANELon 09-09-2017 ATYPICAL PANCA <1:20 Normal Neg:<1:20 [facility] Comment on above: Result Comment: (NOT E) The atypical pANCA pattern has been observed in a significant percentage of patients with ulcerative colitis, primary sclerosing cholangitis and autoimmune hepatitis. PERFORMED AT [facility] Performed By: #### H EMOG, ESR, CMPF, CPK, CREACT, MG, URIC, B12, TSH2 #### Testing performed at [address] [address] #### LHEPP, LRBCF, LLWB, MICHAELLE, LTTG, LACEZ, LIMEL #### Testing performed at [place] [address] [place] [address] #### LANCA #### Testing performed [address] [place] [address] Testing performed at [facility] #### LACCGA, [id number], LVB6, LVB1 #### Testing performed at [facility] CYTOPLASMIC (C-ANCA) <1:20 Normal Neg:<1:20 [facility] Comment on above: Performed By: #### H EMOG, ESR, CMPF, CPK, CREACT, MG, URIC, B12, TSH2 #### Testing performed at [address] [address] #### LHEPP, LRBCF, LLWB, MICHAELLE, LTTG, LACEZ, LIMEL #### Testing performed at [facility] [address] [facility] [place] [address] #### LANCA #### Testing performed [address] [place] [address] Testing performed at [facility] #### LACCGA, [id number], LVB6, LVB1 #### Testing performed at [facility] PERINUCLEAR (P-ANCA) <1:20 Normal Neg:<1:20 [facility] Comment on above: Result Comment: (NOT E) The presence of positive fluorescence exhibiting P-ANCA or C-ANCA patterns alone is not specific for the diagnosis of Kathleen's Granulomatosis (WG) or microscopic polyangiitis. Decisions about treatment should not be based solely on ANCA IFA results. The [employer] ANCA [employer] Consensus recommends follow up testing of positive sera with both KS-3 and MPO-ANCA enzyme immunoassays. As many as 5% serum samples are positive only by EIA. Ref. AM J Clin Pathol 1999;111:507-513. Performed By: #### H EMOG, ESR, CMPF, CPK, CREACT, MG, URIC, B12, TSH2 #### [place] [address] #### LHEPP, LRBCF, LLWB, MICHAELLE, LTTG, LACEZ, LIMEL #### Testing performed at [address] [address] #### LANCA #### Testing performed at [address] [address] Testing performed at [facility] #### LACCGA, [id number], LVB6, LVB1 #### Testing performed at [facility] ANGIO-CONVERTING ENZon 09-09 JOHNATHAN 34 U/L Normal 14-82 [facility] Comment on above: Result Comment: PERF ORMED AT [facility] Performed By: #### H EMOG, ESR, CMPF, CPK, CREACT, MG, URIC, B12, TSH2 #### Testing performed at [place] [id number] #### LHEPP, LRBCF, LLWB, MICHAELLE, LTTG, LACEZ, LIMEL #### Testing performed at [address] [address] #### LANCA #### Testing performed at [address] [place] [address] Testing performed at [facility] #### LACCGA, [id number], LVB6, LVB1 #### Testing performed at [facility] HEP PANEL A,B,Con 09-09-2017 HBSAB Non Reactive Normal [facility] Comment on above: Result Comment: (NOT E) Non Reactive: Inconsistent with immunity, less than 10 mIU/mL Reactive: Consistent with immunity, greater than 9.9 mIU/mL Performed By: #### H EMOG, ESR, CMPF, CPK, CREACT, MG, URIC, B12, TSH2 #### [place] [address] #### LHEPP, LRBCF, LLWB, MICHAELLE, LTTG, LACEZ, LIMEL #### Testing performed at [address] [place] [address] #### LANCA #### Testing performed at [address] [place] [address] Testing performed at [facility] #### LACCGA, [id number], LVB6, LVB1 #### Testing performed at [facility] HBSAG SCREEN Negative Normal Negative [facility] Comment on above: Performed By: #### H EMOG, ESR, CMPF, CPK, CREACT, MG, URIC, B12, TSH2 #### Testing performed at [address] [address] #### LHEPP, LRBCF, LLWB, MICHAELLE, LTTG, LACEZ, LIMEL #### Testing performed at [address] [place] [address] #### LANCA #### Testing performed at [address] [address] Testing performed at [facility] #### LACCGA, [id number], LVB6, LVB1 #### Testing performed at [facility] HEP A AB TOTAL Negative Normal Negative [facility] Comment on above: Performed By: #### H EMOG, ESR, CMPF, CPK, CREACT, MG, URIC, B12, TSH2 #### [place] [address] #### LHEPP, LRBCF, LLWB, MICHAELLE, LTTG, LACEZ, LIMEL #### Testing performed at [address] [address] #### LANCA #### Testing performed at [address] [address] Testing performed at [facility] #### LACCGA, [id number], LVB6, LVB1 #### Testing performed at [facility] HEP B CORE AB Negative Normal Negative [facility] Comment on above: Performed By: #### H EMOG, ESR, CMPF, CPK, CREACT, MG, URIC, B12, TSH2 #### [place] [address] #### LHEPP, LRBCF, LLWB, MICHAELLE, LTTG, LACEZ, LIMEL #### Testing performed at [address] [address] #### LANCA #### Testing performed at [address] [address] Testing performed at [facility] #### LACCGA, [id number], LVB6, LVB1 #### Testing performed at [facility] HEP C VIRUS AB <0.1 Normal 0.0-0.9 [facility] Comment on above: Result Comment: (NOT E) Negative: < 0.8 Indeterminate: 0.8 - 0.9 Positive: > 0.9 The CDC recommends that a positive HCV antibody result be followed up with a HCV Nucleic Acid Amplification test ([id number]). PERFORMED AT [facility] Performed By: #### H EMOG, ESR, CMPF, CPK, CREACT, MG, URIC, B12, TSH2 #### Testing performed at [facility] [address] [place] [address] #### LHEPP, LRBCF, LLWB, MICHAELLE, LTTG, LACEZ, LIMEL #### Testing performed at [address] [place] [address] #### LANCA #### Testing performed at [address] [address] Testing performed at [facility] #### LACCGA, [id number], LVB6, LVB1 #### Testing performed at [facility] JEANNA AND PE, SERUMon 09-10-19 Albumin mass conc 3.5 g/dL Normal 2.9-4.4 [facility] Comment on above: Performed By: #### H EMOG, ESR, CMPF, CPK, CREACT, MG, URIC, B12, TSH2 #### Testing performed at [address] [address] #### LHEPP, LRBCF, LLWB, MICHAELLE, LTTG, LACEZ, LIMEL #### Testing performed at [address] [place] [address] #### LANCA #### Testing performed at [address] [address] Testing performed at [facility] #### LACCGA, [id number], LVB6, LVB1 #### Testing performed at [facility] Albumin/Globulin mass ratio 1.0 {ratio} Normal 0.7-1.7 [facility] Comment on above: Performed By: #### H EMOG, ESR, CMPF, CPK, CREACT, MG, URIC, B12, TSH2 #### Testing performed at [address] [place] [address] #### LHEPP, LRBCF, LLWB, MICHAELLE, LTTG, LACEZ, LIMEL #### Testing performed at [facility] [address] [place], [place] [address] [address] #### LANCA #### Testing performed at [address] [place] [address] Testing performed at [facility] #### LACCGA, [id number], LVB6, LVB1 #### Testing performed at [facility] [id number] 0.2 g/dL Normal 0.0-0.4 [facility] Comment on above: Performed By: #### H EMOG, ESR, CMPF, CPK, CREACT, MG, URIC, B12, TSH2 #### [place] [address] #### LHEPP, LRBCF, LLWB, MICHAELLE, LTTG, LACEZ, LIMEL #### Testing performed at [address] [address] #### LANCA #### Testing performed at [address] [address] Testing performed at [facility] #### LACCGA, [id number], LVB6, LVB1 #### Testing performed at [facility] [id number] 0.8 g/dL Normal 0.4-1.0 [facility] Comment on above: Performed By: #### H EMOG, ESR, CMPF, CPK, CREACT, MG, URIC, B12, TSH2 #### [place] [address] #### LHEPP, LRBCF, LLWB, MICHAELLE, LTTG, LACEZ, LIMEL #### Testing performed at [address] [address] #### LANCA #### Testing performed at [address] [address] Testing performed at [facility] #### LACCGA, [id number], LVB6, LVB1 #### Testing performed at [facility] BETA GLOBULIN 1.3 g/dL Normal 0.7-1.3 [facility] Comment on above: Performed By: #### H EMOG, ESR, CMPF, CPK, CREACT, MG, URIC, B12, TSH2 #### Testing performed at [address] [place] [address] #### LHEPP, LRBCF, LLWB, MICHAELLE, LTTG, LACEZ, LIMEL #### Testing performed [address] [facility] [place] [address] #### [place]CA #### Testing performed [address] [place] [facility] [address] Testing performed at [facility] #### LACCGA, [id number], LVB6, LVB1 #### Testing performed at [facility] GAMMA GLOBULIN 1.3 g/dL Normal 0.4-1.8 [facility] Comment on above: Performed By: #### H EMOG, ESR, CMPF, CPK, CREACT, MG, URIC, B12, TSH2 #### Testing performed at [address] [place] [address] #### LHEPP, LRBCF, LLWB, MICHAELLE, LTTG, LACEZ, LIMEL #### Testing performed [address] [place] [address] #### LANCA #### Testing performed [address] [place] [facility] [address] Testing performed at [facility] #### LACCGA, [id number], LVB6, LVB1 #### Testing performed at [facility] Globulin mass conc (S) 3.6 g/dL Normal 2.2-3.9 [facility] Comment on above: Performed By: #### H EMOG, ESR, CMPF, CPK, CREACT, MG, URIC, B12, TSH2 #### Testing performed at [address] [place] [address] #### LHEPP, LRBCF, LLWB, MICHAELLE, LTTG, LACEZ, LIMEL #### Testing performed at [facility] [address] [place], [place] [address] [facility] [place] [address] #### LANCA #### Testing performed [address] [place] [address] Testing performed at [facility] #### LACCGA, [id number], LVB6, LVB1 #### Testing performed at [facility] IgA mass conc 348 mg/dL Normal 87-352 [facility] Comment on above: Performed By: #### H EMOG, ESR, CMPF, CPK, CREACT, MG, URIC, B12, TSH2 #### Testing performed at [place] [id number] #### LHEPP, LRBCF, LLWB, MICHAELLE, LTTG, LACEZ, LIMEL #### Testing performed at [address] [place] [address] #### LANCA #### Testing performed at [address] [place] [address] Testing performed at [facility] #### LACCGA, [id number], LVB6, LVB1 #### Testing performed at [facility] IgG mass conc 1206 mg/dL Normal 700-1600 [facility] Comment on above: Performed By: #### H EMOG, ESR, CMPF, CPK, CREACT, MG, URIC, B12, TSH2 #### Testing performed at [address] [address] #### LHEPP, LRBCF, LLWB, MICHAELLE, LTTG, LACEZ, LIMEL #### Testing performed at [address] [place] [address] #### LANCA #### Testing performed at [address] [place] [address] Testing performed at [facility] #### LACCGA, [id number], LVB6, LVB1 #### Testing performed at [facility] IgM mass conc 123 mg/dL Normal 26-217 [facility] Comment on above: Performed By: #### H EMOG, ESR, CMPF, CPK, CREACT, MG, URIC, B12, TSH2 #### Testing performed at [address] [address] #### LHEPP, LRBCF, LLWB, MICHAELLE, LTTG, LACEZ, LIMEL #### Testing performed [address] [facility] [place] [address] #### [place] #### Testing performed [address] [place] [address] Testing performed at [facility] #### LACCGA, [id number], LVB6, LVB1 #### Testing performed at [facility] IMMUNOFIX: Comment Normal [facility] Comment on above: Result Comment: No m onoclonality detected. Performed By: #### H EMOG, ESR, CMPF, CPK, CREACT, MG, URIC, B12, TSH2 #### Testing performed at [address] [address] #### LHEPP, LRBCF, LLWB, MICHAELLE, LTTG, LACEZ, LIMEL #### Testing performed at [address] [place] [address] #### LANCA #### Testing performed at [address] [place] [address] Testing performed at [facility] #### LACCGA, [id number], LVB6, LVB1 #### Testing performed at [facility] M-SPIKE Not Observed Normal Not Observed [facility] Comment on above: Performed By: #### H EMOG, ESR, CMPF, CPK, CREACT, MG, URIC, B12, TSH2 #### Testing performed at [address] [address] #### LHEPP, LRBCF, LLWB, MICHAELLE, LTTG, LACEZ, LIMEL #### Testing performed [address] [facility] [place] [address] #### [place] #### Testing performed at [address] [place] [address] Testing performed at [facility] #### LACCGA, [id number], LVB6, LVB1 #### Testing performed at [facility] PLEASE NOTE: Comment Normal [facility] Comment on above: Result Comment: (NOT E) Protein electrophoresis scan will follow via computer, mail, or diesel mechanic helper delivery. PERFORMED AT [facility] Performed By: #### H EMOG, ESR, CMPF, CPK, CREACT, MG, URIC, B12, TSH2 #### Testing performed at [address] [address] #### LHEPP, LRBCF, LLWB, MICHAELLE, LTTG, LACEZ, LIMEL #### Testing performed at [address] [address] #### LANCA #### Testing performed at [address] [address] Testing performed at [facility] #### LACCGA, [id number], LVB6, LVB1 #### Testing performed at [facility] Protein mass conc 7.1 g/dL Normal 6.0-8.5 [facility] Comment on above: Performed By: #### H EMOG, ESR, CMPF, CPK, CREACT, MG, URIC, B12, TSH2 #### Testing performed at [address] [address] #### LHEPP, LRBCF, LLWB, MICHAELLE, LTTG, LACEZ, LIMEL #### Testing performed at [address] [address] #### LANCA #### Testing performed at [address] [address] Testing performed at [facility] #### LACCGA, [id number], LVB6, LVB1 #### Testing performed at [facility] LYME AB REFLEX TO WESTERN BL OTon 09-09-2017 LYME DISEASE AB QUANT,IGM <0.80 Normal 0.00-0.79 [facility] Comment on above: Result Comment: (NOT E) Negative <0.80 Equivocal 0.80 - 1.19 Positive >1.19 IgM levels may peak at 3-6 weeks post infection, then gradually decline. PERFORMED AT [facility] Performed By: #### H EMOG, ESR, CMPF, CPK, CREACT, MG, URIC, B12, TSH2 #### Testing performed at [address] [address] #### LHEPP, LRBCF, LLWB, MICHAELLE, LTTG, LACEZ, LIMEL #### Testing performed at [address] [address] #### LANCA #### Testing performed at [address] [address] Testing performed at [facility] #### LACCGA, [id number], LVB6, LVB1 #### Testing performed at [facility] LYME IGG/IGM AB <0.91 Normal 0.00-0.90 [facility] Comment on above: Result Comment: (NOT E) Negative <0.91 Equivocal 0.91 - 1.09 Positive >1.09 Performed By: #### H EMOG, ESR, CMPF, CPK, CREACT, MG, URIC, B12, TSH2 #### [place] [address] #### LHEPP, LRBCF, LLWB, MICHAELLE, LTTG, LACEZ, LIMEL #### Testing performed at [address] [address] #### LANCA #### Testing performed at [address] [address] Testing performed at [facility] #### LACCGA, [id number], LVB6, LVB1 #### Testing performed at [facility] RBC FOLATEon 09-09-2017 FOLATE,HEMOLYSATE 565.8 ng/mL Normal Not Estab. [facility] Comment on above: Performed By: #### H EMOG, ESR, CMPF, CPK, CREACT, MG, URIC, B12, TSH2 #### Testing performed at [address] [address] #### LHEPP, LRBCF, LLWB, MICHAELLE, LTTG, LACEZ, LIMEL #### Testing performed at [address] [place] [address] #### [place]CA #### Testing performed [address] [facility] [place] [address] Testing performed at [facility] #### LACCGA, [id number], LVB6, LVB1 #### Testing performed at [facility] FOLATE,RBC 1447 ng/mL Normal >498 [facility] Comment on above: Result Comment: PERF ORMED AT [facility] Performed By: #### H EMOG, ESR, CMPF, CPK, CREACT, MG, URIC, B12, TSH2 #### Testing performed at [address] [address] #### LHEPP, LRBCF, LLWB, MICHAELLE, LTTG, LACEZ, LIMEL #### Testing performed at [address] [address] #### LANCA #### Testing performed at [address] [address] Testing performed at [facility] #### LACCGA, [id number], LVB6, LVB1 #### Testing performed at [facility] Hematocrit Volume Fraction (Bld) 39.1 % Normal 34.0-46.6 [facility] Comment on above: Result Comment: PERF ORMED AT [facility] Performed By: #### H EMOG, ESR, CMPF, CPK, CREACT, MG, URIC, B12, TSH2 #### Testing performed at [address] [address] #### LHEPP, LRBCF, LLWB, MICHAELLE, LTTG, LACEZ, LIMEL #### Testing performed at [address] [place] [address] #### LANCA #### Testing performed at [address] [address] Testing performed at [facility] #### LACCGA, [id number], LVB6, LVB1 #### Testing performed at [facility] [id number],IGAon 2017 TTG- IGA <2 Normal 0-3 [facility] Comment on above: Result Comment: (NOT E) Negative 0 - 3 Weak Positive 4 - 10 Positive >10 Tissue Transglutaminase (tTG) has been identified as the endomysial antigen. Studies have demonstr- ated that endomysial IgA antibodies have over 99% specificity for gluten sensitive enteropathy. PERFORMED AT [facility] Performed By: #### H EMOG, ESR, CMPF, CPK, CREACT, MG, URIC, B12, TSH2 #### Testing performed at [address] [address] #### LHEPP, LRBCF, LLWB, MICHAELLE, LTTG, LACEZ, LIMEL #### Testing performed at [address] [address] #### LANCA #### Testing performed at [address] [address] Testing performed at [facility] #### LACCGA, [id number], LVB6, LVB1 #### Testing performed at [facility] 25 0H VITAMIN D LEVELon 08-23 25 0H VITAMIN D LEVEL 26.5 NG/ML Low >30 [facility] Comment on above: Result Comment: DEFICIENT <20 NG/ML INSUFFICIENT 20-<30 NG/ML SUFFICIENT 30-100 NG/ML POTENTIAL TOXICITY >100 NG/ML Performed By: #### H EMOG, ESR, CMPF, CPK, CREACT, MG, URIC, B12, TSH2 #### Testing performed at [address] [address] #### LHEPP, LRBCF, LLWB, MICHAELLE, LTTG, LACEZ, LIMEL #### Testing performed at [address] [address] #### LANCA #### Testing performed at [address] [address] Testing performed at [facility] #### LACCGA, [id number], LVB6, LVB1 #### Testing performed at [facility] C REACTIVE PROTEINon 018 CRP mass conc 20.7 mg/L High 0-10.0 [facility] Comment on above: Performed By: #### H EMOG, ESR, CMPF, CPK, CREACT, MG, URIC, B12, TSH2 #### [place] [address] #### LHEPP, LRBCF, LLWB, MICHAELLE, LTTG, LACEZ, LIMEL #### Testing performed at [address] [address] #### LANCA #### Testing performed at [address] [address] Testing performed at [facility] #### LACCGA, [id number], LVB6, LVB1 #### Testing performed at [facility] CBC(NO DIFF)on 09-08-2017 Erythrocyte distribution width Ratio (RBC) 18.1 % High 11.5-14.5 [facility] Comment on above: Performed By: #### H EMOG, ESR, CMPF, CPK, CREACT, MG, URIC, B12, TSH2 #### Testing performed at [address] [address] #### LHEPP, LRBCF, LLWB, MICHAELLE, LTTG, LACEZ, LIMEL #### Testing performed at [address] [place] [address] #### [place] #### Testing performed at [address] [address] Testing performed at [facility] #### LACCGA, [id number], LVB6, LVB1 #### Testing performed at [facility] Hematocrit Volume Fraction (Bld) 37.9 % Normal 36.0-48.0 [facility] Comment on above: Performed By: #### H EMOG, ESR, CMPF, CPK, CREACT, MG, URIC, B12, TSH2 #### Testing performed at [address] [address] #### LHEPP, LRBCF, LLWB, MICHAELLE, LTTG, LACEZ, LIMEL #### Testing performed at [address] [place] [address] #### [place]CA #### Testing performed at [address] [place] [address] Testing performed at [facility] #### LACCGA, [id number], LVB6, LVB1 #### Testing performed at [facility] Hemoglobin mass conc (Bld) 12.4 g/dL Normal 12.0-16.0 [facility] Comment on above: Performed By: #### H EMOG, ESR, CMPF, CPK, CREACT, MG, URIC, B12, TSH2 #### Testing performed at [address] [address] #### LHEPP, LRBCF, LLWB, MICHAELLE, LTTG, LACEZ, LIMEL #### Testing performed at [address] [address] #### LANCA #### Testing performed at [address] [address] Testing performed at [facility] #### LACCGA, [id number], LVB6, LVB1 #### Testing performed at [facility] MCH Entitic mass (RBC) 23.7 pg Low 26.0-35.0 [facility] Comment on above: Performed By: #### H EMOG, ESR, CMPF, CPK, CREACT, MG, URIC, B12, TSH2 #### Testing performed at [address] [address] #### LHEPP, LRBCF, LLWB, MICHAELLE, LTTG, LACEZ, LIMEL #### Testing performed at [address] [place] [address] #### [place] #### Testing performed at [address] [place] [address] Testing performed at [facility] #### LACCGA, [id number], LVB6, LVB1 #### Testing performed at [facility] MCH mass conc (RBC) 32.7 g/dL Normal 27.0-37.0 [facility] Comment on above: Performed By: #### H EMOG, ESR, CMPF, CPK, CREACT, MG, URIC, B12, TSH2 #### Testing performed at [address] [address] #### LHEPP, LRBCF, LLWB, MICHAELLE, LTTG, LACEZ, LIMEL #### Testing performed at [address] [address] #### LANCA #### Testing performed at [address] [address] Testing performed at [facility] #### LACCGA, [id number], LVB6, LVB1 #### Testing performed at [facility] MCV Entitic volume (RBC) 72.4 fL Low 80.0-100.0 [facility] Comment on above: Performed By: #### H EMOG, ESR, CMPF, CPK, CREACT, MG, URIC, B12, TSH2 #### Testing performed at [address] [place] [address] #### LHEPP, LRBCF, LLWB, MICHAELLE, LTTG, LACEZ, LIMEL #### Testing performed at [address] [place] [address] #### [place] #### Testing performed at [address] [address] Testing performed at [facility] #### LACCGA, [id number], LVB6, LVB1 #### Testing performed at [facility] Platelet mean volume Entitic volume (Bld) 8.6 fL Normal 7.4-11.0 [facility] Comment on above: Performed By: #### H EMOG, ESR, CMPF, CPK, CREACT, MG, URIC, B12, TSH2 #### Testing performed at [place] [id number] #### LHEPP, LRBCF, LLWB, MICHAELLE, LTTG, LACEZ, LIMEL #### Testing performed at [address] [address] #### LANCA #### Testing performed at [address] [address] Testing performed at [facility] #### LACCGA, [id number], LVB6, LVB1 #### Testing performed at [facility] Platelets #/vol (Bld) 228 /cmm Normal 130.0-400.0 [facility] Comment on above: Performed By: #### H EMOG, ESR, CMPF, CPK, CREACT, MG, URIC, B12, TSH2 #### [place] [address] #### LHEPP, LRBCF, LLWB, MICHAELLE, LTTG, LACEZ, LIMEL #### Testing performed at [address] [address] #### LANCA #### Testing performed at [address] [address] Testing performed at [facility] #### LACCGA, [id number], LVB6, LVB1 #### Testing performed at [facility] RBC #/vol (Bld) 5.24 /cmm Normal 4.0-5.4 [facility] Comment on above: Performed By: #### H EMOG, ESR, CMPF, CPK, CREACT, MG, URIC, B12, TSH2 #### Testing performed at [address] [address] #### LHEPP, LRBCF, LLWB, MICHAELLE, LTTG, LACEZ, LIMEL #### Testing performed at [facility] [place] [address] #### LANCA #### Testing performed at [address] [address] Testing performed at [facility] #### LACCGA, [id number], LVB6, LVB1 #### Testing performed at [facility] WBC #/vol (Bld) 8.5 /cmm Normal 3.6-11.0 [facility] Comment on above: Performed By: #### H EMOG, ESR, CMPF, CPK, CREACT, MG, URIC, B12, TSH2 #### [place] [address] #### LHEPP, LRBCF, LLWB, MICHAELLE, LTTG, LACEZ, LIMEL #### Testing performed at [address] [address] #### LANCA #### Testing performed at [address] [address] Testing performed at [facility] #### LACCGA, [id number], LVB6, LVB1 #### Testing performed at [facility] CMP FASTINGon 09-08-2017 A:G RATIO 1.1 RATIO Low 1.3-2.2 [facility] Comment on above: Performed By: #### H EMOG, ESR, CMPF, CPK, CREACT, MG, URIC, B12, TSH2 #### Testing performed at [address] [address] #### LHEPP, LRBCF, LLWB, MICHAELLE, LTTG, LACEZ, LIMEL #### Testing performed at [address] [address] #### LANCA #### Testing performed at [address] [address] Testing performed at [facility] #### LACCGA, [id number], LVB6, LVB1 #### Testing performed at [facility] Albumin mass conc 4.0 G/dl Normal 3.5-5.0 [facility] Comment on above: Performed By: #### H EMOG, ESR, CMPF, CPK, CREACT, MG, URIC, B12, TSH2 #### Testing performed at [address] [address] #### LHEPP, LRBCF, LLWB, MICHAELLE, LTTG, LACEZ, LIMEL #### Testing performed at [address] [address] #### LANCA #### Testing performed at [address] [address] Testing performed at [facility] #### LACCGA, [id number], LVB6, LVB1 #### Testing performed at [facility] ALP enzyme act/vol 72 U/L Normal 38-126 [facility] Comment on above: Performed By: #### H EMOG, ESR, CMPF, CPK, CREACT, MG, URIC, B12, TSH2 #### Testing performed at [address] [address] #### LHEPP, LRBCF, LLWB, MICHAELLE, LTTG, LACEZ, LIMEL #### Testing performed at [address] [address] #### LANCA #### Testing performed at [address] [address] Testing performed at [facility] #### LACCGA, [id number], LVB6, LVB1 #### Testing performed at [facility] ALT enzyme act/vol 27 U/L Normal 14-54 [facility] Comment on above: Performed By: #### H EMOG, ESR, CMPF, CPK, CREACT, MG, URIC, B12, TSH2 #### Testing performed at [address] [address] #### LHEPP, LRBCF, LLWB, MICHAELLE, LTTG, LACEZ, LIMEL #### Testing performed at [facility] [place] [address] [place] [address] #### [place] #### Testing performed at [address] [address] Testing performed at [facility] #### LACCGA, [id number], LVB6, LVB1 #### Testing performed at [facility] AST enzyme act/vol 27 U/L Normal 15-41 [facility] Comment on above: Performed By: #### H EMOG, ESR, CMPF, CPK, CREACT, MG, URIC, B12, TSH2 #### Testing performed at [address] [address] #### LHEPP, LRBCF, LLWB, MICHAELLE, LTTG, LACEZ, LIMEL #### Testing performed at [address] [address] #### [place] #### Testing performed at [address] [address] Testing performed at [facility] #### LACCGA, [id number], LVB6, LVB1 #### Testing performed at [facility] Bilirubin mass conc mg/dL Low 0.2-1.2 [facility] Comment on above: Performed By: #### H EMOG, ESR, CMPF, CPK, CREACT, MG, URIC, B12, TSH2 #### Testing performed at [address] [address] #### LHEPP, LRBCF, LLWB, MICHAELLE, LTTG, LACEZ, LIMEL #### Testing performed at [address] [place] [address] #### [place] #### Testing performed at [address] [address] Testing performed at [facility] #### LACCGA, [id number], LVB6, LVB1 #### Testing performed at [facility] Creatinine mass conc 0.6 mg/dL Normal 0.52-1.04 [facility] Comment on above: Performed By: #### H EMOG, ESR, CMPF, CPK, CREACT, MG, URIC, B12, TSH2 #### Testing performed at [address] [address] #### LHEPP, LRBCF, LLWB, MICHAELLE, LTTG, LACEZ, LIMEL #### Testing performed at [place] [address] [place] [address] #### [place] #### Testing performed at [address] [place] [address] Testing performed at [facility] #### LACCGA, [id number], LVB6, LVB1 #### Testing performed at [facility]. GFR, >60 Normal [facility] Comment on above: Performed By: #### H EMOG, ESR, CMPF, CPK, CREACT, MG, URIC, B12, TSH2 #### Testing performed at [address] [address] #### LHEPP, LRBCF, LLWB, MICHAELLE, LTTG, LACEZ, LIMEL #### Testing performed at [address] [place] [address] #### [place] #### Testing performed at [address] [place] [address] Testing performed at [facility] #### LACCGA, [id number], LVB6, LVB1 #### Testing performed at [facility] EST. GFR,Non >60 Normal [facility] Comment on above: Performed By: #### H EMOG, ESR, CMPF, CPK, CREACT, MG, URIC, B12, TSH2 #### Testing performed at [address] [address] #### LHEPP, LRBCF, LLWB, MICHAELLE, LTTG, LACEZ, LIMEL #### Testing performed at [place] [address] [place] [address] #### [place] #### Testing performed at [address] [place] [address] Testing performed at [facility] #### LACCGA, [id number], LVB6, LVB1 #### Testing performed at [facility] GFR/1.73 sq M predicted among non-blacks MDRD vol rate/area (S/P/Bld) Average GFR for 40-49 years old = 99. Normal [facility] Comment on above: Result Comment: [employer] janette Kidney disease, GFR = <60. Kidney failure, GFR = <15. The GFR estimate is not adjusted for extreme body surface area or acute process, nor has it been validated for women or ethnic groups other than and . Performed By: #### H EMOG, ESR, CMPF, CPK, CREACT, MG, URIC, B12, TSH2 #### Testing performed at [address] [address] #### LHEPP, LRBCF, LLWB, MICHAELLE, LTTG, LACEZ, LIMEL #### Testing performed at [address] [place] [address] #### LANCA #### Testing performed at [address] [address] Testing performed at [facility] #### LACCGA, [id number], LVB6, LVB1 #### Testing performed at [facility] Protein mass conc 7.7 g/dL Normal 6.3-8.2 [facility] Comment on above: Performed By: #### H EMOG, ESR, CMPF, CPK, CREACT, MG, URIC, B12, TSH2 #### Testing performed at [address] [address] #### LHEPP, LRBCF, LLWB, MICHAELLE, LTTG, LACEZ, LIMEL #### Testing performed at [address] [address] #### LANCA #### Testing performed at [address] [address] Testing performed at [facility] #### LACCGA, [id number], LVB6, LVB1 #### Testing performed at [facility] Urea nitrogen mass conc 10 mg/dL Normal 7-20 [facility] Comment on above: Performed By: #### H EMOG, ESR, CMPF, CPK, CREACT, MG, URIC, B12, TSH2 #### Testing performed at [address] [address] #### LHEPP, LRBCF, LLWB, MICHAELLE, LTTG, LACEZ, LIMEL #### Testing performed at [address] [place] [address] #### LANCA #### Testing performed at [address] [place] [address] Testing performed at [facility] #### LACCGA, [id number], LVB6, LVB1 #### Testing performed at [facility] Calcium mass conc 9.1 mg/dL Normal 8.4-10.2 [facility] Comment on above: Performed By: #### H EMOG, ESR, CMPF, CPK, CREACT, MG, URIC, B12, TSH2 #### Testing performed at [address] [address] #### LHEPP, LRBCF, LLWB, MICHAELLE, LTTG, LACEZ, LIMEL #### Testing performed at [address] [address] #### LANCA #### Testing performed at [address] [place] [address] Testing performed at [facility] #### LACCGA, [id number], LVB6, LVB1 #### Testing performed at [facility] Chloride molar conc 102 mmol/L Normal 98-107 [facility] Comment on above: Performed By: #### H EMOG, ESR, CMPF, CPK, CREACT, MG, URIC, B12, TSH2 #### Testing performed at [address] [address] #### LHEPP, LRBCF, LLWB, MICHAELLE, LTTG, LACEZ, LIMEL #### Testing performed at [address] [place] [address] #### LANCA #### Testing performed at [address] [place] [address] Testing performed at [facility] #### LACCGA, [id number], LVB6, LVB1 #### Testing performed at [facility] CO2 molar conc 27 mmol/L Normal 22-30 [facility] Comment on above: Performed By: #### H EMOG, ESR, CMPF, CPK, CREACT, MG, URIC, B12, TSH2 #### Testing performed at [address] [place] [address] #### LHEPP, LRBCF, LLWB, MICHAELLE, LTTG, LACEZ, LIMEL #### Testing performed at [address] [address] #### LANCA #### Testing performed at [address] [address] Testing performed at [facility] #### LACCGA, [id number], LVB6, LVB1 #### Testing performed at [facility] Glucose mass conc 115 mg/dL High 70-100 [facility] Comment on above: Result Comment: NORMAL <100 mg/dL PREDIABETES 101-126 mg/dL DIABETES 126 mg/dL or higher Performed By: #### H EMOG, ESR, CMPF, CPK, CREACT, MG, URIC, B12, TSH2 #### Testing performed at [address] [place] [address] #### LHEPP, LRBCF, LLWB, MICHAELLE, LTTG, LACEZ, LIMEL #### Testing performed at [address] [place] [address] #### LANCA #### Testing performed at [address] [address] Testing performed at [facility] #### LACCGA, [id number], LVB6, LVB1 #### Testing performed at [facility] Potassium molar conc 3.5 mmol/L Normal 3.5-5.1 [facility] Comment on above: Performed By: #### H EMOG, ESR, CMPF, CPK, CREACT, MG, URIC, B12, TSH2 #### Testing performed at [place] [id number] #### LHEPP, LRBCF, LLWB, MICHAELLE, LTTG, LACEZ, LIMEL #### Testing performed at [address] [place] [address] #### LANCA #### Testing performed at [address] [place] [address] Testing performed at [facility] #### LACCGA, [id number], LVB6, LVB1 #### Testing performed at [facility] Sodium molar conc 138 mmol/L Normal 136-145 [facility] Comment on above: Performed By: #### H EMOG, ESR, CMPF, CPK, CREACT, MG, URIC, B12, TSH2 #### [place] [address] #### LHEPP, LRBCF, LLWB, MICHAELLE, LTTG, LACEZ, LIMEL #### Testing performed at [address] [address] #### LANCA #### Testing performed at [address] [place] [address] Testing performed at [facility] #### LACCGA, [id number], LVB6, LVB1 #### Testing performed at [facility] CPKon 09-08-2017 CPK 69 IU/L Normal 30-135 [facility] Comment on above: Performed By: #### H EMOG, ESR, CMPF, CPK, CREACT, MG, URIC, B12, TSH2 #### [place] [address] #### LHEPP, LRBCF, LLWB, MICHAELLE, LTTG, LACEZ, LIMEL #### Testing performed at [place] [address] [place] [address] #### [facility] #### Testing performed [address] [place] [place] [address] Testing performed at [facility] #### LACCGA, [id number], LVB6, LVB1 #### Testing performed at [facility] ESRon 09-08-2017 ESR Velocity (Bld) 46 mm/h High 0-15 [facility] Comment on above: Performed By: #### H EMOG, ESR, CMPF, CPK, CREACT, MG, URIC, B12, TSH2 #### Testing performed at [address] [address] #### LHEPP, LRBCF, LLWB, MICHAELLE, LTTG, LACEZ, LIMEL #### Testing performed at [address] [place] [address] #### [facility]CA #### Testing performed at [address] [place] [address] Testing performed at [facility] #### LACCGA, [id number], LVB6, LVB1 #### Testing performed at [facility] MAGNESIUMon 09-08-2017 Magnesium mass conc 2.0 mg/dL Normal 1.6-2.3 [facility] Comment on above: Performed By: #### H EMOG, ESR, CMPF, CPK, CREACT, MG, URIC, B12, TSH2 #### Testing performed at [address] [address] #### LHEPP, LRBCF, LLWB, MICHAELLE, LTTG, LACEZ, LIMEL #### Testing performed at [place] [address] [place] [address] #### [facility]CA #### Testing performed at [place] [address] [place] [address] Testing performed at [facility] #### LACCGA, [id number], LVB6, LVB1 #### Testing performed at [facility] RHEUMATOID FACTORon 09-09-19 18 RHEUMATOID FACTOR <8.6 Normal <12 [facility] Comment on above: Performed By: #### H EMOG, ESR, CMPF, CPK, CREACT, MG, URIC, B12, TSH2 #### [place] [address] #### LHEPP, LRBCF, LLWB, MICHAELLE, LTTG, LACEZ, LIMEL #### Testing performed at [address] [place] [address] #### [facility]CA #### Testing performed [address] [place] [address] Testing performed at [facility] #### LACCGA, [id number], LVB6, LVB1 #### Testing performed at [facility] TSHon 09-08-2017 Thyrotropin Qn 0.905 uIU/ML Normal 0.45-5.33 [facility] Comment on above: Performed By: #### H EMOG, ESR, CMPF, CPK, CREACT, MG, URIC, B12, TSH2 #### [place] [address] #### LHEPP, LRBCF, LLWB, MICHAELLE, LTTG, LACEZ, LIMEL #### Testing performed at [address] [place] [address] #### [facility]CA #### Testing performed [address] [place] [address] Testing performed at [facility] #### LACCGA, [id number], LVB6, LVB1 #### Testing performed at [facility] URIC ACIDon 09-08-2017 Urate mass conc 6.3 mg/dL High 2.5-6.2 [facility] Comment on above: Performed By: #### H EMOG, ESR, CMPF, CPK, CREACT, MG, URIC, B12, TSH2 #### Testing performed at [address] [place] [address] #### LHEPP, LRBCF, LLWB, MICHAELLE, LTTG, LACEZ, LIMEL #### Testing performed at [facility] [address] [place] [address] #### LANCA #### Testing performed at [facility] [address] [place] [address] Testing performed at [facility] #### LACCGA, [id number], LVB6, LVB1 #### Testing performed at [facility] URINE MACROSCOPICon 09-09-19 18 Bilirubin Ql (U) Negative Normal NEGATIVE [facility] Comment on above: Performed By: #### H EMOG, ESR, CMPF, CPK, CREACT, MG, URIC, B12, TSH2 #### Testing performed at [address] [place] [address] #### LHEPP, LRBCF, LLWB, MICHAELLE, LTTG, LACEZ, LIMEL #### Testing performed at [facility] [address] [facility] [place] [address] #### [facility] #### Testing performed [address] [place] [facility] [address] Testing performed at [facility] #### LACCGA, [id number], LVB6, LVB1 #### Testing performed at [facility] Clarity Nom (U) CLEAR Normal CLEAR [facility] Comment on above: Performed By: #### H EMOG, ESR, CMPF, CPK, CREACT, MG, URIC, B12, TSH2 #### Testing performed at [address] [place] [address] #### LHEPP, LRBCF, LLWB, MICHAELLE, LTTG, LACEZ, LIMEL #### Testing performed at [facility] [address] [place] [address] #### [facility]CA #### Testing performed at [place] [address] [facility] [place] [address] Testing performed at [facility] #### LACCGA, [id number], LVB6, LVB1 #### Testing performed at [facility] Color Nom (U) YELLOW Normal YELLOW [facility] Comment on above: Performed By: #### H EMOG, ESR, CMPF, CPK, CREACT, MG, URIC, B12, TSH2 #### Testing performed at [address] [address] #### LHEPP, LRBCF, LLWB, MICHAELLE, LTTG, LACEZ, LIMEL #### Testing performed at [address] [place] [address] #### [facility] #### Testing performed at [address] [place] [address] Testing performed at [facility] #### LACCGA, [id number], LVB6, LVB1 #### Testing performed at [facility] Glucose Ql (U) Negative Normal NEGATIVE [facility] Comment on above: Performed By: #### H EMOG, ESR, CMPF, CPK, CREACT, MG, URIC, B12, TSH2 #### Testing performed at [address] [address] #### LHEPP, LRBCF, LLWB, MICHAELLE, LTTG, LACEZ, LIMEL #### Testing performed at [address] [place] [address] #### [facility] #### Testing performed at [address] [place] [address] Testing performed at [facility] #### LACCGA, [id number], LVB6, LVB1 #### Testing performed at [facility] pH (U) 7.0 [pH] Normal 5.0-7.0 [facility] Comment on above: Performed By: #### H EMOG, ESR, CMPF, CPK, CREACT, MG, URIC, B12, TSH2 #### Testing performed at [address] [address] #### LHEPP, LRBCF, LLWB, MICHAELLE, LTTG, LACEZ, LIMEL #### Testing performed at [place] [address] [place] [address] #### [facility] #### Testing performed at [facility], [address] [place] [address] Testing performed at [facility] #### LACCGA, [id number], LVB6, LVB1 #### Testing performed at [facility] Protein mass conc (U) Negative Normal NEGATIVE [facility] Comment on above: Performed By: #### H EMOG, ESR, CMPF, CPK, CREACT, MG, URIC, B12, TSH2 #### Testing performed at [address] [place] [address] #### LHEPP, LRBCF, LLWB, MICHAELLE, LTTG, LACEZ, LIMEL #### Testing performed at [address] [place] [address] #### [facility]CA #### Testing performed at [address] [place] [address] Testing performed at [facility] #### LACCGA, [id number], LVB6, LVB1 #### Testing performed at [facility] URINE HEMOGLOBIN Negative Normal NEGATIVE [facility] Comment on above: Performed By: #### H EMOG, ESR, CMPF, CPK, CREACT, MG, URIC, B12, TSH2 #### Testing performed at [address] [place] [address] #### LHEPP, LRBCF, LLWB, MICHAELLE, LTTG, LACEZ, LIMEL #### Testing performed at [facility] [address] [place], [place] [address] [place] [address] #### [facility]CA #### Testing performed at [facility] [address] [place], [place] [address] [facility] [place] [address] Testing performed at [facility] #### LACCGA, [id number], LVB6, LVB1 #### Testing performed at [facility] URINE KETONE Negative Normal NEGATIVE [facility] Comment on above: Performed By: #### H EMOG, ESR, CMPF, CPK, CREACT, MG, URIC, B12, TSH2 #### Testing performed at [address] [address] #### LHEPP, LRBCF, LLWB, MICHAELLE, LTTG, LACEZ, LIMEL #### Testing performed at [address] [place] [address] #### [facility] #### Testing performed at [address] [address] Testing performed at [facility] #### LACCGA, [id number], LVB6, LVB1 #### Testing performed at [facility] URINE LEUKOTEST Negative Normal NEGATIVE [facility] Comment on above: Performed By: #### H EMOG, ESR, CMPF, CPK, CREACT, MG, URIC, B12, TSH2 #### Testing performed at [address] [address] #### LHEPP, LRBCF, LLWB, MICHAELLE, LTTG, LACEZ, LIMEL #### Testing performed at [address] [address] #### LANCA #### Testing performed at [address] [address] Testing performed at [facility] #### LACCGA, [id number], LVB6, LVB1 #### Testing performed at [facility] URINE NITRATES Negative Normal NEGATIVE [facility] Comment on above: Performed By: #### H EMOG, ESR, CMPF, CPK, CREACT, MG, URIC, B12, TSH2 #### Testing performed at [address] [address] #### LHEPP, LRBCF, LLWB, MICHAELLE, LTTG, LACEZ, LIMEL #### Testing performed at [address] [place] [address] #### [facility] #### Testing performed at [address] [address] Testing performed at [facility] #### LACCGA, [id number], LVB6, LVB1 #### Testing performed at [facility] URINE SPEC GRAVITY 1.020 Normal 1.010-1.025 [facility] Comment on above: Performed By: #### H EMOG, ESR, CMPF, CPK, CREACT, MG, URIC, B12, TSH2 #### [place] [address] #### LHEPP, LRBCF, LLWB, MICHAELLE, LTTG, LACEZ, LIMEL #### Testing performed at [address] [address] #### [facility]CA #### Testing performed at [address] [address] Testing performed at [facility] #### LACCGA, [id number], LVB6, LVB1 #### Testing performed at [facility] Urobilinogen Qn (U) 0.2 mg/dl Normal 0.2-1.0 [facility] Comment on above: Performed By: #### H EMOG, ESR, CMPF, CPK, CREACT, MG, URIC, B12, TSH2 #### Testing performed at [address] [address] #### LHEPP, LRBCF, LLWB, MICHAELLE, LTTG, LACEZ, LIMEL #### Testing performed at [address] [address] #### [facility]CA #### Testing performed at [address] [address] Testing performed at [facility] #### LACCGA, [id number], LVB6, LVB1 #### Testing performed at [facility] URINE MICROSCOPICon 09-09-19 18 Bacteria LM.HPF #/area (Urine sed) TRACE Abnormal NEGATIVE [facility] Comment on above: Performed By: #### H EMOG, ESR, CMPF, CPK, CREACT, MG, URIC, B12, TSH2 #### Testing performed at [address] [address] #### LHEPP, LRBCF, LLWB, MICHAELLE, LTTG, LACEZ, LIMEL #### Testing performed at [facility] [address] [place] [address] #### [facility]CA #### Testing performed at [place] [address] [facility] [place] [address] Testing performed at [facility] #### LACCGA, [id number], LVB6, LVB1 #### Testing performed at [facility] Casts LM.LPF #/area (Urine sed) NONE Normal NONE [facility] Comment on above: Performed By: #### H EMOG, ESR, CMPF, CPK, CREACT, MG, URIC, B12, TSH2 #### Testing performed at [address] [address] #### LHEPP, LRBCF, LLWB, MICHAELLE, LTTG, LACEZ, LIMEL #### Testing performed at [facility] [address] [facility] [place] [address] #### [facility] #### Testing performed at [facility] [address] [facility] [place] [address] Testing performed at [facility] #### LACCGA, [id number], LVB6, LVB1 #### Testing performed at [facility] CRYSTAL NONE Normal NONE [facility] Comment on above: Performed By: #### H EMOG, ESR, CMPF, CPK, CREACT, MG, URIC, B12, TSH2 #### Testing performed at [address] [address] #### LHEPP, LRBCF, LLWB, MICHAELLE, LTTG, LACEZ, LIMEL #### Testing performed at [facility] [place] [address] [place] [address] [place] [address] #### LANCA #### Testing performed at [facility] [address] [place] [address] Testing performed at [facility] #### LACCGA, [id number], LVB6, LVB1 #### Testing performed at [facility] Epithelial cells LM.HPF #/area (Urine sed) 1 TO 5 Normal [facility] Comment on above: Performed By: #### H EMOG, ESR, CMPF, CPK, CREACT, MG, URIC, B12, TSH2 #### Testing performed at [address] [address] #### LHEPP, LRBCF, LLWB, MICHAELLE, LTTG, LACEZ, LIMEL #### Testing performed at [address] [address] #### LANCA #### Testing performed at [address] [address] Testing performed at [facility] #### LACCGA, [id number], LVB6, LVB1 #### Testing performed at [facility] Mucus Ql (Urine sed) Negative Normal NEGATIVE [facility] Comment on above: Performed By: #### H EMOG, ESR, CMPF, CPK, CREACT, MG, URIC, B12, TSH2 #### Testing performed at [address] [address] #### LHEPP, LRBCF, LLWB, MICHAELLE, LTTG, LACEZ, LIMEL #### Testing performed at [address] [address] #### LANCA #### Testing performed at [address] [address] Testing performed at [facility] #### LACCGA, [id number], LVB6, LVB1 #### Testing performed at [facility] RBC #/vol (U) Negative Normal NEGATIVE [facility] Comment on above: Performed By: #### H EMOG, ESR, CMPF, CPK, CREACT, MG, URIC, B12, TSH2 #### Testing performed at [address] [address] #### LHEPP, LRBCF, LLWB, MICHAELLE, LTTG, LACEZ, LIMEL #### Testing performed at [address] [place] [address] #### LANCA #### Testing performed [address] [place] [address] Testing performed at [facility] #### LACCGA, [id number], LVB6, LVB1 #### Testing performed at [facility] URINE COMMENT CULTURE CRITERIA NOT MET, NO CULTURE PERFORMED. Normal [facility] Comment on above: Performed By: #### H EMOG, ESR, CMPF, CPK, CREACT, MG, URIC, B12, TSH2 #### Testing performed at [address] [address] #### LHEPP, LRBCF, LLWB, MICHAELLE, LTTG, LACEZ, LIMEL #### Testing performed at [address] [place] [address] #### LANCA #### Testing performed at [address] [address] Testing performed at [facility] #### LACCGA, [id number], LVB6, LVB1 #### Testing performed at [facility] WBC #/vol (U) Negative Normal NEGATIVE [facility] Comment on above: Performed By: #### H EMOG, ESR, CMPF, CPK, CREACT, MG, URIC, B12, TSH2 #### Testing performed at [address] [address] #### LHEPP, LRBCF, LLWB, MICHAELLE, LTTG, LACEZ, LIMEL #### Testing performed at [facility] [address] [place], [place] [address] [place] [place] [address] #### LANCA #### Testing performed [address] [facility] [place] [address] Testing performed at [facility] #### LACCGA, [id number], LVB6, LVB1 #### Testing performed at [facility] VITAMIN B12on 09-08-2017 Cobalamin (Vitamin B12) mass conc 262 pg/mL Normal 180-914 [facility] Comment on above: Performed By: #### H EMOG, ESR, CMPF, CPK, CREACT, MG, URIC, B12, TSH2 #### Testing performed at [facility] [address] [place] [address] #### LHEPP, LRBCF, LLWB, MICHAELLE, LTTG, LACEZ, LIMEL #### Testing performed at [facility] [address] [place] [address] #### LANCA #### Testing performed at [facility] [address] [place], [place] [address] [place] [address] Testing performed at [facility] #### LACCGA, [id number], LVB6, LVB1 #### Testing performed at [facility] XR FOOT LEFT 3 VIEWSon 09-08 XR FOOT LEFT 3 VIEWS PROCEDURE: LEFT HILDA T RADIOGRAPHS, 09/08/2017 10:58 AM EDT CLINICAL HISTORY: [...] degenerative changes. Small plantar and retrocalcaneal spurs. Normal [facility] XR FOOT RIGHT 3 VIEWSon 08-23 XR FOOT RIGHT 3 VIEWS PROCEDURE: RIGHT FOOT RADIOGRAPHS, 09/08/2017 10:58 AM [...] changes. 4. Small plantar and retrocalcaneal spurs. Normal [facility] XR HANDS-RHEUMATOLOGY EVAL O NLYon 09-08-2017 XR HANDS-RHEUMATOLOGY EVAL ONLY PROCEDURE: BILATERAL HAND RADIOGRAPHS, 09/08/2017 10:58 AM [...] significant right or left hand degenerative changes. Normal [facility] XR SACROILIAC JOINTS MIN 3 V IEWSon 09-08-2017 Protein mass conc PROCEDURE: SACROILIA C JOINT RADIOGRAPHS, 09/08/2017 10:57 AM EDT CLINICAL HISTORY: Chronic joint pain. Rheumatology assessment. TECHNIQUE: 3 view(s), 4 image(s). COMPARISON: None. RESULT: There is no acute fracture or osseous malalignment. Sacroiliac joints are intact and symmetric. No erosive osseous changes. Scattered surgical pelvic clips are seen. Prominent symmetric transverse processes of L5. IMPRESSION: No acute osseous abnormality. No erosive osseous changes. Normal [facility] XR SHOULDER LEFT MIN 2 VIEWS on 09-08-2017 Thyrotropin Qn PROCEDURE: LEFT SHOU LDER RADIOGRAPHS, 09/08/2017 10:57 AM EDT CLINICAL HISTORY: Chronic joint pain. Rheumatology assessment. TECHNIQUE: 3 view(s), 3 image(s). COMPARISON: Right shoulder radiographs performed concurrently. RESULT: There is no acute fracture or osseous malalignment. Osseous mineralization is normal. Joint spaces are maintained. Acromiohumeral interval is normal. Soft tissues are within normal limits. IMPRESSION: Unremarkable left shoulder radiographs. Normal [facility] XR SHOULDER RIGHT MIN 2 VIEW Son 09-08-2017 Thyrotropin Qn PROCEDURE: RIGHT BAYRON ULDER RADIOGRAPHS, 09/08/2017 10:57 AM EDT CLINICAL HISTORY: Chronic joint pain. Rheumatology assessment. TECHNIQUE: 3 view(s), 3 image(s). COMPARISON: Left shoulder radiographs performed concurrently RESULT: There is no acute fracture or osseous malalignment. Osseous mineralization is normal. Joint spaces are maintained. Acromiohumeral interval is normal. Soft tissues are within normal limits. IMPRESSION: Unremarkable right shoulder radiographs. Normal [facility] XR SPINE CERVICAL 4 VIEWSon 09-08-2017 XR SPINE CERVICAL 4 VIEWS PROCEDURE: CERVICAL SPINE RADIOGRAPHS, 09/08/2017 AT 10:57 [...] findings. No significant cervical spine degenerative changes. Normal [facility] XR SPINE THORACIC 2 VIEWSon 09-08-2017 XR SPINE THORACIC 2 VIEWS PROCEDURE: THORACIC SPINE RADIOGRAPHS, 09/08/2017 10:57 AM EDT CLINICAL HISTORY: Chronic back pain. Rheumatology assessment. TECHNIQUE: 3 view(s), 3 image(s). COMPARISON: None. RESULT: Counting reference: First rib. There are 12 bilateral rib-bearing thoracic vertebral bodies. There is no acute [...] thoracic spine with mild multilevel degenerative changes. Normal [facility] XR WRIST LEFT AP AND LATERAL on 09-08-2017 Protein mass conc PROCEDURE: LEFT WRIS T RADIOGRAPHS, 09/08/2017 AT 10:58 AM EDT CLINICAL HISTORY: Chronic joint pain. Rheumatology assessment. TECHNIQUE: 2 view(s), 2 image(s). COMPARISON: None. RESULT: There is no acute fracture or osseous malalignment. Osseous mineralization is normal. No erosive osseous changes. Joint spaces are preserved. Soft tissues are unremarkable. IMPRESSION: No acute osseous abnormality. No erosive osseous changes. No significant degenerative changes. Normal [facility] XR WRIST RIGHT AP AND LATERA Jalen 09-08-2017 Protein mass conc PROCEDURE: RIGHT WRI ST RADIOGRAPHS, 09/08/2017 10:58 AM EDT CLINICAL HISTORY: Chronic joint pain. Rheumatology assessment. TECHNIQUE: 2 view(s), 2 image(s). COMPARISON: Left wrist radiographs performed concurrently. RESULT: There is no acute fracture or osseous malalignment. No erosive osseous changes. Osseous mineralization is normal. Joint spaces are maintained. Soft tissues are within normal limits. IMPRESSION: No acute osseous abnormality. No erosive osseous changes. No significant degenerative changes. Normal [facility] MRI BRAIN WO IVCONon 017 MRI BRAIN WO IVCON * * *Final Report* * *DATE OF EXAM: Feb 06 2017 11:40AM ANDRAE 0294 - MRI BRAIN WO IVCON / REASON: blurred and double vision, tingling in hands and feet * * * * Physician Interpretation * * * * History: Diplopia, peripheral sense of numbnessComparison: None.Parameters: MR of the brain without contrastMR Contrast: NoneRESULTS:There is patchy high signal intensity identified in the mastoids, more prominent on the left. This has the appearance of inflammatory change. The paranasal sinuses are unremarkable.The brain is normal. Specifically, there is no evidence of abnormal parenchymal signal intensity, blood byproducts or abnormal extracerebral fluid. There is no evidence of restricted diffusion.Normal flow voids are identified in the region of the juxtasellar carotids and vertebral basilar arteries. There is a 5 mm ovoid area of signal loss in the left parasellar location sequence 8 image 20 which is likely a concatenation of overlapping structures as I cannot identify it on any of the other sequences or establish consistent anatomic continuity on the slice above or below.IMPRESSION:1. Chronic mastoiditis left worse than right2. No acute intracranial changes3.Sludge Filtration Attendant: ALONSO Transcribe Date/Time: Feb 06 2017 12:13PDictated by : JUAN CISNEROS MDThis examination was interpreted and the report reviewed and electronically signed by: JUAN CISNEROS MD on Feb 06 2017 12:22PM [id number] Normal [facility] PROGRESSon 12-15-2017 PROGRESS HNO ID: [id number] thor: Mary Jane Hawley RtService: (none)Author Type: (none)Type: Progress NotesFiled: 02/06/2017 11:42 AMNote Text: Radiology Service Progress NotePATIENT NAME: Cassandra AugusteMRN: [id number] OF SERVICE: February 06, 2017TIME: 11:42 AMPATIENT IDENTITY VERIFICATION COMPLETED USING TWO (2) METHODS: Patientconfirmed name verbally and Date of .PATIENT GENDER DATA: Female. status: : NoBreastfeeding status: NO.PATIENT RELEVANT IMPLANT DATA REVIEWED: YesRADIOLOGY DEPARTMENT: MR; Exam(s) Completed: Head: Multiple SclerosisPERIPHERAL IV DATA: No iv accessSIGNED BY: Mary Jane Hawley RtDecemelinda 2016 11:42 AM Normal [facility] Non-Scanner Operator Cytology Reporton Non-Scanner Operator Cytology Report . Pathology ReportsAccession: Collected Date/Time: Received Date/Time: Pathologist:[id number] 12/19/2016 10:55 EDT 12/22/2016 12:06 EDT MD TAYO ACKERMAN Non-Scanner Operator Cytology ReportCLINICAL INFORMATION:NONTOXIC SINGLE THYROID [id number]:NEGAT MARI FOR MALIGNANCYNEUTROPHILS, MACROPHAGES, VERY RARE FOLLICULAR CELLSSPECIMEN:FINE NEEDLE ASPIRATION, LEFT THYROID NODULEGROSS DESCRIPTION:# of Blocks: 1# of Monolayers: 1Volume (ml) 30 Color: FIXED PINK FLUIDElectronically Signed byPathology report verified by [facility] Centercreened by: ARI DWElectronically signed by TAYO ACKERMAN MDSign-Out Date: 12/23/2016 14:49Performing Lab: [facility], [address] [place] [address] ([place]) Comment on above: Performed By: #### N GCR ####[place] [address] Non-Scanner Operator Cytology Reporton Non-Scanner Operator Cytology Report . Pathology ReportsAccession: Collected Date/Time: Received Date/Time: Pathologist:[id number] 12/05/2016 10:19 EDT 12/08/2016 12:49 EDT MD WADE DUQUE Non-Scanner Operator Cytology ReportCLINICAL INFORMATION:LEFT THYROID [id number]:UNSAT ISFACTORY SPECIMEN DUE TO LACK OF CELLULARITYSPECIMEN:FINE NEEDLE ASPIRATION, LEFT THYROID NODULEGROSS DESCRIPTION:# of Blocks: 1# of Monolayers: 1Volume (ml) 40 Color: fixed cloudy pale yellow fluidElectronically Signed byPathology report verified by [facility] Centercreened by: LS MGSElectronically signed by WADE DUQUE MDSign-Out Date: 12/09/2016 12:01Performing Lab: [facility], [address] [place] [address] Normal [facility] ([place]) Comment on above: Performed By: #### N GCR ####[place] [address] Discharge Summaryon 09-10-19 17 Discharge Summary Normal [facility] ([place]) Operative Noteon 09-09-2016 Operative Note Normal [facility] ([place]) Depart Summaryon 09-06-2016 Depart Summary Normal [facility] ACCOUNTS PAYABLE MANAGER Rounding Noteon 09-07-19 17 ACCOUNTS PAYABLE MANAGER Rounding Note Normal [facility] Inpatient Patient Summaryon 09-06-2016 Inpatient Patient Summary Normal [facility] Basic Metabolic Panelon 08-23 BUN/Creatinine Ratio 14.8 mg/mg Normal 10.0-22.0 [facility] Comment on above: Order Comment: AM Dr charles Performed By: #### P RO ####[address] [address] Creatinine 0.54 mg/dL Normal 0.50-1.20 [facility] Comment on above: Order Comment: AM Dr charles Performed By: #### P RO ####[address] [address] CO2 27 mmol/L Normal 22-32 [facility] Comment on above: Order Comment: AM Dr charles Performed By: #### P RO ####[address] [address] Electrolyte Balance 9.0 mEq/L Normal 4.0-15.0 [facility] Comment on above: Order Comment: AM aw Performed By: #### P RO ####[facility], [address] [place] [address] Glucose mass conc 109 mg/dL Normal 70-110 [facility] Comment on above: Order Comment: SMITH charles Performed By: #### P RO ####[facility] [address] [place] [address] Urea nitrogen 8.0 mg/dL Normal 8.0-22.0 [facility] Comment on above: Order Comment: AM Dr charles Performed By: #### P RO ####[facility], [address] [place] [address] Calcium 8.1 mg/dL Low 8.4-10.1 [facility] Comment on above: Order Comment: SMITH charles Performed By: #### P RO ####[address] [address] Chloride 105 mmol/L Normal 98-110 [facility] Comment on above: Order Comment: SMITH charles Performed By: #### P RO ####[address] [address] Potassium molar conc 3.8 mmol/L Normal 3.5-5.0 [facility] Comment on above: Order Comment: SMITH charles Performed By: #### P RO ####[address] [address] Sodium 141 mmol/L Normal 136-145 [facility] Comment on above: Order Comment: SMITH charles Performed By: #### P RO ####[address] [address] CBCon 09-05-2016 Basophils/100 WBC Auto (Bld) 0.1 % Normal 0.0-2.5 [facility] Comment on above: Order Comment: SMITH charles Performed By: #### P RO ####[place] [id number] [place] [address] Eosinophils/100 leukocytes 0.0 % Normal 0.0-6.0 [facility] Comment on above: Order Comment: SMITH charles Performed By: #### P RO ####[facility] [address] [place] [address] Erythrocyte distribution width Auto Ratio (RBC) 16.7 % High 11.5-15.5 [facility] Comment on above: Order Comment: SMITH charles Performed By: #### P RO ####[address] [address] Erythrocytes (RBC) 3.86 10 6/mcL Low 4.10-5.30 [facility] Comment on above: Order Comment: SMITH charles Performed By: #### P RO ####[address] [address] Hematocrit (HCT) 29.2 % Low 34.0-46.0 [facility] Comment on above: Order Comment: SMITH charles Performed By: #### P RO ####[place] [id number] Hemoglobin mass conc (Bld) 9.2 G/dL Low 12.0-16.0 [facility] Comment on above: Order Comment: SMITH charles Performed By: #### P RO ####[address] [address] Lymphocytes/100 leukocytes 13.5 % Low 20.0-40.0 [facility] Comment on above: Order Comment: SMITH charles Performed By: #### P RO ####[address] [address] MCH 23.8 pg Low 27.0-33.0 [facility] Comment on above: Order Comment: SMITH charles Performed By: #### P RO ####[address] [address] MCHC mass conc (RBC) 31.4 G/dL Low 32.0-36.0 [facility] Comment on above: Order Comment: SMITH charles Performed By: #### P RO ####[address] [address] MCV 75.8 fL Low 80.0-99.0 [facility] Comment on above: Order Comment: SMITH charles Performed By: #### P RO ####[facility] [address] [place] [address] Monocytes/100 leukocytes 9.8 % Normal 2.0-13.0 [facility] Comment on above: Order Comment: SMITH charles Performed By: #### P RO ####[address] [address] Neutrophils 12.40 10 3/mcL High 1.90-7.90 [facility] Comment on above: Order Comment: AM Dr charles Performed By: #### P RO ####[facility], [address] [place] [address] Neutrophils/100 WBC Auto (Bld) 76.6 % High 50.0-75.0 [facility] Comment on above: Order Comment: SMITH charles Performed By: #### P RO ####[address] [address] Platelet mean volume (PMV) 8.7 fL Normal 6.6-10.5 [facility] Comment on above: Order Comment: SMITH charles Performed By: #### P RO ####[address] [address] Platelets 256 10 3/mcL Normal 150-450 [facility] Comment on above: Order Comment: SMITH charles Performed By: #### P RO ####[address] [address] WBC (Leukocytes) 16.10 10 3/mcL High 4.50-10.80 [facility] Comment on above: Order Comment: SMITH charles Performed By: #### P RO ####[address] [address] Glomerular Filtration Rate E stimateon 09-05-2016 eGFR (non-black) mL/min/{1.73_m2} Normal [facility] Comment on above: Order Comment: SMITH charles Result Comment: [place] mean GFR = 99 mL/min/1.73 sq.m. for ages 40-49 years. Chronic Kidney Disease: Less than 60 mL/min/1.73 square metersEnd Stage Renal Disease: Less than 15 mL/min/1.73 square meters Performed By: #### P RO ####[facility], [address] [place] [address] Patient Navigator Noteon Patient Navigator Note Normal [facility] Main OR Anesthesia Recordon 09-04-2016 Main OR Anesthesia Record Normal [facility] Main OR Intraop Recordon Main OR Intraop Record Normal [facility] Pathology Surgicalon 017 Pathology Surgical SEE BELOW [facility] Department of Pathology [address] [place] [address] NAME: CASSANDRA AUGUSTE 1975 ACCESSION NO: [id number]:A) ABDOMINAL PANNICULUS AND SKIN.B) UTERUS (305 GRAMS): - WELL DIFFERENTIATED ENDOMETRIOID ADENOCARCINOMA WITH SQUAMOUS MORULES INVOLVING ENDOMETRIUM AND FOCALLY AN ENDOMETRIAL POLYP. BILATERAL OVARIES ONE WITH A DERMOID CYST AND BILATERAL FALLOPIANTUBES WITH A PARATUBAL CYST.C) CUL-DE-SAC BIOPSY: - NEGATIVE FOR MALIGNANCY.D) UPPER VAGINAL BIOPSY: - NEGATIVE FOR MALIGNANCY.E) ONE LEFT PELVIC LYMPH NODE: - NEGATIVE FOR METASTASIS.F) ONE BRIGID-AORTIC LYMPH NODE: - NEGATIVE FOR METASTASIS.G) RIGHT PELVIC FIBROFATTY TISSUE: - LYMPH NODE NOT IDENTIFIED.CASE SUMMARY:SPECIMEN: UTERUSPROCEDURE: HYSTERECTOMY AND BILATERAL SALPINGO-OOPHORECTOMYLYMPH NODE SAMPLING: PELVIC AND BRIGID-AORTICSPECIMEN INTEGRITY: INTACTTUMOR SIZE: 7.5 CM.HISTOLOGIC GRADE: 1MYOMETRIAL INVASION: LESS THAN ONE-HALF OF MYOMETRIUM (1 MM ) INVASION.INVOLVEMENT OF CERVIX: ABSENTLYMPHOVASCULAR INVASION: ABSENTPELVIC LYMPH NODES: ONE LEFT PELVIC NODE NEGATIVE FOR METASTASIS.BRIGID-AORTIC NODES: ONE BRIGID-AORTIC LYMPH NODE NEGATIVE FOR METASTASIS.TN CLASSIFICATIONpT=1apN= 0CLINICAL INFORMATION:PROCEDURE: TOTAL ABDOMINAL HYSTERECTOMY / BILATERALSALPINGO-OOPHORECT LUIZ / PELVIC LYMPH NODE DISSECTION / PANNICULECTOMYPRE-OP DX: UTERINE CANCERPOST-OP DX: SAMESPECIMEN: A) PANNICULUS B) UTERUS BILATERAL TUBES AND OVARIES C) CUL-DE-SAC BIOPSY D) TISSUE , UPPER VAGINA E) LYMPH NODE , LEFT PELVIC F) LYMPH NODE , BRIGID-AORTIC G) LYMPH NODE , RIGHT PELVICGROSS DESCRIPTION:Received labeled: Cassandra Auguste MA) Received in formalin labeled "pannis" is a 2940 gram, 69.5 x 21 x5.5 cm elliptical portion of yellow fatty subcutaneous tissue partiallysurfaced by huang skin. The skin surface shows several striations.Sectioning shows grossly unremarkable fatty cut surfaces.Makeup Editor section(s) submitted in one cassette.B) Received in formalin labeled "uterus with bilateral tubes andovaries" is a 305 gram, 13.2 x 7.3 x 6 cm previously opened uterusalong the anterior-posterior plane with attached cervix, and previouslyamputated bilateral adnexa. The serosa is red-pink and ranges fromsmooth to rough. The cervix is 3.6 cm in greatest diameter with a 1.5cm slit-like os. The ectocervix is huang, smooth and glistening. Theendocervix is huang, glistening and trabeculated. The transformation zoneappears grossly unremarkable. The uterine cavity displays a 7.5 x 6 xup to 2.1 cm huang irregular flat to excrescence tumor that comes towithin 7.5 cm of the distal cervical margin, and more than 2.5 cm fromthe closest lateral margin. Sectioning shows the tumor appears to becontained to the inner half of the myometrium. The underlyingmyometrium is huang-pink, soft and measures up to 2.2 cm in thickness.Block summary:1-4 - anterior wall 1 - cervix and endocervix 2&3 - one full thickness section with most excrescent portion oftumor 4 - one full thickness section5-9 - posterior wall 5 - cervix and endocervix 6 - one full thickness section 7&8 - one full thickness section 9 - rough serosal [id number] - smaller ovary with fallopian tube and paratubal [id number] - larger ovary with two cystic structures, fallopian tube andparatubal cystOne ovary is 2.9 x 2.4 x 2.0 cm with a huang-pink smooth to cerebriformouter surface. Sectioning shows a 1.5 cm clear, fluid-filled,thin-walled cyst. The attached fallopian tube is 4.5 cm in length witha fimbriated end and a pinpoint lumen. The mesovarium shows a fewparatubal cysts measuring up to 1.2 cm in greatest dimension. The otherovary is 4.2 x 3.7 x 3.2 cm with a pink smooth and cerebriform outersurface. Sectioning shows a 3.2 cm clear, fluid-filled, thin-walledcyst and a 2 cm in greatest dimension thin-walled cyst filled withpale-yellow greasy material. The remaining ovary appears grosslyunremarkable. The attached fallopian tube is 5.5 cm in length with afimbriated end and a pinpoint lumen. The mesosalpinx shows a few clear,fluid-filled, thin-walled cysts measuring up to 0.7 cm in greatestdimension. Makeup Editor section(s) submitted in fourteen cassettes.C) Received in formalin labeled "cul-de-sac" is a 1.6 x 1.5 x 0.8 cmpink-huang soft to rubbery tissue. Sectioned and entirely submitted inone cassette.D) Received in formalin labeled "upper vagina" is a 1.1 cm in greatestdimension huang soft tissue. All submitted in one cassette.E) Received in formalin labeled "left pelvic lymph node" is a 2 x 1.8 x1 cm portion of yellow lobular adipose tissue. Sectioning shows asingle possible lymph node. The possible lymphoid tissue is entirelysubmitted in one cassette.F) Received in formalin labeled "brigid-aortic lymph node" is a 2.5 x 1.4x 0.8 cm aggregate of yellow adipose tissue. Sectioning shows a singlepossible lymph node which is bisected. The possible lymphoid tissue isentirely submitted in one cassette.G) Received in formalin labeled "right pelvic lymph node" is a 1.4 x 1x 0.3 cm portion of yellow adipose tissue. No lymphoid tissue isidentified. All submitted in one cassette. dictated by AlexusMICROSCOPIC DESCRIPTION:Slides Reviewed.CPT: 92448 / 11250 / 54137 X5 PETER JEAN-BAPTISTE DO, PATHOLOGIST Page 1 of 1 Normal [facility] Comment on above: Performed By: #### P RO ####[facility], [address] [place] [address] Procedure Noteon 09-04-2016 Procedure Note Normal [facility] ([place]) History and Physical (Blank) on 09-02-2016 History and Physical (Blank) Normal [facility] ([place] XR CHEST 2 VIEWSon 7 XR CHEST 2 VIEWS ORIGINALXR CHEST 2 V IEWS CLINICAL STATEMENT: Short of breath COMPARISON: None FINDINGS: Cardiomediastinal silhouette is within normal limits.No pleural effusion, pneumothorax, or consolidation. IMPRESSION: 1. No acute radiographic finding. Interpreted By: Fiona Olsen MDPreliminary Report By: Fiona Olsen MDElectronically Signed By: Fiona Olsen MD Dictated Date: 08/29/2016 9:32:07 AM Prelim Date: 08/29/2016 9:32:07 AM Sign Date: 08/29/2016 9:32:50 AM Normal [facility] CBCon 08-28-2016 Basophils/100 WBC Auto (Bld) 0.5 % Normal 0.0-2.5 [facility] Comment on above: Performed By: #### C BC ####[address] [address] Eosinophils/100 leukocytes 3.3 % Normal 0.0-6.0 [facility] Comment on above: Performed By: #### C BC ####[address] [address] Erythrocyte distribution width Auto Ratio (RBC) 16.4 % High 11.5-15.5 [facility] Comment on above: Performed By: #### C BC ####[address] [address] Erythrocytes (RBC) 4.48 10 6/mcL Normal 4.10-5.30 [facility] Comment on above: Performed By: #### C BC ####[address] [address] Hematocrit (HCT) 33.9 % Low 34.0-46.0 [facility] Comment on above: Performed By: #### C BC ####[address] [address] Hemoglobin mass conc (Bld) 10.9 G/dL Low 12.0-16.0 [facility] Comment on above: Performed By: #### C BC ####[address] [address] Lymphocytes/100 leukocytes 27.6 % Normal 20.0-40.0 [facility] Comment on above: Performed By: #### C BC ####[facility], [address] [place] [address] MCH 24.4 pg Low 27.0-33.0 [facility] Comment on above: Performed By: #### C BC ####[facility], [address] [place] [address] MCHC mass conc (RBC) 32.3 G/dL Normal 32.0-36.0 [facility] Comment on above: Performed By: #### C BC ####[facility], [address] [place] [address] MCV 75.5 fL Low 80.0-99.0 [facility] Comment on above: Performed By: #### C BC ####[facility], [address] [place] [address] Monocytes/100 leukocytes 6.5 % Normal 2.0-13.0 [facility] Comment on above: Performed By: #### C BC ####[facility], [address] [place] [address] Neutrophils 7.10 10 3/mcL Normal 1.90-7.90 [facility] Comment on above: Performed By: #### C BC ####[facility], [address] [place] [address] Neutrophils/100 WBC Auto (Bld) 62.1 % Normal 50.0-75.0 [facility] Comment on above: Performed By: #### C BC ####[facility], [address] [place] [address] Platelet mean volume (PMV) 9.2 fL Normal 6.6-10.5 [facility] Comment on above: Performed By: #### C BC ####[address] [address] Platelets 252 10 3/mcL Normal 150-450 [facility] Comment on above: Performed By: #### C BC ####[facility], [address] [place] [address] WBC (Leukocytes) 11.50 10 3/mcL High 4.50-10.80 [facility] Comment on above: Performed By: #### C BC ####[facility], [address] [place], [place] [address] Comp. Metabolic Panelon 07-0 Alk. Phosphatase 72 U/L Normal 38-126 [facility] Comment on above: Performed By: #### C MP ####[facility], [address] [place] [address] Albumin/Globulin Ratio 0.8 {ratio} Low 0.9-1.6 [facility] Comment on above: Performed By: #### C MP ####[facility], [address] [place], [place] [address] Bilirubin (direct) 0.3 mg/dL Normal 0.2-1.2 Replaced by [facility] Comment on above: Performed By: #### C MP ####[place] [address] Globulin 3.9 G/dL High 1.5-3.8 [facility] Comment on above: Performed By: #### C MP ####[place] [address] T. Protein 7.2 G/dL Normal 6.0-8.5 [facility] Comment on above: Performed By: #### C MP ####[place] [address] BUN/Creatinine Ratio 13.0 mg/mg Normal 10.0-22.0 [facility] Comment on above: Performed By: #### C MP ####[facility], [address] [place] [address] Creatinine 0.69 mg/dL Normal 0.50-1.20 [facility] Comment on above: Performed By: #### C MP ####[place] [id number] Alanine aminotransferase (ALT) 23 U/L Normal 10-49 [facility] Comment on above: Performed By: #### C MP ####[place] [address] Aspartate aminotransferase (AST) 13 U/L Normal 8-34 [facility] Comment on above: Performed By: #### C MP ####[facility], [address] [place] [address] Albumin 3.3 G/dL Normal 3.2-4.8 [facility] Comment on above: Performed By: #### C MP ####[facility], [address] [place] [address] CO2 28 mmol/L Normal 22-32 [facility] Comment on above: Performed By: #### C MP ####[facility], [address] [place] [address] Electrolyte Balance 7.0 mEq/L Normal 4.0-15.0 [facility] Comment on above: Performed By: #### C MP ####[address] [address] Glucose mass conc 107 mg/dL Normal 70-110 [facility] Comment on above: Performed By: #### C MP ####[facility], [address] [place] [address] Urea nitrogen 9.0 mg/dL Normal 8.0-22.0 [facility] Comment on above: Performed By: #### C MP ####[address] [address] Calcium 9.0 mg/dL Normal 8.4-10.1 [facility] Comment on above: Performed By: #### C MP ####[facility], [address] [place] [address] Chloride 104 mmol/L Normal 98-110 [facility] Comment on above: Performed By: #### C MP ####[facility], [address] [place] [address] Potassium molar conc 3.8 mmol/L Normal 3.5-5.0 [facility] Comment on above: Performed By: #### C MP ####[address] [address] Sodium 139 mmol/L Normal 136-145 [facility] [facility] Comment on above: Performed By: #### C MP ####[facility], [address] [place] [id number] Glomerular Filtration Rate E stimateon 08-28-2016 eGFR (non-black) mL/min/{1.73_m2} Normal [facility] Comment on above: Performed By: #### G FR ####[facility], [address] [place] [id number] Result Comment: [place] mean GFR = 99 mL/min/1.73 sq.m. for ages 40-49 years. Chronic Kidney Disease: Less than 60 mL/min/1.73 square metersEnd Stage Renal Disease: Less than 15 mL/min/1.73 square meters Protimeon 08-28-2016 INR Coag RelTime (PPP) 1.0 {INR} Normal [facility] Comment on above: Result Comment: [employer] (CHEST,1992,[id number])recommended therapeutic range for oral anticoagulant therapy is:LOW RISK: Prophylaxis of venous thrombosis INR: 2.0-3.0 Treatment of pulmonary embolism 2.0-3.0 Prevention of systemic embolism 2.0-3.0HIGH RISK: Mechanical prosthetic valves 2.5-3.5 Performed By: #### P RO ####[facility], [address] [place] [id number] Prothrombin time (PT) Coag time (PPP) 11.1 s Normal 9.0-14.4 [facility] Comment on above: Result Comment: Effe ctive 09/07/07, Protime results may be affected by someantibiotics (i.e. Ciprofloxacin, Azithromycin, Bactrim) whichmay potentiate the action of oral anticoagulants, withfurther increases in Protime/INR. Performed By: #### P RO ####[facility], [address] [place] [id number] Type and Screenon 08-28-2016 AB Screen/Indirect AHG Negative Normal [facility] Comment on above: Performed By: #### T S ####[address] [address] Patient ABO/RH Positive Normal [facility] Comment on above: Performed By: #### T S ####[facility], [address] [place] [address] Vital Signs Date Time Vital Sign Value Performing Clinician Facility 06-24-2022 07:57-0400 Body height 177.8 cm Rosendo Rosales MD Work Phone: [facility] 06-24-2022 07:57-0400 Body mass index (BMI) [Ratio] 50.08 kg/m2 Rosendo Rosaels MD Work Phone: [facility] 06-24-2022 07:57-0400 Body temperature 98.6 [degF] Rosendo Rosales MD Work Phone: [facility] 06-24-2022 07:57-0400 Body weight 158.31 kg Rosendo Rosales MD Work Phone: [facility] 05-21-2022 09:00-0400 Body height 177.8 cm Rosendo Rosales MD Work Phone: [facility] 05-21-2022 09:00-0400 Body mass index (BMI) [Ratio] 49.93 kg/m2 Rosendo Rosales MD Work Phone: [facility] 05-21-2022 09:00-0400 Body temperature 98.6 [degF] Rosendo Rosales MD Work Phone: [facility] 05-21-2022 09:00-0400 Body weight 157.85 kg Rosendo Rosales MD Work Phone: [facility] 02-18-2022 09:07-0500 Body height 177.[address] Tala Allen Work Phone: [facility] 02-18-2022 09:07-0500 Body mass index (BMI) [Ratio] 53.1 kg/m2 Dr. Tala Allen Work Phone: [facility] 02-18-2022 09:07-0500 Body temperature 98.8 [degF] Dr. Tala Allen Work Phone: [facility] 02-18-2022 09:07-0500 Body weight 167.[address] Tala Allen Work Phone: [facility] 02-18-2022 09:07-0500 Diastolic blood pressure 100 mm[Hg] Dr. Tala Allen Work Phone: [facility] 02-18-2022 09:07-0500 Heart rate 125 /min Dr. Tala Allen Work Phone: [facility] 02-18-2022 09:07-0500 Respiratory rate 18 /min Dr. Tala Allen Work Phone: [facility] 02-18-2022 09:07-0500 SaO2% (BldA) [Mass fraction] 93 % Dr. Tala Allen Work Phone: [facility] 02-18-2022 09:07-0500 Systolic blood pressure 140 mm[Hg] Dr. Tala Allen Work Phone: [facility] 11-14-2019 11:39-0400 BMI (Body Mass Index) 50.36 kg/m2 [facility] 11-14-2019 11:39-0400 Body Temperature 98.29 [degF] [facility] 11-14-2019 11:39-0400 Body weight 159.21 kg [facility] 11-14-2019 11:39-0400 BP Diastolic 88 mm[Hg] [facility] 11-14-2019 11:39-0400 BP Systolic 166 mm[Hg] [facility] 11-14-2019 11:39-0400 Height 177.8 cm [facility] 11-14-2019 11:39-0400 Pulse (Heart Rate) 105 /min [facility] 11-14-2019 11:39-0400 Pulse Oximetry 97 % [facility] 07-11-2019 15:51-0400 BMI (Body Mass Index) 51.51 kg/m2 [facility] 07-11-2019 15:51-0400 Body Temperature 97.11 [degF] [facility] 07-11-2019 15:51-0400 Body weight 162.84 kg [facility] 07-11-2019 15:51-0400 BP Diastolic 98 mm[Hg] [facility] 07-11-2019 15:51-0400 BP Systolic 158 mm[Hg] [facility] 07-11-2019 15:51-0400 Height 177.8 cm [facility] 07-11-2019 15:51-0400 Pulse (Heart Rate) 82 /min [facility] 07-11-2019 15:51-0400 Pulse Oximetry 98 % [facility] 12-06-2018 09:51-0400 BMI (Body Mass Index) 50.45 kg/m2 [facility] 12-06-2018 09:51-0400 Body Temperature 98.2 [degF] [facility] 12-06-2018 09:51-0400 Body weight 159.49 kg [facility] 12-06-2018 09:51-0400 BP Diastolic 78 mm[Hg] [facility] 12-06-2018 09:51-0400 BP Systolic 128 mm[Hg] [facility] 12-06-2018 09:51-0400 Pulse (Heart Rate) 79 /min [facility] 12-06-2018 09:51-0400 Pulse Oximetry 98 % [facility] 08-06-2018 10:54-0400 BMI (Body Mass Index) 49.44 kg/m2 [facility] 08-06-2018 10:54-0400 Body Temperature 97.59 [degF] [facility] 08-06-2018 10:54-0400 Body weight 156.31 kg [facility] 08-06-2018 10:54-0400 BP Diastolic 84 mm[Hg] [facility] 08-06-2018 10:54-0400 BP Systolic 164 mm[Hg] [facility] 08-06-2018 10:54-0400 Pulse (Heart Rate) 89 /min [facility] 08-06-2018 10:54-0400 Pulse Oximetry 97 % [facility] 05-05-2018 10:36-0400 BMI (Body Mass Index) 46.2 kg/m2 [facility] 05-05-2018 10:36-0400 Body Temperature 97.9 [degF] [facility] 05-05-2018 10:36-0400 Body weight 146.06 kg [facility] 05-05-2018 10:36-0400 BP Diastolic 80 mm[Hg] [facility] 05-05-2018 10:36-0400 BP Systolic 128 mm[Hg] [facility] 05-05-2018 10:36-0400 Pulse (Heart Rate) 94 /min [facility] 05-05-2018 10:36-0400 Pulse Oximetry 97 % [facility] Encounters Encounter Date Encounter Type Care Provider Facility Start: 09-08-2024 ambulatory [facility] Facility:[facility] Start: 09-26-2023 End: 09-26-2023 ambulatory [facility] Facility:[facility] Start: 06-16-2023 End: 06-16-2023 ambulatory [facility] Work Phone: Start: 06-16-2023 End: 06-16-2023 [facility] Start: 03-31-2023 End: 03-31-2023 ambulatory [facility] Work Phone: Start: 03-31-2023 End: 03-31-2023 [facility]: Start: 08-09-2022 ambulatory ROSENDO ROSALES [facility] Amb[facility] Start: 06-24-2022 End: 06-24-2022 ambulatory ROSENDO ROSALES [facility] Amb[facility] Start: 06-24-2022 End: 06-24-2022 Postop follow up visit related to original px Rosendo Rosales MD Work Phone: [facility] [place] Comment on above: Disorder of both eus tachian tubes (Primary Dx); Bilateral chronic serous otitis media; Conductive hearing loss of left ear with unrestricted hearing of right ear Start: 06-07-2022 End: 06-07-[address] Tala Allen Work Phone: [facility] Work Phone: Start: 06-07-2022 End: 06-07-[address] Tala Allen Work Phone: [facility] Start: 06-06-2022 End: 06-06-2022 ambulatory ROSENDO MOLINA [facility] Start: 06-04-2022 Preprocedural examin ation done Rosendo Rosales MD Work Phone: [facility] Start: 06-04-2022 End: 06-08-2022 [facility] Start: 06-04-2022 End: 06-08-2022 Encounter for other preprocedural examination NATA VALENTINO [facility] Start: 06-03-2022 End: 06-03-[address] Tala Allen Work Phone: [facility] Work Phone: Start: 06-03-2022 End: 06-03-[address] [facility] Start: 05-21-2022 End: 05-21-2022 ambulatory ROSENDO MOLINA ROSALES [facility] Start: 05-21-2022 End: 05-21-2022 Office outpatient new 45 minutes Rosendo Rosales MD Work Phone: [facility] [place] Comment on above: Bilateral chronic se paul otitis media (Primary Dx); Disorder of both eustachian tubes; Allergic rhinitis, unspecified seasonality, unspecified trigger; Nasal turbinate hypertrophy; Conductive hearing loss of left ear with unrestricted hearing of right ear Start: 03-31-2022 End: 03-31-[address] Tala Allen Work Phone: [facility] Work Phone: Start: 03-31-2022 End: 03-31-[address] Tala Allen Work Phone: [facility]Out[facility] Start: 03-13-[address] Tala oliveros Work Phone: [facility] Start: 02-18-2022 End: 02-18-[address] Tala Allen Work Phone: [facility] Start: 01-13-2022 End: 01-13-2022 ambulatory [facility] Work Phone: Start: 01-13-2022 End: 01-13-2022 Patient encounter procedure [facility] [place] [facility] [employer] Start: 11-14-2019 End: 11-14-2019 Office outpatient visit 25 minutes Tamia Dawson Work Phone: [facility] Comment on above: Rheumatoid arthritis of multiple sites with negative rheumatoid factor (Primary Dx); Cervicalgia; Dorsalgia; Paresthesia of both hands; Bilateral carpal tunnel syndrome; Bilateral foot pain; Disorder of bone and cartilage; Osteoarthritis of both feet, unspecified osteoarthritis type; Chronic pain of both shoulders; Bilateral biceps tendonitis; Subacromial bursitis; Bilateral wrist pain; Bilateral hand pain; Weakness of both hands; Bilateral lower extremity edema; Lymphedema of both lower extremities; Bilateral temporomandibular joint pain; Malignant neoplasm of endometrium; ESR raised; History of fibromyalgia; History of rheumatoid arthritis; Fatigue, unspecified type; [facility] current use of non-steroidal anti-inflammatories (NSAID); Anxiety; CRP elevated; Fibromyalgia; Migraine without status migrainosus, not intractable, unspecified migraine type; Gastroesophageal reflux disease, esophagitis presence not specified; Inflammatory arthritis; Positive PPD, treated; Other long term care administrator (current) drug therapy; Lymphedema, not elsewhere classified; Long-term current use of high risk medication other than anticoagulant; 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-inflammatories (nsaid); Localized edema; Vitamin D deficiency; Gouty arthritis; Chronic gout of multiple sites, unspecified cause; TTS (tarsal tunnel syndrome), unspecified laterality; Other osteoarthritis involving multiple joints; Thoracic degenerative disc disease; Thoracogenic scoliosis of thoracic region; Primary osteoarthritis, right ankle and foot; Primary osteoarthritis, left ankle and foot; Osteoarthritis of thoracic spine, unspecified spinal osteoarthritis complication status; Osteoarthritis of multiple joints, unspecified osteoarthritis type; Gouty arthropathy; Calcaneal spur of left foot; Calcaneal spur of foot, right; Calcaneal spur of foot, left Start: 07-11-2019 End: 07-11-2019 Office outpatient visit 40 minutes Tamia Dawson Work Phone: [facility] Comment on above: Rheumatoid arthritis of multiple sites with negative rheumatoid factor (Primary Dx); Positive PPD, treated; History of fibromyalgia; History of rheumatoid arthritis; [facility] (current) use of non-steroidal anti-inflammatories (nsaid); Long-term current use of high risk medication other than anticoagulant; Other residential (current) drug therapy; History of endometrial cancer; Vitamin D deficiency; Gouty arthritis; Chronic gout of multiple sites, unspecified cause; Bilateral carpal tunnel syndrome; Fibromyalgia; Carpal tunnel syndrome, bilateral upper limbs; TTS (tarsal tunnel syndrome), unspecified laterality; Osteoarthritis of both feet, unspecified osteoarthritis type; Inflammatory arthritis; Primary osteoarthritis, left ankle and foot; Primary osteoarthritis, right ankle and foot; Other osteoarthritis involving multiple joints; Calcaneal spur of foot, right; Thoracogenic scoliosis of thoracic region; Osteoarthritis of thoracic spine, unspecified spinal osteoarthritis complication status; Thoracic degenerative disc disease; Osteoarthritis of multiple joints, unspecified osteoarthritis type; Calcaneal spur of foot, left; Gouty arthropathy; Calcaneal spur of left foot Start: 12-23-2018 End: 12-23-2018 Patient encounter procedure Other Other [facility] Start: 12-20-2018 End: 12-20-2018 Telephone encounter Tamia Dawson Work Phone: [facility] Comment on above: Medication Managemen t Insurance ([employer] ) Start: 12-06-2018 End: 12-06-2018 Patient encounter procedure Other Other [facility] Start: 12-06-2018 End: 12-06-2018 Office outpatient visit 25 minutes Tamia Dawson Work Phone: [facility] Comment on above: Rheumatoid arthritis of multiple sites with negative rheumatoid factor (Primary Dx); Positive PPD, treated; Other long term care administrator (current) drug therapy; Long-term current use of high risk medication other than anticoagulant; [facility] current use of systemic steroids; 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-inflammatories (nsaid); History of rheumatoid arthritis; History of fibromyalgia; History of endometrial cancer; CRP elevated; Vitamin D deficiency; Gouty arthritis; Chronic gout of multiple sites, unspecified cause; TTS (tarsal tunnel syndrome), unspecified laterality; Fibromyalgia; Carpal tunnel syndrome, bilateral upper limbs; Bilateral carpal tunnel syndrome; Other osteoarthritis involving multiple joints; Thoracic degenerative disc disease; Thoracogenic scoliosis of thoracic region; Primary osteoarthritis, right ankle and foot; Primary osteoarthritis, left ankle and foot; Osteoarthritis of thoracic spine, unspecified spinal osteoarthritis complication status; Osteoarthritis of both feet, unspecified osteoarthritis type; Osteoarthritis of multiple joints, unspecified osteoarthritis type; Inflammatory arthritis; Gouty arthropathy; Calcaneal spur of left foot; Calcaneal spur of foot, right; Calcaneal spur of foot, left Start: 11-30-2018 End: 11-30-2018 Outside Orders Tamia Dawson Work Phone: [facility] Start: 10-20-2018 End: 10-20-2018 Patient encounter procedure Tamia Dawson Work Phone: [facility] Comment on above: RE: Prednisone Start: 09-28-2018 End: 09-28-2018 [facility] Work Phone: [facility] Comment on above: Cervicalgia; Dorsalgia; Paresthesia of both hands; Bilateral carpal tunnel syndrome; Bilateral foot pain; Disorder of bone and cartilage; Osteoarthritis of both feet, unspecified osteoarthritis type; Chronic pain of both shoulders; Bilateral biceps tendonitis; Subacromial bursitis; Bilateral wrist pain; Bilateral hand pain; Weakness of both hands; Bilateral lower extremity edema; Lymphedema of both lower extremities; Bilateral temporomandibular joint pain; Malignant neoplasm of endometrium; ESR raised; History of fibromyalgia; History of rheumatoid arthritis; Fatigue, unspecified type; intermediate project manager current use of non-steroidal anti-inflammatories (NSAID); Anxiety; CRP elevated; Fibromyalgia; Migraine without status migrainosus, not intractable, unspecified migraine type; Gastroesophageal reflux disease, esophagitis presence not specified; Inflammatory arthritis; Gouty arthropathy; Elevated erythrocyte sedimentation rate; Elevated C-reactive protein (CRP); Localized edema; 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-inflammatories (nsaid); Lymphedema, not elsewhere classified; Long-term current use of high risk medication other than anticoagulant; Vitamin D deficiency; Hyperglycemia; Hyperuricemia; Gouty arthritis; Carpal tunnel syndrome, bilateral upper limbs; Primary osteoarthritis, right ankle and foot; Osteoarthritis of multiple joints, unspecified osteoarthritis type; Calcaneal spur of foot, right; Thoracogenic scoliosis of thoracic region; Osteoarthritis of thoracic spine, unspecified spinal osteoarthritis complication status; Thoracic degenerative disc disease; Calcaneal spur of foot, left Start: 08-06-2018 End: 08-06-2018 Office outpatient visit 25 minutes Tamia Lee Phone: [facility] Comment on above: Rheumatoid arthritis of multiple sites with negative rheumatoid factor (Primary Dx); History of endometrial cancer; History of fibromyalgia; History of rheumatoid arthritis; [facility] (current) use of non-steroidal anti-inflammatories (nsaid); [facility] current use of systemic steroids; Long-term current use of high risk medication other than anticoagulant; Lymphedema, not elsewhere classified; Other residential (current) drug therapy; Vitamin D deficiency; Chronic gout of multiple sites, unspecified cause; Gouty arthritis; Bilateral carpal tunnel syndrome; Carpal tunnel syndrome, bilateral upper limbs; Fibromyalgia; TTS (tarsal tunnel syndrome), unspecified laterality; Calcaneal spur of foot, left; Calcaneal spur of foot, right; Calcaneal spur of left foot; Gouty arthropathy; Inflammatory arthritis; Lymphedema of both lower extremities; Osteoarthritis of multiple joints, unspecified osteoarthritis type; Osteoarthritis of both feet, unspecified osteoarthritis type; Osteoarthritis of thoracic spine, unspecified spinal osteoarthritis complication status; Primary osteoarthritis, left ankle and foot; Primary osteoarthritis, right ankle and foot; Thoracogenic scoliosis of thoracic region; Thoracic degenerative disc disease; Other osteoarthritis involving multiple joints Start: 07-02-2018 End: 07-02-2018 Letter encounter Tamia Dawson Work Phone: [facility] Start: 06-02-2018 End: 06-02-2018 Patient encounter procedure Tamia Dawson Work Phone: [facility] Comment on above: RE: The morning afte r [employer] and Med question Start: 06-01-2018 Patient encounter procedure [facility] Start: 05-10-2018 End: 05-10-2018 Telephone encounter Tamia Zoila Eunice Work Phone: [facility] Comment on above: Insurance (Rituxan a pproval) Start: 05-05-2018 End: 05-05-2018 Office outpatient visit 40 minutes Tamia Dawson Work Phone: [facility] Comment on above: Rheumatoid arthritis of multiple sites with negative rheumatoid factor (Primary Dx); Thoracogenic scoliosis of thoracic region; Thoracic degenerative disc disease; Osteoarthritis of multiple joints, unspecified osteoarthritis type; CRP elevated; History of endometrial cancer; History of fibromyalgia; History of rheumatoid arthritis; 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-inflammatories (nsaid); intermediate project manager current use of systemic steroids; Long-term current use of high risk medication other than anticoagulant; Lymphedema, not elsewhere classified; Other long term care administrator (current) drug therapy; Vitamin D deficiency; Chronic gout of multiple sites, unspecified cause; Gouty arthritis; Hyperglycemia; Bilateral carpal tunnel syndrome; Bilateral foot pain; Carpal tunnel syndrome, bilateral upper limbs; Fibromyalgia; TTS (tarsal tunnel syndrome), unspecified laterality; Bilateral lower extremity edema; Calcaneal spur of foot, left; Calcaneal spur of foot, right; Calcaneal spur of left foot; Gouty arthropathy; Inflammatory arthritis; Lymphedema of both lower extremities; Osteoarthritis of both feet, unspecified osteoarthritis type; Osteoarthritis of thoracic spine, unspecified spinal osteoarthritis complication status; Primary osteoarthritis, left ankle and foot; Primary osteoarthritis, right ankle and foot; Localized edema; Positive PPD, treated Start: 04-06-2018 End: 04-06-2018 Patient encounter procedure Tamia Dawson Work Phone: [facility] Start: 02-18-2018 End: 02-18-2018 Patient encounter procedure Tamia Dawson Work Phone: [facility] Comment on above: Medication Managemen t Start: 02-02-2018 End: 02-02-2018 Patient encounter procedure Historical Provider [facility] Start: 01-12-2018 End: 01-12-2018 Patient encounter Jayshree Linus [facility] Comment on above: Other Start: 02-06-2017 End: 02-06-2017 Ambulatory TALA ALLEN [facility] Start: 12-19-2016 End: 12-24-2016 Ambulatory ROSENDO ROSALES Facility:[facility] Start: 12-05-2016 End: 12-10-2016 Ambulatory TALA ALLEN Facility:[facility] Start: 09-04-2016 Evaluation and manag ement of inpatient [facility] Facility:[facility] Start: 08-28-2016 End: 08-29-2016 Ambulatory [facility] Facility:[facility] Procedures Date Procedure Procedure Detail Performing Clinician Start: 03-31-2022 Screening mammography Dewayne Allen Work Phone: Start: 11-29-2018 LABS (OUTSIDE) Tamia Dawson Work Phone: Start: 04-05-2018 LABS (OUTSIDE) Tamia Dawson Work Phone: Start: 01-26-2018 End: 01-26-2018 LABS (OUTSIDE) Historical Provider Plan of Treatment Date Care Activity Detail Author Start: 02-15-2023 Tetanus vaccination Tetanus: Every 10yrs [facility] Start: 01-13-2023 History and physical examination, annual for health maintenance Wellness Visit [facility] Start: 12-30-2022 End: 12-30-2022 Patient encounter procedure 12/30/2022 8:00 AM EST Office Visit [facility] [address] [place] [address] Rosendo Rosales MD [address] [place] [id number] [facility] Start: 10-24-2022 Influenza vaccination Sequential Influenza Vaccine (Season Ended) [facility] Start: 06-24-2022 End: 06-24-2022 Follow-up encounter 06/24/2022 8:00 AM EDT [facility]ollo w-Up [facility] [address] [place] [address] Rosendo Rosales MD [address] [address] [facility] [place] Start: 06-06-2022 End: 06-06-2022 Admission to same day surgery center 06/06/2022 12:50 PM EDT - 06/06/2022 1:20 PM EDT Surgery [facility] [address] [place] [address] Rosendo Rosales MD [address] [address] BILATERAL tympanostomy with B/L ear tube placement [facility] Comment on above: BILATERAL tympanostomy with B/L ear tube placement Start: 06-06-2022 End: 06-06-2022 MYRINGOTOMY WITH TUBE(S) MYRINGOTOMY WITH TUBE(S) Bilateral chronic serous otitis media Disorder of both eustachian tubes Conductive hearing loss of left ear with unrestricted hearing of right ear 06/06/2022 12:50 PM EDT [facility] Start: 06-06-2022 Subsequent hospital visit by physician 06/06/2022 12:50 PM EDT Hospital Encounter [facility] [address] [place] [phone] Rosendo Rosales MD [address] [address] [facility] Start: 06-04-2022 End: 06-04-2022 Patient encounter procedure 06/04/2022 1:30 PM EDT Office Visit [facility] [address] [place] [phone] [facility] Start: 06-03-2022 Procedure [facility] Start: 01-13-2022 Chlamydia deoxyribonucleic acid detection [facility] Start: 10-24-2021 Influenza vaccination Sequential Influenza Vaccine (#1) [facility] Start: 03-14-2021 COVID-19 Vaccine (2 - Moderna series) COVID-19 Vaccine (2 - Moderna series) [facility] Start: 05-14-2020 End: 11-13-2020 VITAMIN D (25-HYDROXY,TOTAL) VITAMIN D (25-HYDROXY,TOTAL) Lab Routine Vitamin D deficiency Expected: 05/14/2020 (Approximate), Expires: 11/13/2020 [facility] Comment on above: Expected: 05/14/2020 (Approximate), Expi res: 11/13/2020 Start: 05-14-2020 End: 11-13-2020 VITAMIN D, (1,25 DIHYDROXY) VITAMIN D, (1,25 DIHYDROXY) Lab Routine Vitamin D deficiency Expected: 05/14/2020 (Approximate), Expires: 11/13/2020 [facility] Comment on above: Expected: 05/14/2020 (Approximate), Expi res: 11/13/2020 Start: 03-21-2020 End: 03-21-2020 Office Visit 03/21/2020 Office Visit Rheumatology Tamia Dawson Jr., DO [address] [place] [phone] [facility] Start: 11-14-2019 End: 11-14-2019 Office Visit 11/14/2019 Office Visit Rheumatology Tamia Dawson Jr., DO [address] [place] [phone] [facility] Start: 10-25-2019 Influenza vaccination [facility] Start: 07-12-2019 End: 07-10-2020 M TUBERCULOSIS BY QUANTIFERON, BLD M TUBERCULOSIS BY QUANTIFERON, BLDLabRoutineRheumatoid arthritis of multiple sites with negative rheumatoid factorPositive PPD, treatedHistory of fibromyalgiaHistory of rheumatoid arthritisLong term (current) use of non-steroidal anti-inflammatories (nsaid)Long-term current use of high risk medication other than anticoagulantOther long term care administrator (current) drug therapyHistory of endometrial cancerVitamin D deficiencyGouty arthritisChronic gout of multiple sites, unspecified causeBilateral carpal tunnel syndromeFibromyalgiaCarpal tunnel syndrome, bilateral upper limbsTTS (tarsal tunnel syndrome), unspecified lateralityOsteoarthritis of both feet, unspecified osteoarthritis typeInflammatory arthritisPrimary osteoarthritis, left ankle and footPrimary osteoarthritis, right ankle and footOther osteoarthritis involving multiple jointsCalcaneal spur of foot, rightThoracogenic scoliosis of thoracic regionOsteoarthritis of thoracic spine, unspecified spinal osteoarthritis complication statusThoracic (more content not included)... [facility] Comment on above: Expected: 07/12/2019 (Approximate), Expi res: 07/10/2020 Start: 07-12-2019 End: 07-10-2020 VITAMIN D (25-HYDROXY,TOTAL) VITAMIN D (25-HYDROXY,TOTAL)LabRoutineRheuma toid arthritis of multiple sites with negative rheumatoid factorPositive PPD, treatedHistory of fibromyalgiaHistory of rheumatoid arthritisLong term (current) use of non-steroidal anti-inflammatories (nsaid)Long-term current use of high risk medication other than anticoagulantOther residential (current) drug therapyHistory of endometrial cancerVitamin D deficiencyGouty arthritisChronic gout of multiple sites, unspecified causeBilateral carpal tunnel syndromeFibromyalgiaCarpal tunnel syndrome, bilateral upper limbsTTS (tarsal tunnel syndrome), unspecified lateralityOsteoarthritis of both feet, unspecified osteoarthritis typeInflammatory arthritisPrimary osteoarthritis, left ankle and footPrimary osteoarthritis, right ankle and footOther osteoarthritis involving multiple jointsCalcaneal spur of foot, rightThoracogenic scoliosis of thoracic regionOsteoarthritis of thoracic spine, unspecified spinal osteoarthritis complication statusThoracic degene (more content not included)... [facility] Comment on above: Expected: 07/12/2019 (Approximate), Expi res: 07/10/2020 Start: 07-12-2019 End: 07-10-2020 VITAMIN D, (1,25 DIHYDROXY) VITAMIN D, (1,25 DIHYDROXY)LabRoutineRheumatoid arthritis of multiple sites with negative rheumatoid factorPositive PPD, treatedHistory of fibromyalgiaHistory of rheumatoid arthritisLong term (current) use of non-steroidal anti-inflammatories (nsaid)Long-term current use of high risk medication other than anticoagulantOther residential (current) drug therapyHistory of endometrial cancerVitamin D deficiencyGouty arthritisChronic gout of multiple sites, unspecified causeBilateral carpal tunnel syndromeFibromyalgiaCarpal tunnel syndrome, bilateral upper limbsTTS (tarsal tunnel syndrome), unspecified lateralityOsteoarthritis of both feet, unspecified osteoarthritis typeInflammatory arthritisPrimary osteoarthritis, left ankle and footPrimary osteoarthritis, right ankle and footOther osteoarthritis involving multiple jointsCalcaneal spur of foot, rightThoracogenic scoliosis of thoracic regionOsteoarthritis of thoracic spine, unspecified spinal osteoarthritis complication statusThoracic degener (more content not included)... [facility] Comment on above: Expected: 07/12/2019 (Approximate), Expi res: 07/10/2020 Start: 04-08-2019 End: 04-08-2019 Office Visit 04/08/2019 Office Visit Rheumatology Eunice Landers, Tamia Cummings, DO [address] [place] [address] [facility] Start: 03-01-2019 End: 12-07-2019 LIPID PANEL W CALCULATED LDL LIPID PANEL W CALCULATED LDL Lab Routine Long-term current use of high risk medication other than anticoagulant Expected: 03/01/2019 (Approximate), Expires: 12/07/2019 [facility] Comment on above: Expected: 03/01/2019 (Approximate), Expi res: 12/07/2019 Start: 03-01-2019 End: 12-07-2019 VITAMIN D (25-HYDROXY,TOTAL) VITAMIN D (25-HYDROXY,TOTAL) Lab Routine Vitamin D deficiency Expected: 03/01/2019 (Approximate), Expires: 12/07/2019 [facility] Comment on above: Expected: 03/01/2019 (Approximate), Expi res: 12/07/2019 Start: 03-01-2019 End: 12-07-2019 VITAMIN D, (1,25 DIHYDROXY) VITAMIN D, (1,25 DIHYDROXY) Lab Routine Vitamin D deficiency Expected: 03/01/2019 (Approximate), Expires: 12/07/2019 [facility] Comment on above: Expected: 03/01/2019 (Approximate), Expi res: 12/07/2019 Start: 01-19-2019 End: 08-07-2019 VITAMIN D (25-HYDROXY,TOTAL) VITAMIN D (25-HYDROXY,TOTAL)LabRoutineRheuma toid arthritis of multiple sites with negative rheumatoid factorHistory of endometrial cancerHistory of fibromyalgiaHistory of rheumatoid arthritisLong term (current) use of non-steroidal anti-inflammatories (nsaid)intermediate project manager current use of systemic steroidsLong-term current use of high risk medication other than anticoagulantLymphedema, not elsewhere classifiedOther residential (current) drug therapyVitamin D deficiencyChronic gout of multiple sites, unspecified causeGouty arthritisBilateral carpal tunnel syndromeCarpal tunnel syndrome, bilateral upper limbsFibromyalgiaTTS (tarsal tunnel syndrome), unspecified lateralityCalcaneal spur of foot, leftCalcaneal spur of foot, rightCalcaneal spur of left footGouty arthropathyInflammatory arthritisLymphedema of both lower extremitiesOsteoarthritis of multiple joints, unspecified osteoarthritis typeOsteoarthritis of both feet, unspecified osteoarthritis typeOsteoarthritis of thoracic spine, unspecified (more content not included)... [facility] Comment on above: Expected: 01/19/2019 (Approximate), Expi res: 08/07/2019 Start: 01-19-2019 End: 08-07-2019 VITAMIN D, (1,25 DIHYDROXY) VITAMIN D, (1,25 DIHYDROXY)LabRoutineRheumatoid arthritis of multiple sites with negative rheumatoid factorHistory of endometrial cancerHistory of fibromyalgiaHistory of rheumatoid arthritisLong term (current) use of non-steroidal anti-inflammatories (nsaid)intermediate project manager current use of systemic steroidsLong-term current use of high risk medication other than anticoagulantLymphedema, not elsewhere classifiedOther residential (current) drug therapyVitamin D deficiencyChronic gout of multiple sites, unspecified causeGouty arthritisBilateral carpal tunnel syndromeCarpal tunnel syndrome, bilateral upper limbsFibromyalgiaTTS (tarsal tunnel syndrome), unspecified lateralityCalcaneal spur of foot, leftCalcaneal spur of foot, rightCalcaneal spur of left footGouty arthropathyInflammatory arthritisLymphedema of both lower extremitiesOsteoarthritis of multiple joints, unspecified osteoarthritis typeOsteoarthritis of both feet, unspecified osteoarthritis typeOsteoarthritis of thoracic spine, unspecified (more content not included)... [facility] Comment on above: Expected: 01/19/2019 (Approximate), Expi res: 08/07/2019 Start: 12-06-2018 End: 12-06-2018 Office Visit 12/06/2018 Office Visit Rheumatology Tamia Dawson Jr., [address] [place] [address] [place] [address] [phone] [facility] Start: 10-24-2018 Influenza vaccination [facility] Start: 09-08-2018 Finding of potassium level (finding) POTASSIUM [facility] Work Phone: Start: 08-06-2018 End: 08-06-2018 Office Visit 08/06/2018 Office Visit Rheumatology Tamia Dawson Jr., [address] [place] [address] [place] [address] [phone] [facility] Start: 08-03-2018 End: 08-03-2018 Office Visit 08/03/2018 Office Visit Rheumatology Tamia Dawson Jr., [address] [place] [address] [place] [address] [phone] [facility] Start: 05-05-2018 End: 05-05-2018 Ambulatory 05/05/2018 Office Visit Rheumatology Tamia Dawson Jr., [address] [place] [address] [place] [address] [phone] [facility] Start: 02-02-2018 End: 02-02-2018 Ambulatory 02/02/2018 Office Visit Rheumatology Tamia Dawson Jr., [address] [place] [address] [place] [address] [phone] [facility] Start: 10-24-2017 Influenza vaccination INFLUENZA VACCINE (#1) [facility] Work Phone: Start: 2013 Fasting lipid profile LIPID SCREENING [facility] Work Phone: Start: 2013 Protein mass conc MAMMOGRAM SCREENING DISCUSSION [facility] Work Phone: Start: 2013 Screening for malignant neoplasm of breast Mammogram [facility] Start: 2013 Screening mammography MAMMOGRAM SCREENING DISCUSSION [facility] Work Phone: Start: 1994 Screening for malignant neoplasm of cervix [facility] Work Phone: Start: 1992 Third diphtheria, tetanus and acellular pertussis (DTaP) vaccination TDAP (ADULT) [facility] Work Phone: Start: 05-23-1991 Hepatitis C screening Hepatitis C Screening [facility] Start: 05-23-1991 Tetanus vaccination TETANUS [facility] Work Phone: Start: 1988 HIV screening HIV Screening [facility] Start: 1986 HIV screening HIV SCREENING DISCUSSION [facility] Work Phone: Start: 1985 Depression screening using PHQ-9 (Patient Health Questionnaire 9) score Depression Screening (PHQ-2/9) [facility] Start: 1973 Screening for malignant neoplasm of cervix Pap Smear [facility] Start: 1973 Screening for malignant neoplasm of colon [facility] End: 07-10-2020 ALT [Catalytic activity/Vol] ALTLabRoutineRheumatoid arthritis of multiple sites with negative rheumatoid factorPositive PPD, treatedHistory of fibromyalgiaHistory of rheumatoid arthritisLong term (current) use of non-steroidal anti-inflammatories (nsaid)Long-term current use of high risk medication other than anticoagulantOther residential (current) drug therapyHistory of endometrial cancerVitamin D deficiencyGouty arthritisChronic gout of multiple sites, unspecified causeBilateral carpal tunnel syndromeFibromyalgiaCarpal tunnel syndrome, bilateral upper limbsTTS (tarsal tunnel syndrome), unspecified lateralityOsteoarthritis of both feet, unspecified osteoarthritis typeInflammatory arthritisPrimary osteoarthritis, left ankle and footPrimary osteoarthritis, right ankle and footOther osteoarthritis involving multiple jointsCalcaneal spur of foot, rightThoracogenic scoliosis of thoracic regionOsteoarthritis of thoracic spine, unspecified spinal osteoarthritis complication statusThoracic degenerative disc diseaseOsteoa (more content not included)... [facility] Comment on above: 4 Occurrences starting 07/12/2019 until 07/10/2020 End: 12-07-2019 ALT [Catalytic activity/Vol] ALTLabRoutineRheumatoid arthritis of multiple sites with negative rheumatoid factorPositive PPD, treatedOther long term care administrator (current) drug therapyLong-term current use of high risk medication other than anticoagulantLong term current use of systemic steroidsLong term (current) use of non-steroidal anti-inflammatories (nsaid)History of rheumatoid arthritisHistory of fibromyalgiaHistory of endometrial cancerCRP elevatedVitamin D deficiencyGouty arthritisChronic gout of multiple sites, unspecified causeTTS (tarsal tunnel syndrome), unspecified lateralityFibromyalgiaCarpal tunnel syndrome, bilateral upper limbsBilateral carpal tunnel syndromeOther osteoarthritis involving multiple jointsThoracic degenerative disc diseaseThoracogenic scoliosis of thoracic regionPrimary osteoarthritis, right ankle and footPrimary osteoarthritis, left ankle and footOsteoarthritis of thoracic spine, unspecified spinal osteoarthritis complication statusOsteoarthritis of both feet, unspecified osteoarthritis typeOst (more content not included)... [facility] Comment on above: 4 Occurrences starting 03/01/2019 until 12/07/2019 End: 08-07-2019 ALT [Catalytic activity/Vol] ALTLabRoutineRheumatoid arthritis of multiple sites with negative rheumatoid factorHistory of endometrial cancerHistory of fibromyalgiaHistory of rheumatoid arthritisLong term (current) use of non-steroidal anti-inflammatories (nsaid)intermediate project manager current use of systemic steroidsLong-term current use of high risk medication other than anticoagulantLymphedema, not elsewhere classifiedOther long term care administrator (current) drug therapyVitamin D deficiencyChronic gout of multiple sites, unspecified causeGouty arthritisBilateral carpal tunnel syndromeCarpal tunnel syndrome, bilateral upper limbsFibromyalgiaTTS (tarsal tunnel syndrome), unspecified lateralityCalcaneal spur of foot, leftCalcaneal spur of foot, rightCalcaneal spur of left footGouty arthropathyInflammatory arthritisLymphedema of both lower extremitiesOsteoarthritis of multiple joints, unspecified osteoarthritis typeOsteoarthritis of both feet, unspecified osteoarthritis typeOsteoarthritis of thoracic spine, unspecified spinal osteoarthritis co (more content not included)... [facility] Comment on above: 4 Occurrences starting 10/19/2018 until 08/07/2019 End: 07-10-2020 AST [Catalytic activity/Vol] ASTLabRoutineRheumatoid arthritis of multiple sites with negative rheumatoid factorPositive PPD, treatedHistory of fibromyalgiaHistory of rheumatoid arthritisLong term (current) use of non-steroidal anti-inflammatories (nsaid)Long-term current use of high risk medication other than anticoagulantOther residential (current) drug therapyHistory of endometrial cancerVitamin D deficiencyGouty arthritisChronic gout of multiple sites, unspecified causeBilateral carpal tunnel syndromeFibromyalgiaCarpal tunnel syndrome, bilateral upper limbsTTS (tarsal tunnel syndrome), unspecified lateralityOsteoarthritis of both feet, unspecified osteoarthritis typeInflammatory arthritisPrimary osteoarthritis, left ankle and footPrimary osteoarthritis, right ankle and footOther osteoarthritis involving multiple jointsCalcaneal spur of foot, rightThoracogenic scoliosis of thoracic regionOsteoarthritis of thoracic spine, unspecified spinal osteoarthritis complication statusThoracic degenerative disc diseaseOsteoa (more content not included)... [employer] Comment on above: 4 Occurrences starting 07/12/2019 until 07/10/2020 End: 12-07-2019 AST [Catalytic activity/Vol] ASTLabRoutineRheumatoid arthritis of multiple sites with negative rheumatoid factorPositive PPD, treatedOther long term care administrator (current) drug therapyLong-term current use of high risk medication other than anticoagulantLong term current use of systemic steroidsLong term (current) use of non-steroidal anti-inflammatories (nsaid)History of rheumatoid arthritisHistory of fibromyalgiaHistory of endometrial cancerCRP elevatedVitamin D deficiencyGouty arthritisChronic gout of multiple sites, unspecified causeTTS (tarsal tunnel syndrome), unspecified lateralityFibromyalgiaCarpal tunnel syndrome, bilateral upper limbsBilateral carpal tunnel syndromeOther osteoarthritis involving multiple jointsThoracic degenerative disc diseaseThoracogenic scoliosis of thoracic regionPrimary osteoarthritis, right ankle and footPrimary osteoarthritis, left ankle and footOsteoarthritis of thoracic spine, unspecified spinal osteoarthritis complication statusOsteoarthritis of both feet, unspecified osteoarthritis typeOst (more content not included)... [employer] Comment on above: 4 Occurrences starting 03/01/2019 until 12/07/2019 End: 08-07-2019 AST [Catalytic activity/Vol] ASTLabRoutineRheumatoid arthritis of multiple sites with negative rheumatoid factorHistory of endometrial cancerHistory of fibromyalgiaHistory of rheumatoid arthritisLong term (current) use of non-steroidal anti-inflammatories (nsaid)[facility] current use of systemic steroidsLong-term current use of high risk medication other than anticoagulantLymphedema, not elsewhere classifiedOther long term care administrator (current) drug therapyVitamin D deficiencyChronic gout of multiple sites, unspecified causeGouty arthritisBilateral carpal tunnel syndromeCarpal tunnel syndrome, bilateral upper limbsFibromyalgiaTTS (tarsal tunnel syndrome), unspecified lateralityCalcaneal spur of foot, leftCalcaneal spur of foot, rightCalcaneal spur of left footGouty arthropathyInflammatory arthritisLymphedema of both lower extremitiesOsteoarthritis of multiple joints, unspecified osteoarthritis typeOsteoarthritis of both feet, unspecified osteoarthritis typeOsteoarthritis of thoracic spine, unspecified spinal osteoarthritis co (more content not included)... [employer] Comment on above: 4 Occurrences starting 10/19/2018 until 08/07/2019 End: 12-07-2019 CBC, EDIF, PLATELET CBC, EDIF, PLATELETLabRoutineRheumatoid arthritis of multiple sites with negative rheumatoid factorPositive PPD, treatedOther long term care administrator (current) drug therapyLong-term current use of high risk medication other than anticoagulantLong term current use of systemic steroidsLong term (current) use of non-steroidal anti-inflammatories (nsaid)History of rheumatoid arthritisHistory of fibromyalgiaHistory of endometrial cancerCRP elevatedVitamin D deficiencyGouty arthritisChronic gout of multiple sites, unspecified causeTTS (tarsal tunnel syndrome), unspecified lateralityFibromyalgiaCarpal tunnel syndrome, bilateral upper limbsBilateral carpal tunnel syndromeOther osteoarthritis involving multiple jointsThoracic degenerative disc diseaseThoracogenic scoliosis of thoracic regionPrimary osteoarthritis, right ankle and footPrimary osteoarthritis, left ankle and footOsteoarthritis of thoracic spine, unspecified spinal osteoarthritis complication statusOsteoarthritis of both feet, unspecified osteoa (more content not included)... [employer] Comment on above: 4 Occurrences starting 03/01/2019 until 12/07/2019 End: 08-07-2019 CBC,PLATELETS CBC,PLATELETSLabRoutineRheum atoid arthritis of multiple sites with negative rheumatoid factorHistory of endometrial cancerHistory of fibromyalgiaHistory of rheumatoid arthritisLong term (current) use of non-steroidal anti-inflammatories (nsaid)[facility] current use of systemic steroidsLong-term current use of high risk medication other than anticoagulantLymphedema, not elsewhere classifiedOther long term care administrator (current) drug therapyVitamin D deficiencyChronic gout of multiple sites, unspecified causeGouty arthritisBilateral carpal tunnel syndromeCarpal tunnel syndrome, bilateral upper limbsFibromyalgiaTTS (tarsal tunnel syndrome), unspecified lateralityCalcaneal spur of foot, leftCalcaneal spur of foot, rightCalcaneal spur of left footGouty arthropathyInflammatory arthritisLymphedema of both lower extremitiesOsteoarthritis of multiple joints, unspecified osteoarthritis typeOsteoarthritis of both feet, unspecified osteoarthritis typeOsteoarthritis of thoracic spine, unspecified spinal osteoar (more content not included)... [employer] Comment on above: 4 Occurrences starting 10/19/2018 until 08/07/2019 End: 07-10-2020 Complete blood count with white cell differential, automated CBC, EDIF, PLATELETLabRoutineRheumatoid arthritis of multiple sites with negative rheumatoid factorPositive PPD, treatedHistory of fibromyalgiaHistory of rheumatoid arthritisLong term (current) use of non-steroidal anti-inflammatories (nsaid)Long-term current use of high risk medication other than anticoagulantOther residential (current) drug therapyHistory of endometrial cancerVitamin D deficiencyGouty arthritisChronic gout of multiple sites, unspecified causeBilateral carpal tunnel syndromeFibromyalgiaCarpal tunnel syndrome, bilateral upper limbsTTS (tarsal tunnel syndrome), unspecified lateralityOsteoarthritis of both feet, unspecified osteoarthritis typeInflammatory arthritisPrimary osteoarthritis, left ankle and footPrimary osteoarthritis, right ankle and footOther osteoarthritis involving multiple jointsCalcaneal spur of foot, rightThoracogenic scoliosis of thoracic regionOsteoarthritis of thoracic spine, unspecified spinal osteoarthritis complication statusThoracic degenerative di (more content not included)... [employer] Comment on above: 4 Occurrences starting 07/12/2019 until 07/10/2020 End: 11-13-2020 Complete blood count with white cell differential, automated CBC, EDIF, PLATELET Lab Routine Rheumatoid arthritis of multiple sites with negative rheumatoid factor 4 Occurrences starting 11/15/2019 until 11/13/2020 [facility] Comment on above: 4 Occurrences starting 11/15/2019 until 11/13/2020 End: 11-13-2020 Comprehensive metabolic 2000 panel COMPREHENSIVE METABOLIC PANEL Lab Routine Rheumatoid arthritis of multiple sites with negative rheumatoid factor 4 Occurrences starting 11/15/2019 until 11/13/2020 [facility] Comment on above: 4 Occurrences starting 11/15/2019 until 11/13/2020 End: 07-10-2020 Creatinine [Mass/Vol] CREATININE SERUMLabRoutineRheumatoid arthritis of multiple sites with negative rheumatoid factorPositive PPD, treatedHistory of fibromyalgiaHistory of rheumatoid arthritisLong term (current) use of non-steroidal anti-inflammatories (nsaid)Long-term current use of high risk medication other than anticoagulantOther long term care administrator (current) drug therapyHistory of endometrial cancerVitamin D deficiencyGouty arthritisChronic gout of multiple sites, unspecified causeBilateral carpal tunnel syndromeFibromyalgiaCarpal tunnel syndrome, bilateral upper limbsTTS (tarsal tunnel syndrome), unspecified lateralityOsteoarthritis of both feet, unspecified osteoarthritis typeInflammatory arthritisPrimary osteoarthritis, left ankle and footPrimary osteoarthritis, right ankle and footOther osteoarthritis involving multiple jointsCalcaneal spur of foot, rightThoracogenic scoliosis of thoracic regionOsteoarthritis of thoracic spine, unspecified spinal osteoarthritis complication statusThoracic degenerative disc (more content not included)... [facility] Comment on above: 4 Occurrences starting 07/12/2019 until 07/10/2020 End: 12-07-2019 Creatinine [Mass/Vol] CREATININE SERUMLabRoutineRheumatoid arthritis of multiple sites with negative rheumatoid factorPositive PPD, treatedOther residential (current) drug therapyLong-term current use of high risk medication other than anticoagulantLong term current use of systemic steroidsLong term (current) use of non-steroidal anti-inflammatories (nsaid)History of rheumatoid arthritisHistory of fibromyalgiaHistory of endometrial cancerCRP elevatedVitamin D deficiencyGouty arthritisChronic gout of multiple sites, unspecified causeTTS (tarsal tunnel syndrome), unspecified lateralityFibromyalgiaCarpal tunnel syndrome, bilateral upper limbsBilateral carpal tunnel syndromeOther osteoarthritis involving multiple jointsThoracic degenerative disc diseaseThoracogenic scoliosis of thoracic regionPrimary osteoarthritis, right ankle and footPrimary osteoarthritis, left ankle and footOsteoarthritis of thoracic spine, unspecified spinal osteoarthritis complication statusOsteoarthritis of both feet, unspecified osteoarth (more content not included)... [employer] Comment on above: 4 Occurrences starting 03/01/2019 until 12/07/2019 End: 08-07-2019 Creatinine [Mass/Vol] CREATININE SERUMLabRoutineRheumatoid arthritis of multiple sites with negative rheumatoid factorHistory of endometrial cancerHistory of fibromyalgiaHistory of rheumatoid arthritisLong term (current) use of non-steroidal anti-inflammatories (nsaid)intermediate project manager current use of systemic steroidsLong-term current use of high risk medication other than anticoagulantLymphedema, not elsewhere classifiedOther long term care administrator (current) drug therapyVitamin D deficiencyChronic gout of multiple sites, unspecified causeGouty arthritisBilateral carpal tunnel syndromeCarpal tunnel syndrome, bilateral upper limbsFibromyalgiaTTS (tarsal tunnel syndrome), unspecified lateralityCalcaneal spur of foot, leftCalcaneal spur of foot, rightCalcaneal spur of left footGouty arthropathyInflammatory arthritisLymphedema of both lower extremitiesOsteoarthritis of multiple joints, unspecified osteoarthritis typeOsteoarthritis of both feet, unspecified osteoarthritis typeOsteoarthritis of thoracic spine, unspecified spinal oste (more content not included)... [employer] Comment on above: 4 Occurrences starting 10/19/2018 until 08/07/2019 End: 07-10-2020 CRP [Mass/Vol] C REACTIVE PROTEINLabRoutineRheumatoid arthritis of multiple sites with negative rheumatoid factorPositive PPD, treatedHistory of fibromyalgiaHistory of rheumatoid arthritisLong term (current) use of non-steroidal anti-inflammatories (nsaid)Long-term current use of high risk medication other than anticoagulantOther residential (current) drug therapyHistory of endometrial cancerVitamin D deficiencyGouty arthritisChronic gout of multiple sites, unspecified causeBilateral carpal tunnel syndromeFibromyalgiaCarpal tunnel syndrome, bilateral upper limbsTTS (tarsal tunnel syndrome), unspecified lateralityOsteoarthritis of both feet, unspecified osteoarthritis typeInflammatory arthritisPrimary osteoarthritis, left ankle and footPrimary osteoarthritis, right ankle and footOther osteoarthritis involving multiple jointsCalcaneal spur of foot, rightThoracogenic scoliosis of thoracic regionOsteoarthritis of thoracic spine, unspecified spinal osteoarthritis complication statusThoracic degenerative dis (more content not included)... [employer] Comment on above: 4 Occurrences starting 07/12/2019 until 07/10/2020 End: 11-13-2020 CRP [Mass/Vol] C REACTIVE PROTEIN Lab Routi ne Rheumatoid arthritis of multiple sites with negative rheumatoid factor 4 Occurrences starting 11/15/2019 until 11/13/2020 [facility] Comment on above: 4 Occurrences starting 11/15/2019 until 11/13/2020 End: 12-07-2019 CRP [Mass/Vol] C REACTIVE PROTEINLabRoutineRheumatoid arthritis of multiple sites with negative rheumatoid factorPositive PPD, treatedOther long term care administrator (current) drug therapyLong-term current use of high risk medication other than anticoagulantLong term current use of systemic steroidsLong term (current) use of non-steroidal anti-inflammatories (nsaid)History of rheumatoid arthritisHistory of fibromyalgiaHistory of endometrial cancerCRP elevatedVitamin D deficiencyGouty arthritisChronic gout of multiple sites, unspecified causeTTS (tarsal tunnel syndrome), unspecified lateralityFibromyalgiaCarpal tunnel syndrome, bilateral upper limbsBilateral carpal tunnel syndromeOther osteoarthritis involving multiple jointsThoracic degenerative disc diseaseThoracogenic scoliosis of thoracic regionPrimary osteoarthritis, right ankle and footPrimary osteoarthritis, left ankle and footOsteoarthritis of thoracic spine, unspecified spinal osteoarthritis complication statusOsteoarthritis of both feet, unspecified osteoar (more content not included)... [employer] Comment on above: 4 Occurrences starting 03/01/2019 until 12/07/2019 End: 08-07-2019 CRP [Mass/Vol] C REACTIVE PROTEINLabRoutineRheumatoid arthritis of multiple sites with negative rheumatoid factorHistory of endometrial cancerHistory of fibromyalgiaHistory of rheumatoid arthritisLong term (current) use of non-steroidal anti-inflammatories (nsaid)[facility] current use of systemic steroidsLong-term current use of high risk medication other than anticoagulantLymphedema, not elsewhere classifiedOther long term care administrator (current) drug therapyVitamin D deficiencyChronic gout of multiple sites, unspecified causeGouty arthritisBilateral carpal tunnel syndromeCarpal tunnel syndrome, bilateral upper limbsFibromyalgiaTTS (tarsal tunnel syndrome), unspecified lateralityCalcaneal spur of foot, leftCalcaneal spur of foot, rightCalcaneal spur of left footGouty arthropathyInflammatory arthritisLymphedema of both lower extremitiesOsteoarthritis of multiple joints, unspecified osteoarthritis typeOsteoarthritis of both feet, unspecified osteoarthritis typeOsteoarthritis of thoracic spine, unspecified spinal os (more content not included)... [employer] Comment on above: Every 12 Weeks for 4 Occurrences startin g 10/19/2018 until 08/07/2019 Neisseria gonorrhoea e rRNA [Presence] in Unspecified specimen by VANI with probe detection [facility] Work Phone: Neisseria gonorrhoea e rRNA [Presence] in Unspecified specimen by VANI with probe detection [facility] PCR test for Chlamydia trachomatis [facility] Work Phone: PCR test for Chlamydia trachomatis [facility] End: 07-10-2020 SEDIMENTATION RATE, AUTOMATED SEDIMENTATION RATE, AUTOMATEDLabRoutineRheumatoid arthritis of multiple sites with negative rheumatoid factorPositive PPD, treatedHistory of fibromyalgiaHistory of rheumatoid arthritisLong term (current) use of non-steroidal anti-inflammatories (nsaid)Long-term current use of high risk medication other than anticoagulantOther long term care administrator (current) drug therapyHistory of endometrial cancerVitamin D deficiencyGouty arthritisChronic gout of multiple sites, unspecified causeBilateral carpal tunnel syndromeFibromyalgiaCarpal tunnel syndrome, bilateral upper limbsTTS (tarsal tunnel syndrome), unspecified lateralityOsteoarthritis of both feet, unspecified osteoarthritis typeInflammatory arthritisPrimary osteoarthritis, left ankle and footPrimary osteoarthritis, right ankle and footOther osteoarthritis involving multiple jointsCalcaneal spur of foot, rightThoracogenic scoliosis of thoracic regionOsteoarthritis of thoracic spine, unspecified spinal osteoarthritis complication statusThoracic degen (more content not included)... [employer] Comment on above: 4 Occurrences starting 07/12/2019 until 07/10/2020 End: 11-13-2020 SEDIMENTATION RATE, AUTOMATED SEDIMENTATION RATE, AUTOMATED Lab Routine Rheumatoid arthritis of multiple sites with negative rheumatoid factor 4 Occurrences starting 11/15/2019 until 11/13/2020 [facility] Comment on above: 4 Occurrences starting 11/15/2019 until 11/13/2020 End: 12-07-2019 SEDIMENTATION RATE, AUTOMATED SEDIMENTATION RATE, AUTOMATEDLabRoutineRheumatoid arthritis of multiple sites with negative rheumatoid factorPositive PPD, treatedOther long term care administrator (current) drug therapyLong-term current use of high risk medication other than anticoagulantLong term current use of systemic steroidsLong term (current) use of non-steroidal anti-inflammatories (nsaid)History of rheumatoid arthritisHistory of fibromyalgiaHistory of endometrial cancerCRP elevatedVitamin D deficiencyGouty arthritisChronic gout of multiple sites, unspecified causeTTS (tarsal tunnel syndrome), unspecified lateralityFibromyalgiaCarpal tunnel syndrome, bilateral upper limbsBilateral carpal tunnel syndromeOther osteoarthritis involving multiple jointsThoracic degenerative disc diseaseThoracogenic scoliosis of thoracic regionPrimary osteoarthritis, right ankle and footPrimary osteoarthritis, left ankle and footOsteoarthritis of thoracic spine, unspecified spinal osteoarthritis complication statusOsteoarthritis of both feet, unspecif (more content not included)... [employer] Comment on above: 4 Occurrences starting 03/01/2019 until 12/07/2019 End: 08-07-2019 SEDIMENTATION RATE, AUTOMATED SEDIMENTATION RATE, AUTOMATEDLabRoutineRheumatoid arthritis of multiple sites with negative rheumatoid factorHistory of endometrial cancerHistory of fibromyalgiaHistory of rheumatoid arthritisLong term (current) use of non-steroidal anti-inflammatories (nsaid)[facility] current use of systemic steroidsLong-term current use of high risk medication other than anticoagulantLymphedema, not elsewhere classifiedOther residential (current) drug therapyVitamin D deficiencyChronic gout of multiple sites, unspecified causeGouty arthritisBilateral carpal tunnel syndromeCarpal tunnel syndrome, bilateral upper limbsFibromyalgiaTTS (tarsal tunnel syndrome), unspecified lateralityCalcaneal spur of foot, leftCalcaneal spur of foot, rightCalcaneal spur of left footGouty arthropathyInflammatory arthritisLymphedema of both lower extremitiesOsteoarthritis of multiple joints, unspecified osteoarthritis typeOsteoarthritis of both feet, unspecified osteoarthritis typeOsteoarthritis of thoracic spine, unspecifie (more content not included)... [employer] Comment on above: 4 Occurrences starting 10/19/2018 until 08/07/2019 End: 07-10-2020 Urate [Mass/Vol] URIC ACIDLabRoutineRheumatoi d arthritis of multiple sites with negative rheumatoid factorPositive PPD, treatedHistory of fibromyalgiaHistory of rheumatoid arthritisLong term (current) use of non-steroidal anti-inflammatories (nsaid)Long-term current use of high risk medication other than anticoagulantOther long term care administrator (current) drug therapyHistory of endometrial cancerVitamin D deficiencyGouty arthritisChronic gout of multiple sites, unspecified causeBilateral carpal tunnel syndromeFibromyalgiaCarpal tunnel syndrome, bilateral upper limbsTTS (tarsal tunnel syndrome), unspecified lateralityOsteoarthritis of both feet, unspecified osteoarthritis typeInflammatory arthritisPrimary osteoarthritis, left ankle and footPrimary osteoarthritis, right ankle and footOther osteoarthritis involving multiple jointsCalcaneal spur of foot, rightThoracogenic scoliosis of thoracic regionOsteoarthritis of thoracic spine, unspecified spinal osteoarthritis complication statusThoracic degenerative disc disease (more content not included)... [facility] Comment on above: 4 Occurrences starting 07/12/2019 until 07/10/2020 End: 11-13-2020 Urate [Mass/Vol] URIC ACID Lab Routine Gouty arthropathy 4 Occurrences starting 11/15/2019 until 11/13/2020 [facility] Comment on above: 4 Occurrences starting 11/15/2019 until 11/13/2020 End: 08-07-2019 Urate [Mass/Vol] URIC ACIDLabRoutineRheumatoi d arthritis of multiple sites with negative rheumatoid factorHistory of endometrial cancerHistory of fibromyalgiaHistory of rheumatoid arthritisLong term (current) use of non-steroidal anti-inflammatories (nsaid)[facility] current use of systemic steroidsLong-term current use of high risk medication other than anticoagulantLymphedema, not elsewhere classifiedOther long term care administrator (current) drug therapyVitamin D deficiencyChronic gout of multiple sites, unspecified causeGouty arthritisBilateral carpal tunnel syndromeCarpal tunnel syndrome, bilateral upper limbsFibromyalgiaTTS (tarsal tunnel syndrome), unspecified lateralityCalcaneal spur of foot, leftCalcaneal spur of foot, rightCalcaneal spur of left footGouty arthropathyInflammatory arthritisLymphedema of both lower extremitiesOsteoarthritis of multiple joints, unspecified osteoarthritis typeOsteoarthritis of both feet, unspecified osteoarthritis typeOsteoarthritis of thoracic spine, unspecified spinal osteoarthri (more content not included)... [employer] Comment on above: 4 Occurrences starting 10/19/2018 until 08/07/2019 Immunizations Immunization Date Immunization Notes Care Provider Arielle silvestre 12-14-2013 influenza, injectabl e, quadrivalent, preservative free [facility] 12-14-2013 influenza, seasonal, injectable [facility] 12-14-2013 influenza virus vaccine, unspecified formulation Historical Provider [facility] Work Phone: 09-05-2013 hepatitis B vaccine, pediatric or pediatric/adolescent dosage [facility] 03-24-2013 hepatitis B vaccine, pediatric or pediatric/adolescent dosage [facility] 02-15-2013 tetanus toxoid, reduced diphtheria toxoid, and acellular pertussis vaccine, adsorbed [facility] 01-17-2013 hepatitis B vaccine, pediatric or pediatric/adolescent dosage [facility] 01-17-2013 Influenza virus vaccine [facility] Payers Date Payer Category Payer Self-pay [id number] 2023 Unknown [id number] 2021 Unknown [employer]/LISSY/HMO/PPO [id number] 2021-Present [phone] [address] [place] [address] [id number] 2016 Unknown [id number] 2016 Unknown [id number] 2016 Unknown [employer] MEEK O PPO POS xxxxxxxxxxxx 2016-Present [id number] 2016 Unknown [employer] MEEK HM O PPO POS [id number] 2016-Present [id number] 1973 Unknown [id number] 1973 Unknown [id number] 1973 Unknown [id number] 1973 Unknown [id number] 1973 Unknown [id number] 1973 Unknown [id number] 1973 Unknown [id number] Unknown [id number] Unknown [id number] Social History Date Type Detail Facility Start: 11-02-2017 End: 06-04-2022 Tobacco smoking status IAIS Former smoker [facility] Start: 1975 Sex Assigned At Not on file [facility] Work Phone: Start: 09-08-2017 Alcohol Comment [facility] Start: 08-06-2018 End: 06-09-2022 Alcohol intake Yes [facility] Start: 07-11-2019 End: 06-04-2022 Tobacco use and exposure Never used [facility] Start: 12-06-2018 End: 07-11-2019 Alcohol intake Current drinker of alcohol (finding) [employer] [facility] Start: 05-11-2022 End: 06-24-2022 Exposure to SARS-CoV-2 (event) Not sure [facility] Start: 07-06-2019 End: 02-18-2022 Tobacco smoking status NHIS Unknown if ever smoked [facility] Start: 1975 Sex Assigned At Female W [facility] Start: 05-21-2022 Tobacco smoking stat us IAIS Never smoked tobacco [facility] Start: 05-21-2022 End: 06-24-2022 Alcohol intake Ex-drinker (finding) [facility] End: 02-24-2000 History of tobacco use Current smoker [facility] End: 02-24-2000 History of tobacco use Cigarette Smoker [facility] Start: 06-04-2022 End: 06-09-2022 Cigarettes smoked current (pack per day) - Reported 1 [facility] Start: 06-04-2022 Alcohol Comment once a month [facility] Medical Equipment Procedure Code Equipment Code Equipment Origin al Text Equipment Identifier Dates [employer] ([id number] NA, [id number] Start: 06-06-2022 History of Present illness Narrative 06-24-2022 Rosendo Rosales MD - 06/24/2022 8:13 AM EDTAdrienne Barroso MA - 06/24/2022 7:56 AM EDT Note Date & Type Note Facility 06-24-2022 History of Presen t illness Narrative [facility] [address] [facility] [address] [facility] [address] Dept: [phone] MD Cassandra Sandhu 47 y.o. female Patient presents with a chief complaint of Post-op (2 week ear tubes) Temp 98.6 F (37 C) Ht 5' 10" Wt (!) 158.3 kg (349 lb) BMI [...] Negative. Psychiatric/Behavioral: Negative. documented in this encounter [facility] Instructions 05-21-2022 Patient Instructions Note Date & [...] IN THIS DOCUMENT documented in this encounter [facility] History of Present illness Narrative 05-21-2022 Rosendo Rosales MD - 05/21/2022 9:04 AM EDTRyanlianet Barroso KEESHA - 05/21/2022 9:00 AM EDT Note Date & Type Note Facility 05-21-2022 History of Presen t illness Narrative Formatting of this note is different fro m the original. [facility] [address] [facility] [place] [address] [facility] [address] Dept: [phone] MD Cassandra Sandhu 46 y.o. female Patient presents with a chief complaint of Cerumen Impaction (Ear cleaning) Temp 98.6 F (37 C) Ht 5' 10" Wt (!) 157.9 kg (348 lb) BMI [...] of submandibular glands, clear salivary flow from Geary's ducts, no stones of Tristian's ducts Temporomandibular Joint: no crepitus with motion, [...] normal mood, normal affect FIBEROPTIC NASOPHARYNOGLARYNGOSCOPY NOTE (84071) PROCEDURE PERFORMED BY: Rosendo Rosales MD PROCEDURE [...] Negative. Psychiatric/Behavioral: Negative. documented in this encounter [facility] Evaluation note Note Date & Type Note Facility Evaluation note No assessment information availa ble [facility] Work Phone: Evaluation note Note Date & Type Note Facility Evaluation note Diagnosis Onset Date Acute sinusitis acute [facility] Work Phone: Evaluation note Note Date & Type Note Facility Evaluation note Diagnosis Bilateral chronic serous otitis media- Primary Simple or unspecified chronic serous otitis media Disorder of both eustachian tubes Allergic rhinitis, unspecified seasonality, unspecified trigger Nasal turbinate hypertrophy Hypertrophy of nasal turbinates Conductive hearing loss of left ear with unrestricted hearing of right ear Bilateral chronic serous otitis media Simple or unspecified chronic serous otitis media Disorder of both eustachian tubes Conductive hearing loss of left ear with unrestricted hearing of right ear Bilateral chronic serous otitis media Simple or unspecified chronic serous otitis media Disorder of both eustachian tubes Conductive hearing loss of left ear with unrestricted hearing of right ear documented in this encounter [facility] Evaluation note Note Date & Type Note Facility Evaluation note Diagnosis Disorder of both eustachian tubes- Primary Bilateral chronic serous otitis media Simple or unspecified chronic serous otitis media Conductive hearing loss of left ear with unrestricted hearing of right ear documented in this encounter [facility] Summary Purpose Family History No Family History Records Found Relationship Condition Age at Onset Recorded Date/T marivel mother Disorder of thyroid Unknown daughter Asthma Unknown grandmother Malignant neoplasm of breast Unknown father Cerebrovascular accident (CVA) Unknown Malignant neoplasm of colon Unknown Advance Directives No Advanced Directives Records Found Advance Directive Response Recorded Date/ Time Living Will No November 16, 2018 9:48pm Power of Sludge Filtration Attendant No October 9:48pm Advance Directive Response Recorded Date/ Time Living Will No November 16, 2018 10:48pm Power of Sludge Filtration Attendant No October 10:48pm Latest Code Status on File Code Status Date [...] Personal history of arthritis Fatigue, unspecified type [facility] current use of non-steroidal anti-inflammatories (NSAID) Encounter [...] Elevated C-reactive protein (CRP) Localized edema Edema 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-inflammatories (nsaid) Lymphedema, [...] of rheumatoid arthritis Personal history of arthritis [facility] (current) use of non-steroidal anti-inflammatories (nsaid) Long-term current use of high risk medication other than anticoagulant Other residential (current) drug therapy History of endometrial cancer [...] Personal history of arthritis Fatigue, unspecified type [facility] current use of non-steroidal anti-inflammatories (NSAID) Encounter for long-term (current) use of non-steroidal anti-inflammatories Anxiety Anxiety state, unspecified CRP elevated Elevated C-reactive protein (CRP) Fibromyalgia Mylagia and myositis, unspecified Migraine without status migrainosus, not intractable, unspecified migraine type Gastroesophageal reflux disease, esophagitis presence not specified Inflammatory arthritis Unspecified inflammatory polyarthropathy Positive PPD, treated Nonspecific reaction to tuberculin skin test without active tuberculosis Other long term care administrator (current) drug therapy Lymphedema, not elsewhere classified Other lymphedema Long-term current use of high risk medication other than anticoagulant 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-inflammatories (nsaid) Localized [...] tuberculin skin test without active tuberculosis Other residential (current) drug therapy Long-term current use of high risk medication other than anticoagulant [facility] current use of systemic steroids Encounter for long-term (current) use of steroids [facility] (current) use of non-steroidal anti-inflammatories (nsaid) History [...] of rheumatoid arthritis Personal history of arthritis [facility] (current) use of non-steroidal anti-inflammatories (nsaid) intermediate project manager current use of systemic steroids Encounter for long-term (current) use of steroids Long-term current use of high risk medication other than anticoagulant Lymphedema, not elsewhere classified Other lymphedema Other residential (current) drug therapy Vitamin D deficiency Unspecified [...] of rheumatoid arthritis Personal history of arthritis [facility] (current) use of non-steroidal anti-inflammatories (nsaid) [facility] current use of systemic steroids Encounter for long-term (current) use of steroids Long-term current use of high risk medication other than anticoagulant Lymphedema, not elsewhere classified Other lymphedema Other long term care administrator (current) drug therapy Vitamin D deficiency Unspecified [...] History of fibromyalgia History of rheumatoid arthritis [facility] (current) use of non-steroidal anti-inflammatories (nsaid) Long-term current use of high risk medication other than anticoagulant Other long term care administrator (current) drug therapy History of endometrial cancer [...] 14. Stop Arava - no help 15. JOHNATHAN level was normal at 34 16. Glucose [...] told she did not have Lymphedema in [place]. 28. Patient is taking OTC IBP PRN [...] F (36.8 C), height 1.778 m (5' 10"), weight (!) 159.2 kg (351 lb), SpO2 [...] History of rheumatoid arthritis Fatigue, unspecified type intermediate project manager current use of non-steroidal anti-inflammatories (NSAID) Anxiety CRP elevated Fibromyalgia Migraine without status migrainosus, not intractable, unspecified migraine type Gastroesophageal reflux disease, esophagitis presence not specified Inflammatory arthritis Rheumatoid arthritis of multiple sites with negative rheumatoid factor Yes Positive PPD, treated Other residential (current) drug therapy Lymphedema, not elsewhere classified Long-term current use of high risk medication other than anticoagulant 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-inflammatories (nsaid) Localized [...] 14. Stop Arava - no help 15. JOHNATHAN level was normal at 34 16. Glucose [...] this encounter* Tamia Dawson Jr., DO - 12/06/2018 10:00 AM EDT History of [...] rheumatoid factor Yes Positive PPD, treated Other residential (current) drug therapy Long-term current use of high risk medication other than anticoagulant [facility] current use of systemic steroids 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-inflammatories (nsaid) History [...] 14. Stop Arava - no help 15. JOHNATHAN level was normal at 34 16. Glucose [...] told she did not heave Lymphedema in [place]. 28. Patient is taking OTC IBP PRN [...] this encounter* Tamia Dawson Jr., DO - 05/05/2018 10:45 AM EDT History of [...] History of fibromyalgia History of rheumatoid arthritis 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-inflammatories (nsaid) [facility] current use of systemic steroids Long-term current use of high risk medication other than anticoagulant Lymphedema, not elsewhere classified Other residential (current) drug therapy Vitamin D deficiency Chronic [...] 14. Stop Arava - no help 15. JOHNATHAN level was normal at 34 16. Glucose [...] told she did not heave Lymphedema in [place]. 28. If foot problems continue rec: podiatry [...] History of fibromyalgia History of rheumatoid arthritis 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-inflammatories (nsaid) intermediate project manager current use of systemic steroids Long-term current use of high risk medication other than anticoagulant Lymphedema, not elsewhere classified Other residential (current) drug therapy Vitamin D deficiency Chronic [...] 14. Stop Arava - no help 15. JOHNATHAN level was normal at 34 16. Glucose [...] History of fibromyalgia History of rheumatoid arthritis 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-inflammatories (nsaid) [facility] current use of systemic steroids Long-term current use of high risk medication other than anticoagulant Lymphedema, not elsewhere classified Other long term care administrator (current) drug therapy Vitamin D deficiency Chronic [...] and foot Localized edema Positive PPD, treated Tamia Dawson Jr., DO [address] [facility] [place] [address] [address] Chief Complaint and Reason for Visit Chief Complaint SORE THROAT/COUGH SCREENING Reason for Visit Acute sinusitis Additional Source Comments INFORMATION SOURCE (unrecogn ized section and content) DATE CREATED AUTHOR 08/18/2017 [facility] DATE CREATED AUTHOR AUTHOR'S SAY PETERSON 08/18/2017 [facility] DATE CREATED AUTHOR AUTHOR'S ORGANIZ ATION 08/19/2017 [facility] DATE CREATED AUTHOR AUTHOR'S ORGANIZ ATION 06/02/2018 [facility] DATE CREATED AUTHOR AUTHOR'S ORGANIZ ATION 08/06/2018 [facility] DATE CREATED AUTHOR AUTHOR'S ORGANIZ ATION 06/08/2022 [facility] DATE CREATED AUTHOR AUTHOR'S ORGANIZ ATION 08/09/2022 [facility] DATE CREATED AUTHOR AUTHOR'S ORGANIZ ATION 09/12/2024 [facility] Reason for Visit (unrecogniz ed section and content) Reason Comments Other Reason Comments Medication Management Reason Comments Insurance [...] Reason Comments Post-op 2 week ear tubes Goals (unrecognized section and content) Goals may be documented in a n alternate sectionGoals may be documented in an alternate sectionGoals may be documented in an alternate sectionGoals may be documented in an alternate sectionGoals may be documented in an alternate sectionGoals may be documented in an alternate section Care Teams (unrecognized sec tion and content) Team Status: Active Member Role Status Dates Dr. Tala Allen , DO Family Provider Active Dr. Tala Allen , DO Primary Care Provider Active Team Status: Inactive Member Role Status Dates Dr. Tala Allen , DO Primary Care Provider, Referring P rovider Active Estevan TIM, PA Attending Provider Active Team Status: Inactive Member Role Status Dates Dr. Tala Allen DO Primary Care Provider Active Dr. Marlene Roldan DO Attending Provider Active Team Status: Inactive Member Role Status Dates Dr. Tala Allen DO Primary Care Provider Active Dr. Marlene Roldan DO Attending Provider, Referrin g Provider Active Team Status: Active Member Role Status Dates Dr. Tala Allen DO Primary Care Provider Active Health Risk Assessment Attending Provider Active [employer] Relationship Specialty Start Date End Date Tala Allen DO [address] [facility] [place] [address] [place] [address] PCP - General Family Medicine 05/13/22 Team Status: Active Member Role Status Dates Dr. Tala Allen DO Primary Care Provide r, Attending Provider, Referring Provider Active Team Status: Inactive Member Role Status Dates Dr. Tala Allen DO Primary Care Provider, Attending P romaury Active Team Status: Inactive Member Role Status Dates Dr. Tala Allen DO Primary Care Provide r, Attending Provider, Referring Provider Active FOR RECORDS PERTAINING TO PATIENTS WHO ARE [...] BE BASED ON THE PRIMARY CLINICAL RECORDS. [employer] provides no warranty or guarantee of the accuracy or completeness of information in this document.
[2024-09-16 08:34] LABS: Creatinine, Urine (random) 143.00 mg/dL (28.00-217.00); Microalbumin,Random Urine 157.0 mg/L (<20 mg/L)
[2024-09-16 09:19] LABS: AST(SGOT) 19 U/L (<=31); Alanine Aminotransfer ALT/SGPT 16 U/L (<=34); Albumin, Serum 3.8 g/dL (3.5-5.0); Alkaline Phosphatase 92 U/L (35-104); Anion Gap 11 (5-15); BUN 12 mg/dL (4-19); BUN/Creat Ratio 18.9 RATIO (10-20); Calcium,Total 9.1 mg/dL (7.6-11.0); Carbon Dioxide 25.6 mmol/L (21.0-32.0); Chloride 102 mmol/L (98-108); Cholesterol 182 mg/dL (<=200); Globulin 3.4 g/dL (2.2-4.2); Glucose 121 mg/dL (70-99); Low Density Lipoprotein Calc. 104 mg/dL; Potassium 4.2 mmol/L (3.3-5.1); Triglycerides 151 mg/dL; Very Low Density Lipoprotein 30 mg/dL (5-40); cholesterol:hdl ratio screen 3.81
[2024-09-16 09:20] LABS: Free T3 2.8 pg/mL (2.18-3.98); Vitamin B12 1896 pg/mL (180-914); Vitamin D,25 Hydroxy 24.1 ng/mL (30-100)
== END | disposition home or self-care (01) ==
LOC: LAB 06:44
PROVIDERS: PCP Family Medicine; Referring Provider Family Medicine; Visit Provider Family Medicine
DX: E03.9 Hypothyroidism, unspecified (principal); E11.9 Type 2 diabetes mellitus without complications; E55.9 Vitamin D deficiency, unspecified; E53.8 Deficiency of other specified B group vitamins; E78.5 Hyperlipidemia, unspecified; Z51.81 Encounter for therapeutic drug level monitoring
CPT/HCPCS: 36415; 80053; 80061; 82043; 82306; 82570; 82607; 83036; 84439; 84443; 84481